=== PATIENT | male | born 1950 | race Caucasian/White ===

== ENCOUNTER 2020-07-25 10:37 | Outpatient (REF) | payer MEDICARE, MEDICAID, SELFPAY | END 2020-07-25 10:38 | disposition home or self-care (01) | LOC: HO.LAB 10:37 | PROVIDERS: PCP Family Medicine; Visit Provider Internal Medicine | DX: Z20.828 Contact with and (suspected) exposure to other viral communicable diseases (principal) | CPT/HCPCS: 36415; C9803; U0003 ==

== ENCOUNTER 2020-08-15 12:47 | Outpatient (REF) | payer MEDICARE, MEDICAID, SELFPAY ==
[2020-08-15 12:47] VITALS: BP 142/62; PULSE 55; RESP 16; TEMP 36.5; O2SAT 98
[2020-08-15 12:48] VITALS: BMI 40.3
== END 2020-08-15 12:48 | disposition home or self-care (01) ==
LOC: HO.MS 12:47
PROVIDERS: PCP Family Medicine; Visit Provider Ophthalmology
PROC: (CPT 66821; principal; 2020-08-15 13:50)
DX: H26.491 Other secondary cataract, right eye (principal)
CPT/HCPCS: 66821

== ENCOUNTER 2020-08-23 10:25 | Outpatient (REF) | payer MEDICARE, MEDICAID, SELFPAY ==
--- NOTE | 2020-08-23 10:27 | US_ITS ---
EXAMINATION: US RETROPERITONEAL LIMITED (RENAL ONLY) CLINICAL INFORMATION: Cyst of kidney, acquired. COMPARISON: Ultrasound renal 05/25/2019 and 06/30/2018. TECHNIQUE: Real-time imaging of the kidneys. FINDINGS: RIGHT KIDNEY: 12.1 x 5.6 x 7.7 cm (SAG x AP x TRV). The kidney is normal in size, contour, and echogenicity. Renal cortical thickness is normal. No calculi or focal parenchymal lesions. No hydronephrosis. LEFT KIDNEY: 12.8 x 5.9 x 8.5 cm (SAG x AP x TRV). The kidney is normal in size, contour, and echogenicity. Renal cortical thickness is normal. No calculi or focal parenchymal lesions. No hydronephrosis. US/US renal BI IMPRESSION: Unremarkable renal ultrasound.
--- NOTE | 2020-08-23 10:28 | US_ITS ---
EXAMINATION: US EXTRACRANIAL CAROTID DUPLEX, BILATERAL CLINICAL INFORMATION: Dizziness. COMPARISON: Ultrasound carotid 12/16/2013 TECHNIQUE: Real-time ultrasound and Doppler techniques (integrating B-mode 2-D vascular images, Doppler spectral analysis and color-flow Doppler imaging) were utilized to interrogate the extracranial carotid arteries, the vertebral arteries and proximal subclavian arteries bilaterally. The degree of stenosis is determined by criteria similar to NASCET. FINDINGS: Right Side: 1. There is hard atherosclerotic plaque seen in the bifurcation/proximal ICA region. 2. The common carotid artery PSV proximally is 95.1 cm/s and distally 102 cm/s. 3. The proximal internal carotid artery velocities are 78.6 cm/s systolic and 17.2 cm/s diastolic. 4. The proximal external carotid artery PSV is 123 cm/s. 5. The vertebral artery shows normal flow. 6. The subclavian artery waveforms are normal. Left Side: 1. There is hard atherosclerotic plaque seen in the bifurcation/proximal ICA region. 2. The common carotid artery PSV proximally is 112 cm/s and distally 109 cm/s. 3. The proximal internal carotid artery velocities are 81.8 cm/s systolic and 19.8 cm/s diastolic. 4. The proximal external carotid artery PSV is 136 cm/s. 5. The vertebral artery shows antegrade flow. 6. The subclavian artery waveforms are normal. US/US carotid duplex BI IMPRESSION: 1. RIGHT: No hemodynamically significant stenosis. 0-49% range. Hard atherosclerotic plaque at the bulb. 2. LEFT: No hemodynamically significant stenosis. 0-49% range. Hard atherosclerotic plaque at the bulb. 3. There is no change in no significant stenosis category (0-49%) when compared to the previous study dated 12/16/2013.
== END 2020-08-23 10:26 | disposition home or self-care (01) ==
LOC: HO.US 10:25
PROVIDERS: Visit Provider Family Medicine
DX: N28.1 Cyst of kidney, acquired (principal); R42 Dizziness and giddiness
CPT/HCPCS: 76775; 93880

== ENCOUNTER 2020-09-27 06:44 | Day surgery (SDC) | payer MEDICARE, MEDICAID, SELFPAY ==
[2020-09-26 08:13] VITALS: BMI 41.5
--- NOTE | 2020-09-26 08:42 | HO.ANESPROP2 ---
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 Surgical History Surgical History Hx of bilateral cataract extraction Hx of colonoscopy Hx of shoulder surgery S/P excision of lipoma Social History Social History Smoking Status: Former smoker Use of substances other than those prescribed or required for medical reasons: No Advance Directives: No Advance Directives Information Provided: Yes Meds Allergies Allergy/AdvReac Type Severity Reaction Status Date / Time atorvastatin [From Lipitor] Allergy Mild RASH Verified 09/27/20 07:03 metformin [From Glucophage] Allergy Mild RASH Verified 09/27/20 07:03 Home Medications Medication Instructions Recorded Confirmed Last Taken Type Basaglar KwikPen U-100 Insulin 58 unit SUBCUT DAILY 09/21/20 09/21/20 Unknown History Flovent HFA 1 puff PO BID 09/21/20 09/21/20 Unknown History acetaminophen 1 tab PO Q8H PRN 09/21/20 09/21/20 Unknown History albuterol sulfate 2 puff PO Q4-6H PRN 09/21/20 09/21/20 Unknown History baclofen 1 tab PO TID PRN 09/21/20 09/21/20 Unknown History carvedilol 1 tab PO BID 09/21/20 09/21/20 Unknown History cholecalciferol (vitamin D3) 1 tab PO DAILY 09/21/20 09/21/20 Unknown History diphenhydramine HCl [Banophen] 1 cap PO Q6H PRN 09/21/20 09/21/20 Unknown History hydrochlorothiazide 1 tab PO DAILY 09/21/20 09/21/20 Unknown History insulin aspart U-100 [Novolog unit SUBCUT 09/21/20 Unknown History Flexpen U-100 Insulin] lisinopril 1 tab PO DAILY 09/21/20 09/21/20 Unknown History loratadine 1 tab PO DAILY 09/21/20 09/21/20 Unknown History meclizine 1 tab PO TID PRN 09/21/20 09/21/20 Unknown History nitroglycerin mg SUBLINGUAL 09/21/20 Unknown History omeprazole 1 cap PO QAM 09/21/20 09/21/20 Unknown History oxycodone 1 tab PO TID PRN 09/21/20 09/21/20 Unknown History rosuvastatin 1 tab PO DAILY 09/21/20 09/21/20 Unknown History simethicone [Gas Relief Extra 1 tab PO QID PRN 09/21/20 09/21/20 Unknown History Strength] topiramate 1 - 2 tab PO BEDTIME 09/21/20 09/21/20 Unknown History aspirin 09/27/20 09/23/20 07:00 History Exam Exam Date and Time: September 26, 2020 0842 Height,Weight and Vital Signs: Height 5 ft 7.5 in Weight 122.016 kg Narrative Narrative: EKG 06/2020 SB@48 IA conduction delay ECHO 04/2020 LVEF 60-65%, mod LV hypertrophy Endocardium not well visualized therefore WMA cannot be ruled out Gr 1 DD with impaired relax LA mild dilated RV not well visualized, RV mildly enlarged mild MR No pul htn Asc aorta @ 3.8cm Assessment and Plan Assessment Anesthesia Assessment: Chart Reviewed
[2020-09-27 07:25] VITALS: BP 155/72; PULSE 57; RESP 18; TEMP 36.5; O2SAT 96
[2020-09-27 07:26] LABS: Glucose, Whole Blood 103 mg/dL (60-115)
[2020-09-27] MEDS: Lactated Ringers 1,000 ML 100 ML IVCONT (07:40)
--- NOTE | 2020-09-27 08:10 | MHC.SHP ---
Pre-Procedural Eval Section A The patient is an INPATIENT: No Changes since office visit: No Cold of Flu in the past 2 weeks, No New Medical Problems, No Changes in Medication and No Patient answered all questions The History & Physical has been completed within 30 days and I have reviewed it.: Yes Section B Chief Complaint: reflux,bowel habit change Allergies: Allergies Allergy/AdvReac Type Severity Reaction Status Date / Time atorvastatin [From Lipitor] Allergy Mild RASH Verified 09/27/20 07:03 metformin [From Glucophage] Allergy Mild RASH Verified 09/27/20 07:03 Plan I have reviewed the history and physical and performed a pertinent physical examination on my patient. No changes have occurred unless specified.
--- NOTE | 2020-09-27 08:34 | HO.ANESPROP2 ---
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 Surgical History Surgical History Hx of bilateral cataract extraction Hx of colonoscopy Hx of shoulder surgery S/P excision of lipoma Social History Social History Smoking Status: Former smoker Use of substances other than those prescribed or required for medical reasons: No Advance Directives: No Advance Directives Information Provided: Yes Meds Allergies Allergy/AdvReac Type Severity Reaction Status Date / Time atorvastatin [From Lipitor] Allergy Mild RASH Verified 09/27/20 07:03 metformin [From Glucophage] Allergy Mild RASH Verified 09/27/20 07:03 Active Medications: Current Medications Generic Name Dose Route Start Last Admin Trade Name Freq PRN Reason Stop Dose Admin Lactated Ringer's 1,000 mls @ 100 mls/hr 09/27/20 07:00 09/27/20 07:40 Lr IVCONT 100 mls/hr .Q10H RYAN Administration Home Medications Medication Instructions Recorded Confirmed Last Taken Type acetaminophen 1 tab PO Q8H PRN 09/21/20 09/21/20 Unknown History albuterol sulfate 2 puff PO Q4-6H PRN 09/21/20 09/21/20 Unknown History baclofen 1 tab PO TID PRN 09/21/20 09/21/20 Unknown History carvedilol 1 tab PO BID 09/21/20 09/21/20 Unknown History cholecalciferol (vitamin D3) 1 tab PO DAILY 09/21/20 09/21/20 Unknown History diphenhydramine HCl [Banophen] 1 cap PO Q6H PRN 09/21/20 09/21/20 Unknown History fluticasone propionate [Flovent 1 puff PO BID 09/21/20 09/21/20 Unknown History HFA] hydrochlorothiazide 1 tab PO DAILY 09/21/20 09/21/20 Unknown History insulin aspart U-100 [Novolog unit SUBCUT 09/21/20 Unknown History Flexpen U-100 Insulin] insulin glargine [Basaglar KwikPen 58 unit SUBCUT DAILY 09/21/20 09/21/20 Unknown History U-100 Insulin] lisinopril 1 tab PO DAILY 09/21/20 09/21/20 Unknown History loratadine 1 tab PO DAILY 09/21/20 09/21/20 Unknown History meclizine 1 tab PO TID PRN 09/21/20 09/21/20 Unknown History nitroglycerin mg SUBLINGUAL 09/21/20 Unknown History omeprazole 1 cap PO QAM 09/21/20 09/21/20 Unknown History oxycodone 1 tab PO TID PRN 09/21/20 09/21/20 Unknown History rosuvastatin 1 tab PO DAILY 09/21/20 09/21/20 Unknown History simethicone [Gas Relief Extra 1 tab PO QID PRN 09/21/20 09/21/20 Unknown History Strength] topiramate 1 - 2 tab PO BEDTIME 09/21/20 09/21/20 Unknown History aspirin 09/27/20 09/23/20 07:00 History Exam Exam Date and Time: September 27, 2020 0834 Height,Weight and Vital Signs: Height 5 ft 7.5 in Weight 122.016 kg Last Vital Signs Temp 97.7 F 09/27/20 07:25 Pulse 57 09/27/20 07:25 Resp 18 09/27/20 07:25 BP 155/72 H 09/27/20 07:25 Pulse Ox 96 09/27/20 07:25 Pertinent Lab Results Pertinent Lab Results: Laboratory Tests 09/27/20 07:23 POC Glucose 103 Airway Mallampati Class: III TM Dist: >3cm Neck ROM: Full Denture: Upper and Lower
--- NOTE | 2020-09-27 08:53 | PM.OP ---
Brief Operative Note Date of Service: 09/27/20 Pre-op diagnosis: gerd, change in bowels Post-op diagnosis: same Procedure: colonoscopy,egd Surgeon: Alex Murrell Anesthesia: MAC Estimated blood loss (mL): 5 Pathology: other (bxs antrum,egj,polyps x2) Condition: stable Disposition: PACU
[2020-09-27 08:54] VITALS: BP 108/47; PULSE 64; RESP 16; TEMP 36.3; O2SAT 99
[2020-09-27 09:09] VITALS: BP 136/63; PULSE 55; RESP 18; TEMP 36.2; O2SAT 97
--- NOTE | 2020-09-27 09:34 | OP_ITS ---
SURGEON: Alex Murrell MD INDICATIONS: 1. Gastroesophageal reflux disease. 2. Change in bowel habits. PREOPERATIVE DIAGNOSIS: POSTOPERATIVE DIAGNOSIS: PROCEDURE PERFORMED: ESTIMATED BLOOD LOSS: COMPLICATIONS: ANESTHESIA: ASSISTANTS: SPECIMENS: PROCEDURES PERFORMED: 1. Upper endoscopy with biopsy. 2. Colonoscopy to the terminal ileum with biopsy. MEDICATIONS: Monitored anesthesia care. DESCRIPTION OF PROCEDURE: History and physical performed. The risks and benefits of the procedure were explained to the patient. Informed consent was obtained and the patient was placed in left lateral decubitus position. The Olympus video gastroscope was introduced into the esophagus, stomach, and duodenum. Examination was performed and the scope was removed. He was repositioned for colonoscopy. A digital rectal exam was performed and was found to be normal. The Olympus pediatric video colonoscope was introduced into the rectum and advanced to the cecum without difficulty. The cecum was identified by transillumination, palpation, and identification of ileocecal valve. Examination was performed and the scope was removed. He tolerated both procedures well and was taken to recovery area in stable condition. FINDINGS: UPPER ENDOSCOPY: Esophagus: The esophagus was normal. There was no esophagitis. The EG junction was slightly irregular, this was biopsied. Stomach: Stomach showed no evidence of masses, ulcers, or polyps. Antral biopsies were obtained to rule out H pylori. Duodenum: The bulb and second portion were normal. COLONOSCOPY: The terminal ileum was examined. There was less than 1 mm nonspecific area of minimal erosion approximately 15 cm in from the ileocecal valve. There was no other evidence of ileitis or Crohn disease. The colonic mucosa was within normal limits without evidence of masses or ulcers. Two polyps were identified, both measured less than 5 mm and were removed with biopsy forceps. These were located at 95 and 70 cm. No other polyps were identified. Retroflexed examination showed small internal hemorrhoids. The quality of the prep was good. IMPRESSION: 1. Gastroesophageal reflux disease. 2. Colon polyps. RECOMMENDATION: Follow up the biopsy results. MD JO ANN Hua/CHARU / [id number]
== END 2020-09-27 09:39 | disposition home or self-care (01) ==
PROVIDERS: PCP Family Medicine; Visit Provider Internal Medicine Gastroenterology
PROC: (CPT 45380; principal; 2020-09-27 08:00)
DX: R19.4 Change in bowel habit (principal); D12.3 Benign neoplasm of transverse colon; D12.4 Benign neoplasm of descending colon; K21.9 Gastro-esophageal reflux disease without esophagitis; I10 Essential (primary) hypertension; G47.33 Obstructive sleep apnea (adult) (pediatric); E11.9 Type 2 diabetes mellitus without complications; Z79.4 Long term (current) use of insulin; Z99.89 Dependence on other enabling machines and devices; Z79.899 Other long term (current) drug therapy; Z88.8 Allergy status to other drugs, medicaments and biological substances
CPT/HCPCS: 45380; 43239; 82947; 88305; 88342

== ENCOUNTER 2020-10-26 11:47 | Outpatient (REF) | payer MEDICARE, MEDICAID, SELFPAY ==
[2020-10-26 14:05] LABS: MANUAL DIFF FLAG NO
[2020-10-26 14:17] LABS: Basophils Percent Auto 0.5 % (0-2); Eosinophils Absolute Auto 0.3 X10*3/uL (0.0-0.4); Eosinophils Percent Auto 3.9 % (0-4); Hematocrit 39.8 % (42-52); Hemoglobin 12.7 g/dl (14.0-18.0); Imm Gran Abs Auto 0.04 X10*3/uL (0.00-0.03); Imm Gran Pct Auto 0.5 % (0.0-0.4); Lymphocytes Absolute Auto 2.1 X10*3/uL (1.2-4.9); Lymphocytes Percent Auto 25.6 % (20-40); Mean Corpuscular HGB Conc 31.9 g/dl (31.0-36.0); Mean Corpuscular Hemoglobin 27.5 pg (27.0-33.0); Mean Corpuscular Volume 86.3 fL (80-98); Mean Platelet Volume 9.7 fL (9.4-12.4); Monocytes Absolute Auto 0.7 X10*3/uL (0.1-1.2); Monocytes Percent Auto 8.6 % (2-11); Neutrophils Absolute Auto 5.1 X10*3/uL (2.0-8.3); Neutrophils Percent Auto 60.9 % (45-73); Platelet Count 273 X10*3/uL (160-400); Red Blood Count 4.61 X10*6/uL (4.60-5.80); Red Cell Distribution Width 13.3 % (11.0-16.0); White Blood Count 8.3 X10*3/uL (4.8-10.8)
[2020-10-26 18:11] LABS: Alanine Aminotransferase 19 U/L (0-40); Albumin Level 3.8 g/dL (3.5-5.0); Alkaline Phosphatase 69 U/L (39-117); Aspartate Amino Transferase 19 U/L (5-37); Bilirubin Direct 0.2 mg/dL (0.0-0.5); Bilirubin Total 0.4 mg/dL (0.0-1.0); Lipase 17 U/L (8-78); Total Protein 6.8 g/dL (6.5-8.0)
[2020-10-26 18:21] LABS: Thyroid Stimulating Hormone 0.92 uIU/mL (0.32-4.0)
== END 2020-10-26 11:48 | disposition home or self-care (01) ==
LOC: HO.10HDL 11:47
PROVIDERS: Absent Provider Family Medicine; Visit Provider Internal Medicine Gastroenterology
DX: R19.4 Change in bowel habit (principal)
CPT/HCPCS: 36415; 80076; 83690; 84443; 85025

== ENCOUNTER 2021-02-10 07:56 | Outpatient (REF) | payer MEDICARE, MEDICAID, SELFPAY ==
--- NOTE | ~2021-02-10 | XR_ITS ---
EXAMINATION: XR SHOULDER, LEFT CLINICAL INFORMATION: Pain left shoulder. COMPARISON: None TECHNIQUE: Three views of the left shoulder. FINDINGS: There is left shoulder glenohumeral loss of joint space without bony erosive changes. No visible acute fracture, dislocation or subluxation seen. The soft tissues are normal. XR/XR shoulder LT min 2V IMPRESSION: Mild loss of left glenohumeral joint space without any visible fracture, dislocation or bony erosive changes. The soft tissues are normal.
== END 2021-02-10 07:57 | disposition home or self-care (01) ==
LOC: HO.HOSX 07:56
PROVIDERS: Visit Provider Orthopaedic Surgery
DX: M25.512 Pain in left shoulder (principal)
CPT/HCPCS: 73030; 99202

== ENCOUNTER → 2021-02-17 10:20 | Outpatient (BNVA) | payer MEDICARE, MEDICAID, SELFPAY | PROVIDERS: PCP Family Medicine; Referring Provider Family Medicine; Visit Provider Surgery | DX: L72.0 Epidermal cyst (principal) | CPT/HCPCS: 99202 ==

== ENCOUNTER 2021-03-14 07:35 | Outpatient (REF) | payer MEDICARE, MEDICAID, SELFPAY ==
[2021-03-14 07:45] VITALS: BP 144/36; PULSE 52; RESP 16; TEMP 36.4; O2SAT 99
[2021-03-14 07:46] VITALS: BMI 36.5
--- NOTE | 2021-03-14 08:25 | W.PM.OPN ---
Operative Note Operative Note Date of Service: 03/14/21 Narrative: Preoperative diagnosis: Epidermal inclusion cyst right posterior scalp Postoperative diagnosis: Same Procedure: Excision of epidermal inclusion cyst right posterior scalp Surgeon: Joseph Muir MD Tree Killer: No physician Anesthesia: Local Indications for procedure: 70-year-old male patient presenting with a previously infected cyst of the posterior scalp presenting for excision. Operative findings: 0.5 cm epidermal inclusion cyst with no evidence of acute infection. Specimen: Epidermal inclusion cyst right posterior scalp Estimated blood loss: 2 mL Complications: None Procedure details: Patient was brought to the minor surgery suite and placed in a left lateral decubitus position. The site of surgery was confirmed by the patient in the posterior right scalp. After assuring informed consent the skin was prepped with Betadine and draped in a sterile fashion. Local anesthesia consisting 1% lidocaine with epinephrine was then infiltrated around the cyst. An elliptical incision was then created with a scalpel carried out through subcutaneous tissue and around the cyst wall. The cyst was sent to pathology for further examination. Skin was then closed using 3 interrupted 3-0 Prolene sutures. Bacitracin was then applied. The patient tolerated the procedure well. He was discharged to home in stable condition.
== END 2021-03-14 07:36 | disposition home or self-care (01) ==
LOC: HO.MS 07:35
PROVIDERS: PCP Family Medicine; Visit Provider Surgery
PROC: (CPT 11420; principal; 2021-03-14 08:00)
DX: L72.0 Epidermal cyst (principal)
CPT/HCPCS: 11420; 88304

== ENCOUNTER → 2021-03-23 11:23 | Outpatient (BNVA) | payer MEDICARE, MEDICAID, SELFPAY | PROVIDERS: PCP Family Medicine; Referring Provider Family Medicine; Visit Provider Surgery | DX: L72.0 Epidermal cyst (principal) | CPT/HCPCS: 99212 ==

== ENCOUNTER 2021-06-07 11:20 | Emergency (ER) | payer MEDICARE, MEDICAID, SELFPAY ==
--- NOTE | ~2021-06-07 | XR_ITS ---
EXAMINATION: XR CHEST CLINICAL INFORMATION: Chest pain. COMPARISON: None TECHNIQUE: Frontal view of the chest was obtained. FINDINGS: No significant abnormality is noted involving the heart, lungs, mediastinum, bony thorax or soft tissues. XR/XR chest 1V IMPRESSION: Unremarkable chest examination.
[2021-06-07 11:37] VITALS: BP 140/60; PULSE 61; RESP 19; TEMP 36.4; O2SAT 99; BMI 36.1
--- NOTE | 2021-06-07 11:38 | ECG_ITS ---
Test Reason : chest pain Blood Pressure : / mmHG Vent. Rate : 048 BPM Atrial Rate : 048 BPM P-R Int : 220 ms QRS Dur : 090 ms QT Int : 416 ms P-R-T Axes : 031 -16 010 degrees QTc Int : 371 ms Sinus bradycardia with 1st degree A-V block Otherwise normal ECG When compared with ECG of 14-DEC-2015 09:44, No significant change was found Referred By: Heber Falcon Electronically Signed By:RINA BAILEY MD
--- NOTE | 2021-06-07 11:40 | ED_ITS ---
HPI - Chest Pain General Chief Complaint: Chest Pain Stated Complaint: chest pain, hiccups for 3 days, hx of heart attack Time Seen by Provider: 06/07/21 11:37 Source: patient Limitations: no limitations History of Present Illness HPI narrative: This is a 70-year-old male with a history of coronary artery disease, stenting several years ago, who notes that he needs a replacement part for CPAP machine and has not been able to use a CPAP machine at night. The patient has had hiccups for 3 days and when he gets a lot he tends to get chest pain. This morning he had chest pain and took a nitroglycerin with relief, 1/2 hour later he again had some chest pain and took and another nitroglycerin. Denies chest pain now. He has had some acid reflux symptoms with some green material coming up in his chest but denies actually vomiting. He denies abdominal pain. Denies any swelling in his lower extremities. Feels short of breath only at night. Denies any unusual sweats. He notes that he had an echocardiogram done 2 days ago ordered by Dr. Russell, his child care director, but he does not know the results of that study. Related Data Home Medications Medication Instructions Recorded Confirmed acetaminophen 650 mg 1 tab PO Q8H PRN 09/21/20 02/17/21 tablet,extended release albuterol sulfate 90 mcg/actuation 2 puff PO Q4-6H PRN 09/21/20 02/17/21 aerosol inhaler baclofen 10 mg tablet 1 tab PO TID PRN 09/21/20 02/17/21 carvedilol 3.125 mg tablet 1 tab PO BID 09/21/20 02/17/21 cholecalciferol (vitamin D3) 50 1 tab PO DAILY 09/21/20 02/17/21 mcg (2,000 unit) tablet diphenhydramine HCl 25 mg capsule 1 cap PO Q6H PRN 09/21/20 02/17/21 (Banophen) fluticasone propionate 110 1 puff PO BID 09/21/20 02/17/21 mcg/actuation HFA aerosol inhaler (Flovent HFA) hydrochlorothiazide 25 mg tablet 1 tab PO DAILY 09/21/20 02/17/21 insulin aspart U-100 100 unit/mL unit SUBCUT 09/21/20 02/17/21 (3 mL) subcutaneous pen (Novolog Flexpen U-100 Insulin aspart) insulin glargine 100 unit/mL (3 58 unit SUBCUT DAILY 09/21/20 02/17/21 mL) subcutaneous pen (Basaglar KwikPen U-100 Insulin) lisinopril 40 mg tablet 1 tab PO DAILY 09/21/20 02/17/21 loratadine 10 mg tablet 1 tab PO DAILY 09/21/20 02/17/21 meclizine 12.5 mg tablet 1 tab PO TID PRN 09/21/20 02/17/21 nitroglycerin 0.4 mg sublingual mg SUBLINGUAL 09/21/20 02/17/21 tablet omeprazole 40 mg capsule,delayed 1 cap PO QAM 09/21/20 02/17/21 release oxycodone 15 mg tablet 1 tab PO TID PRN 09/21/20 02/17/21 rosuvastatin 20 mg tablet 1 tab PO DAILY 09/21/20 02/17/21 simethicone 125 mg chewable tablet 1 tab PO QID PRN 09/21/20 02/17/21 (Gas Relief Extra Strength) topiramate 25 mg tablet 1 - 2 tab PO BEDTIME 09/21/20 02/17/21 aspirin 09/27/20 02/17/21 Allergies Allergy/AdvReac Type Severity Reaction Status Date / Time atorvastatin [From Lipitor] Allergy Mild RASH Verified 06/07/21 11:37 metformin [From Glucophage] Allergy Mild RASH Verified 06/07/21 11:37 Review of Systems Review of Systems: Yes all other systems are reviewed and are negative Constitutional: Constitutional: Reports as per HPI and Denies fever(s) Eyes: Eyes: Reports as per HPI and Reports no additional eye complaints ENT: Reports system reviewed and no additional complaints, except as documented, Reports as per HPI, Denies nasal congestion, Denies nasal discharge and Denies sore throat Cardiovascular: Cardiovascular: Reports as per HPI, Reports chest pain and Reports dyspnea Respiratory: Respiratory: Reports as per HPI, Denies cough and Reports dyspnea Gastrointestinal: Gastrointestinal: Reports as per HPI, Denies abdominal pain, Denies diarrhea, Reports nausea (GERD/dry heaves/hicupps) and Denies vomiting Genitourinary: Genitourinary: Reports as per HPI, Denies hematuria, Denies dysuria and Denies urinary frequency Musculoskeletal: Musculoskeletal: Reports no additional musculoskeletal complaints and Denies numbness Integumentary/Breasts: Skin/Breast: Reports as per HPI and Denies rash Neurologic: Reports as per HPI, Denies focal weakness, Denies numbness and Denies Sensory deficit (Neuro) Psychiatric: Psychiatric: Reports no additional psychiatric complaints and Reports as per HPI Endocrine: Endocrine: Reports no additional endocrine complaints and Reports as per HPI Hematologic/Lymphatic: Hematologic/Lymphatic: Reports no additional hematologic/lymphatic complaints, Reports as per HPI and Reports other (No peripheral edema) [facility] Past Medical History Medical History Angina pectoris Back pain CAD (coronary artery disease) Depression Diabetes Elevated cholesterol GERD (gastroesophageal reflux disease) History of colitis HTN (hypertension) Insomnia Myocardial infarction On beta manuel at home 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 Surgical History Hx of bilateral cataract extraction Hx of colonoscopy Hx of shoulder surgery S/P excision of lipoma Social History Social History Alcohol intake: never Patient Tobacco Use Status: Never used Tobacco Use of substances other than those prescribed or required for medical reasons: No Advance Directives: No Advance Directives Information Provided: No Current occupational status: employed 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 Exam Vital Signs: Vital Signs: Last Vital Signs Temp 97.7 F 06/07/21 12:07 Pulse 55 06/07/21 13:58 Resp 98 H 06/07/21 13:58 BP 143/62 H 06/07/21 13:58 Pulse Ox 99 06/07/21 13:58 Body Mass Index 36.1 Const: Other: Patient well appearing, does not appear uncomfortable, smiling and joking, moderately obese General: cooperative, no acute distress and alert Orientation/consciousness: patient oriented x3 HENMT: Head: Yes normal to inspection Eyes: General: appearance normal, both eyes and all related structures Eyelids: Yes eyelids normal Conjunctivae: conjunctivae normal Pupils: Equal, round and reactive pupils present Neck: Neck: Yes normal visual inspection and Yes supple Chest: Chest palpation & inspection: normal inspection of the chest Resp: Effort & Inspection: normal respiratory effort Auscultation: clear to auscultation bilaterally Cardio: Rate: regular rate Rhythm: regular rhythm Heart sounds: S1 normal heart sound present, S2 normal heart sound present, no gallops, no murmurs and no rubs GI: Palpation (GI): Soft to palpation, nontender and Other GI palpation findings present (Non-distended) Auscultation: normal bowel sounds Skin: General skin exam: no rashes or lesions noted Neuro: General: patient oriented x3, no focal motor deficits and CN's II-XI intact bilaterally Cranial nerves: Yes Equal, round and reactive pupils present Cognition (Neuro): normal cognition Motor exam (neuro): 5/5 motor strength present throughout Sensory Exam: No Sensory deficit (Neuro) Extrem: General: Yes normal to inspection and Yes no pedal edema Psych: Appearance: grossly normal Affect: normal affect MDM - Chest Pain MDM Narrative Medical decision making narrative: Patient here for transient chest pain in the setting of hiccups for 3 days and what sounds like some reflux symptoms. Patient recently had an echocardiogram, 2 days ago which shows no change from prior. Results of the echo were obtained from the patient's child care director. Patient's troponin is negative and his EKG is unremarkable. Patient has had issues with his CPAP machine as it was recalled and has been unable to have it replaced. He has called his primary care physician, also went to [facility] where it was purchased, has also call the company but he said many others are in his position and there was a wait of weeks. The patient reports that he is traveling to [place] tomorrow, and want to make sure that he was okay to travel. No evidence of unstable angina or acute coronary syndrome. Lab Data Attestation: I reviewed the patient's lab results. Result diagrams: 06/07/21 11:49 06/07/21 11:49 Labs: Lab Results 06/07/21 06/07/21 06/07/21 Range/Units 11:49 11:49 11:49 WBC 7.9 (4.8-10.8) X10*3/uL RBC 4.73 (4.60-5.80) X10*6/uL Hgb 13.2 L (14.0-18.0) g/dl Hct 40.0 L (42.0-52.0) % MCV 84.6 (80.0-98.0) fL MCH 27.9 (27.0-33.0) pg MCHC 33.0 (31.0-36.0) g/dl RDW 13.2 (11.0-16.0) % Plt Count 241 (160-400) X10*3/uL MPV 8.9 L (9.4-12.4) fL Immature Gran % (Auto) 0.1 (0.0-0.4) % Neut % (Auto) 60.8 (45-73) % Lymph % (Auto) 24.5 (20-40) % [place] % (Auto) 9.2 (2-11) % Eos % (Auto) 5.0 H (0-4) % Baso % (Auto) 0.4 (0-2) % Lymph # (Auto) 1.9 (1.2-4.9) X10*3/uL [place] # (Auto) 0.7 (0.1-1.2) X10*3/uL Eos # (Auto) 0.4 (0.0-0.4) X10*3/uL Baso # (Auto) 0.0 (0.0-0.2) X10*3/uL Abs Immat Gran (auto) 0.01 (0.00-0.03) X10*3/uL Absolute Neuts (auto) 4.8 (2.0-8.3) x10*3/uL Absolute Nucleated RBC 0.000 (0.0-0.012) X10*3/uL Nucleated RBC % (auto) 0.0 (0.0-0.2) /100WBC Sodium 137 (135-145) mmol/L Potassium 4.0 (3.3-5.1) mmol/L Chloride 101 (96-108) mmol/L Carbon Dioxide 29 (22-29) mmol/L Anion Gap 11 L (12-20) BUN 21 H (9-16) mg/dL Creatinine 0.96 (0.5-1.4) mg/dL Estim Creat Clear Calc 85.2 Estimated GFR > 60 Random Glucose 158 H (60-115) mg/dL Calcium 8.9 (8.4-10.2) mg/dL Troponin I High Sens < 3.5 (<3.5-35.0) ng/L Imaging Data Chest x-ray: Radiologist's impression: FINDINGS: No significant abnormality is noted involving the heart, lungs, mediastinum, bony thorax or soft tissues. XR/XR chest 1V IMPRESSION: Unremarkable chest examination. ? ECG Data ECG #1: Attestation: I personally reviewed and interpreted this ECG as follows: ECG interpretation date: 06/07/21 ECG interpretation time: 12:19 Interpretation: Sinus bradycardia the with a rate of 48. No ST elevation or depression. Intraventricular conduction delay noted. Normal QRS axis. First-degree AV block. Discharge Plan Discharge Clinical Impression: Nonspecific chest pain Patient Disposition: Home, Self-Care Instructions: Chest Pain (ED) Additional Instructions: Follow-up with your primary care physician. Take her medications as usual. Return for any new or worsened symptoms. Continue pursuing getting your CPAP machine replaced. Prescriptions: No Action topiramate 25 mg tablet 1 - 2 tab PO BEDTIME RF: 0 meclizine 12.5 mg tablet 1 tab PO TID PRN (Reason: Dizziness) RF: 0 omeprazole 40 mg capsule,delayed release(DR/EC) 1 cap PO QAM RF: 0 carvedilol 3.125 mg tablet 1 tab PO BID RF: 0 acetaminophen 650 mg tablet extended release 1 tab PO Q8H PRN (Reason: Pain) RF: 0 oxycodone 15 mg tablet 1 tab PO TID PRN (Reason: Pain) RF: 0 baclofen 10 mg tablet 1 tab PO TID PRN (Reason: muscle spasm) RF: 0 diphenhydramine HCl [Banophen] 25 mg capsule 1 cap PO Q6H PRN (Reason: itch) RF: 0 nitroglycerin 0.4 mg tablet, sublingual sublingual RF: 0 simethicone [Gas Relief Extra Strength] 125 mg tablet,chewable 1 tab PO QID PRN (Reason: gas) RF: 0 hydrochlorothiazide 25 mg tablet 1 tab PO DAILY RF: 0 albuterol sulfate 90 mcg/actuation HFA aerosol inhaler 2 puff PO Q4-6H PRN (Reason: Wheezing) RF: 0 lisinopril 40 mg tablet 1 tab PO DAILY RF: 0 loratadine 10 mg tablet 1 tab PO DAILY RF: 0 Flovent HFA 110 mcg/actuation HFA aerosol inhaler 1 puff PO BID RF: 0 insulin aspart U-100 [Novolog Flexpen U-100 Insulin] 100 unit/mL (3 mL) insulin pen subcut RF: 0 rosuvastatin 20 mg tablet 1 tab PO DAILY RF: 0 Basaglar KwikPen U-100 Insulin 100 unit/mL (3 mL) insulin pen 58 unit subcut DAILY RF: 0 cholecalciferol (vitamin D3) 50 mcg (2,000 unit) tablet 1 tab PO DAILY RF: 0 aspirin 81 mg RF: 0 Interventions: ED Discharge Assessment Last Done: 06/07/21 14:02 Discharge Date/Time: 06/07/21 14:07
[2021-06-07] MEDS: Aspirin 81 MG TAB.CHEW 324 MG PO (11:43)
[2021-06-07 11:55] LABS: MANUAL DIFF FLAG NO
[2021-06-07 11:57] LABS: Basophils Percent Auto 0.4 % (0-2); Eosinophils Absolute Auto 0.4 X10*3/uL (0.0-0.4); Hemoglobin 13.2 g/dl (14.0-18.0); Imm Gran Abs Auto 0.01 X10*3/uL (0.00-0.03); Imm Gran Pct Auto 0.1 % (0.0-0.4); Lymphocytes Absolute Auto 1.9 X10*3/uL (1.2-4.9); Lymphocytes Percent Auto 24.5 % (20-40); Mean Corpuscular Hemoglobin 27.9 pg (27.0-33.0); Mean Corpuscular Volume 84.6 fL (80.0-98.0); Mean Platelet Volume 8.9 fL (9.4-12.4); Monocytes Absolute Auto 0.7 X10*3/uL (0.1-1.2); Monocytes Percent Auto 9.2 % (2-11); Neutrophils Absolute Auto 4.8 x10*3/uL (2.0-8.3); Neutrophils Percent Auto 60.8 % (45-73); Platelet Count 241 X10*3/uL (160-400); Red Blood Count 4.73 X10*6/uL (4.60-5.80); Red Cell Distribution Width 13.2 % (11.0-16.0); White Blood Count 7.9 X10*3/uL (4.8-10.8)
[2021-06-07 12:07] VITALS: BP 135/56; PULSE 51; RESP 12; TEMP 36.5; O2SAT 95
[2021-06-07 12:23] LABS: Anion Gap 11 (12-20); Blood Urea Nitrogen 21 mg/dL (9-16); Calcium 8.9 mg/dL (8.4-10.2); Carbon Dioxide 29 mmol/L (22-29); Chloride 101 mmol/L (96-108); Creatinine Clr Calc Pharmacy 85.2; Estimated Glomerular Filt Rate > 60; Glucose Random 158 mg/dL (60-115); Sodium 137 mmol/L (135-145)
[2021-06-07 12:30] LABS: Troponin-I High Sensitivity < 3.5 ng/L (<3.5-35.0)
[2021-06-07 12:49] VITALS: PULSE 44
[2021-06-07 13:58] VITALS: BP 143/62; PULSE 55; RESP 98; O2SAT 99
== END 2021-06-07 14:07 | disposition home or self-care (01) ==
PROVIDERS: Emergency Provider Emergency Medicine; PCP Family Medicine
DX: R07.9 Chest pain, unspecified (principal); I25.10 Atherosclerotic heart disease of native coronary artery without angina pectoris; I10 Essential (primary) hypertension; E11.9 Type 2 diabetes mellitus without complications; G47.33 Obstructive sleep apnea (adult) (pediatric); I25.2 Old myocardial infarction; Z79.899 Other long term (current) drug therapy; Z95.5 Presence of coronary angioplasty implant and graft; Z91.19 Patient's noncompliance with other medical treatment and regimen
CPT/HCPCS: 36415; 71045; 80048; 84484; 85025; 93005; 99284; 99285

== ENCOUNTER 2021-07-18 12:00 | Outpatient (REF) | payer MEDICARE, MEDICAID, SELFPAY | END 2021-07-18 12:01 | disposition home or self-care (01) | LOC: HO.LAB 12:00 | PROVIDERS: Visit Provider Internal Medicine | DX: Z20.822 Contact with and (suspected) exposure to COVID-19 (principal) | CPT/HCPCS: 36415; 87635; C9803 ==

== ENCOUNTER 2021-10-03 12:47 | Emergency (ER) | payer MEDICARE, MEDICAID, SELFPAY ==
--- NOTE | 2021-10-03 12:56 | ECG_ITS ---
Test Reason : CP Blood Pressure : / mmHG Vent. Rate : 046 BPM Atrial Rate : 049 BPM P-R Int : 000 ms QRS Dur : 092 ms QT Int : 418 ms P-R-T Axes : 040 -12 026 degrees QTc Int : 365 ms Artifact in tracing Sinus bradycardia Apart from artifact, no clear abnormality otherwise When compared with ECG of 07-JUN-2021 12:05, No significant changes seen Referred By: Generic ED Physician Electronically Signed By:CHRISTIAN HURD
[2021-10-03 13:32] VITALS: BP 132/43; PULSE 44; RESP 20; TEMP 36.8; O2SAT 100; BMI 36.0
[2021-10-03 14:21] LABS: MANUAL DIFF FLAG NO
[2021-10-03 14:26] LABS: Basophils Absolute Auto 0.1 X10*3/uL (0.0-0.2); Basophils Percent Auto 0.6 % (0-2); Eosinophils Absolute Auto 0.4 X10*3/uL (0.0-0.4); Eosinophils Percent Auto 5.5 % (0-4); Hematocrit 41.6 % (42.0-52.0); Hemoglobin 13.1 g/dl (14.0-18.0); Imm Gran Abs Auto 0.02 X10*3/uL (0.00-0.03); Imm Gran Pct Auto 0.3 % (0.0-0.4); Lymphocytes Absolute Auto 2.2 X10*3/uL (1.2-4.9); Lymphocytes Percent Auto 28.2 % (20-40); Mean Corpuscular HGB Conc 31.5 g/dl (31.0-36.0); Mean Corpuscular Hemoglobin 27.6 pg (27.0-33.0); Mean Corpuscular Volume 87.6 fL (80.0-98.0); Mean Platelet Volume 9.1 fL (9.4-12.4); Monocytes Absolute Auto 0.7 X10*3/uL (0.1-1.2); Monocytes Percent Auto 8.5 % (2-11); Neutrophils Absolute Auto 4.4 x10*3/uL (2.0-8.3); Neutrophils Percent Auto 56.9 % (45-73); Platelet Count 237 X10*3/uL (160-400); Red Blood Count 4.75 X10*6/uL (4.60-5.80); Red Cell Distribution Width 13.3 % (11.0-16.0); White Blood Count 7.8 X10*3/uL (4.8-10.8)
[2021-10-03 14:44] LABS: Anion Gap 11 (12-20); Blood Urea Nitrogen 18 mg/dL (9-16); Calcium 9.3 mg/dL (8.4-10.2); Carbon Dioxide 31 mmol/L (22-29); Chloride 102 mmol/L (96-108); Creatinine Clr Calc Pharmacy 88.5; Estimated Glomerular Filt Rate > 60; Glucose Random 136 mg/dL (60-115); Potassium 4.2 mmol/L (3.3-5.1); Sodium 140 mmol/L (135-145)
[2021-10-03 14:50] LABS: Troponin-I High Sensitivity < 3.5 ng/L (<3.5-35.0)
--- NOTE | 2021-10-03 17:19 | ED_ITS ---
HPI - Chest Pain General Chief Complaint: Chest Pain Stated Complaint: L side chest pains Time Seen by Provider: 10/03/21 17:19 Source: patient Mode of arrival: ambulatory Limitations: no limitations History of Present Illness HPI narrative: At 3am he had palpitations with left arm pain. The pain woke him up from sleep, he felt short of breath. Patient has constant palpitations. He has been belching and nauseated. Recent holter monitor for 15 days was normal MD complaint: other (palpitations) Pertinent past history: coronary artery disease and other (DM, HTN) Onset (ago): hour(s) Timing of current episode: episodic Onset: during rest Severity: mild Quality: other Relieving factors: nothing Exacerbating factors: nothing Associated symptoms: palpitations Treatment prior to arrival: none Risk Factors Coronary artery disease risk factors: diabetes, hyperlipidemia and hypertension Related Data Home Medications Medication Instructions Recorded Confirmed acetaminophen 650 mg 1 tab PO Q8H PRN 09/21/20 02/17/21 tablet,extended release albuterol sulfate 90 mcg/actuation 2 puff PO Q4-6H PRN 09/21/20 02/17/21 aerosol inhaler baclofen 10 mg tablet 1 tab PO TID PRN 09/21/20 02/17/21 carvedilol 3.125 mg tablet 1 tab PO BID 09/21/20 02/17/21 cholecalciferol (vitamin D3) 50 1 tab PO DAILY 09/21/20 02/17/21 mcg (2,000 unit) tablet diphenhydramine HCl 25 mg capsule 1 cap PO Q6H PRN 09/21/20 02/17/21 (Banophen) fluticasone propionate 110 1 puff PO BID 09/21/20 02/17/21 mcg/actuation HFA aerosol inhaler (Flovent HFA) hydrochlorothiazide 25 mg tablet 1 tab PO DAILY 09/21/20 02/17/21 insulin aspart U-100 100 unit/mL unit SUBCUT 09/21/20 02/17/21 (3 mL) subcutaneous pen (Novolog Flexpen U-100 Insulin aspart) insulin glargine 100 unit/mL (3 58 unit SUBCUT DAILY 09/21/20 02/17/21 mL) subcutaneous pen (Basaglar KwikPen U-100 Insulin) lisinopril 40 mg tablet 1 tab PO DAILY 09/21/20 02/17/21 loratadine 10 mg tablet 1 tab PO DAILY 09/21/20 02/17/21 meclizine 12.5 mg tablet 1 tab PO TID PRN 09/21/20 02/17/21 nitroglycerin 0.4 mg sublingual mg SUBLINGUAL 09/21/20 02/17/21 tablet omeprazole 40 mg capsule,delayed 1 cap PO QAM 09/21/20 02/17/21 release oxycodone 15 mg tablet 1 tab PO TID PRN 09/21/20 02/17/21 rosuvastatin 20 mg tablet 1 tab PO DAILY 09/21/20 02/17/21 simethicone 125 mg chewable tablet 1 tab PO QID PRN 09/21/20 02/17/21 (Gas Relief Extra Strength) topiramate 25 mg tablet 1 - 2 tab PO BEDTIME 09/21/20 02/17/21 aspirin 09/27/20 02/17/21 Allergies Allergy/AdvReac Type Severity Reaction Status Date / Time atorvastatin [From Lipitor] Allergy Mild RASH Verified 06/07/21 11:37 metformin [From Glucophage] Allergy Mild RASH Verified 06/07/21 11:37 Review of Systems Constitutional: Constitutional: Reports no additional constitutional complaints Eyes: Eyes: Reports no additional eye complaints ENT: Denies dizziness Cardiovascular: Cardiovascular: Reports no additional cardiovascular complaints Respiratory: Respiratory: Reports as per HPI Gastrointestinal: Gastrointestinal: Reports no additional gastrointestinal complaints Musculoskeletal: Musculoskeletal: Reports no additional musculoskeletal complaints Integumentary/Breasts: Skin/Breast: Denies rash Neurologic: Reports system reviewed and no additional complaints, except as documented, Denies dizziness and Denies Sensory deficit (Neuro) Psychiatric: Psychiatric: Denies anxiety PMFSH Past Medical History Medical History Angina pectoris Back pain CAD (coronary artery disease) Depression Diabetes Elevated cholesterol GERD (gastroesophageal reflux disease) History of colitis HTN (hypertension) Insomnia Myocardial infarction On beta manuel at home 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 Surgical History Hx of bilateral cataract extraction Hx of colonoscopy Hx of shoulder surgery S/P excision of lipoma Social History Social History Alcohol intake: never Patient Tobacco Use Status: Never used Tobacco Advance Directives: No Advance Directives Information Provided: No Current occupational status: employed 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 Exam Vital Signs: Vital Signs: Last Vital Signs Temp 97.6 F 10/03/21 19:43 Pulse 43 L 10/03/21 19:43 Resp 20 10/03/21 19:43 BP 151/66 H 10/03/21 19:43 Pulse Ox 97 10/03/21 19:43 BMI result Body Mass Index 36.0 Const: General: healthy appearing Nutritional Appearance: average body habitus Orientation/consciousness: oriented to person and patient oriented x3 Limitations: no limitations HENMT: Head: Yes normal to inspection Ears: external ears normal General nose exam: Normal external nose present Mouth: Normal oral and palatal mucosa present and oropharynx normal Throat: Yes posterior oropharynx normal Eyes: General: appearance normal, both eyes and all related structures Neck: Other: supple Neck: Yes normal visual inspection Chest: Chest palpation & inspection: normal inspection of the chest Resp: Auscultation: clear to auscultation bilaterally Cardio: Jugular venous distension: no JVD Rate: regular rate Rhythm: regular rhythm Heart sounds: S1 normal heart sound present and S2 normal heart sound present GI: Inspection: Yes normal to inspection Palpation (GI): Soft to palpation, nontender and No hepatosplenomegaly present Auscultation: normal bowel sounds : General: Yes no CVA tenderness Back/Spine/Pelvis: Back: no CVA tenderness Skin: General skin exam: no rashes or lesions noted Neuro: General: oriented to person and patient oriented x3 Cranial nerves: Yes CN's II-XII intact bilaterally Motor exam (neuro): 5/5 motor strength present throughout Sensory Exam: No Sensory deficit (Neuro) Extrem: General: Yes normal to inspection Psych: Appearance: grossly normal Course Reevaluation(s) Reevaluation #1: patient with normal EKG and repeat troponin, his symptoms were mostly palpitations doubt cardiac event. Will dc home Time: 20:45 MDM - Chest Pain Lab Data Result diagrams: 10/03/21 14:13 10/03/21 14:13 Labs: Lab Results 10/03/21 10/03/21 10/03/21 Range/Units 14:13 14:13 14:13 WBC 7.8 (4.8-10.8) X10*3/uL RBC 4.75 (4.60-5.80) X10*6/uL Hgb 13.1 L (14.0-18.0) g/dl Hct 41.6 L (42.0-52.0) % MCV 87.6 (80.0-98.0) fL MCH 27.6 (27.0-33.0) pg MCHC 31.5 (31.0-36.0) g/dl RDW 13.3 (11.0-16.0) % Plt Count 237 (160-400) X10*3/uL MPV 9.1 L (9.4-12.4) fL Immature Gran % (Auto) 0.3 (0.0-0.4) % Neut % (Auto) 56.9 (45-73) % Lymph % (Auto) 28.2 (20-40) % [place] % (Auto) 8.5 (2-11) % Eos % (Auto) 5.5 H (0-4) % Baso % (Auto) 0.6 (0-2) % Lymph # (Auto) 2.2 (1.2-4.9) X10*3/uL [place] # (Auto) 0.7 (0.1-1.2) X10*3/uL Eos # (Auto) 0.4 (0.0-0.4) X10*3/uL Baso # (Auto) 0.1 (0.0-0.2) X10*3/uL Abs Immat Gran (auto) 0.02 (0.00-0.03) X10*3/uL Absolute Neuts (auto) 4.4 (2.0-8.3) x10*3/uL Absolute Nucleated RBC 0.000 (0.0-0.012) X10*3/uL Nucleated RBC % (auto) 0.0 (0.0-0.2) /100WBC Sodium 140 (135-145) mmol/L Potassium 4.2 (3.3-5.1) mmol/L Chloride 102 (96-108) mmol/L Carbon Dioxide 31 H (22-29) mmol/L Anion Gap 11 L (12-20) BUN 18 H (9-16) mg/dL Creatinine 0.91 (0.5-1.4) mg/dL Estim Creat Clear Calc 88.5 Estimated GFR > 60 POC Glucose (60-115) mg/dL Random Glucose 136 H (60-115) mg/dL Calcium 9.3 (8.4-10.2) mg/dL Troponin I High Sens < 3.5 (<3.5-35.0) ng/L 10/03/21 10/03/21 Range/Units 18:55 18:58 WBC (4.8-10.8) X10*3/uL RBC (4.60-5.80) X10*6/uL Hgb (14.0-18.0) g/dl Hct (42.0-52.0) % MCV (80.0-98.0) fL MCH (27.0-33.0) pg MCHC (31.0-36.0) g/dl RDW (11.0-16.0) % Plt Count (160-400) X10*3/uL MPV (9.4-12.4) fL Immature Gran % (Auto) (0.0-0.4) % Neut % (Auto) (45-73) % Lymph % (Auto) (20-40) % [place] % (Auto) (2-11) % Eos % (Auto) (0-4) % Baso % (Auto) (0-2) % Lymph # (Auto) (1.2-4.9) X10*3/uL [place] # (Auto) (0.1-1.2) X10*3/uL Eos # (Auto) (0.0-0.4) X10*3/uL Baso # (Auto) (0.0-0.2) X10*3/uL Abs Immat Gran (auto) (0.00-0.03) X10*3/uL Absolute Neuts (auto) (2.0-8.3) x10*3/uL Absolute Nucleated RBC (0.0-0.012) X10*3/uL Nucleated RBC % (auto) (0.0-0.2) /100WBC Sodium (135-145) mmol/L Potassium (3.3-5.1) mmol/L Chloride (96-108) mmol/L Carbon Dioxide (22-29) mmol/L Anion Gap (12-20) BUN (9-16) mg/dL Creatinine (0.5-1.4) mg/dL Estim Creat Clear Calc Estimated GFR POC Glucose 113 (60-115) mg/dL Random Glucose (60-115) mg/dL Calcium (8.4-10.2) mg/dL Troponin I High Sens < 3.5 (<3.5-35.0) ng/L ECG Data ECG #1: Attestation: I personally reviewed and interpreted this ECG as follows: Interpretation: sinus rate 50, no st or twave changes Discharge Plan Discharge Clinical Impression: Chest pain, Heart palpitations Patient Disposition: Home, Self-Care Instructions: Chest Pain (ED), Heart Palpitations (ED) Prescriptions: No Action topiramate 25 mg tablet 1 - 2 tab PO BEDTIME 0RF meclizine 12.5 mg tablet 1 tab PO TID PRN (Reason: Dizziness) 0RF omeprazole 40 mg capsule,delayed release(DR/EC) 1 cap PO QAM 0RF carvedilol 3.125 mg tablet 1 tab PO BID 0RF acetaminophen 650 mg tablet extended release 1 tab PO Q8H PRN (Reason: Pain) 0RF oxycodone 15 mg tablet 1 tab PO TID PRN (Reason: Pain) 0RF baclofen 10 mg tablet 1 tab PO TID PRN (Reason: muscle spasm) 0RF diphenhydramine HCl [Banophen] 25 mg capsule 1 cap PO Q6H PRN (Reason: itch) 0RF nitroglycerin 0.4 mg tablet, sublingual sublingual 0RF simethicone [Gas Relief Extra Strength] 125 mg tablet,chewable 1 tab PO QID PRN (Reason: gas) 0RF hydrochlorothiazide 25 mg tablet 1 tab PO DAILY 0RF albuterol sulfate 90 mcg/actuation HFA aerosol inhaler 2 puff PO Q4-6H PRN (Reason: Wheezing) 0RF lisinopril 40 mg tablet 1 tab PO DAILY 0RF loratadine 10 mg tablet 1 tab PO DAILY 0RF Flovent HFA 110 mcg/actuation HFA aerosol inhaler 1 puff PO BID 0RF insulin aspart U-100 [Novolog Flexpen U-100 Insulin] 100 unit/mL (3 mL) insulin pen subcut 0RF rosuvastatin 20 mg tablet 1 tab PO DAILY 0RF Basaglar KwikPen U-100 Insulin 100 unit/mL (3 mL) insulin pen 58 unit subcut DAILY 0RF cholecalciferol (vitamin D3) 50 mcg (2,000 unit) tablet 1 tab PO DAILY 0RF aspirin 81 mg 0RF Referrals: Physician,Unknown J [Primary Care Provider] - 1 week
[2021-10-03 19:01] LABS: Glucose, Whole Blood 113 mg/dL (60-115)
[2021-10-03 19:32] LABS: Troponin-I High Sensitivity < 3.5 ng/L (<3.5-35.0)
[2021-10-03 19:43] VITALS: BP 151/66; PULSE 43; RESP 20; TEMP 36.4; O2SAT 97
[2021-10-03 20:48] VITALS: BP 162/62; PULSE 42; RESP 20; TEMP 36.4; O2SAT 99
--- NOTE | 2021-10-03 20:54 | PC.NURSE ---
pt a&o,no sob or chest pain, pt able to ambulate with no distress, Reviewed discharge instructions and follow up appointment. pt verbalized understanding.
== END 2021-10-03 20:54 | disposition home or self-care (01) ==
PROVIDERS: Emergency Provider Emergency Medicine
DX: R07.9 Chest pain, unspecified (principal); R00.2 Palpitations; E11.9 Type 2 diabetes mellitus without complications; E78.5 Hyperlipidemia, unspecified; I10 Essential (primary) hypertension; Z79.4 Long term (current) use of insulin; Z79.02 Long term (current) use of antithrombotics/antiplatelets; Z79.899 Other long term (current) drug therapy
CPT/HCPCS: 36415; 80048; 82947; 84484; 85025; 93005; 99283; 99284

== ENCOUNTER 2022-08-22 13:17 | Outpatient (REF) | payer MEDICARE, MEDICAID, SELFPAY ==
--- NOTE | ~2022-08-22 | XR_ITS ---
EXAMINATION: XR CHEST CLINICAL INFORMATION: Acute cough COMPARISON: 06/07/2021 TECHNIQUE: 2 views of the chest were obtained. FINDINGS: No significant abnormality is noted involving the heart, lungs, mediastinum, bony thorax or soft tissues. XR/XR chest 2V IMPRESSION: Unremarkable examination.
== END 2022-08-22 13:18 | disposition home or self-care (01) ==
LOC: HO.XRAY 13:17
PROVIDERS: PCP Family Medicine; Visit Provider Family Medicine
DX: R05.1 Acute cough (principal)
CPT/HCPCS: 71046

== ENCOUNTER 2022-09-03 08:42 | Outpatient (REF) | payer MEDICARE, MEDICAID, SELFPAY ==
--- NOTE | ~2022-09-03 | US_ITS ---
EXAMINATION: US ABDOMEN COMPLETE CLINICAL INFORMATION: Nausea with vomiting. COMPARISON: Ultrasound retroperitoneal limited (renal only) 08/23/2020 and 05/25/2019. TECHNIQUE: Real-time imaging of the abdominal viscera. FINDINGS: PANCREAS: The body and tail are obscured by bowel gas. The head and neck are normal in appearance. ABDOMINAL AORTA: Visualized segments are normal. INFERIOR VENA CAVA: Visualized segment normal. LIVER: The liver is enlarged measuring 17 cm. The liver contour is normal. There is diffuse increased liver parenchymal echogenicity, consistent with hepatic steatosis. No focal hepatic lesion. There is no intrahepatic biliary duct dilatation seen. GALLBLADDER: Normal. The gallbladder is physiologically distended without evidence of stones, sludge, polyps, wall thickening or pericholecystic fluid. COMMON BILE DUCT: Normal in caliber measuring 0.4 cm in diameter. RIGHT KIDNEY: Normal. No hydronephrosis. No renal calculi or focal parenchymal lesions. The kidney measures 13.0 cm in maximum dimension. LEFT KIDNEY: Small upper pole renal cyst. No imaging follow-up is recommended. No hydronephrosis or renal calculi. The kidney measures 10.6 cm in maximum dimension. SPLEEN: Normal. The spleen measures 8.9 cm in maximum dimension. FREE FLUID: None. US/US abdomen complete IMPRESSION: Enlarged fatty liver.
== END 2022-09-03 08:43 | disposition home or self-care (01) ==
LOC: HO.US 08:42
PROVIDERS: Visit Provider Family Medicine
DX: R11.2 Nausea with vomiting, unspecified (principal)
CPT/HCPCS: 76700

== ENCOUNTER 2022-10-01 12:37 | Outpatient (REF) | payer MEDICARE, MEDICAID, SELFPAY ==
[2022-10-01 14:07] LABS: Hematocrit 40.8 % (42.0-52.0); Hemoglobin 13.4 g/dl (14.0-18.0); Mean Corpuscular HGB Conc 32.8 g/dl (31.0-36.0); Mean Corpuscular Hemoglobin 28.2 pg (27.0-33.0); Mean Corpuscular Volume 85.7 fL (80.0-98.0); Mean Platelet Volume 9.4 fL (9.4-12.4); Platelet Count 260 X10*3/uL (160-400); Red Blood Count 4.76 X10*6/uL (4.60-5.80); White Blood Count 8.6 X10*3/uL (4.8-10.8)
[2022-10-01 14:18] LABS: Alanine Aminotransferase 24 U/L (0-40); Albumin Level 3.6 g/dL (3.5-5.0); Alkaline Phosphatase 73 U/L (39-117); Aspartate Amino Transferase 16 U/L (5-37); Bilirubin Direct 0.2 mg/dL (0.0-0.5); Bilirubin Total 0.6 mg/dL (0.0-1.0); Lipase 25 U/L (8-78); Total Protein 6.5 g/dL (6.5-8.0)
== END 2022-10-01 12:38 | disposition home or self-care (01) ==
LOC: HO.10HDL 12:37
PROVIDERS: Visit Provider Internal Medicine Gastroenterology
DX: K21.9 Gastro-esophageal reflux disease without esophagitis (principal); R11.2 Nausea with vomiting, unspecified
CPT/HCPCS: 36415; 80076; 83690; 85027

== ENCOUNTER 2022-10-12 10:46 | Day surgery (SDC) | payer MEDICARE, MEDICAID, SELFPAY ==
[2022-10-12 11:20] VITALS: BMI 34.7
[2022-10-12 11:39] VITALS: BP 140/60; PULSE 67; RESP 16; TEMP 36.1; O2SAT 98
[2022-10-12 11:44] LABS: Glucose, Whole Blood 89 mg/dL (60-115)
[2022-10-12 12:40] LABS: Glucose, Whole Blood 78 mg/dL (60-115)
--- NOTE | 2022-10-12 12:54 | MHC.SHP ---
Pre-Procedural Eval Section A Date of Service: 10/12/22 The patient is an INPATIENT: No Changes since office visit: No Cold of Flu in the past 2 weeks, No New Medical Problems, No Changes in Medication and No Patient answered all questions The History & Physical has been completed within 30 days and I have reviewed it.: Yes Section B Chief Complaint: GERD,Nausea with vomiting, unspecified Allergies: Allergies Allergy/AdvReac Type Severity Reaction Status Date / Time atorvastatin [From Lipitor] Allergy Mild RASH Verified 06/07/21 11:37 metformin [From Glucophage] Allergy Mild RASH Verified 06/07/21 11:37 Plan I have reviewed the history and physical and performed a pertinent physical examination on my patient. No changes have occurred unless specified. Time Spent With Patient Time: Total time managing care of this patient today ____ minutes.
--- NOTE | 2022-10-12 13:21 | HO.ANESPROP2 ---
HPI - Anesthesia Eval Consult details Narrative: EGD PMFSH Active Problems Active Problems: All Active Problems (Updated 10/04/21 @ 00:01 by Background Dean) Epidermal inclusion cyst (Acute) Past Medical History Medical History Angina pectoris Back pain CAD (coronary artery disease) Depression Diabetes Elevated cholesterol GERD (gastroesophageal reflux disease) History of colitis HTN (hypertension) Insomnia Myocardial infarction On beta manuel at home 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 Narrative: No CP or SOB. Saw MD recently, everything OK, see in one year. Hasn't taken NTG in a long time. Has CRISTOFER, uses CPAP at home. Family History Family history of problems with anesthesia: No Surgical History Surgical History Hx of bilateral cataract extraction Hx of colonoscopy Hx of shoulder surgery S/P excision of lipoma History of Problems with Anesthesia: No Social History Social History Alcohol intake: never Patient Tobacco Use Status: Former Tobacco user Tobacco use type: Cigarette Use of substances other than those prescribed or required for medical reasons: No Are you DNR?: No Advance Directives: No Advance Directives Information Provided: Yes Recently lost weight without trying: No How much weight loss: 14-23 pounds Nutrition Risks: No Nutritional Risk Current occupational status: employed 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 Meds Allergies Allergy/AdvReac Type Severity Reaction Status Date / Time atorvastatin [From Lipitor] Allergy Mild RASH Verified 06/07/21 11:37 metformin [From Glucophage] Allergy Mild RASH Verified 06/07/21 11:37 Home Medications Medication Instructions Recorded Confirmed Last Taken Type acetaminophen 650 mg 1 tab PO Q8H PRN Pain 09/21/20 02/17/21 Unknown History tablet,extended release albuterol sulfate 90 mcg/actuation 2 puff PO Q4-6H PRN Wheezing 09/21/20 02/17/21 Unknown History aerosol inhaler baclofen 10 mg tablet 1 tab PO TID PRN muscle spasm 09/21/20 02/17/21 Unknown History carvedilol 3.125 mg tablet 1 tab PO BID 09/21/20 02/17/21 Unknown History cholecalciferol (vitamin D3) 50 1 tab PO DAILY 09/21/20 02/17/21 Unknown History mcg (2,000 unit) tablet diphenhydramine HCl 25 mg capsule 1 cap PO Q6H PRN itch 09/21/20 02/17/21 Unknown History (Banophen) fluticasone propionate 110 1 puff PO BID 09/21/20 02/17/21 Unknown History mcg/actuation HFA aerosol inhaler (Flovent HFA) hydrochlorothiazide 25 mg tablet 1 tab PO DAILY 09/21/20 02/17/21 Unknown History insulin aspart U-100 100 unit/mL unit subcut 09/21/20 02/17/21 Unknown History (3 mL) subcutaneous pen (Novolog FlexPen U-100 Insulin aspart) insulin glargine 100 unit/mL (3 58 unit subcut DAILY 09/21/20 02/17/21 Unknown History mL) subcutaneous pen (Basaglar KwikPen U-100 Insulin) lisinopril 40 mg tablet 1 tab PO DAILY 09/21/20 02/17/21 Unknown History loratadine 10 mg tablet 1 tab PO DAILY 09/21/20 02/17/21 Unknown History meclizine 12.5 mg tablet 1 tab PO TID PRN Dizziness 09/21/20 02/17/21 Unknown History nitroglycerin 0.4 mg sublingual mg sublingual 09/21/20 02/17/21 Unknown History tablet omeprazole 40 mg capsule,delayed 1 cap PO QAM 09/21/20 02/17/21 Unknown History release oxycodone 15 mg tablet 1 tab PO TID PRN Pain 09/21/20 02/17/21 Unknown History rosuvastatin 20 mg tablet 1 tab PO DAILY 09/21/20 02/17/21 Unknown History simethicone 125 mg chewable tablet 1 tab PO QID PRN gas 09/21/20 02/17/21 Unknown History (Gas Relief Extra Strength) topiramate 25 mg tablet 1 - 2 tab PO BEDTIME 09/21/20 02/17/21 Unknown History aspirin 09/27/20 02/17/21 09/23/20 07:00 History dulaglutide 3 mg/0.5 mL mg subcut QWEEK 10/11/22 Unknown History subcutaneous pen injector (Trulicity) fluticasone propionate 50 1 - 2 spray intranasal DAILY PRN 10/11/22 10/11/22 Unknown History mcg/actuation nasal sneezing spray,suspension glipizide 5 mg tablet mg PO 10/11/22 Unknown History ondansetron HCl 4 mg tablet 4 mg PO DAILY nausea/vomiting 10/11/22 10/11/22 Unknown History Exam Exam Date and Time: October 12, 2022 1321 Height,Weight and Vital Signs: Height 5 ft 8 in Weight 103.419 kg Last Vital Signs Temp 96.9 F 10/12/22 11:39 Pulse 67 10/12/22 11:39 Resp 16 10/12/22 11:39 BP 140/60 H 10/12/22 11:39 Pulse Ox 98 10/12/22 11:39 O2 Del Method Room Air 10/12/22 11:39 Pertinent Lab Results Pertinent Lab Results: Laboratory Tests 10/12/22 10/12/22 11:41 12:36 POC Glucose 89 78 Airway Mallampati Class: I (very short, large neck.) TM Dist: >3cm Neck ROM: Full Denture: Upper and Lower Heart: ok Lungs: ok Assessment and Plan Final Anesthetic Review Family History of Problems with Anesthesia: No History of Problems with Anesthesia: No NPO: Yes ASA Class: III and IV Final Preanesthetic Review: No Changes in Pt Med Stat, Meds/Allgs Chart Reviewed, Consent Obtained/Reviewed and Anes Risks/Benef Reviewed Patient Risk: High Procedure Risk: Intermediate Anesthetic Plan Anesthetic Plan: MAC: and Agree w/ Assess. and Plan Disposition: Standard PACU
[2022-10-12 14:05] VITALS: BP 101/49; PULSE 64; RESP 16; TEMP 36.1; O2SAT 92
--- NOTE | 2022-10-12 14:13 | PM.OP ---
Brief Operative Note Date of Service: 10/12/22 Pre-op diagnosis: gerd nausea and vomiting Post-op diagnosis: same Procedure: egd Surgeon: Alex Murrell Anesthesia: MAC Was an Head [employer] Coordinator used for this Procedure?: No Estimated blood loss (mL): 5 Pathology: other Condition: stable Disposition: PACU
[2022-10-12 14:20] VITALS: BP 135/67; PULSE 59; RESP 18; TEMP 36.2; O2SAT 95
--- NOTE | 2022-10-12 15:11 | OP_ITS ---
DATE OF SERVICE: 10/12/2022 SURGEON: Alex Murrell MD INDICATIONS: Gastroesophageal reflux disease with nausea and vomiting. PREOPERATIVE DIAGNOSIS: POSTOPERATIVE DIAGNOSIS: PROCEDURE PERFORMED: Upper endoscopy with biopsy. ESTIMATED BLOOD LOSS: COMPLICATIONS: ANESTHESIA: Monitored anesthesia care. ASSISTANTS: SPECIMENS: DESCRIPTION OF PROCEDURE: A history and physical performed. The risks and benefits of the procedure were explained to the patient. Informed consent was obtained. The patient was placed in left lateral decubitus position. The Olympus video gastroscope was introduced into the esophagus, stomach, and duodenum. Examination was performed. The scope was removed. He tolerated the procedure well and was taken to recovery in stable condition. FINDINGS: Esophagus: The esophagus showed irregular EG junction. There was no esophagitis. Biopsies were obtained at the EG junction. Stomach: The stomach showed no evidence of masses, ulcers, or polyps. Antral biopsies were obtained to evaluate for H pylori. Duodenum: The bulb and 2nd portion were normal. The 2nd portion biopsies were obtained. IMPRESSION: 1. Gastroesophageal reflux disease. 2. Nausea and vomiting. RECOMMENDATION: Follow up the biopsy results. MD JO ANN Hua/CHARU / [id number]
[2022-10-15 06:53] LABS: Glucose, Whole Blood 82 mg/dL (60-115)
== END 2022-10-12 14:33 | disposition home or self-care (01) ==
PROVIDERS: PCP Family Medicine; Visit Provider Internal Medicine Gastroenterology
PROC: 0DJ08ZZ Inspection of Upper Intestinal Tract, Via Natural or Artificial Opening Endoscopic (ICD-10-PCS; CPT 43235; principal; 2022-10-12 12:00)
DX: K21.9 Gastro-esophageal reflux disease without esophagitis (principal); R11.2 Nausea with vomiting, unspecified; K29.50 Unspecified chronic gastritis without bleeding; I25.10 Atherosclerotic heart disease of native coronary artery without angina pectoris; I25.2 Old myocardial infarction; I10 Essential (primary) hypertension; E78.00 Pure hypercholesterolemia, unspecified; E11.9 Type 2 diabetes mellitus without complications; G47.33 Obstructive sleep apnea (adult) (pediatric); Z99.89 Dependence on other enabling machines and devices; Z79.899 Other long term (current) drug therapy; Z79.4 Long term (current) use of insulin; Z79.82 Long term (current) use of aspirin; Z79.51 Long term (current) use of inhaled steroids; Z88.8 Allergy status to other drugs, medicaments and biological substances; Z86.010 Personal history of colon polyps; Z87.891 Personal history of nicotine dependence
CPT/HCPCS: 43239; 82947; 88305; 88342; J3010

== ENCOUNTER → 2022-12-04 07:49 | Outpatient (REF) | payer MEDICARE, MEDICAID, SELFPAY ==
--- NOTE | ~2022-12-04 | NM_ITS ---
EXAMINATION: RADIONUCLIDE SOLID FOOD GASTRIC EMPTYING 4-HOUR STUDY CLINICAL INFORMATION: Nausea and vomiting. COMPARISON: No previous gastric emptying study is available for comparison. TECHNIQUE: A standard meal consisting of 4 oz of Egg Beaters brand tagged with 790 microcuries Tc-99m Sulfur Colloid, 8 oz water and 2 slices of toast with jelly was administered orally to the patient. Images were obtained using a dual head gamma camera in the anterior and posterior projections over of the stomach immediately post ingestion and at hourly intervals up to 3 hours post ingestion. Images were not obtained at 4 hours due to the minimal retention at 3 hours. The anterior and posterior counts at each time interval were averaged using the geometric mean and expressed as percentage of the immediate post ingestion counts. FINDINGS: There is good visualization of activity in the stomach immediately post ingestion. As the study progresses, there is good clearance of activity from the stomach and visualization of progressively increasing small bowel activity. By the end of the study, there is almost no retention noted in the stomach. Retention in the stomach at each time interval was: hour 51% (normal 37%-90%) 2 hours 2% (normal 30%-60%) 3 hours 2% 4 hours (Not Obtained) (normal 0%-10%) NM/NM gastric emptying study IMPRESSION: Normal solid food gastric emptying study.
== END ==
LOC: HO.NUCMED 07:49
PROVIDERS: PCP Family Medicine; Visit Provider Internal Medicine Gastroenterology
DX: R11.2 Nausea with vomiting, unspecified (principal)
CPT/HCPCS: 78264; A9541

== ENCOUNTER 2023-09-19 08:43 | Outpatient (REF) | payer MEDICARE, MEDICAID, SELFPAY ==
[2023-09-19 14:11] LABS: MANUAL DIFF FLAG NO
[2023-09-19 14:18] LABS: Basophils Percent Auto 0.5 % (0-2); Eosinophils Absolute Auto 0.4 X10*3/uL (0.0-0.4); Eosinophils Percent Auto 4.7 % (0-4); Hematocrit 43.2 % (42.0-52.0); Hemoglobin 13.6 g/dl (14.0-18.0); Imm Gran Abs Auto 0.02 X10*3/uL (0.00-0.03); Imm Gran Pct Auto 0.2 % (0.0-0.4); Lymphocytes Absolute Auto 1.8 X10*3/uL (1.2-4.9); Lymphocytes Percent Auto 22.4 % (20-40); Mean Corpuscular HGB Conc 31.5 g/dl (31.0-36.0); Mean Corpuscular Hemoglobin 27.1 pg (27.0-33.0); Mean Corpuscular Volume 86.1 fL (80.0-98.0); Mean Platelet Volume 9.1 fL (9.4-12.4); Monocytes Absolute Auto 0.8 X10*3/uL (0.1-1.2); Monocytes Percent Auto 9.7 % (2-11); Neutrophils Percent Auto 62.5 % (45-73); Platelet Count 256 X10*3/uL (160-400); Red Blood Count 5.02 X10*6/uL (4.60-5.80); Red Cell Distribution Width 13.8 % (11.0-16.0); White Blood Count 8.1 X10*3/uL (4.8-10.8)
[2023-09-19 14:26] LABS: Estimated Average Glucose 160 mg/dL; Hemoglobin A1c % 7.2 % (<6.0)
[2023-09-19 14:38] LABS: Creatinine Urine 124.07 mg/dL; Microalbum/Creatinine Ratio Ur 6.4 ug/mg cr (<30)
[2023-09-19 14:51] LABS: Alanine Aminotransferase 16 U/L (0-40); Albumin Level 3.8 g/dL (3.5-5.0); Alkaline Phosphatase 62 U/L (39-117); Anion Gap 13 (12-20); Aspartate Amino Transferase 15 U/L (5-37); Bilirubin Direct 0.2 mg/dL (0.0-0.5); Bilirubin Total 0.4 mg/dL (0.0-1.0); Blood Urea Nitrogen 22 mg/dL (9-16); Calcium 8.9 mg/dL (8.4-10.2); Carbon Dioxide 28 mmol/L (22-29); Chloride 105 mmol/L (96-108); Cholesterol 105 mg/dL (<200); Estimated Glomerular Filt Rate > 60; Glucose Random 103 mg/dL (60-115); HDL Cholesterol 36 mg/dL (>40); LDL Cholesterol Calculated 56 mg/dL (<100); Potassium 3.9 mmol/L (3.3-5.1); Sodium 142 mmol/L (135-145); Total Protein 7.2 g/dL (6.5-8.0); Triglycerides 66 mg/dL (<150)
[2023-09-19 15:08] LABS: Free T4 (Free Thyroxine) 1.04 ng/dL (0.71-1.85); Vitamin D 25-OH Total 31.9 ng/mL (>30)
== END 2023-09-19 08:44 | disposition home or self-care (01) ==
LOC: HO.CHCLDS 08:43
PROVIDERS: Visit Provider Family Medicine
DX: E11.29 Type 2 diabetes mellitus with other diabetic kidney complication (principal); R80.9 Proteinuria, unspecified
CPT/HCPCS: 36415; 80048; 80061; 80076; 82043; 82306; 82570; 83036; 84439; 84443; 85025

== ENCOUNTER 2024-09-30 10:01 | Outpatient (REF) | payer MEDICARE, MEDICAID, SELFPAY ==
--- OUTSIDE RECORDS SUMMARY | 2024-09-30 11:24 | XMS_ITS | Encounter Summary ---
Author Organization [employer] Address [address] [facility] [address] [place] [address] Care Team Providers Care Radio Operator Name Role Phone Mora Díaz DO Primary Care Provider [phone] Vee Ornelas PharmD Unavailable [phone] Reason for Visit * Reason Comments Med Refill Pt walked in stating his insurance reached out to him in regards to his insulin stating a release has to be signed in order for patient to received the medication. Pt states he is in need . Encounter Details Date Type Department Care Team (Late st Contact Info) Description 08/31/[address] [facility] [address] [place], [place] [phone] Mora Díaz DO [address] [place], [place] [phone] Med Refill (Pt walked in stating his insurance reached out to him in regards to his insulin stating a release has to be signed in order for patient to received the medication. Pt states he is in need .) Social History Tobacco Use Types Packs/Day Years Used Date Smoking Tobacco: Former Cigarettes S tarted: 2001 Passive Smoke Exposure: Past Alcohol Use Standard Drinks/Week Comments Not Currently 0 (1 standard drink = 0.6 oz pur e alcohol) Depression Answer Date Recorded Patient Health Questionnaire-9 Score 0 10/09/2023 Patient Health Questionnaire-9 Score 0 10/09/2023 Last PHQ-9: Questionnaire Data Not on file 0 10/09/2023 Housing Stability Answer Date Recorded What is your housing situation today? I have yaneli diaz 10/09/[address] you li ve. Do you have problems with any of the following? None of the above 10/09/2023 Food Insecurity Answer Date Recorded Within the past 12 months, y ou worried that your food would run out before you got money to buy more: Often true 08/12/2024 Within the past 12 months,th e food you bought just didn't last and you didn't have enough money to get more: Often true Transportation Answer Date Recorded In the past 12 months, has l ack of transportation kept you from medical appts, meetings, work or from getting things needed for daily living? No 10/09/2023 Utilities Answer Date Recorded In the past 12 months, has t he electric, gas, oil or water company threatened to shut off services in your home? No 10/09/2023 Depression Answer Date Recorded Patient Health Questionnaire-2 Score 0 10/09/2023 Internet Access Answer Date Recorded Internet Access Q1 No 08/12/2024 Internet Access Q2 I do not want or need it 07/23 Sex and Gender Information Value Date Recorded Sex Assigned at Male 05/21/2022 10:15 AM EDT Legal Sex Male 10:15 AM EDT Gender Identity Male 05/21/2022 10:15 AM EDT Sexual Orientation Straight 05/21/2022 10 :15 AM EDT documented as of this encounter Miscellaneous Notes * Telephone Encounter - Mikayla Aguilera - 09/11/2024 12:15 PM EST PA not needed for this medication per [employer]. * Telephone Encounter - Elizabeth Oconnor - 08/31/2024 2:01 PM EST Pt walked in stating his insurance reached out to him in regards to his insulin stating a release has to be signed in order for patient to received the medication. Pt states he is in need of insulin and would like that to be made urgent. documented in this encounter Plan of Treatment Upcoming Encounters Date Type Department Care Team (Late st Contact Info) Description 10/23/2024 10:30 AM EDT Medication Management [facility] [address] [place] [address] Vee Ornelas PharmD [address] [place] [address] documented as of this encounter Goals Goal Patient Goal Type Associated Problems Recent Progress Patient-Stated? Author Blood Pressure < 140/90 Blood Pressure 128/60(2024 9:17 AM EST) No Nicholas Mulligan PharmD Note: Goal to resolve hypoTN (DBP) and low/borderline low HR Record your blood pressure periodically Blood Pressure On track( 11:34 AM EST) No Vee Ornelas PharmD Hemoglobin A1c < 7.5 Result Component 7.7( 9:26 AM EST) No Nicholas Mulligan PharmD Record your blood sugar as directed Result Component On track( 11:34 AM EST) No Vee Ornelas PharmD Note: Use CGM, ensuring sensor is scanned at least once every 8 hours to capture 24H data. Check BG manually, as directed. documented as of this encounter Visit Diagnoses Diagnosis Vitamin D deficiency documented in this encounter Additional Health Concerns Assessment Noted Time PHQ-9 Depression Total Score: 0 10/09/19 24 11:16 AM EDT documented as of this encounter Care Teams Radio Operator Relationship Specialty Start Date End Date Mora Díaz DO [address] [place] [address] PCP - General Family Medicine 07/22/18 Vee Ornelas PharmD [address] [place] [address] Pharmacist Internal Medicine 02/20/23 documented as of this encounter
--- OUTSIDE RECORDS SUMMARY | 2024-09-30 11:24 | XMS_ITS | Encounter Summary ---
Author Organization [employer] Address [address] [facility] [address] [place] [address] Care Team Providers Care Draw Operator Name Role Phone Mora Díaz DO Primary Care Provider [phone] Vee Ornelas PharmD Unavailable [phone] Reason for Visit * Reason Comments Pre-visit Planning SDOH unable to reach LVM Encounter Details Date Type Department Care Team ([facility] st Contact Info) Description 09/18/2024 Patient Outreach [facility] [address] [place] [address] Mora Díaz DO [address] [place] [address] Pre-visit Planning (SDOH unable to reach LVM ) Social History Tobacco Use Types Packs/Day Years [...] AM EDT documented as of this encounter Progress Notes * Dianna Escobedo - 09/18/2024 10:13 AM EST CC Dianna Santoyo placed outbound call to patient to complete pre-visit planning. No answer at this time. Patient name and were not confirmed. CC left voicemail requesting return call. Direct contactinformation provided. documented in this encounter Plan of Treatment Upcoming Encounters Date Type Department Care Team (Late st Contact Info) Description 10/23/2024 10:30 AM EDT Medication Management [facility] [address] [place] [address] Vee Ornelas PharmD [address] [place] [address] documented as of this encounter Goals Goal Patient Goal Type Associated Problems Recent Progress Patient-Stated? Author Blood Pressure < 140/90 Blood Pressure 128/60(2024 9:17 AM EST) No Nicholas Mulligan, PharmD Note: Goal to resolve hypoTN (DBP) and low/borderline low HR Record your blood pressure periodically Blood Pressure On track( 024 11:34 AM EST) No Vee Ornelas PharmD Hemoglobin A1c < 7.5 Result Component 7.7( 5 9:26 AM EST) No Nicholas Mulligan PharmD Record your blood sugar as directed Result Component On track( 024 11:34 AM EST) No Vee Ornelas PharmD Note: Use CGM, ensuring sensor is scanned at least once every 8 hours to capture 24H data. Check BG manually, as directed. documented as of this encounter Visit Diagnoses Not on filedocumented in this encounter Additional Health Concerns Assessment Noted Time PHQ-9 Depression Total Score: 0 10/09/19 24 11:16 AM EDT documented as of this encounter Care Teams Draw Operator Relationship Specialty Start Date End Date Mora Díaz DO [address] [place] [address] PCP - General Family Medicine 07/22/18 Vee Ornelas PharmD [address] [place] [address] Pharmacist Internal Medicine 02/20/23 documented as of this encounter
--- OUTSIDE RECORDS SUMMARY | 2024-09-30 11:24 | XMS_ITS | Encounter Summary ---
Author Organization [employer] Address [address] [facility] [address] [place] [address] Care Team Providers Care Granulator Tender Name Role Phone ArjunMora Primary Care Provider [phone] PuVee mccormack PharmD Unavailable [phone] Encounter Details Date Type Department Care Team ([facility] st Contact Info) Description 09/08/2024 Telephone [facility] [address] [place] [address] PuiaVee, PharmD [address] [place] [address] Social History Tobacco Use Types Packs/Day Years [...] encounter Miscellaneous Notes * Telephone Encounter - Vee Ornelas PharmD - 09/08/2024 11:01 AM EST Incoming call from Elena in pharmacy -- Medicare B denied claim for Deirdre 3 reader stating only 1 reader is covered Q5 yrs and patient received Deirdre 2 reader w/I this time frame. Elena obtained the DME replacement form & I have completed this & faxed to [phone] w/ RX as well as most recent visit note (packet sent to HIM for scan today). Deirdre 2 sensors are being discontinued and I intended to switch him to Deirdre 3 plus which is NOT compatible with the 2 reader. Awaiting plan response at this time. Patient is aware. documented in this encounter Plan of Treatment Upcoming Encounters Date Type Department Care Team (Late st Contact Info) Description 10/23/2024 10:30 AM EDT Medication Management [facility] [address] [place] [address] Vee Ornelas PharmD [address] [place] [address] documented as of this encounter Goals Goal Patient Goal Type Associated Problems Recent Progress Patient-Stated? Author Blood Pressure < 140/90 Blood Pressure 128/60(2024 9:17 AM EST) No Nicholas Mulligan, PharmIrena Note: Goal to resolve hypoTN (DBP) and low/borderline low HR Record your blood pressure periodically Blood Pressure On track( 11:34 AM EST) No Vee Ornelas, PharmIrena Hemoglobin A1c < 7.5 Result Component 7.7( 9:26 AM EST) No Nicholas Mulligan, PharmIrena Record your blood sugar as directed Result Component On track( 024 11:34 AM EST) No Vee Ornelas PharmIrena Note: Use CGM, ensuring sensor is scanned at least once every 8 hours to capture 24H data. Check BG manually, as directed. documented as of this encounter Visit Diagnoses Not on filedocumented in this encounter Additional Health Concerns Assessment Noted Time PHQ-9 Depression Total Score: 0 10/09/19 24 11:16 AM EDT documented as of this encounter Care Teams Granulator Tender Relationship Specialty Start Date End Date Mora Díaz DO [address] [place] [address] PCP - General Family Medicine 07/22/18 Vee Ornelas PharmD [address] [place] [address] Pharmacist Internal Medicine 02/20/23 documented as of this encounter
--- OUTSIDE RECORDS SUMMARY | 2024-09-30 11:24 | XMS_ITS ---
Author Organization [facility] Address [address] [place] [address] Care Team Providers Care Social Worker Delinquency Prevention Name Role Phone Arjun Burrell, Mora Primary Care Provider Suzette Murrell Jr Alexad Wallace REASON FOR VISIT abdominal pain Encounters Encounter Location Date Provider Diagnosis [facility] [address] [place] [phone] 07/30/2024 Alex Murrell Jr Plan Of Treatment No Information Progress Notes * ALICE SIMPSONSDOB:1950 (74 yo M)Acc No.[id number]:07/30/2024 Progress Notes Patient:?SHAYNA SIMPSON Provider:?Alex Murrell MD :1950???Age:74 Y???Sex:Male Michel e:07/30/2024 Address:[address] [place], [place] [id number] Pcp:Mora Díaz M.D. Subjective: * Chief Complaints: * ???1. Abdominal pain. * Medical History:? Objective: * Vitals:? Assessment: Plan: * Treatment: * * The named appointment provid er may or may not be the originator of this progress note, and it is not deemed complete until electronically signed by the appointment provider. Sign off status: Pending * Provider:?Alex Murrell MD Date:?0 07/30/2024 Generated for Junei ng/Faishang/eTransmitting on:?09/30/2024 11:24 AM EDT
--- OUTSIDE RECORDS SUMMARY | 2024-09-30 11:24 | XMS_ITS | Encounter Summary ---
Author Organization [employer] Address [address] [place] [address] 7t [place] [address] Care Team Providers Care Laborer Cheesemaking Name Role Phone Mora Díaz DO Primary Care Provider +1- [phone] Vee Ornelas PharmD Unavailable [phone] Reason for Visit * Reason Comments Med Refill Encounter Details Date Type Department Care Team ([facility] st Contact Info) Description 04/16/2024 Refill [facility] MEDICINE [address] [place], [place] [phone] Mora Díaz DO [address] [place] [address] Social History Tobacco Use Types Packs/Day Years [...] before you got money to buy more: Never True 10/09/2023 Within the past 12 months,th e food you bought just didn't last and you didn't have enough money to get more: Never True Transportation Answer Date Recorded In the past [...] Recorded Patient Health Questionnaire-2 Score 0 10/09/2023 Sex and Gender Information Value Date Recorded Sex Assigned at Male 05/21/2022 10:15 AM EDT Legal Sex Male 10:15 AM EDT Gender Identity Male 05/21/2022 10:15 AM EDT Sexual Orientation Straight 05/21/2022 10 :15 AM EDT documented as of this encounter Plan of Treatment Upcoming Encounters Date Type Department Care Team (Late st Contact Info) Description 10/23/2024 10:30 AM EDT Medication Management [facility] MEDICINE [address] [place] [address] Vee Ornelas PharmD [address] [place] [address] documented as of this encounter Goals Goal [...] documented as of this encounter Care Teams Laborer Cheesemaking Relationship Specialty Start Date End Date Mora Díaz DO [address] [place] [address] PCP - General Family Medicine 07/22/18 Vee Ornelas PharmD [address] [place] [address] Pharmacist Internal Medicine 02/20/23 documented as of this encounter
--- OUTSIDE RECORDS SUMMARY | 2024-09-30 11:24 | XMS_ITS | Encounter Summary ---
Author Organization [employer] Address [address] [facility] 7t [place] [address] Care Team Providers Care Events Assistant Name Role Phone TankMora salazar Primary Care Provider [phone] Vee Ornelas PharmD Unavailable [phone] Encounter Details Date Type Department Care Team ([facility] st Contact Info) Description 08/31/2024 Refill [facility] MEDICINE [address] [place] [address] BolaiaVee, PharmD [address] [place] [address] Type 2 diabetes mellitus with diabetic microalbuminuria, with long-term current use of insulin ([facility]) Social History Tobacco Use Types Packs/Day Years [...] Telephone Encounter - Vee Ornelas PharmD - 08/31/2024 3:00 PM EST To replace Basaglar, per insurance plan. I will discuss further with patient in upcoming apt 09/02 Note to PA team - a high priority request was sent today regarding this but change in product should resolve need for PA. documented in this encounter Plan of Treatment Upcoming Encounters Date Type Department Care Team (Late st Contact Info) Description 10/23/2024 10:30 AM EDT Medication Management [facility] MEDICINE [address] [place] [address] Vee Ornelas PharmD [address] [place] [address] documented as of this encounter Goals Goal [...] as of this encounter Visit Diagnoses Diagnosis Type 2 diabetes mellitus with diabetic microalbuminuria, with long-term current use of insulin ([facility]) documented in this encounter Additional Health Concerns Assessment Noted Time PHQ-9 Depression Total Score: 0 10/09/19 24 11:16 AM EDT documented as of this encounter Care Teams Events Assistant Relationship Specialty Start Date End Date Mora Díaz DO [address] [place] [address] PCP - General Family Medicine 07/22/18 Vee Ornelas PharmD [address] [place] [address] Pharmacist Internal Medicine 02/20/23 documented as of this encounter
--- OUTSIDE RECORDS SUMMARY | 2024-09-30 11:24 | XMS_ITS | Encounter Summary ---
Author Organization [employer] Address [address] [facility] 7t [place] [address] Care Team Providers Care Air Conditioning Installer Name Role Phone Mora Díaz DO Primary Care Provider [phone]- [phone] Vee Ornelas PharmD Unavailable [phone] Reason for Visit * Reason Comments Med Refill Encounter Details Date Type Department Care Team (Late st Contact Info) Description 08/03/2024 Refill [facility] MED[facility]INE [address] [place], [place] [phone] Mora Díaz DO [address] [place] [address] Type 2 diabetes mellitus with diabetic microalbuminuria, with long-term current use of insulin ([facility]) Social History Tobacco Use Types Packs/Day Years [...] Description 10/23/2024 10:30 AM EDT Medication Management [facility] [address] [place] [address] Vee Ornelas PharmD [address] [place] [address] documented as of this encounter Goals Goal Patient Goal Type Associated Problems Recent Progress Patient-Stated? Author Blood Pressure < 140/90 Blood Pressure 128/60(2024 9:17 AM EST) No Nicholas Mulligan, PharmIrena Note: Goal to resolve hypoTN (DBP) and low/borderline low HR Record your blood pressure periodically Blood Pressure On track( 11:34 AM EST) No Vee Ornelas, PharmD Hemoglobin A1c < 7.5 Result Component 7.7( 9:26 AM EST) No Nicholas Mulligan, PharmD Record your blood sugar as directed Result Component On track( 11:34 AM EST) No Vee Ornelas, PharmD Note: Use CGM, ensuring sensor is scanned at least once every 8 hours to capture 24H data. Check BG manually, as directed. documented as of this encounter Visit Diagnoses Diagnosis Type 2 diabetes mellitus with diabetic microalbuminuria, with long-term current use of insulin ([facility]) documented in this encounter Additional Health Concerns Assessment Noted Time PHQ-9 Depression Total Score: 0 10/09/19 24 11:16 AM EDT documented as of this encounter Care Teams Air Conditioning Installer Relationship Specialty Start Date End Date Mora Díaz DO [address] [place] [address] PCP - General Family Medicine 07/22/18 Vee Ornelas PharmD [address] [place] [address] Pharmacist Internal Medicine 02/20/23 documented as of this encounter
--- OUTSIDE RECORDS SUMMARY | 2024-09-30 11:24 | XMS_ITS | Encounter Summary ---
Author Organization [employer] Address [address] [facility] 7t [place] [address] Care Team Providers Care Manufacturers Agent Name Role Phone Mora Díaz DO Primary Care Provider [phone]- [phone] Vee Ornelas PharmD Unavailable [phone] Reason for Visit * Reason Comments Med Refill Encounter Details Date Type Department Care Team ([facility] st Contact Info) Description 04/24/2024 Refill [facility] MEDICINE 230 [place], [place] [phone] Mora Díza DO [address] [place] [address] GERD without esophagitis Social History Tobacco Use Types Packs/Day Years [...] Description 10/23/2024 10:30 AM EDT Medication Management [facility] MEDICINE [address] [place] [address] Vee Ornelas PharmD [address] [place] [address] documented as of this encounter Goals Goal [...] as of this encounter Visit Diagnoses Diagnosis GERD without esophagitis Esophageal reflux documented in this encounter Additional Health Concerns Assessment Noted Time PHQ-9 Depression Total Score: 0 10/09/19 24 11:16 AM EDT documented as of this encounter Care Teams Manufacturers Agent Relationship Specialty Start Date End Date Mora Díaz DO [address] [place] [address] PCP - General Family Medicine 07/22/18 Vee Ornelas PharmD [address] [place] [address] Pharmacist Internal Medicine 02/20/23 documented as of this encounter
--- OUTSIDE RECORDS SUMMARY | 2024-09-30 11:24 | XMS_ITS | Encounter Summary ---
Author Organization [employer] Address [address] [facility] 7t [place] [address] Care Team Providers Care General House Worker Name Role Phone ArjunMora Primary Care Provider [phone] Vee Ornelas PharmD Unavailable [phone] Encounter Details Date Type Department Care Team (Latest Contact Info) Description 09/02/2024 Travel Social History Tobacco Use Types Packs/Day Years [...] Description 10/23/2024 10:30 AM EDT Medication Management [facility] MEDICINE 230 [place], [place] [phone] Vee Ornelas PharmD [address] [place] [address] documented as of this encounter Goals Goal [...] Result Component 7.7( 9:26 AM EST) No DelNicholas borrero, PharmD Record your blood sugar as directed Result Component On track( 024 11:34 AM EST) No Vee Ornelas, PharmD [...] documented as of this encounter Care Teams General House Worker Relationship Specialty Start Date End Date Mora Díaz DO [address] [place], [place] [phone] PCP - General Family Medicine 07/22/18 Vee Ornelas, Julia [address] [place] [address] Pharmacist Internal Medicine 02/20/23 documented as of this encounter
--- OUTSIDE RECORDS SUMMARY | 2024-09-30 11:24 | XMS_ITS | Encounter Summary ---
Author Organization [employer] Address [address] [facility] 7t [place] [address] Care Team Providers Care Process Analyst Name Role Phone Mora Díaz DO Primary Care Provider [phone] Vee Ornelas PharmD Unavailable [phone] Reason for Visit * Reason Onset Date Comments telephone call 09/30/2024 Encounter Details Date Type Department Care Team ([facility] st Contact Info) Description 09/30/2024 Telephone [facility] MEDICINE 230 [place], [place] [phone] Mora Díaz DO [address] [place] [address] telephone call Social History Tobacco Use Types Packs/Day Years Used Date Smoking Tobacco: Former Cigarettes S tarted: 2001 Passive Smoke Exposure: Past Smokeless Tobacco: Never Alcohol Use Standard Drinks/Week Comments Not Currently 0 (1 standard drink = 0.6 oz pur e alcohol) Depression Answer Date Recorded Patient Health Questionnaire-9 Score 0 09/25/2024 Patient Health Questionnaire-9 Score 0 09/25/2024 Last PHQ-9: Questionnaire Data Not on file 0 09/25/2024 Housing Stability Answer Date Recorded What is [...] Date Recorded Patient Health Questionnaire-2 Score 0 09/25/2024 Internet Access Answer Date Recorded Internet Access [...] as of this encounter Miscellaneous Notes * Addendum Note - Traci Jiménez RN - 09/30/2024 10:14 AM EDTAddended by: TRACI JIMÉNEZ on: 09/30/2024 10:14 AM Modules accepted: Orders * Telephone Encounter - Traci Jiménez RN - 09/30/2024 10:03 AM EDT Tc to [facility]'s to inform them pt was trying to [employer] picker their Arnuity Ellipta 100 mcg inhaler but states it did not get approved. Pharmacy reports that they did not receive a rx that was sent out on08/26/24 by Mora Díaz DO. They are requesting for the PCP to resend the rx out again. Medication pended to PCP for review. * Telephone Encounter - Sherie Campos - 09/30/2024 9:49 AM EDT Pt walked in stating he went to apple picker his medication Arnuity Ellipta 100 mcg inhaler but they said it didn't get approved. He is requesting if someone can call him to see what is going on with his medication. documented in this encounter Plan of Treatment Upcoming Encounters Date Type Department Care Team (Late st Contact Info) Description 10/23/2024 10:30 AM EDT Medication Management [facility] MEDICINE [address] [place] [address] Vee Ornelas PharmD [address] [place], [place] [phone] documented as of this encounter Goals Goal [...] Noted Time PHQ-9 Depression Total Score: 0 09/26/19 25 9:24 AM EST documented as of this encounter Care Teams Process Analyst Relationship Specialty Start Date End Date Mora Díaz DO [address] [place], [place] [phone] PCP - General Family Medicine 07/22/18 Vee Ornelas PharmD [address] [place], [place] [phone] Pharmacist Internal Medicine 02/20/23 documented as of this encounter
--- OUTSIDE RECORDS SUMMARY | 2024-09-30 11:25 | XMS_ITS | Encounter Summary ---
Author Organization [employer] Address [address] [place] [address] 7t [place] [address] Care Team Providers Care Aircraft Tool Maker Name Role Phone Mora Díaz DO Primary Care Provider [phone] Vee Ornelas PharmD Unavailable [phone] Reason for Visit * Reason Comments Med Refill Encounter Details Date Type Department Care Team (Late st Contact Info) Description 03/21/2024 Refill [facility] MEDICINE 230 [place], [place] [phone] Mora Díaz DO [address] [place] [address] Social History Tobacco Use Types Packs/Day Years Used Date Smoking Tobacco: Former Cigarettes S tarted: 2001 Passive Smoke Exposure: Never Alcohol Use Standard Drinks/Week Comments Not Currently 0 (1 standard drink = 0.6 oz pur e alcohol) Depression Answer Date Recorded Patient Health Questionnaire-9 Score 0 10/09/2023 Patient Health Questionnaire-9 Score 0 10/09/2023 Last PHQ-9: Questionnaire Data Not on file 0 10/09/2023 Housing Stability Answer Date Recorded What is your housing situation today? I have yanelishruti diaz 10/09/[address] you [...] Description 10/23/2024 10:30 AM EDT Medication Management [facility] MEDICINE [address] [place] [address] Vee Ornelas PharmD [address] [place] [address] documented as of this encounter Goals Goal [...] documented as of this encounter Care Teams Aircraft Tool Maker Relationship Specialty Start Date End Date Mora Díaz DO [address] [place] [address] PCP - General Family Medicine 07/22/18 Vee Ornelas PharmD [address] [place] [address] Pharmacist Internal Medicine 02/20/23 documented as of this encounter
--- OUTSIDE RECORDS SUMMARY | 2024-09-30 11:25 | XMS_ITS | Patient Health Record ---
Author Organization [facility] Address [address] [place] [phone] Care Team Providers Care Cras Name Role Phone Mora Díaz M.D. Primary Care Provider Alex Scott Jr Unavailable Allergies Allergen (clinical drug ingredient) Drug/Non Drug Allergy documented on EMR Reaction Allergy Type Onset Date Status atorvastatin Lipitor Unknown Drug Allergy Acti ve Glucophage Unknown Drug Allergy Active Reason For Referral No Information Medications Medication SIG (Take, Route, Frequency, Duration) Notes Start Date End Date Status Rosuvastatin Calcium 20 MG TK 1 T PO QD Oral for 90 Active HumaLOG 100 UNIT/ML as directed Subcutaneous QD Unknown Ondansetron HCl 4 MG 1 tablet Orally Onc e a day for 30 day(s) 08/23/2022 Active Aspirin 81mg 1 tablet Orally Once a day Active prednisoLONE Acetate Unknown Trulicity Active Topiramate 25 MG Orally Act parag glipiZIDE 5 MG Orally 2 in the am a nd 4 in the pm Active Carvedilol 3.125 MG 1 tablet with food Orally Twice a day Active Albuterol Sulfate HFA 108 (9 0 Base) MCG/ACT INL 2 PFS PO Q 4 TO 6 H PRN Inhalation for 16 Unknown Loratadine 10 MG 1 tablet Orally prn Active Simethicone 125 MG CHEW AND SWALLOW 1 T PO QID PRF GASSINESS Oral for 15 Unknown oxyCODONE HCl 15 MG 1 tablet Orally prn Active Baclofen 10 MG TK 1 T PO TID PRF SPASMS Oral for 20 Unknown Vitamin D 50 MCG (2000 UT) TK 1 T PO D O ral for 30 Active Flovent HFA 110 MCG/ACT 1 puff Inhalatio n Twice a day Unknown Fluticasone Propionate 50 MCG/ACT PLACE 1 TO 2 SPRAY BY INTRANASAL ROUTE QD PRN Nasal for 90 Active hydroCHLOROthiazide 25 MG 1 capsule Oral ly Once a day Active Basaglar GómezPen Act parag Lisinopril 40 MG 1 tablet Orally Once a day Active Omeprazole 40 MG TAKE 1 CAPSULE BY MOUTH TWICE DAILY for 30 Active Lantus 100 UNIT/ML as directed Subcutaneous QD Active Nitrostat 0.4 MG 1 Sublingual prn Unknown Immunizations Vaccine Route Administration Date Status Comme nts Flu vaccine no Preserv 3 and > Unknown 05/05/2014 Admin istered Flu vaccine no Preserv 3 and > Unknown 05/04/2015 Admin istered Influenza Unknown 05/04/2020 Administered Influenza Unknown 03/22/2022 Administered Problems Problem Type SNOMED Code ICD Code Onset Dates Problem Status W/U Status Risk Notes Problem 179750834 Gastro-esophagea l reflux disease without esophagitis (K21.9) Active confirmed Problem 953185033 Change in bowel habits (R19.4) Active confirmed Problem Gastroesophageal reflux disease (135080249) Gastroesophageal reflux disease (K21.9) Active confirmed Problem 244185247 Gastroesophageal reflux disease without esophagitis (K21.9) Active confirmed Problem 362115628 Colitis (K52.9) Active confirmed Problem 98856093 Nausea and vomiting, unspecified vomiting type (R11.2) Active confirmed Encounters Encounter Location Date Provider Diagnosis [facility] [address] [place] [address] 07/23/2024 Alex Murrell Jr Plan Of Treatment Pending Test Test Name Order Date LIVER PROFILE 10/01/2022 LIPASE 10/01/2022 CBC w/o DIFF 10/01/2022 NM gastric emptying study 10/22/2022 Future Test Test Name Order Date UPPER GI ENDOSCOPY 06/11/2019 COLONOSCOPY 06/11/2019 UPPER GI ENDOSCOPY 08/31/2020 COLONOSCOPY 08/31/2020 UPPER GI ENDOSCOPY 10/01/2022 Insurance Providers Payer Name Payer Address Payer Phone Subscriber Number Group Number Insured Name Patient Relationship to Insured Coverage Start Date Coverage End Date MEDICARE OF [place] [address] [place] [phone] [id number] SHAYNA SIMPSON Self - patient is the insured [facility]ICA[facility] [address] [place] [phone] [id number] SHAYNA SIMPSON Self - patient is the insured Medical (General) History Medical History History ICD Code colonoscopy 09/27, endoscopic appearing rectal proctitis, and normal biopsies, except right colon showing nonspecific mild focal active colitis. Previous treatment with Asacol currently off all medications. Colonoscopy 10/09, no colitis, 2 tubular adenomas five-year followup hypertension elevated cholesterol diabetes coronary artery disease status post CO insomnia depression CRISTOFER/CPAP gastroesophageal reflux disease, EGD 09/27, no Herrera's or H. pylori. Surgical History Surgery Date(Month/Year) removal of fatty tumor on the neck Eye surgery - right eye
--- OUTSIDE RECORDS SUMMARY | 2024-09-30 11:25 | XMS_ITS | Encounter Summary ---
Author Organization [employer] Address [address] [facility] 7t [place] [address] Care Team Providers Care Floor Inspector Name Role Phone Mora Díaz DO Primary Care Provider [phone] Vee Ornelas PharmD Unavailable [phone] Reason for Visit * Reason Comments Med Refill Encounter Details Date Type Department Care Team (Late st Contact Info) Description 09/24/2024 Refill [facility] [address] [place] [address] Mora Díaz DO [address] [place] [address] Social History Tobacco Use Types Packs/Day Years [...] Description 10/23/2024 10:30 AM EDT Medication Management [facility] MEDICINE [address] [place] [address] Vee Ornelas PharmD [address] [place] [address] documented as of this encounter Goals Goal Patient Goal Type Associated Problems Recent Progress Patient-Stated? Author Blood Pressure < 140/90 Blood Pressure 128/60(2024 9:17 AM EST) No Nicholas Mulligan PharmIrena Note: Goal to resolve hypoTN (DBP) and low/borderline low HR Record your blood pressure periodically Blood Pressure On track( 024 11:34 AM EST) No Vee Ornelas PharmIrena Hemoglobin A1c < 7.5 Result Component [...] documented as of this encounter Care Teams Floor Inspector Relationship Specialty Start Date End Date Mora Díaz DO [address] [place] [address] PCP - General Family Medicine 07/22/18 Vee Ornelas PharmD [address] [place] [address] Pharmacist Internal Medicine 02/20/23 documented as of this encounter
--- OUTSIDE RECORDS SUMMARY | 2024-09-30 11:25 | XMS_ITS | Encounter Summary ---
Author Organization [employer] Address [address] [facility] 7t [place] [address] Care Team Providers Care Stripping Shovel Oiler Name Role Phone Mora Díaz DO Primary Care Provider [phone]- [phone] Vee Ornelas PharmD Unavailable [phone] Reason for Visit * Reason Comments Med Refill Encounter Details Date Type Department Care Team (Late st Contact Info) Description 09/25/2024 Refill [facility] MEDICINE [address] [place], [place] [phone] Mora Díaz DO [address] [place] [address] Social History Tobacco Use Types Packs/Day Years [...] Description 10/23/2024 10:30 AM EDT Medication Management [facility] MEDICINE [address] [place] [address] Vee Ornelas PharmD [address] [place] [address] documented as of this encounter Goals Goal [...] documented as of this encounter Care Teams Stripping Shovel Oiler Relationship Specialty Start Date End Date Mora Díaz DO [address] [place] [address] PCP - General Family Medicine 07/22/18 Vee Ornelas PharmD [address] [place] [address] Pharmacist Internal Medicine 02/20/23 documented as of this encounter
--- OUTSIDE RECORDS SUMMARY | 2024-09-30 11:25 | XMS_ITS | Clinical Summary ---
Author Organization [employer] Address [address] [place] [address] [address] [place] [address] Care Team Providers Care Test Design Engineer Name Role Phone ArjunMora Primary Care Provider [phone] Vee Ornelas PharmD Unavailable [phone] Allergies Active Allergy Reactions Criticality Noted Date Comments Atorvastatin Itching 09/04/2010 Other Reaction(s): Rash/Dermatitis Metformin 09/04/2010 Other reaction(s): GI upset Other Reaction(s): Gastritis Medications Alcohol Swabs (Alcohol Prep) pads Use to check blood sugar and inject insulin (four times daily) Active gabapentin (Neurontin) 300 MG capsule Take 300 mg by mouth at bedtime. Active oxyCODONE (Roxicodone) 15 MG immediate release tablet TAKE 1 TABLET BY MOUTH UP TO FOUR TIMES DAILY FOR SEVERE PAIN 022 Active naloxone (Narcan) 2 MG/2ML injection USE 1 INJECT IN THE MUSCLE AT FIRST SIGN OF OVERDOSE 023 Active albuterol 108 (90 Base) MCG/ACT inhaler INHALE TWO PUFFS EVERY 4 TO 6 HOURS NEEDED 8.5 g 2 023 Active docusate sodium (Colace) 100 MG capsule Take 1 capsule (100 mg) by mouth 2 times daily. 60 capsule 11 024 2024 Active polycarbophil (FiberCon) 625 MG tablet Take 1 tablet (625 mg) by mouth 2 times daily. 60 tablet 11 024 2024 Active polyethylene glycol, PEG, 3350 (MiraLax) 17 GM/SCOOP powder Take 17 g by mouth if needed each day (constipation ). 527 g 2 024 2024 Active lisinopril 40 MG tablet TAKE ONE TABLET EVERY MORNING 90 tablet 1 Active hydroCHLOROthiazide (HYDRODiuril) 25 MG tablet TAKE ONE TABLET EVERY MORNING 90 tablet 3 Active nitroglycerin (Nitrostat) 0.4 MG SL tablet DISSOLVE 1 TABLET UNDER THE TONGUE EVERY 5 MINUTES NEEDED FOR CHEST PAIN. DO NOT EXCEED A TOTAL OF 3 DOSES IN 15 MINUTES 25 tablet 1 Active diphenhydrAMINE (BENADryl) 25 MG tabletIndications:C hronic allergic rhinitis take 1 tablet by oral route every 6 hours as needed for Itching And Rash 30 tablet 2 Active triamcinolone (Kenalog) 0.1 % creamIndications:Li wiseman simplex chronicus APPLY TOPICALLY TO THE AFFECTED AREA TWICE DAILY IN THE MORNING AND AT BEDTIME FOR PAIN AND FOR SWELLING MIX WITH CERAVE CREAM 30 g 2 Active rosuvastatin (Crestor) 20 MG tabletIndications:T ype 2 diabetes mellitus with microalbuminuria (CMS/HCC) TAKE 1 TABLET BY MOUTH EVERY MORNING 90 tablet 3 Active cetirizine (ZyrTEC) 10 MG tabletIndications:A llergic rhinitis, unspecified seasonality, unspecified trigger Take 1 tablet (10 mg) by mouth if needed each day for allergies. 90 tablet 3 Active linaGLIPtin (Tradjenta) 5 MG tablet Take 1 tablet (5 mg) by mouth Once daily. 90 tablet 3 024 2024 Active dapagliflozin (Farxiga) 5 MG Take 1 tablet (5 mg) by mouth Once per day. 30 tablet 11 024 2024 Active clotrimazole (Lotrimin) 1 % creamIndications:Ba lanitis Apply topically 2 times daily. 30 g 2 Active omeprazole (PriLOSEC) [address] capsuleIndications: GERD without esophagitis TAKE ONE CAPSULE IN THE MORNING AND EVENING 180 capsule 1 Active senna (Senokot) 8.6 MG tablet TAKE TWO TABLETS EVERY DAY AT BEDTIME 60 tablet 2 10/15/2 024 Active fluticasone (Flonase) 50 MCG/ACT nasal spray INHALE 1 - 2 SPRAYS IN EACH NOSTRIL ONCE DAILY NEEDED. Shake gently. Before first use, prime pump. After use, clean tip and replace cap. 48 g 1 024 Active carvedilol (Coreg) 3.125 MG tablet TAKE 1 AND 1/2 TABLETS BY MOUTH EVERY MORNING AND EVERY EVENING WITH FOOD 270 tablet 025 Active glipiZIDE (Glucotrol) 10 MG tablet Take 1 tablet (10 mg) by mouth before breakfast and before evening meal. 180 tablet 025 2025 Active aspirin 81 MG EC tabletIndications:T ype 2 diabetes mellitus with diabetic microalbuminuria, with long-term current use of insulin ([facility]) take 1 tablet (81MG) by oral route every day 90 tablet 025 Active glucose blood (FreeStyle Precision Martin Test) test stripIndications:Ty pe 2 diabetes mellitus with diabetic microalbuminuria, with long-term current use of insulin ([facility]) TEST BLOOD SUGAR UP TO TWICE DAILY, DIRECTED 100 each 025 2025 Active insulin pen needle (Pentips) 32G x 4 mm miscIndications:Typ e 2 diabetes mellitus with diabetic microalbuminuria, with long-term current use of insulin ([facility]) Use 1 daily with insulin 100 each 025 Active TRUEplus Lancets 33G miscIndications:Typ e 2 diabetes mellitus with diabetic microalbuminuria, with long-term current use of insulin ([facility]) TEST BLOOD SUGAR UP TO TWICE DAILY DIRECTED 100 each 025 Active meclizine (Antivert) 12.5 MG tabletIndications: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 90 tablet 025 Active Arnuity Ellipta 100 MCG/ACT inhaler INHALE 1 PUFF BY MOUTH EVERY MORNING. RINSE MOUTH AFTER USE 30 each 025 Active cholecalciferol (Vitamin D-3) 50 MCG (2000 UT) tabletIndications:V itamin D deficiency TAKE 1 TABLET BY MOUTH EVERY MORNING 90 tablet 3 025 Active Insulin Glargine-yfgn 100 UNIT/ML solution pen-injectorIndicat ions:Type 2 diabetes mellitus with diabetic microalbuminuria, with long-term current use of insulin ([facility]) Inject 0.4 mL (40 Units) under the skin Once per day. 15 mL 1 025 Active Continuous Glucose Sensor (FreeStyle Deirdre 3 Plus Sensor) misc 1 each Once per day. Apply 1 sensor every 15 days for CGM 2 each 11 025 Active Continuous Glucose Metal Welder (FreeStyle Deirdre 3 Compton) device 1 each 3 times daily. Use daily as directed for CGM 1 each 025 Active acetaminophen (Tylenol 8 Hour) 650 MG ER tablet Take 1 tablet by mouth every 8 (eight) hours. 022 2024 Discontinued(M ed list cleanup (will not trigger notification to Pharmacy)) famotidine (Pepcid) 40 MG tablet Take 1 tablet by mouth at bed time. 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 20 tablet 024 2024 Discontinued(M ed list cleanup (will not trigger notification to Pharmacy)) pseudoephedrine (Sudafed) 30 MG tablet Take 1 tablet (30 mg) by mouth every 4 (four) hours if needed for congestion for up to 10 days. 30 tablet 025 2024 Discontinued(M ed list cleanup (will not trigger notification to Pharmacy)) Dextromethorphan-gu aiFENesin (Mucinex DM) 30-600 MG tablet sustained-release 12 hour Use 1 tab TID 28 tablet 025 2024 Discontinued(M ed list cleanup (will not trigger notification to Pharmacy)) Continuous Glucose Sensor (FreeStyle Deirdre 2 Plus Sensor) misc 1 each every 15 days. 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 30 mL 3 025 2024 Discontinued(R eorder (will not trigger notification to Pharmacy)) Active Problems Problem Noted Date Diagnosed Date Chronic constipation 12/09/2023 BMI 34.0-34.9,adult 12/09/2023 Tubular adenoma 12/09/2023 Type 2 diabetes mellitus 08/22/2022 Assessment & Plan (10/09/2023 1:52 PM EDT): A1c at-goal -cont tradjenta daily -cont basaglar daily -cont glipizide BID prn -cont jardiance daily -cont dietary changes -cont regular FS monitoring and bring glucometer to visits for review -cont aspirin, statin, and lisinopril daily -f/u w/ CDTM pharmacist as scheduled -s/p optho eval FEB [address] Brenner, will get copy of most recent eval -s/p foot exam with loss of protective sensation NOVEMBER 2014 Fatty liver 08/22/2022 Assessment & Plan (10/09/2023 1:53 PM EDT): -abd US with enlarged echogenic liver, no focal lesion AUG 2022 -AFP nml JUN 2022 and LFTs nml AUG 2023 -Hep A/B immune Renal cyst 08/22/2022 Chronic allergic rhinitis 08/22/2022 Assessment & Plan (10/09/2023 1:55 PM EDT): Uncontrolled vs viral -change zyrtec to claritin daily -encouraged flonase daily -cont alaway drops prn Healthcare maintenance 08/22/2022 Coronary artery disease 06/27/2022 Assessment & Plan (10/09/2023 1:54 PM EDT): -cont current med regimen -cont NTG prn -RF modification -f/u with cardiology annually as scheduled Obstructive sleep apnea 06/27/2022 Assessment & Plan (10/09/2023 1:53 PM EDT): s/p CPAP titration FEB 2018 -cont CPAP nightly Colitis 06/27/2022 Essential hypertension 06/27/2022 Assessment & Plan (10/09/2023 1:52 PM EDT): BP controlled -cont HCTZ and lisinopril daily -cont coreg BID -cont home BP monitoring -Cr/GFR and urine microalbumin nml AUG 2023 -there is screening EKG in chart -optho as above Hyperlipidemia 06/27/2022 Assessment & Plan (10/09/2023 1:52 PM EDT): LDL at-goal AUG 2023 -cont crestor nightly Anemia 06/27/2022 BPH (benign prostatic hyperplasia) 06/27/2022 Chronic GERD 06/27/2022 Assessment & Plan (10/09/2023 1:55 PM EDT): Controlled -cont omeprazole BID -cont pepcid nightly -f/u w/ GI prn Chronic low back pain 06/27/2022 Assessment & Plan (10/09/2023 1:54 PM EDT): With intermittent flaring -cont baclofen as needed -cont oxycodone as per PSS -cont HEP -f/u with PSS as scheduled Resolved Problems Problem Noted Date Diagnosed Date Resolved Date Type 2 diabetes mellitus wit h diabetic neuropathy 06/27/2022 08/24/2022 Encounters Date Type Department Care Team Description 09/30/2024 Telephone [facility] [address] [place] [address] Mora Díaz DO telephone call 09/25/2024 9:00 AM EST Office Visit [address] [address] Mora Díaz DO Type 2 diabetes mellitus with diabetic microalbuminuria, with long-term current use of insulin ([facility]) (Primary Dx); Essential hypertension; Other hyperlipidemia; Coronary artery disease involving tuscarora heart, unspecified vessel or lesion type, unspecified whether angina present; Fatty liver; Chronic GERD; Chronic constipation; Obstructive sleep apnea; Chronic allergic rhinitis; Chronic bilateral low back pain, unspecified whether sciatica present; Healthcare maintenance; Encounter for screening for infections with a predominantly sexual mode of transmission; Abnormal findings on diagnostic imaging of liver and biliary tract 09/25/2024 Refill [facility] [address] [place] [address] Mora Díaz DO 09/25/2024 Travel 09/24/[address] [facility] [address] [place] [address] Mora Díaz DO 09/18/2024 Patient Outreach [facility] [address] [place] [address] Mora Díaz DO Pre-visit Planning ([facility] unable to reach [facility] ) 09/08/2024 Telephone [facility] [address] [place] [address] Vee Ornelas, PharmIrena 09/02/2024 Travel 08/31/[address] [facility] [address] [place] [address] Vee Ornelas, Julia Type 2 diabetes mellitus with diabetic microalbuminuria, with long-term current use of insulin (CMS/HCC) 08/31/[address] [facility] [address] [place] [phone] Mora Díaz DO Med Refill (Pt walked in stating his insurance reached out to him in regards to his insulin stating a release has to be signed in order for patient to received the medication. Pt states he is in need .) 08/27/2024 Orders Only [facility] [address] [place], [place] [phone] Mora Díaz DO Type 2 diabetes mellitus with diabetic microalbuminuria, with long-term current use of insulin (CMS/HCC) (Primary Dx) 08/24/2024 Travel 08/21/[address] [facility] [address] [place], [place] [phone] Mora Díaz DO 08/12/[address] 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 [address] [place] [address] [phone] Mora Díaz DO Care Coordination ([facility] outreach for SDOH PT-1 and food needs-LVM ) 08/12/2024 Patient Outreach [facility] [address] [place] [address] [phone] Mora Daíz DO Pre-visit Planning (SDOH screening positive and tobacco screening negative) 08/04/[address] [facility] [address] [place], [place] [phone] Mora Díaz DO Type 2 diabetes mellitus without complication, unspecified whether fdc insulin use (CMS/HCC) 08/03/[address] [facility] [address] [place], [place] [phone] Mora Díaz DO Type 2 diabetes mellitus with diabetic microalbuminuria, with long-term current use of insulin (CMS/HCC) 07/29/2024 2:40 PM EST Office Visit [facility] [address] [place] [address] Sakina Harvey MD Bilateral hip pain (Primary Dx); Benign paroxysmal positional vertigo due to bilateral vestibular disorder; Post-nasal drip 07/29/[address] [facility] [address] [place] [address] Vee Ornelas, PharmD 07/29/2024 Telephone [facility] [address] [place] [address] Estella Dunn, flexo press operator 07/29/2024 Travel 07/26/[address] [address] Mora Díaz, DO 07/24/2024 3:00 PM EST Office Visit [facility] [address] [place] [address] Sakina Harvey MD Acute non-recurrent sinusitis, unspecified location 07/21/[address] [facility] [address] [place] [phone] Mora Díaz, [address] [address] Mora Díaz, GERD without esophagitis from Last 3 Months Immunizations Name Administration Dates Next Due Hep A, Adult 05/31/2023,05/24/2004 Hep B, adult 06/07/2015,01/11/2015,12/10/2014 Influenza High-dose Quadriva lent Preservative Free 04/03/2022,04/12/2021 Influenza Quadrivalent Adjuvanted 04/28/2020 Influenza injectable quadriv alent IIV4 with preservative 04/19/2016 Influenza injectable quadriv alent preservative free 04/22/2023,05/14/2017,04/21/2015 Influenza, High Dose Seasona l, Preservative Free 04/13/2024,04/13/2019,05/05/2018 Influenza, IIV3, injectable 05/18/2014,0 04/20/2011,04/10/2010,05/20,04/24/2007,06/03/2006,05/01/2005 ,06/08/2004,05/19/2003,04/21/2002,05/23,05/31/2000 Influenza, Split (incl. serog fied surface antigen) 04/07/2013,04/18/2012 Pfizer Covid-19 Vaccine 12+ 04/13/2024,1 ,05/12/2021,09/28,09/06/2020 Pfizer Covid-19 Vaccine 12+ mikie-sucrose (Fleming Cap) 12/15/2021 Pneumococcal Conjugate PCV 13 12/21/2015 Pneumococcal Conjugate PCV 20 04/30/2023 Pneumococcal Polysaccharide PPSV23 05/14/2017,,02/24/2001 RSV Adjuvant 12/09/2023 TD (adult), 2 Lf tetanus tox oid, preservative free, adsorbed 02/24/2001 Tdap 12/06/2020,05/22/2010 Zoster, Recombinant 04/03/2021,01/31/2021 Zoster, live 01/11/2015 Family History Medical History Relation Name Comments No Known Problems Father Diabetes Mother Lymphoma Mother Diabetes Sister Relation Name Status Comments Father Mother Sister Social History Tobacco Use Types Packs/Day Years Used Date Smoking Tobacco: Former Cigarettes S tarted: 2001 Passive Smoke Exposure: Past Smokeless Tobacco: Never Tobacco Cessation:Counseling Given: Not Answered Alcohol Use Standard Drinks/Week Comments Not Currently 0 (1 standard drink = 0.6 oz pur e alcohol) Depression Answer Date Recorded Patient Health Questionnaire-9 Score 0 09/25/2024 Patient Health Questionnaire-9 Score 0 09/25/2024 Last PHQ-9: Questionnaire Data Not on file 0 09/25/2024 Housing Stability Answer Date Recorded What is your housing situation today? I have yaneli joe 10/09/[address] you li [...] Orientation Straight 05/21/2022 10 :15 AM EDT Last Filed Vital Signs Vital Sign Reading Time Taken Comments Blood Pressure 128/60 09/25/2024 9:17 AM EST Pulse 60 09/25/2024 9:17 AM EST Temperature 36.1 ??C (97 ??F) 09/25/2024 9:17 AM EST Respiratory Rate 21 09/25/2024 9:17 AM EST Oxygen Saturation 98% 09/25/2024 9:17 AM EST Inhaled Oxygen Concentration - - Weight 111 kg (244 lb 8 oz) 09/25/2024 9:[address] Height 172.7 cm (5' 8 ) 09/25/2024 9:17 AM EST Body Mass Index 37.18 09/25/2024 9:17 AM EST Plan of Treatment Upcoming Encounters Date Type Department Care Team (Late st Contact Info) Description 10/23/2024 10:30 AM EDT Medication Management [facility] [address] [place] [address] Vee Ornelas, PharmD [address] [place] [address] Health Maintenance Due Date Last Done Comments CT Colonography 1950 Dental Prophylaxis 1950 FIT DNA/Cologuard 1950 FIT 1950 FOBT 1950 Sigmoidoscopy 1950 Diabetes: Foot Exam 1960 Eye Exam 1960 Alcohol/Substance Use Screening 1962 Dental X-Ray: Bitewings 02/25/2012 02/23/2011 Dental Oral Exam 11/08/2019 05/08/2019, 11/2018, 06/11/2016, Additional history exists Dental X-Ray: Full Mouth 09/24/2021 019, 12/08/2015, 02/23/2011 Colonoscopy 09/28/2023 09/27/2020 Colorectal Cancer Screening 09/28/2023 Lipid Panel 09/18/2024 09/19/2023, 06/21, 08/12/2020 Diabetes: Hemoglobin A1C 12/26/2024 025, 07/29/2024, 03/20/2024, Additional history exists SDOH Screening 08/12/2025 08/12/2024 Depression Screening 09/25/2025 09/25/2024, 09/26/19 25 Tobacco Screening 09/25/2025 09/25/2024 DTaP/Tdap/Td Vaccines (3 - Td or Tdap) 12/06/2030 12/06/2020, 05/22/2010, 02/24/2001 Hepatitis B Vaccines Completed 06/07/2015, 01/11/2015, 12/10/2014 Hepatitis C Screening Completed 08/12/2020 Zoster Vaccines Completed 04/03/2021, 01/19, 01/11/2015 Pneumococcal Vaccine: 50+ Years Completed 04/30/2023, 05/14/2017, 12/21/2015, Additional history exists Hepatitis A Vaccines Completed 05/31/2023, 05/24/20 04 RSV Patients and Patients Aged 60 years or older Completed 12/09/2023 COVID-19 Vaccine Completed 04/13/2024, 11/2022, 06/30/2022, Additional history exists Influenza Vaccine Completed 04/13/2024, , 04/03/2022, Additional history exists HIB Vaccines Aged Out No longer eligi ble based on patient's age to complete this topic HPV Vaccines Aged Out No longer eligi ble based on patient's age to complete this topic IPV Vaccines Aged Out No longer eligi ble based on patient's age to complete this topic Meningococcal Vaccine Aged Out No jayjay gretta eligible based on patient's age to complete this topic RSV under 20 months Aged Out No longe r eligible based on patient's age to complete this topic Rotavirus Vaccines Aged Out No longer eligible based on patient's age to complete this topic Goals Goal Patient Goal Type Associated Problems [...] 24H data. Check BG manually, as directed. Procedures Procedure Name Priority Date/Time Associated Diagnosis Comments POCT GLUCOSE Routine 09/25/2024 9:26 AM EST Type 2 diabetes mellitus with diabetic microalbuminuria, with long-term current use of insulin ([facility]) POCT GLYCATED HEMOGLOBIN, TOTAL Routine 09/25/2024 9:26 AM EST Type 2 diabetes mellitus with diabetic microalbuminuria, with long-term current use of insulin ([facility]) POCT GLYCATED HEMOGLOBIN, TOTAL Routine 07/29/2024 11:33 AM EST Type 2 diabetes mellitus with diabetic microalbuminuria, with long-term current use of insulin ([facility]) POCT INFLUENZA B (ID NOW RAPID MOLECULAR) Routine 07/24/2024 3:13 PM EST Acute non-recurrent sinusitis, unspecified location POCT INFLUENZA A (ID NOW RAPID MOLECULAR) Routine 07/24/2024 3:12 PM EST Acute non-recurrent sinusitis, unspecified location POCT RAPID COVID ANTIGEN Routine 07/24/2024 3:05 PM EST Acute non-recurrent sinusitis, unspecified location LIPID PANEL, STANDARD Routine 09/19/2023 8:44 AM EST Type 2 diabetes mellitus with microalbuminuria, unspecified whether 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 Hemoglobin A1C 7.7(A) 4.0 - 6.0 % QC Media Lot # [id number] Lot# Expiration Date , Blood 09/25/2024 9:26 AM EST Mora Díaz DO POINT OF CARE TEST ENTER/UYEN T ORDERABLES Final Result * (ABNORMAL) POCT Glucose (09/25/2024 9:26 AM EST) Glucose Blood, POC 219(A) 60 - 200 mg/dL QC Media Lot # [id number] Lot# Expiration Date ,286,245 Blood Capillary blood specimen / Unknown 09/25/2024 9:26 AM EST Mora Díaz DO POINT OF CARE TEST ENTER/UYEN T ORDERABLES Final Result * Influenza B (ID NOW Rapid Molecular) (07/24/2024 3:13 PM EST) Pathologist [facility] Influenza B Negative Negative, Indeterminate [facility] Swab 07/24/2024 3:13 PM EST Sakina Harvey MD POINT OF CARE TEST ENTER/EDIT OR DERABLES Final Result Performing Organization Address [facility]/ZIP Co de Phone Number [facility] [address] [place] [phone] * Influenza A (ID NOW Rapid Molecular) (07/24/2024 3:12 PM EST) [facility] Influenza A Negative Negative, Indeterminate [facility] Swab 07/24/2024 3:12 PM EST Sakina Harvey MD POINT OF CARE TEST ENTER/EDIT OR DERABLES Final Result Performing Organization Address [facility] Co de Phone Number [facility] [address] [place] [phone] * POCT Rapid COVID Ag (07/24/2024 3:05 PM EST) [facility] Rapid COVID Ag Negative Swab 07/24/2024 3:05 PM EST Sakina Harvey MD POINT OF CARE TEST ENTER/EDIT OR DERABLES Final Result * (ABNORMAL) Lipid Panel, Standard (09/19/2023 8:44 AM EST) [facility] Triglycerides 66 <150 mg/dL [facility] Comment:Desirable Triglyceri de: less than 150 mg/dLBorderline High Triglyceride 150-199 mg/dLHigh Triglyceride: 200-499 mg/dLVery High Triglyceride: greater than or equal to 5OO mg/dL Cholesterol 105 <200 mg/dL [facility] Comment:Desirable Cholestero l: less than 200 mg/dLBorderline High Cholesterol: 200-239 mg/dLHigh Cholesterol: greater than 239 mg/dL LDL Cholesterol Calculated 56 <100 mg/dL [facility] [facility] Comment:Desirable LDL: less than 100 mg/dLNear Optimal/Above Optimal LDL: 110- 129 mg/dLBorderline High LDL: 130-159 mg/dLHigh LDL: 160-189 mg/dLVery High LDL: greater than or equal to 190 mg/dL HDL Cholesterol 36(L) >40 mg/dL [facility] Comment:Desirable HDL: great er than 40 mg/dL Note: This HDL assay may give artificially low results in patients with liver disease. Blood Venous blood specimen / Unknown 09/19/2023 8:44 AM EST 09/19/2023 2:03 PM EST Mora Díaz DO LAB BLOOD ORDERABLES Final R esult [facility] [address] [place] [phone] * (ABNORMAL) Colonoscopy (09/27/2020) Colonoscopy Abnormal( A) Normal Comment:repeat in 3 yrs 09/27/2020 Alex Murrell MD HEALTH MAINTENANCE Final Res ult * HEPATITIS C AB W/REFL TO HCV RNA, QN, PCR (08/12/2020 9:09 AM EST) HEPATITIS C ANTIBODY NON-REACT [facility] NON-REACT [facility] INDEX 0.05 <1.00 [facility] Comment: ?? HCV antibody was non-reactive. There is no laboratory ?? evidence of HCV infection. ?? In most cases, no further action is required. However, if recent HCV exposure is suspected, a test for HCV RNA (test code 58809) is suggested. ?? For additional information please refer to http://education.ConforMIS/faq/JSP87n7 (This link is being provided for informational/ educational purposes only.) ?? 08/12/2020 9:09 AM EST Mora Arjun DO HISTORICAL/NON ORDERABLE LAB S Final Result [facility] [address] from Last 3 Months or Most Recently Relevant to Health Maintenance Insurance MEDICARE [facility] MEDICAID STAND ADULT Care Teams Test Design Engineer Relationship Specialty Start Date End Date Mora Díaz DO [address] [place] [id number] PCP - General Family Medicine 07/22/18 Vee Ornelas PharmD [address] [place] [phone] Pharmacist Internal Medicine 02/20/23
--- OUTSIDE RECORDS SUMMARY | 2024-09-30 11:25 | XMS_ITS | Encounter Summary ---
Author Organization [employer] Address [address] [place] [address] 7t [place] [address] Care Team Providers Care Atv Mechanic Name Role Phone Mora Díaz DO Primary Care Provider [phone]- [phone] Vee Ornelas PharmD Unavailable [phone] Reason for Visit * Reason Comments Med Refill Encounter Details Date Type Department Care Team (Late st Contact Info) Description 03/16/2024 Refill [facility] [address] [place], [place] [phone] Mora Díaz DO [address] [place] [address] Social History Tobacco Use Types Packs/Day Years [...] Description 10/23/2024 10:30 AM EDT Medication Management [facility] [address] [place] [address] Vee Ornelas PharmD [address] [place] [address] documented as of this encounter Goals Goal [...] documented as of this encounter Care Teams Atv Mechanic Relationship Specialty Start Date End Date Mora Díaz DO [address] [place] [address] PCP - General Family Medicine 07/22/18 Vee Ornelas PharmD [address] [place] [address] Pharmacist Internal Medicine 02/20/23 documented as of this encounter
--- OUTSIDE RECORDS SUMMARY | 2024-09-30 11:25 | XMS_ITS | Encounter Summary ---
Author Organization [employer] Address [address] [facility] 7t [place] [address] Care Team Providers Care Pipe Stress Engineer Name Role Phone Arjun Mora Primary Care Provider + [phone] Vee Ornelas PharmD Unavailable [phone] Encounter Details Date Type Department Care Team (Latest Contact Info) Description 09/25/2024 Travel Social History Tobacco Use Types Packs/Day [...] Description 10/23/2024 10:30 AM EDT Medication Management [facility] MED[facility]INE [address] [place], [place] [phone] Vee Ornelas PharmD [address] [place] [address] documented as of this encounter Goals Goal [...] documented as of this encounter Care Teams Pipe Stress Engineer Relationship Specialty Start Date End Date Mora Díaz DO [address] [place] [address] PCP - General Family Medicine 07/22/18 Vee Ornelas PharmD [address] [place] [address] Pharmacist Internal Medicine 02/20/23 documented as of this encounter
--- OUTSIDE RECORDS SUMMARY | 2024-09-30 11:25 | XMS_ITS | Encounter Summary ---
Author Organization [employer] Address [address] [place] [address] 7t [place] [address] Care Team Providers Care Micro Computer Specialist Name Role Phone ArjunMora Primary Care Provider + [phone] Vee Ornelas PharmD Unavailable [phone] Reason for Visit * Reason Comments Med Refill Encounter Details Date Type Department Care Team (Late st Contact Info) Description 05/09/2023 Refill [facility] [address] [place] [address] Martha Lou FNP [address] [place] [address] Dept [place] [address] GERD without esophagitis Social History Tobacco Use Types Packs/Day Years Used Date Smoking Tobacco: Former Cigarettes S tarted: 2001 Passive Smoke Exposure: Never Alcohol Use Standard Drinks/Week Comments Not Currently 0 (1 standard drink = 0.6 oz pur e alcohol) Depression Answer Date Recorded Patient Health Questionnaire-9 Score 0 08/22/2022 Housing Stability Answer Date Recorded What is your housing situation today? I have yaneli diaz 05/09/[address] you li ve. Do you have problems with any of the following? None of the above 05/09/2023 Food Insecurity Answer Date Recorded Within the past 12 months, y ou worried that your food would run out before you got money to buy more: Never True 05/09/2023 Within the past 12 months,th e food you bought just didn't last and you didn't have enough money to get more: Never True Transportation Answer Date Recorded In the past 12 months, has l ack of transportation kept you from medical appts, meetings, work or from getting things needed for daily living? No 05/09/2023 Utilities Answer Date Recorded In the past 12 months, has t he electric, gas, oil or water company threatened to shut off services in your home? No 05/09/2023 Depression Answer Date Recorded Patient Health Questionnaire-2 Score 0 08/22/2022 Sex and Gender Information Value Date Recorded Sex Assigned at Male 05/21/2022 10:15 AM EDT Legal Sex Male 10:15 AM EDT Gender Identity Male 05/21/2022 10:15 AM EDT Sexual Orientation Straight 05/21/2022 10 :15 AM EDT documented as of this encounter Plan of Treatment Upcoming Encounters Date Type Department Care Team (Late st Contact Info) Description 10/23/2024 10:30 AM EDT Medication Management [facility] [address] [place], [place] [phone] Vee Ornelas PharmD [address] [place] [address] documented as of this encounter Goals Goal [...] Noted Time PHQ-9 Depression Total Score: 0 08/22/19 9:58 AM EST documented as of this encounter Care Teams Micro Computer Specialist Relationship Specialty Start Date End Date Mora Díaz DO [address] [place], [place] [phone] PCP - General Family Medicine 07/22/18 Vee Ornelas PharmD [address] [place] [address] Pharmacist Internal Medicine 02/20/23 documented as of this encounter
--- OUTSIDE RECORDS SUMMARY | 2024-09-30 11:25 | XMS_ITS | Encounter Summary ---
Author Organization [employer] Address [address] [place] [address] 7t [place] [address] Care Team Providers Care Fitting Room Associate Name Role Phone Mora Díaz DO Primary Care Provider Vee Ornelas PharmD Unavailable Encounter Details Date Type Department Care Team (Latest Contact Info) Description 09/25/2024 9:00 AM EST Office Visit [facility] MEDICINE [address] [place], [place] [phone] Mora Díaz DO [address] [place] [address] Type 2 diabetes mellitus with diabetic microalbuminuria, with long-term current use of insulin ([facility]) (Primary Dx); Essential hypertension; Other hyperlipidemia; Coronary artery disease involving [place] heart, unspecified vessel or lesion type, unspecified whether angina present; Fatty liver; Chronic GERD; Chronic constipation; Obstructive sleep apnea; Chronic allergic rhinitis; Chronic bilateral low back pain, unspecified whether sciatica present; Healthcare maintenance; Encounter for screening for infections with a predominantly sexual mode of transmission; Abnormal findings on diagnostic imaging of liver and biliary tract Social History Tobacco Use Types Packs/Day Years [...] your housing situation today? I have yaneli sing 10/09/[address] you li [...] AM EDT documented as of this encounter Last Filed Vital Signs Vital Sign Reading [...] Mass Index 37.18 09/25/2024 9:17 AM EST documented in this encounter Plan of Treatment Upcoming Encounters Date Type Department Care Team (Late st Contact Info) Description 10/23/2024 10:30 AM EDT Medication Management [facility] MEDICINE [address] [place] [address] Vee Ornelas, PharmD [address] [place] [address] Scheduled Orders Name Type Priority Associated Diagnoses Orde r Schedule T4, Free Lab Routine Type 2 diabetes mellitus with diabetic microalbuminuria, with long-term current use of insulin (CMS/HCC) Essential hypertension Other hyperlipidemia Coronary artery disease involving [place] heart, unspecified vessel or lesion type, unspecified whether angina present Fatty liver Chronic GERD Chronic constipation Obstructive sleep apnea Chronic allergic rhinitis Chronic bilateral low back pain, unspecified whether sciatica present Healthcare maintenance Expected: 09/30/2024 (Approximate), Expires: 09/30/2025 Vitamin D, 25-Hydroxy, Total, Immunoassay Lab Routine Type 2 diabetes mellitus with diabetic microalbuminuria, with long-term current use of insulin (CMS/HCC) Essential hypertension Other hyperlipidemia Coronary artery disease involving [place] heart, unspecified vessel or lesion type, unspecified whether angina present Fatty liver Chronic GERD Chronic constipation Obstructive sleep apnea Chronic allergic rhinitis Chronic bilateral low back pain, unspecified whether sciatica present Healthcare maintenance Expected: 09/30/2024 (Approximate), Expires: 09/30/2025 Lipid Panel, Standard Lab Routine Type 2 diabetes mellitus with diabetic microalbuminuria, with long-term current use of insulin (CMS/HCC) Essential hypertension Other hyperlipidemia Coronary artery disease involving [place] heart, unspecified vessel or lesion type, unspecified whether angina present Fatty liver Chronic GERD Chronic constipation Obstructive sleep apnea Chronic allergic rhinitis Chronic bilateral low back pain, unspecified whether sciatica present Healthcare maintenance Expected: 09/30/2024 (Approximate), Expires: 09/30/2025 TSH Lab Routine Type 2 diabetes mellitus with diabetic microalbuminuria, with long-term current use of insulin (CMS/HCC) Essential hypertension Other hyperlipidemia Coronary artery disease involving [place] heart, unspecified vessel or lesion type, unspecified whether angina present Fatty liver Chronic GERD Chronic constipation Obstructive sleep apnea Chronic allergic rhinitis Chronic bilateral low back pain, unspecified whether sciatica present Healthcare maintenance Expected: 09/30/2024 (Approximate), Expires: 09/30/2025 Hepatic Function Panel Lab Routine Type 2 diabetes mellitus with diabetic microalbuminuria, with long-term current use of insulin (CMS/HCC) Essential hypertension Other hyperlipidemia Coronary artery disease involving [place] heart, unspecified vessel or lesion type, unspecified whether angina present Fatty liver Chronic GERD Chronic constipation Obstructive sleep apnea Chronic allergic rhinitis Chronic bilateral low back pain, unspecified whether sciatica present Healthcare maintenance Expected: 09/30/2024 (Approximate), Expires: 09/30/2025 Hemoglobin A1c Lab Routine Type 2 diabetes mellitus with diabetic microalbuminuria, with long-term current use of insulin ([facility]) Essential hypertension Other hyperlipidemia Coronary artery disease involving [place] heart, unspecified vessel or lesion type, unspecified whether angina present Fatty liver Chronic GERD Chronic constipation Obstructive sleep apnea Chronic allergic rhinitis Chronic bilateral low back pain, unspecified whether sciatica present Healthcare maintenance Expected: 09/30/2024 (Approximate), Expires: 09/30/2025 Basic Metabolic Panel Lab Routine Type 2 diabetes mellitus with diabetic microalbuminuria, with long-term current use of insulin ([facility]) Essential hypertension Other hyperlipidemia Coronary artery disease involving [place] heart, unspecified vessel or lesion type, unspecified whether angina present Fatty liver Chronic GERD Chronic constipation Obstructive sleep apnea Chronic allergic rhinitis Chronic bilateral low back pain, unspecified whether sciatica present Healthcare maintenance Expected: 09/30/2024 (Approximate), Expires: 09/30/2025 CBC Lab Routine Type 2 diabetes mellitus with diabetic microalbuminuria, with long-term current use of insulin ([facility]) Essential hypertension Other hyperlipidemia Coronary artery disease involving [place] heart, unspecified vessel or lesion type, unspecified whether angina present Fatty liver Chronic GERD Chronic constipation Obstructive sleep apnea Chronic allergic rhinitis Chronic bilateral low back pain, unspecified whether sciatica present Healthcare maintenance Expected: 09/30/2024, Expires: 09/30/2025 Albumin, Random Urine W/Creatinine Lab Routine Type 2 diabetes mellitus with diabetic microalbuminuria, with long-term current use of insulin ([facility]) Essential hypertension Other hyperlipidemia Coronary artery disease involving [place] heart, unspecified vessel or lesion type, unspecified whether angina present Fatty liver Chronic GERD Chronic constipation Obstructive sleep apnea Chronic allergic rhinitis Chronic bilateral low back pain, unspecified whether sciatica present Healthcare maintenance Expected: 09/30/2024 (Approximate), Expires: 09/30/2025 Chlamydia/N. Gonorrhoeae RNA, TMA, Urogenitial Microbiology Routine Type 2 diabetes mellitus with diabetic microalbuminuria, with long-term current use of insulin ([facility]/HCC) Essential hypertension Other hyperlipidemia Coronary artery disease involving [place] heart, unspecified vessel or lesion type, unspecified whether angina present Fatty liver Chronic GERD Chronic constipation Obstructive sleep apnea Chronic allergic rhinitis Chronic bilateral low back pain, unspecified whether sciatica present Healthcare maintenance Encounter for screening for infections with a predominantly sexual mode of transmission Ordered: 09/30/2024 Hepatitis C Antibody with Reflex to HCV, RNA, Quantitative, Real-Time PCR Lab Routine Type 2 diabetes mellitus with diabetic microalbuminuria, with long-term current use of insulin (CMS/HCC) Essential hypertension Other hyperlipidemia Coronary artery disease involving [place] heart, unspecified vessel or lesion type, unspecified whether angina present Fatty liver Chronic GERD Chronic constipation Obstructive sleep apnea Chronic allergic rhinitis Chronic bilateral low back pain, unspecified whether sciatica present Healthcare maintenance Expected: 09/30/2024, Expires: 09/30/2025 RPR (Monitor) with Reflex to??Titer Lab Routine Type 2 diabetes mellitus with diabetic microalbuminuria, with long-term current use of insulin (CMS/HCC) Essential hypertension Other hyperlipidemia Coronary artery disease involving [place] heart, unspecified vessel or lesion type, unspecified whether angina present Fatty liver Chronic GERD Chronic constipation Obstructive sleep apnea Chronic allergic rhinitis Chronic bilateral low back pain, unspecified whether sciatica present Healthcare maintenance Encounter for screening for infections with a predominantly sexual mode of transmission Expected: 09/30/2024, Expires: 09/30/2025 Alpha-Fetoprotein, Tumor Marker Lab Routine Type 2 diabetes mellitus with diabetic microalbuminuria, with long-term current use of insulin (CMS/HCC) Essential hypertension Other hyperlipidemia Coronary artery disease involving [place] heart, unspecified vessel or lesion type, unspecified whether angina present Fatty liver Chronic GERD Chronic constipation Obstructive sleep apnea Chronic allergic rhinitis Chronic bilateral low back pain, unspecified whether sciatica present Healthcare maintenance Encounter for screening for infections with a predominantly sexual mode of transmission Abnormal findings on diagnostic imaging of liver and biliary tract Expected: 09/30/2024 (Approximate), Expires: 09/30/2025 documented as of this encounter Goals Goal [...] as directed. documented as of this encounter Procedures Procedure Name Priority Date/Time Associated Diagnosis Comments POCT GLYCATED HEMOGLOBIN, TOTAL Routine 09/25/2024 9:26 AM EST Type 2 diabetes mellitus with diabetic microalbuminuria, with long-term current use of insulin ([facility]) POCT GLUCOSE Routine 09/25/2024 9:26 AM EST Type 2 diabetes mellitus with diabetic microalbuminuria, with long-term current use of insulin ([facility]) documented in this encounter Results * (ABNORMAL) POCT Glucose (09/25/2024 9:26 AM EST) Glucose Blood, POC 219(A) 60 - 200 mg/dL QC Media Lot # [id number] Lot# Expiration Date ,025 Blood Capillary blood specimen / Unknown 09/25/2024 9:26 AM EST Mora Díaz DO POINT OF CARE TEST ENTER/UYEN T ORDERABLES Final Result * (ABNORMAL) POCT HGB A1C (09/25/2024 9:26 AM EST) Hemoglobin A1C 7.7(A) 4.0 - 6.0 % QC Media Lot # [id number] Lot# Expiration Date 026 Blood 09/25/2024 9:26 AM EST Mora Díaz DO POINT OF CARE TEST ENTER/UYEN T ORDERABLES Final Result documented in this encounter Visit Diagnoses Diagnosis Type 2 diabetes mellitus with diabetic microalbuminuria, with long-term current use of insulin ([facility])- Primary Essential hypertension Unspecified essential hypertension Other hyperlipidemia Coronary artery disease involving [place] heart, unspecified vessel or lesion type, unspecified whether angina present Fatty liver Other chronic nonalcoholic liver disease Chronic GERD Chronic constipation Unspecified constipation Obstructive sleep apnea Obstructive sleep apnea (adult) (pediatric) Chronic allergic rhinitis Chronic bilateral low back pain, unspecified whether sciatica present Healthcare maintenance Encounter for screening for infections with a predominantly sexual mode of transmission Abnormal findings on diagnostic imaging of liver and biliary tract documented in this encounter Additional Health Concerns Assessment Noted Time PHQ-9 Depression Total Score: 0 09/26/19 25 9:24 AM EST documented as of this encounter Care Teams Fitting Room Associate Relationship Specialty Start Date End Date Mora Díaz DO [address] [place] [address] PCP - General Family Medicine 07/22/18 Vee Ornelas PharmD [address] [place] [address] Pharmacist Internal Medicine 02/20/23 documented as of this encounter
--- OUTSIDE RECORDS SUMMARY | 2024-09-30 11:25 | XMS_ITS | Encounter Summary ---
Author Organization [employer] Address [address] [facility] 7t [place] [address] Care Team Providers Care Perfumer Name Role Phone Mora Díaz DO Primary Care Provider [phone] Vee Ornelas PharmD Unavailable [phone] Encounter Details Date Type Department Care Team ([facility] st Contact Info) Description 11/18/2023 Telephone [facility] [address] [place], [place] [phone] Mora Díaz DO [address] [place] [address] Social History Tobacco Use Types Packs/Day Years [...] Description 10/23/2024 10:30 AM EDT Medication Management [facility] [address] [place] [address] Vee Ornelas PharmD [address] [place] [address] documented as of this encounter Goals Goal [...] 7.7( 9:26 AM EST) No Nicholas Mulligan PharmIrena Record your blood sugar as directed [...] documented as of this encounter Care Teams Perfumer Relationship Specialty Start Date End Date Mora Díaz DO [address] [place] [address] PCP - General Family Medicine 07/22/18 Vee Ornelas PharmD [address] [place] [address] Pharmacist Internal Medicine 02/20/23 documented as of this encounter
[2024-09-30 11:47] LABS: Hematocrit 44.8 % (42.0-52.0); Hemoglobin 14.4 g/dl (14.0-18.0); Mean Corpuscular HGB Conc 32.1 g/dl (31.0-36.0); Mean Corpuscular Hemoglobin 27.9 pg (27.0-33.0); Mean Corpuscular Volume 86.7 fL (80.0-98.0); Mean Platelet Volume 9.3 fL (9.4-12.4); Platelet Count 261 X10*3/uL (160-400); Red Blood Count 5.17 X10*6/uL (4.60-5.80); Red Cell Distribution Width 13.9 % (11.0-16.0)
[2024-09-30 12:07] LABS: Estimated Average Glucose 163 mg/dL; Hemoglobin A1c % 7.3 % (<6.0)
[2024-09-30 12:28] LABS: Creatinine Urine 94.34 mg/dL; Microalbumin Urine < 5.0 mg/L
[2024-09-30 12:31] LABS: Alanine Aminotransferase 26 U/L (0-40); Albumin Level 3.7 g/dL (3.5-5.0); Alkaline Phosphatase 59 U/L (39-117); Anion Gap 8 (12-20); Aspartate Amino Transferase 26 U/L (5-37); Bilirubin Direct 0.2 mg/dL (0.0-0.5); Bilirubin Total 0.4 mg/dL (0.0-1.0); Blood Urea Nitrogen 23 mg/dL (9-16); Calcium 9.2 mg/dL (8.4-10.2); Carbon Dioxide 29 mmol/L (22-29); Chloride 107 mmol/L (96-108); Cholesterol 178 mg/dL (<200); Estimated Glomerular Filt Rate > 60; Free T4 (Free Thyroxine) 1.03 ng/dL (0.71-1.85); Glucose Random 184 mg/dL (60-115); HDL Cholesterol 43 mg/dL (>40); LDL Cholesterol Calculated 119 mg/dL (<100); Potassium 4.2 mmol/L (3.3-5.1); Sodium 140 mmol/L (135-145); Total Protein 7.8 g/dL (6.5-8.0); Triglycerides 83 mg/dL (<150); Vitamin D 25-OH Total 42.3 ng/mL (>30)
[2024-09-30 12:58] LABS: ~HepC Num1 0.17 S/CO (0.00-0.79); ~Hepatitis C Antibody Nonreactive (Nonreactive)
[2024-09-30 13:05] LABS: CT PCR NOT DETECTED (Not Detect.); NG PCR NOT DETECTED (Not Detect.)
[2024-10-01 10:03] LABS: RPR Rapid Plasma Reagin NON-REACTIVE (NON-REACTIVE)
[2024-10-01 10:18] LABS: Alpha Fetoprotein 1.1 ng/mL (<6.1)
== END 2024-09-30 10:02 | disposition home or self-care (01) ==
LOC: HO.HHCL 10:01
PROVIDERS: Visit Provider Family Medicine
DX: Z00.00 Encounter for general adult medical examination without abnormal findings (principal); R93.2 Abnormal findings on diagnostic imaging of liver and biliary tract; G89.29 Other chronic pain; M54.50 Low back pain, unspecified; J30.9 Allergic rhinitis, unspecified; G47.33 Obstructive sleep apnea (adult) (pediatric); K59.09 Other constipation; K21.9 Gastro-esophageal reflux disease without esophagitis; K76.0 Fatty (change of) liver, not elsewhere classified; I25.10 Atherosclerotic heart disease of native coronary artery without angina pectoris; E78.49 Other hyperlipidemia; I10 Essential (primary) hypertension; Z79.4 Long term (current) use of insulin; R80.9 Proteinuria, unspecified; E11.29 Type 2 diabetes mellitus with other diabetic kidney complication
CPT/HCPCS: 80048; 80061; 80076; 82043; 82105; 82306; 82570; 83036; 84439; 84443; 85027; 86592; 86803; 87491; 87591

== ENCOUNTER 2024-10-19 08:46 | Outpatient (REF) | payer MEDICARE, MEDICAID, SELFPAY ==
--- NOTE | ~2024-10-19 | US_ITS ---
CLINICAL HISTORY: f u fatty liver US abdomen complete Comparison: US/SR - US ABDOMEN COMPLETE - 09/03/22 08:55 EST Findings: The visualized pancreas is normal. The visualized aorta and IVC are unremarkable. Echogenic liver parenchyma. No focal liver lesion. Limited evaluation of liver parenchyma secondary to poor penetration by the ultrasound beam. Liver length estimated at 16.3 cm. There is no intrahepatic bile duct dilatation. The common duct is 5 mm in diameter. The gallbladder is normal. There is no sonographic Langley sign. The main portal vein is antegrade. The right kidney is 11.5 cm in length. Small peripelvic cyst within the right kidney. The left kidney is 12.3 cm in length. The spleen is normal. No ascites. IMPRESSION: Fatty infiltration of the liver. This document has been electronically signed by: Mojgan Ge MD on 10/19/2024 15:13:52
== END 2024-10-19 08:47 | disposition home or self-care (01) ==
LOC: HO.HMGCX 08:46
PROVIDERS: PCP Family Medicine; Visit Provider Family Medicine
DX: K76.0 Fatty (change of) liver, not elsewhere classified (principal)
CPT/HCPCS: 76700

== ENCOUNTER → 2024-10-19 09:02 | Outpatient (BNV) | payer MEDICARE, MEDICAID, SELFPAY | PROVIDERS: PCP Family Medicine; Visit Provider Radiology Diagnostic Radiology | DX: K76.0 Fatty (change of) liver, not elsewhere classified (principal) | CPT/HCPCS: 76700 ==

== ENCOUNTER 2024-11-16 10:53 | Outpatient (REF) | payer MEDICARE, MEDICAID, SELFPAY ==
--- OUTSIDE RECORDS SUMMARY | 2024-11-16 13:04 | XMS_ITS | Encounter Summary ---
Author Organization [employer] Address [address] [facility] 7t [place] [address] Care Team Providers Care Brick Paver Name Role Phone Mora Díaz DO Primary Care Provider [phone] Vee Ornelas PharmD Unavailable [phone] Reason for Visit * Reason Comments Med Refill Encounter Details Date Type Department Care Team ([facility] st Contact Info) Description 04/24/2024 Refill [facility] MED[facility]INE [address] [place], [place] [phone] Mora Díaz DO [address] [place] [address] GERD without esophagitis Social History Tobacco Use [...] Care Team (Late st Contact Info) Description 01/01/2025 10:30 AM EDT Medication Management [facility] [address] [place] [address] Vee Ornelas PharmD [address] [place] [address] documented as of this encounter Goals Goal Patient Goal Type Associated Problems Recent Progress Patient-Stated? Author Blood Pressure < 140/90 Blood Pressure 128/62(2024 10:37 AM EDT) No Nicholas Mulligan PharmD Note: Goal to resolve hypoTN (DBP) and low/borderline low HR Record your blood pressure periodically Blood Pressure On track( 024 11:34 AM EST) No Vee Ornelas PharmD Hemoglobin A1c < 7.5 Result Component 7.3( 10:04 AM EDT) No Nicholas Mulligan PharmD Record your blood [...] documented as of this encounter Care Teams Brick Paver Relationship Specialty Start Date End Date Mora Díaz DO [address] [place] [address] PCP - General Family Medicine 07/22/18 Vee Ornelas PharmD [address] [place] [address] Pharmacist Internal Medicine 02/20/23 documented as of this encounter
--- OUTSIDE RECORDS SUMMARY | 2024-11-16 13:04 | XMS_ITS | Encounter Summary ---
Author Organization [employer] Address [address] [facility] 7t [place] [address] Care Team Providers Care Fire Alarm Repairer Name Role Phone Mora Díaz DO Primary Care Provider +1- [phone] Vee Ornelas PharmD Unavailable [phone] Reason for Visit * Reason Comments Med Refill Encounter Details Date Type Department Care Team (Late st Contact Info) Description 08/03/2024 Refill [facility] [address] [place], [place] [phone] Mora Díaz DO [address] [place] [address] Type 2 diabetes mellitus with diabetic microalbuminuria, with long-term current use of insulin ([facility]) Social History Tobacco Use Types [...] Description 01/01/2025 10:30 AM EDT Medication Management [facility] [address] [place] [address] Vee Ornelas PharmD [address] [place] [address] documented as of this encounter Goals Goal Patient Goal Type Associated Problems Recent Progress Patient-Stated? Author Blood Pressure < 140/90 Blood Pressure 128/62(2024 10:37 AM EDT) No Nicholas Mulligan PharmD Note: Goal to resolve hypoTN (DBP) and low/borderline low HR Record your blood pressure periodically Blood Pressure On track( 024 11:34 AM EST) No Vee Ornelas PharmIrena Hemoglobin A1c < 7.5 Result Component 7.3( 10:04 AM EDT) No Nicholas Mulligan PharmIrena Record your blood [...] microalbuminuria, with long-term current use of insulin ([facility]) documented in this encounter Additional Health Concerns Assessment Noted Time PHQ-9 Depression Total Score: 0 10/09/19 24 11:16 AM EDT documented as of this encounter Care Teams Fire Alarm Repairer Relationship Specialty Start Date End Date Mora Díaz DO [address] [place] [address] PCP - General Family Medicine 07/22/18 Vee Ornelas PharmD [address] [place] [address] Pharmacist Internal Medicine 02/20/23 documented as of this encounter
--- OUTSIDE RECORDS SUMMARY | 2024-11-16 13:04 | XMS_ITS | Encounter Summary ---
Author Organization [employer] Address [address] [place] [address] 7t [place] [address] Care Team Providers Care Copy Machine Operator Name Role Phone Mora Díaz DO Primary Care Provider +1- [phone] Vee Ornelas PharmD Unavailable [phone] Reason for Visit * Reason Comments Med Refill Encounter Details Date Type Department Care Team ([facility] st Contact Info) Description 04/16/2024 Refill [facility] [address] [place], [place] [phone] Mora Díaz DO [address] [place] [address] Social History Tobacco Use Types Packs/Day Years [...] Description 01/01/2025 10:30 AM EDT Medication Management [facility] [address] [place] [address] Vee Ornelas PharmD [address] [place] [address] documented as of this encounter Goals Goal [...] documented as of this encounter Care Teams Copy Machine Operator Relationship Specialty Start Date End Date Mora Díaz DO [address] [place] [address] PCP - General Family Medicine 07/22/18 Vee Ornelas PharmD [address] [place] [address] Pharmacist Internal Medicine 02/20/23 documented as of this encounter
--- OUTSIDE RECORDS SUMMARY | 2024-11-16 13:05 | XMS_ITS | Encounter Summary ---
Author Organization [employer] Address [address] [place] [address] 7t [place] [address] Care Team Providers Care Quarantine Inspector Name Role Phone ArjunMora Primary Care Provider [phone]- [phone] Vee Ornelas PharmD Unavailable [phone] Reason for Visit * Reason Onset Date Comments Lab Orders 11/12/2024 Encounter Details Date Type Department Care Team ([facility] st Contact Info) Description 11/12/2024 Telephone [facility] [address] [place], [place] [phone] Corine Anderson, JATINDER [address] [place] [address] Lab Orders Social History Tobacco Use Types Packs/Day Years [...] encounter Miscellaneous Notes * Telephone Encounter - Corine Anderson RN - 11/12/2024 4:38 PM EDT Noted pt. Scheduled for [place] for tb testing. Appt. Cancelled, lab order placed. Pt. Will be notified by [facility] staff. documented in this encounter Plan of Treatment Upcoming Encounters Date Type Department Care Team (Late st Contact Info) Description 01/01/2025 10:30 AM EDT Medication Management [facility] [address] [place] [address] Vee Ornelas, PharmD [address] [place] [address] Scheduled Orders Name Type Priority Associated Diagnoses Orde r Schedule T-SPOT??.TB Lab Routine Screening examination for pulmonary tuberculosis Expected: 11/12/2024 (Approximate), Expires: 11/12/2025 documented as of this encounter Goals Goal Patient Goal Type Associated Problems Recent Progress Patient-Stated? Author Blood Pressure < 140/90 Blood Pressure 128/62(2024 10:37 AM EDT) No Nicholas Mulligan, PharmD Note: Goal to resolve hypoTN (DBP) and low/borderline low HR Record your blood pressure periodically Blood Pressure On track( 024 11:34 AM EST) No eVe Ornelas PharmD Hemoglobin A1c < 7.5 Result Component 7.3( 5 10:04 AM EDT) No Nicholas Mulligan PharmD Record your blood sugar as directed Result Component On track( 024 11:34 AM EST) No Vee Ornelas PharmD Note: Use CGM, ensuring sensor is scanned at least once every 8 hours to capture 24H data. Check BG manually, as directed. documented as of this encounter Visit Diagnoses Diagnosis Screening examination for pulmonary tuberculosis documented in this encounter Additional Health Concerns Assessment Noted Time PHQ-9 Depression Total Score: 0 09/26/19 25 9:24 AM EST documented as of this encounter Care Teams Quarantine Inspector Relationship Specialty Start Date End Date Mora Díaz DO [address] [place] [address] PCP - General Family Medicine 07/22/18 Vee Ornelas PharmD [address] [place] [address] Pharmacist Internal Medicine 02/20/23 documented as of this encounter
--- OUTSIDE RECORDS SUMMARY | 2024-11-16 13:05 | XMS_ITS | Encounter Summary ---
Author Organization [employer] Address [address] [place] [address] 7t [place] [address] Care Team Providers Care Deckhand Shrimp Boat Name Role Phone Mora Díaz DO Primary Care Provider [phone] Vee Ornelas PharmD Unavailable [phone] Reason for Visit * Reason Comments Med Refill Encounter Details Date Type Department Care Team (Late st Contact Info) Description 09/25/2024 Refill [facility] [address] [place], [place] [phone] Mora Díaz DO [address] [place] [address] Social History Tobacco Use Types Packs/Day Years [...] Description 01/01/2025 10:30 AM EDT Medication Management [facility] [address] [place] [address] Vee Ornelas PharmIrena [address] [place] [address] documented as of this encounter Goals Goal Patient Goal Type Associated Problems Recent Progress Patient-Stated? Author Blood Pressure < 140/90 Blood Pressure 128/62(2024 10:37 AM EDT) No Nicholas Mulligan PharmIrena Note: Goal to resolve hypoTN (DBP) and low/borderline low HR Record your blood pressure periodically Blood Pressure On track( 024 11:34 AM EST) No Vee Ornelas PharmIrena Hemoglobin A1c < 7.5 Result Component 7.3( 10:04 AM EDT) No Nicholas Mulligan, PharmD Record your blood [...] documented as of this encounter Care Teams Deckhand Shrimp Boat Relationship Specialty Start Date End Date Mora Díaz DO [address] [place] [address] PCP - General Family Medicine 07/22/18 Vee Ornelas PharmD [address] [place] [address] Pharmacist Internal Medicine 02/20/23 documented as of this encounter
--- OUTSIDE RECORDS SUMMARY | 2024-11-16 13:05 | XMS_ITS | Encounter Summary ---
Author Organization [employer] Address [address] [place] [address] 7t [place] [address] Care Team Providers Care Insulator Helper Name Role Phone ArjunMora Primary Care Provider [phone] Vee Ornelas PharmD Unavailable [phone] Reason for Visit * Reason Comments Med Refill Encounter Details Date Type Department Care Team (Late st Contact Info) Description 05/09/2023 Refill [facility] [address] [place] [address] Martha Lou FNP [address] [place] [address] Dept [place] [address] GERD without esophagitis Social History Tobacco Use [...] Description 01/01/2025 10:30 AM EDT Medication Management [facility] [address] [place], [place] [phone] Vee Ornelas PharmD [address] [place] [address] documented as of this encounter Goals Goal [...] Time PHQ-9 Depression Total Score: 0 08/22/19 23 9:58 AM EST documented as of this encounter Care Teams Insulator Helper Relationship Specialty Start Date End Date Mora Díaz DO [address] [place] [address] PCP - General Family Medicine 07/22/18 Vee Ornelas PharmD [address] [place] [address] Pharmacist Internal Medicine 02/20/23 documented as of this encounter
--- OUTSIDE RECORDS SUMMARY | 2024-11-16 13:05 | XMS_ITS | Encounter Summary ---
Author Organization [employer] Address [address] [facility] 7t [place] [address] Care Team Providers Care Planing Machine Operator Name Role Phone Mora Díaz DO Primary Care Provider [phone] Vee Ornelas PharmD Unavailable [phone] Encounter Details Date Type Department Care Team ([facility] st Contact Info) Description 11/18/2023 Telephone [facility] [address] [place], [place] [phone] Mora Díaz DO [address] [place] [address] Social History Tobacco Use Types Packs/Day Years [...] Description 01/01/2025 10:30 AM EDT Medication Management [facility] [address] [place] [address] Vee Ornelas PharmD [address] [place] [address] documented as of this encounter Goals Goal [...] documented as of this encounter Care Teams Planing Machine Operator Relationship Specialty Start Date End Date Mora Díaz DO [address] [place] [address] PCP - General Family Medicine 07/22/18 Vee Ornelas PharmD [address] [place] [address] Pharmacist Internal Medicine 02/20/23 documented as of this encounter
--- OUTSIDE RECORDS SUMMARY | 2024-11-16 13:05 | XMS_ITS | Encounter Summary ---
Author Organization [employer] Address [address] [place] [address] 7t [place] [address] Care Team Providers Care Health Sciences Program Coordinator Name Role Phone Mora Díaz DO Primary Care Provider [phone]- [phone] Vee Ornelas PharmD Unavailable [phone] Reason for Visit * Reason Comments Med Refill Encounter Details Date Type Department Care Team (Late st Contact Info) Description 03/21/2024 Refill [facility] [address] [place], [place] [phone] Mora Díaz DO [address] [place] [address] Social History Tobacco Use Types Packs/Day Years [...] 10:30 AM EDT Medication Management [facility] [address] [place] [address] Vee Ornelas PharmD [address] [place] [address] documented as of this encounter Goals Goal [...] documented as of this encounter Care Teams Health Sciences Program Coordinator Relationship Specialty Start Date End Date Mora Díaz DO [address] [place] [address] PCP - General Family Medicine 07/22/18 Vee Ornelas PharmD [address] [place] [address] Pharmacist Internal Medicine 02/20/23 documented as of this encounter
--- OUTSIDE RECORDS SUMMARY | 2024-11-16 13:05 | XMS_ITS | Encounter Summary ---
Author Organization [employer] Address [address] [facility] 7t [place] [address] Care Team Providers Care Supervisor Core Drilling Name Role Phone Mora Díaz DO Primary Care Provider [phone]- [phone] Vee Ornelas PharmD Unavailable [phone] Reason for Visit * Reason Comments Med Refill Encounter Details Date Type Department Care Team (Late st Contact Info) Description 09/24/2024 Refill [facility] [address] [place] [address] Mora Díaz DO [address] [place] [address] Social History Tobacco Use Types Packs/Day Years [...] Description 01/01/2025 10:30 AM EDT Medication Management [facility] [address] [place] [address] Vee Ornelas PharmIrena [address] [place] [address] documented as of this encounter Goals Goal [...] documented as of this encounter Care Teams Supervisor Core Drilling Relationship Specialty Start Date End Date Mora Díaz DO [address] [place] [address] PCP - General Family Medicine 07/22/18 Vee Ornelas PharmD [address] [place] [address] Pharmacist Internal Medicine 02/20/23 documented as of this encounter
--- OUTSIDE RECORDS SUMMARY | 2024-11-16 13:05 | XMS_ITS | Encounter Summary ---
Author Organization [employer] Address [address] [place] [address] 7t [place] [address] Care Team Providers Care Cooker Cleaner Name Role Phone Mora Díaz DO Primary Care Provider [phone]- [phone] Vee Ornelas PharmD Unavailable [phone] Reason for Visit * Reason Comments Med Refill Encounter Details Date Type Department Care Team (Late st Contact Info) Description 03/16/2024 Refill [facility] [address] [place], [place] [phone] Mora Díaz DO [address] [place] [address] Social History Tobacco Use Types Packs/Day Years [...] Description 01/01/2025 10:30 AM EDT Medication Management [facility] [address] [place] [address] Vee Ornelas PharmD [address] [place] [address] documented as of this encounter Goals Goal [...] documented as of this encounter Care Teams Cooker Cleaner Relationship Specialty Start Date End Date Mora Díaz DO [address] [place] [address] PCP - General Family Medicine 07/22/18 Vee Ornelas PharmD [address] [place] [address] Pharmacist Internal Medicine 02/20/23 documented as of this encounter
--- OUTSIDE RECORDS SUMMARY | 2024-11-16 13:05 | XMS_ITS | Encounter Summary ---
Author Organization [employer] Address [address] [facility] 7t [place] [address] Care Team Providers Care Psychiatric Assistant Name Role Phone Mora Díaz DO Primary Care Provider [phone] Vee Ornelas PharmD Unavailable [phone] Reason for Visit * Reason Onset Date Comments Med Refill TelephoneCall 11/01/2024 Encounter Details Date Type Department Care Team (Late st Contact Info) Description 11/01/2024 Refill [facility] [address] [place] [address] Mora Díaz DO [address] [place] [address] Social History Tobacco Use Types Packs/Day Years [...] encounter Miscellaneous Notes * Telephone Encounter - Kelly Trejo PharmD - 11/10/2024 3:04 PM EDT Patient is a CD[facility] patient managed by Vee Ornelas (on vacation). Covering pharmacist Kelly Trejo will work with pharmacy and patient on this issue and will communicate with care team with updates. * Telephone Encounter - Jayshree Brown - 11/10/2024 2:49 PM EDT Patient walked in stating he was prescribed Insulin (Basaglar 100 units ) however the pharmacy informed the patient the medication is not covered by Insurance. RX requires a PA. Patient utilizes [facility]. Patient can be reached at [phone]. Thanks. documented in this encounter Plan of Treatment Upcoming Encounters Date Type Department Care Team (Late st Contact Info) Description 01/01/2025 10:30 AM EDT Medication Management [facility] [address] [place] [address] Vee Ornelas PharmD [address] [place] [address] documented as of this encounter Goals Goal [...] documented as of this encounter Care Teams Psychiatric Assistant Relationship Specialty Start Date End Date Mora Díaz DO [address] [place] [address] PCP - General Family Medicine 07/22/18 Vee Ornelas PharmD [address] [place] [address] Pharmacist Internal Medicine 02/20/23 documented as of this encounter
--- OUTSIDE RECORDS SUMMARY | 2024-11-16 13:05 | XMS_ITS | Clinical Summary ---
Author Organization [employer] Address [address] [place] [address] 7[address] [place] [address] Care Team Providers Care Bread Molder Name Role Phone ArjunMora Primary Care Provider Vee Ornelas PharmD Unavailable [phone] Allergies Active Allergy Reactions Criticality Noted [...] HOURS NEEDED 8.5 g 2 023 Active lisinopril 40 MG tablet TAKE ONE TABLET EVERY MORNING 90 tablet 1 024 Active hydroCHLOROthiazide (HYDRODiuril) 25 MG tablet TAKE ONE TABLET EVERY MORNING 90 tablet 3 024 Active nitroglycerin (Nitrostat) 0.4 MG SL tablet DISSOLVE 1 TABLET UNDER THE TONGUE EVERY 5 MINUTES NEEDED FOR CHEST PAIN. DO NOT EXCEED A TOTAL OF 3 DOSES IN 15 MINUTES 25 tablet 1 024 Active diphenhydrAMINE (BENADryl) 25 MG tabletIndications:C hronic [...] BY MOUTH EVERY MORNING 90 tablet 3 024 Active cetirizine (ZyrTEC) 10 MG tabletIndications:A llergic [...] topically 2 times daily. 30 g 2 024 Active senna (Senokot) 8.6 MG tablet TAKE TWO TABLETS EVERY DAY AT BEDTIME 60 tablet 2 024 Active fluticasone (Flonase) 50 MCG/ACT nasal spray INHALE 1 - 2 SPRAYS IN EACH NOSTRIL ONCE DAILY NEEDED. Shake gently. Before first use, prime pump. After use, clean tip and replace cap. 48 g 1 024 Active carvedilol (Coreg) 3.125 MG tablet TAKE 1 AND 1/2 TABLETS BY MOUTH EVERY MORNING AND EVERY EVENING WITH FOOD 270 tablet 1 Active glipiZIDE (Glucotrol) 10 MG tablet Take 1 tablet (10 mg) by mouth before breakfast and before evening meal. 180 tablet 3 025 2025 Active aspirin 81 MG EC tabletIndications:T ype 2 diabetes mellitus with diabetic microalbuminuria, with long-term current use of insulin ([facility]) take 1 tablet (81MG) by oral route every day 90 tablet 3 025 Active glucose blood (FreeStyle Precision Martin Test) test stripIndications:Ty pe 2 diabetes mellitus with diabetic microalbuminuria, with long-term current use of insulin ([facility]) TEST BLOOD SUGAR UP TO TWICE DAILY, DIRECTED 100 each 025 2025 Active insulin pen needle (Pentips) 32G x 4 mm miscIndications:Typ e 2 diabetes mellitus with diabetic microalbuminuria, with long-term current use of insulin ([facility]) Use 1 daily with insulin 100 each 025 Active TRUEplus Lancets 33G miscIndications:Typ e 2 diabetes mellitus with diabetic microalbuminuria, with long-term current use of insulin ([facility]) TEST BLOOD SUGAR UP TO TWICE DAILY DIRECTED 100 each 025 Active meclizine (Antivert) 12.5 MG tabletIndications: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 90 tablet 1 025 Active cholecalciferol (Vitamin D-3) 50 MCG (1999 UT) tabletIndications:V itamin D deficiency TAKE 1 TABLET BY MOUTH EVERY MORNING 90 tablet 3 025 Active Continuous Glucose Sensor (FreeStyle Deirdre 3 Plus Sensor) misc 1 each Once per day. Apply 1 sensor every 15 days for CGM 2 each 025 Active Continuous Glucose Windows Application Packager (FreeStyle Deirdre 3 [place]) device 1 each 3 times daily. Use daily as directed for CGM 1 each 025 Active fluticasone furoate (Arnuity Ellipta) 100 MCG/ACT inhaler Inhale 1 puff Once per day. Rinse mouth with water after use to reduce aftertaste and incidence of candidiasis. Do not swallow. 30 each 025 Active omeprazole (PriLOSEC) [address] capsuleIndications: GERD without esophagitis TAKE ONE CAPSULE IN THE MORNING AND EVENING 180 capsule 025 Active insulin glargine (Lantus SoloStar) 100 UNIT/ML pen Inject 46 units under the skin daily. 15 mL 5 025 Active omeprazole (PriLOSEC) [address] capsuleIndications: GERD without esophagitis TAKE ONE CAPSULE IN THE MORNING AND EVENING 180 capsule 1 024 2024 Discontinued(R eorder (will not trigger notification to Pharmacy)) insulin glargine (Lantus SoloStar) 100 UNIT/ML pen Inject 40 units under the skin daily. 15 mL 5 025 2024 Discontinued(R eorder (will not trigger notification to Pharmacy)) insulin glargine (Lantus SoloStar) 100 UNIT/ML pen Inject 46 units under the skin daily. 15 mL 5 025 2024 Discontinued(R eorder (will not trigger [...] Encounters Date Type Department Care Team Description 11/16/2024 Telephone [facility] [address] [place] [id number] Vee Ornelas PharmD Prior Authorization (Insulin glargine ) 11/12/2024 Telephone [facility] [address] [facility] [place] [address] Corine Anderson, pick up attendant Orders 11/04/2024 Refill [facility] [address] [facility] [place] [address] Mora Díaz DO GERD without esophagitis 11/03/2024 Refill [facility] [address] [facility] [place] [address] Mora Díaz DO GERD without esophagitis 11/01/2024 Refill [facility] [address] [facility] [place] [address] Mora Díaz DO 10/23/2024 Telephone [facility] [address] [facility] [place] [address] Vee Ornelas PharmD Results (US liver) 10/23/2024 Travel 10/14/2024 Refill [facility] [place] [address] Vee Ornelas PharmD Type 2 diabetes mellitus with diabetic microalbuminuria, with long-term current use of insulin (CMS/HCC) 10/14/2024 Telephone [facility] [place] [address] Mora Díaz DO Medication Question; Med Refill 10/02/2024 Population Health Risk Score [facility] () Department [address] [place] [id number] Provider, Population Health Generic 09/30/2024 Telephone [facility] [facility] [place] [address] Mora Díaz DO telephone call 09/25/2024 9:00 AM EST Office Visit [facility] [place] [address] Mora Díaz DO Type 2 diabetes mellitus with diabetic microalbuminuria, with long-term current use of insulin (CMS/HCC) (Primary Dx); Essential hypertension; Other hyperlipidemia; Coronary artery disease involving assinibo[place] and [place] tribes heart, unspecified vessel or lesion type, unspecified whether angina present; Fatty liver; Chronic GERD; Chronic constipation; Obstructive sleep apnea; Chronic allergic rhinitis; Chronic bilateral low back pain, unspecified whether sciatica present; Healthcare maintenance; Encounter for screening for infections with a predominantly sexual mode of transmission; Abnormal findings on diagnostic imaging of liver and biliary tract 09/25/2024 Refill [facility] [address] [place] [address] Mora Díaz DO 09/25/2024 Travel 09/24/2024 Refill [facility] [address] [place] [address] Mora Díaz DO 09/18/2024 Patient Outreach [facility] [address] [place] [address] Mora Díaz DO Pre-visit Planning ([facility] unable to reach [facility] ) 09/08/2024 Telephone [facility] [address] [place] [address] Vee Ornelas PharmD 09/02/2024 Travel 08/31/2024 Refill [facility] [address] [place] [address] Vee Ornelas, PharmD Type 2 diabetes mellitus with diabetic microalbuminuria, with long-term current use of insulin (CMS/HCC) 08/31/2024 Telephone [facility] [address] [place] [address] Mora Díaz DO Med Refill (Pt walked in stating his insurance reached out to him in regards to his insulin stating a release has to be signed in order for patient to received the medication. Pt states he is in need .) 08/27/2024 Orders Only [facility] [address] [place] [address] Mora Díaz DO Type 2 diabetes mellitus with diabetic microalbuminuria, with long-term current use of insulin (CMS/HCC) (Primary Dx) 08/24/2024 Travel 08/21/2024 Refill [facility] [address] [place] [address] Jurcsak, Mora, DO from Last 3 Months Immunizations Name Administration Dates Next Due Hep A, Adult 05/31/2023,05/24/2004 Hep B, adult 06/07/2015,01/11/2015,12/10/2014 Influenza High-dose Quadriva lent Preservative Free 04/03/2022,04/12/2021 Influenza Quadrivalent Adjuvanted 04/28/2020 Influenza injectable quadriv alent IIV4 with preservative 04/19/2016 Influenza injectable quadriv alent preservative free 04/22/2023,05/14/2017,04/21/2015 Influenza, High Dose Seasona l, Preservative Free 04/13/2024,04/13/2019,05/05/2018 Influenza, IIV3, injectable 05/18/2014,0 04/20/2011,04/10/2010,05/20,04/24/2007,06/03/2006,05/01/2005 ,06/08/2004,05/19/2003,04/21/2002,05/23,05/31/2000 Influenza, Split (incl. sergo fied surface antigen) 04/07/2013,04/18/2012 Pfizer Covid-19 Vaccine [...] Sign Reading Time Taken Comments Blood Pressure 128/62 10/23/2024 10:37 AM EDT Pulse 64 10/23/2024 10:37 AM EDT Temperature 36.1 ??C (97 ??F) 09/25/2024 9:17 [...] Description 01/01/2025 10:30 AM EDT Medication Management [facility] [address] [place] [address] Vee Ornelas, PharmD [address] [place] [address] Health Maintenance Due Date Last Done Comments CT Colonography 1950 Dental Prophylaxis 1950 FIT DNA/Cologuard 1950 FIT 1950 FOBT 1950 Sigmoidoscopy 1950 Diabetes: Foot Exam 1960 Eye Exam 1960 Alcohol/Substance Use Screening 1962 Dental X-Ray: Bitewings 02/25/2012 02/23/2011 Dental Oral Exam 11/08/2019 05/08/2019, 11/2018, 06/11/2016, Additional history exists Dental X-Ray: Full Mouth 09/24/2021 019, 12/08/2015, 02/23/2011 Colonoscopy 09/28/2023 09/27/2020 Colorectal Cancer Screening 09/28/2023 Diabetes: Hemoglobin A1C 12/31/2024 025, 09/25/2024, 07/29/2024, Additional history exists SDOH Screening 08/12/2025 08/12/2024 Depression Screening 09/25/2025 09/25/2024, 09/26/19 25 Tobacco Screening 09/25/2025 09/25/2024 Lipid Panel 09/30/2025 09/30/2024, 08/23, 07/03/2022, Additional history exists DTaP/Tdap/Td Vaccines (3 - Td or Tdap) 12/06/2030 12/06/2020, 05/22/2010, 02/24/2001 Hepatitis B Vaccines Completed 06/07/2015, 01/11/2015, 12/10/2014 Zoster Vaccines Completed 04/03/2021, 01/19, 01/11/2015 Pneumococcal Vaccine: 50+ Years Completed 04/30/2023, 05/14/2017, 12/21/2015, Additional history exists Hepatitis A Vaccines Completed 05/31/2023, 05/24/20 04 RSV Patients and Patients Aged 60 years or older Completed 12/09/2023 COVID-19 Vaccine Completed 04/13/2024, 11/2022, 06/30/2022, Additional history exists Influenza Vaccine Completed 04/13/2024, , 04/03/2022, Additional history exists Hepatitis C Screening Completed 09/30/2024, 021 HIB Vaccines Aged Out No longer eligi [...] 128/62(2024 10:37 AM EDT) No Nicholas Mulligan, Julia Note: Goal to resolve hypoTN (DBP) and [...] Procedure Name Priority Date/Time Associated Diagnosis Comments US ABDOMEN COMPLETE Routine 10/19/2024 3 :13 PM EDT Fatty liver ALPHA FETOPROTEIN, TUMOR MARKER Routine 09/30/2024 10:04 AM EDT Type 2 diabetes mellitus with diabetic microalbuminuria, with long-term current use of insulin (CMS/HCC) Essential hypertension Other hyperlipidemia Coronary artery disease involving ass[place] and [place] tribes heart, unspecified vessel or lesion type, unspecified whether angina present Fatty liver Chronic GERD Chronic constipation Obstructive sleep apnea Chronic allergic rhinitis Chronic bilateral low back pain, unspecified whether sciatica present Healthcare maintenance Encounter for screening for infections with a predominantly sexual mode of transmission Abnormal findings on diagnostic imaging of liver and biliary tract RPR (MONITOR) W/REFL TITER Routine 09/30/2024 10:04 AM EDT Type 2 diabetes mellitus with diabetic microalbuminuria, with long-term current use of insulin (CMS/HCC) Essential hypertension Other hyperlipidemia Coronary artery disease involving ass[place] and [place] tribes heart, unspecified vessel or lesion type, unspecified whether angina present Fatty liver Chronic GERD Chronic constipation Obstructive sleep apnea Chronic allergic rhinitis Chronic bilateral low back pain, unspecified whether sciatica present Healthcare maintenance Encounter for screening for infections with a predominantly sexual mode of transmission HEPATITIS C AB W/REFL TO HCV RNA, QN, PCR Routine 09/30/2024 10:04 AM EDT Type 2 diabetes mellitus with diabetic microalbuminuria, with long-term current use of insulin (CMS/HCC) Essential hypertension Other hyperlipidemia Coronary artery disease involving ass[place] and [place] tribes heart, unspecified vessel or lesion type, unspecified whether angina present Fatty liver Chronic GERD Chronic constipation Obstructive sleep apnea Chronic allergic rhinitis Chronic bilateral low back pain, unspecified whether sciatica present Healthcare maintenance ALBUMIN, RANDOM URINE W/CREATININE Routine 09/30/2024 10:04 AM EDT Type 2 diabetes mellitus with diabetic microalbuminuria, with long-term current use of insulin (CMS/HCC) Essential hypertension Other hyperlipidemia Coronary artery disease involving ass[place] and [place] tribes heart, unspecified vessel or lesion type, unspecified whether angina present Fatty liver Chronic GERD Chronic constipation Obstructive sleep apnea Chronic allergic rhinitis Chronic bilateral low back pain, unspecified whether sciatica present Healthcare maintenance CBC Routine 09/30/2024 10:04 AM EDT Type 2 diabetes mellitus with diabetic microalbuminuria, with long-term current use of insulin (CMS/HCC) Essential hypertension Other hyperlipidemia Coronary artery disease involving [place] tribes heart, unspecified vessel or lesion type, unspecified whether angina present Fatty liver Chronic GERD Chronic constipation Obstructive sleep apnea Chronic allergic rhinitis Chronic bilateral low back pain, unspecified whether sciatica present Healthcare maintenance BASIC METABOLIC PANEL Routine 09/30/2024 10:04 AM EDT Type 2 diabetes mellitus with diabetic microalbuminuria, with long-term current use of insulin (CMS/HCC) Essential hypertension Other hyperlipidemia Coronary artery disease involving ass[place] and [place] tribes heart, unspecified vessel or lesion type, unspecified whether angina present Fatty liver Chronic GERD Chronic constipation Obstructive sleep apnea Chronic allergic rhinitis Chronic bilateral low back pain, unspecified whether sciatica present Healthcare maintenance HEMOGLOBIN A1C Routine 09/30/2024 10:04 AM EDT Type 2 diabetes mellitus with diabetic microalbuminuria, with long-term current use of insulin (CMS/HCC) Essential hypertension Other hyperlipidemia Coronary artery disease involving ass[place] and [place] tribes heart, unspecified vessel or lesion type, unspecified whether angina present Fatty liver Chronic GERD Chronic constipation Obstructive sleep apnea Chronic allergic rhinitis Chronic bilateral low back pain, unspecified whether sciatica present Healthcare maintenance HEPATIC FUNCTION PANEL Routine 09/30/2024 10:04 AM EDT Type 2 diabetes mellitus with diabetic microalbuminuria, with long-term current use of insulin (CMS/HCC) Essential hypertension Other hyperlipidemia Coronary artery disease involving ass[place] and [place] tribes heart, unspecified vessel or lesion type, unspecified whether angina present Fatty liver Chronic GERD Chronic constipation Obstructive sleep apnea Chronic allergic rhinitis Chronic bilateral low back pain, unspecified whether sciatica present Healthcare maintenance TSH Routine 09/30/2024 10:04 AM EDT Type 2 diabetes mellitus with diabetic microalbuminuria, with long-term current use of insulin (CMS/HCC) Essential hypertension Other hyperlipidemia Coronary artery disease involving ass[place] and [place] tribes heart, unspecified vessel or lesion type, unspecified whether angina present Fatty liver Chronic GERD Chronic constipation Obstructive sleep apnea Chronic allergic rhinitis Chronic bilateral low back pain, unspecified whether sciatica present Healthcare maintenance LIPID PANEL, STANDARD Routine 09/30/2024 10:04 AM EDT Type 2 diabetes mellitus with diabetic microalbuminuria, with long-term current use of insulin (CMS/HCC) Essential hypertension Other hyperlipidemia Coronary artery disease involving assiniboine and [place] tribes heart, unspecified vessel or lesion type, unspecified whether angina present Fatty liver Chronic GERD Chronic constipation Obstructive sleep apnea Chronic allergic rhinitis Chronic bilateral low back pain, unspecified whether sciatica present Healthcare maintenance VITAMIN D,25-OH,TOTAL,IA Routine 09/30/2024 10:04 AM EDT Type 2 diabetes mellitus with diabetic microalbuminuria, with long-term current use of insulin (CMS/HCC) Essential hypertension Other hyperlipidemia Coronary artery disease involving assin[place]ine and [place] tribes heart, unspecified vessel or lesion type, unspecified whether angina present Fatty liver Chronic GERD Chronic constipation Obstructive sleep apnea Chronic allergic rhinitis Chronic bilateral low back pain, unspecified whether sciatica present Healthcare maintenance T4, FREE Routine 09/30/2024 10:04 AM EDT Type 2 diabetes mellitus with diabetic microalbuminuria, with long-term current use of insulin (CMS/HCC) Essential hypertension Other hyperlipidemia Coronary artery disease involving assiniboine and [place] tribes heart, unspecified vessel or lesion type, unspecified whether angina present Fatty liver Chronic GERD Chronic constipation Obstructive sleep apnea Chronic allergic rhinitis Chronic bilateral low back pain, unspecified whether sciatica present Healthcare maintenance CHLAMYDIA/N. GONORRHOEAE RNA, TMA, UROGENITAL Routine 09/30/2024 10:04 AM EDT Type 2 diabetes mellitus with diabetic microalbuminuria, with long-term current use of insulin (CMS/HCC) Essential hypertension Other hyperlipidemia Coronary artery disease involving assiniboine and [place] tribes heart, unspecified vessel or lesion type, unspecified whether angina present Fatty liver Chronic GERD Chronic constipation Obstructive sleep apnea Chronic allergic rhinitis Chronic bilateral low back pain, unspecified whether sciatica present Healthcare maintenance Encounter for screening for infections with a predominantly sexual mode of transmission POCT GLUCOSE Routine 09/25/2024 9:26 AM EST Type 2 diabetes mellitus with diabetic microalbuminuria, with long-term current use of insulin (CMS/[facility]) POCT GLYCATED HEMOGLOBIN, TOTAL Routine 09/25/2024 9:26 AM EST Type 2 diabetes mellitus with diabetic microalbuminuria, with long-term current use of insulin (CMS/[facility]) HM COLONOSCOPY Routine 09/27/2020 PERIODIC ORAL EVALUATION - ESTABLISHED PATIENT Routine 05/08/2019 12:00 AM EDT PANORAMIC RADIOGRAPHIC IMAGE Routine 09/23/2018 12:00 AM EST INTRAORAL - COMPLETE SERIES OF RADIOGRAPHIC IMAGES Routine 02/23/2011 12:00 AM EDT from Last 3 Months or Most Recently Relevant to Health Maintenance Results * US Abdomen Complete (10/19/2024 3:13 PM EDT) Anatomical Region Laterality Modality Abdomen Ultrasound 10/19/2024 3:13 PM EDT Narrative 10/19/2024 3:15 PM EDT ? [facility] ?[address] ? [place] [address] ? Ultrasound Report ? Signed ? Patient: Masood Brownsus M ?MR#: [id number] ?? [birth year] ? : 1950 ?Acct:[id number] ? Age/Sex: 74 / M ?ADM Date: 10/19/24 ? Loc: HO.HMGCX ? Attending Dr: Mora Díaz DO ? Ordering Physician: Mora Díaz DO ?? Date of Service: 10/19/24 ?? Procedure(s): US abdomen complete ?? Accession Number(s): [id number] ? cc: Mora Díaz DO ? CLINICAL HISTORY: f u fatty liver ? US abdomen complete ? Comparison: US/SR - US ABDOMEN COMPLETE - 09/03/22 08:55 EST ? Findings: ?? The visualized pancreas is normal. ?? The visualized aorta and IVC are unremarkable. ? Echogenic liver parenchyma. No focal liver lesion. Limited evaluation of ?? liver parenchyma secondary to poor penetration by the ultrasound beam. ?? Liver length estimated at 16.3 cm. ?? There is no intrahepatic bile duct dilatation. ?? The common duct is 5 mm in diameter. ?? The gallbladder is normal. There is no sonographic Langley sign. ?? The main portal vein is antegrade. ? The right kidney is 11.5 cm in length. Small peripelvic cyst within the ?? right kidney. ?? The left kidney is 12.3 cm in length. ?? The spleen is normal. ?? No ascites. ? IMPRESSION: ?? Fatty infiltration of the liver. ? This document has been electronically signed by: Mojgan Ge MD on ?? 10/19/2024 15:13:52 ? Dictated By: ?Mojgan Ge MD ? Signed By: ?<Electronically signed by Mojgan Ge MD in OV> ? 10/19/241514 ? DD/ 12 ? TD/TT: 10/19/24 1513 ? Cardiovascular Disease Specialist: ? Procedure Note Donotuseinterpreter, Image - 10/19/2024 [facility] [address] [place] [address] [place] [address] Ultrasound Report Signed Patient: Vitaly Brown [facility]#: [id number] 04 : 1950Acct:[id number] Age/Sex: 74 / MADM Date: 10/19/24 Loc: HO.HMGCX Attending Dr: Mora Díaz DO Ordering Physician: Mora Díaz DO Date of Service: 10/19/24 Procedure(s): US abdomen complete Accession Number(s): [id number] cc: Mora Díaz DO CLINICAL HISTORY: f u fatty liver US abdomen complete Comparison: US/SR - US ABDOMEN COMPLETE - 09/03/22 08:55 EST Findings: The visualized pancreas is normal. The visualized aorta and IVC are unremarkable. Echogenic liver parenchyma. No focal liver lesion. Limited evaluation of liver parenchyma secondary to poor penetration by the ultrasound beam. Liver length estimated at 16.3 cm. There is no intrahepatic bile duct dilatation. The common duct is 5 mm in diameter. The gallbladder is normal. There is no sonographic Langley sign. The main portal vein is antegrade. The right kidney is 11.5 cm in length. Small peripelvic cyst within the right kidney. The left kidney is 12.3 cm in length. The spleen is normal. No ascites. IMPRESSION: Fatty infiltration of the liver. This document has been electronically signed by: Mojgan Ge MD on 10/19/2024 15:13:52 Dictated By: Mojgan Ge MD Signed By: <Electronically signed by Mojgan Ge MD in OV> 10/19/241514 DD/ 12 TD/TT: 10/19/241512 Cardiovascular Disease Specialist: Mora Díaz DO IMG US PROCEDURES Final Resu lt * Vitamin D, 25-Hydroxy, Total, Immunoassay (09/30/2024 10:04 AM EDT) Vitamin D 25-OH Total 42.3 >30 ng/mL [facility] Comment: Health Based Reference Values*< 20 ??ng/mL ??[id number] ng/mL ??Insufficient> 30 ??ng/mL ??Sufficient*Vandana HUFF. N Engl J Med. 2007;[id number]:[id number] is no well-established upper level of normal vitamin Dlevels. Some laboratories use 50 ng/mL as an upper limit ofnormal. However, toxicity is patient-dependent and may occurat any level. Careful correlation with the patient'spresentation is necessary and, if there is concern forvitamin D toxicity, treatment should be consideredirrespective of the serum level.Care must be taken in interpreting Vitamin D results fromdifferent laboratories and methodologies. ??Published datademonstrated that results from patients undergoinghemodialysis may show a negative bias when tested withvarious automated 25-OH vitamin D assays when compared toLC- MS/MS.When testing samples from patients whose predominant form ofVitamin D is Vitamin D2, such as patients receiving VitaminD2 supplementation, results that are subtherapeutic shouldbe confirmed with another method such as LC-MS/MS. Blood Venous blood specimen / Unknown 09/30/2024 10:04 AM EDT 09/30/2024 11:40 AM EDT Mora Díaz DO LAB BLOOD ORDERABLES Final R esult [facility] [address] [place] [address] [phone] * Albumin, Random Urine W/Creatinine (09/30/2024 10:04 AM EDT) Creatinine, Urine 94.34 mg/dL [facility] Microalbumin Urine <5.0 mg/L [facility] Microalbum Creatinine Ratio Ur TNP <30 ug/mg cr [facility] Comment:Unable to calculate albumin/creatinine ratio due to lowmicroalbumin or creatinine result. Urine (Urine, Random) 09/30/2024 10:04 AM EDT 09/30/2024 11:19 AM EDT Mora Díaz LAB URINE ORDERABLES Final R esult Performing Organization Address City/[facility]/ZIP Co de Phone Number [facility] [address] [place] [phone] * Hepatitis C Antibody with Reflex to HCV, RNA, Quantitative, Real-Time PCR (09/30/2024 10:04 AM EDT) Pathologist [facility] Hepatitis C Antibody Nonreactive Nonreactive [facility] Comment:Antibodies to HCV no t detected; does not exclude early acuteHCV infection. Blood Venous blood specimen / Unknown 09/30/2024 10:04 AM EDT 09/30/2024 11:40 AM EDT Mora Díaz LAB BLOOD ORDERABLES Final R esult Performing Organization Address [facility] Co de Phone Number [facility] [address] [place] [phone] * Alpha-Fetoprotein, Tumor Marker (09/30/2024 10:04 AM EDT) Alpha Fetoprotein 1.1 <6.1 ng/mL [facility] Comment:This test was perfor med using the Marco A Coulterchemiluminescent method. Values obtained fromdifferent assay methods cannot be usedinterchangeably. AFP levels, regardless ofvalue, should not be interpreted as absoluteevidence of the presence or absence of disease.THIS TEST WAS PERFORMED AT:[employer] [place] [phone] CAMACHO MD Blood Venous blood specimen / Unknown 09/30/2024 10:04 AM EDT 09/30/2024 11:40 AM EDT us Mora Díaz DO LAB BLOOD ORDERABLES Final R esult [facility] [address] [place], [place] [phone] * Chlamydia/N. Gonorrhoeae RNA, TMA, Urogenitial (09/30/2024 10:04 AM EDT) CT PCR NOT DETECTED Not Detect. [facility] Comment:A not detected test result does not exclude the possibilityof infection because test results can be affected byimproper specimen collection, concurrent antibiotic therapy,or the number of organisms in the specimen which may bebelow the sensitivity of the test. As with many diagnostictests, results from the Xpert CT/NG assay should beinterpreted in conjunction with other laboratory andclinical data available to the clinician.Xpert CT/NG performance has not been evaluated in patientsless than 14 years of age. The assay should not be used forthe evaluationof suspected sexual abuse or for other medico-legalindications. Additional testing is recommended in anycircumstance when false positive or false negative resultscould lead to adverse medical, social or psychologicalconsequences. NG PCR NOT DETECTED Not Detect. [facility] Comment:A not detected test result does not exclude the possibilityof infection because test results can be affected byimproper specimen collection, concurrent antibiotic therapy,or the number of organisms in the specimen which may bebelow the sensitivity of the test. As with many diagnostictests, results from the Xpert CT/NG assay should beinterpreted in conjunction with other laboratory andclinical data available to the clinician.Xpert CT/NG performance has not been evaluated in patientsless than 14 years of age. The assay should not be used forthe evaluationof suspected sexual abuse or for other medico-legalindications. Additional testing is recommended in anycircumstance when false positive or false negative resultscould lead to adverse medical, social or psychologicalconsequences. Urine Urethral structure / Unknown 09/30/2024 10:04 AM EDT 09/30/2024 11:19 AM EDT Narrative [facility] - 09/30/2024 1:05 PM EDT Urine us Mora Díaz DO LAB MICROBIOLOGY - GENERAL O RDERABLES Final Result Performing Organization Address [facility]/ZIP Co de Phone Number [facility] [address] [place] [phone] * RPR (Monitor) with Reflex to??Titer (09/30/2024 10:04 AM EDT) RPR (Monitor) w/Refl Titer NON-REACTI VE NON-REACT LEIDA [facility] Comment:THIS TEST WAS PERFOR MED AT:[employer] [place] [id number] CAMACHO MD Rapid Plasma Reagin Ab Titer TNP [facility] Blood Venous blood specimen / Unknown 09/30/2024 10:04 AM EDT 09/30/2024 11:40 AM EDT us Mora Díaz DO LAB BLOOD ORDERABLES Final R esult Performing Organization Address [facility]/ZIP Co de Phone Number [facility] [address] [place], [place] [phone] * (ABNORMAL) CBC (09/30/2024 10:04 AM EDT) White Blood Count 8.0 4.8 - 10.8 X10*3/uL [facility] Red Blood Count 5.17 4.60 - 5.80 X10*6/uL [facility] Hemoglobin 14.4 14.0 - 18.0 g/dl [facility] Hematocrit 44.8 42.0 - 52.0 % [facility] Mean Corpuscular Volume 86.7 80.0 - 98.0 fL [facility] Mean Corpuscular Hemoglobin 27.9 27.0 - 33.0 pg [facility] Mean Corpuscular HGB Conc 32.1 31.0 - 36.0 g/dl [facility] Red Cell Distribution Width 13.9 11.0 - 16.0 % [facility] Platelet Count 261 160 - 400 X10*3/uL [facility] Mean Platelet Volume 9.3(L) 9.4 - 12.4 fL [facility] NRBC Pct Auto 0.0 0.0 - 0.2 /100WBC [facility] NRBC Abs Auto 0.000 0.0 - 0.012 X10*3/uL [facility] Blood Venous blood specimen / Unknown 09/30/2024 10:04 AM EDT 09/30/2024 11:18 AM EDT Mora Díaz DO LAB BLOOD ORDERABLES Final R esult Performing Organization Address [facility]/ZIP Co de Phone Number [facility] [address] [place] [phone] * TSH (09/30/2024 10:04 AM EDT) Thyroid Stimulating Hormone 1.60 0.32 - 4.0 uIU/mL [facility] Comment:TSH 3rd Generation ( [facility]) Blood Venous blood specimen / Unknown 09/30/2024 10:04 AM EDT 09/30/2024 11:40 AM EDT Mora Díaz DO LAB BLOOD ORDERABLES Final R esult Performing Organization Address [facility]/ZIP Co de Phone Number [facility] [address] [place] [phone] * T4, Free (09/30/2024 10:04 AM EDT) Free T4 (Free Thyroxine) 1.03 0.71 - 1.85 ng/dL [facility] Blood Venous blood specimen / Unknown 09/30/2024 10:04 AM EDT 09/30/2024 11:40 AM EDT Mora Díaz DO LAB BLOOD ORDERABLES Final R esult Performing Organization Address [facility] Co de Phone Number [facility] [address] [place] [phone] * (ABNORMAL) Hemoglobin A1c (09/30/2024 10:04 AM EDT) Hemoglobin A1c 7.3(H) <6.0 % [facility] Comment:Hemoglobin A1C Refer ence Range Adults: 4.8 - 6.0 % Non diabetic: < 6.0 % Goal: < 7.0 %Additional Action Suggested: > 8.0 %Note: Hemoglobin A1c results are invalid for patients with abnormal amounts of HbF. Blood transfusions may impact the HbA1c concentration in the patient sample. Estimated Average Glucose 163 mg/dL [facility] Comment:eAG = Estimated ave rage glucose which is %A1C expressed asaverage glucose, using the formula of the [id number]-[id number] Glucose study (ADAG), Diabetes Care, Vol.31,#8,Feb. 2007 Blood Venous blood specimen / Unknown 09/30/2024 10:04 AM EDT 09/30/2024 11:18 AM EDT Mora Arjun DO LAB BLOOD ORDERABLES Final R esult Performing Organization Address [facility] Co de Phone Number [facility] [address] [place] [phone] * Hepatic Function Panel (09/30/2024 10:04 AM EDT) Bilirubin, Total 0.4 0.0 - 1.0 mg/dL [facility] Bilirubin, Direct 0.2 0.0 - 0.5 mg/dL [facility] Aspartate Amino Transferase 26 5 - 37 U/L [facility] Alanine Aminotransferase 26 0 - 40 U/L [facility] Total Protein 7.8 6.5 - 8.0 g/dL [facility] Albumin Level 3.7 3.5 - 5.0 g/dL [facility] Alkaline Phosphatase 59 39 - 117 U/L [facility] Blood Venous blood specimen / Unknown 09/30/2024 10:04 AM EDT 09/30/2024 11:40 AM EDT Mora Arjun LAB BLOOD ORDERABLES Final R esult Performing Organization Address [facility] Co de Phone Number [facility] [address] [place] [phone] * (ABNORMAL) Lipid Panel, Standard (09/30/2024 10:04 AM EDT) Triglycerides 83 <150 mg/dL [facility] Comment:Desirable Triglyceri de: less than 150 mg/dLBorderline High Triglyceride 150-199 mg/dLHigh Triglyceride: 200-499 mg/dLVery High Triglyceride: greater than or equal to 5OO mg/dL Cholesterol 178 <200 mg/dL [facility] Comment:Desirable Cholestero l: less than 200 mg/dLBorderline High Cholesterol: 200-239 mg/dLHigh Cholesterol: greater than 239 mg/dL LDL Cholesterol Calculated 119(H) <100 mg/dL [facility] Comment:Desirable LDL: less than 100 mg/dLNear Optimal/Above Optimal LDL: 110- 129 mg/dLBorderline High LDL: 130-159 mg/dLHigh LDL: 160-189 mg/dLVery High LDL: greater than or equal to 190 mg/dL HDL Cholesterol 43 >40 mg/dL [facility] Comment:Desirable HDL: great er than 40 mg/dL Note: This HDL assay may give artificially low results in patients with liver disease. Blood Venous blood specimen / Unknown 09/30/2024 10:04 AM EDT 09/30/2024 11:40 AM EDT Mora Díaz DO LAB BLOOD ORDERABLES Final R esult Performing Organization Address City[facility]/ZIP Co de Phone Number [facility] [address] [place] [phone] * (ABNORMAL) Basic Metabolic Panel (09/30/2024 10:04 AM EDT) Sodium 140 135 - 145 mmol/L [facility] Potassium 4.2 3.3 - 5.1 mmol/L [facility] Chloride 107 96 - 108 mmol/L [facility] Carbon Dioxide 29 22 - 29 mmol/L [facility] Anion Gap 8(L) 12 - 20 [facility] Urea Nitrogen (BUN) 23(H) 9 - 16 mg/dL [facility] Creatinine, Serum 1.11 0.5 - 1.4 mg/dL [facility] Estimated Glomerular Filt Rate >60 [facility] Comment:Chronic Kidney Disea se: Estimated GFR < 60 mL/min/1.28h4Iknbfz Kidney Disease: Estimated GFR < 15 mL/min/1.73m2 Glucose 184(H) 60 - 115 mg/dL [facility] Calcium 9.2 8.4 - 10.2 mg/dL [facility] Blood Venous blood specimen / Unknown 09/30/2024 10:04 AM EDT 09/30/2024 11:40 AM EDT Mora Díaz DO LAB BLOOD ORDERABLES Final R esult [facility] [address] [place] [address] [phone] * (ABNORMAL) POCT HGB A1C (09/25/2024 9:26 AM EST) Pathologist [facility] Hemoglobin A1C 7.7(A) 4.0 - 6.0 % QC Media Lot # [id number] Lot# Expiration Date Blood 09/25/2024 9:26 AM EST Mora Díaz DO POINT OF CARE TEST ENTER/UYEN T ORDERABLES Final Result * (ABNORMAL) POCT Glucose (09/25/2024 9:26 AM EST) Pathologist [facility] Glucose Blood, POC 219(A) 60 - 200 mg/dL [employer] Media Lot # [id number] Lot# Expiration Date [id number] Blood Capillary blood specimen / Unknown 09/25/2024 9:26 AM EST Mora Díaz DO POINT OF CARE TEST ENTER/UYEN T ORDERABLES Final Result * (ABNORMAL) Hm Colonoscopy (09/27/2020) Colonoscopy Abnormal( A) Normal Comment:repeat in 3 yrs 09/27/2020 Alex Murrell MD HEALTH MAINTENANCE Final Res ult from Last 3 Months or Most Recently Relevant to Health Maintenance [place] [address] [place] [address] MEDICARE [facility] MEDICAID STAND ADULT Care Teams Bread Molder Relationship Specialty Start Date End Date Mora Díaz DO [address] [place] [phone] PCP - General Family Medicine 07/22/18 Vee Ornelas PharmD [address] [place] [phone] Pharmacist Internal Medicine 02/20/23
--- OUTSIDE RECORDS SUMMARY | 2024-11-16 13:05 | XMS_ITS | Encounter Summary ---
Author Organization [employer] Address [address] [place] [address] 7t [place] [address] Care Team Providers Care Senior Business Development Manager Name Role Phone ArjunMora Primary Care Provider [phone] PuiaVee PharmD Unavailable [phone] Reason for Visit * Reason Onset Date Comments Prior Authorization 11/16/2024 Insulin glar gine Encounter Details Date Type Department Care Team ([facility] st Contact Info) Description 11/16/2024 Telephone [facility] [address] [place] [address] Puia, Vee, PharmD [address] [place] [address] Prior Authorization (Insulin glargine ) Social History Tobacco Use Types Packs/Day [...] Telephone Encounter - Vee Ornelas PharmD - 11/16/2024 11:41 AM EDT Covering [facility] sent RX for and assisted with completion of PA for insulin glargine on 11/10/24. Received a fax denial 11/10 and an approval 11/11 so it is unclear what next steps are needed at this time. 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 [facility] placed outgoing call to patient's preferred pharmacy, [facility], who confirmed patient was able to mushroom picker insulin glargine successfully on 11/15. No further action needed at this time. Patient to followup in [facility] as previously scheduled. documented in this encounter Plan of Treatment Upcoming Encounters Date Type Department Care Team (Late st Contact Info) Description 01/01/2025 10:30 AM EDT Medication Management [facility] [address] [place] [address] Vee Ornelas PharmD [address] [place], [place] [phone] documented as of this encounter Goals Goal [...] documented as of this encounter Care Teams Senior Business Development Manager Relationship Specialty Start Date End Date Mora Díaz DO [address] [place] [address] PCP - General Family Medicine 07/22/18 Vee Ornelas PharmD [address] [place] [address] Pharmacist Internal Medicine 02/20/23 documented as of this encounter
[2024-11-18 18:08] LABS: TS Negative Control Passed; TS Panel A 0; TS Panel B 0; TS Positive Control Passed; TSpotTB Negative (Negative)
== END 2024-11-16 10:54 | disposition home or self-care (01) ==
LOC: HO.HHCL 10:53
PROVIDERS: Visit Provider Family Medicine
DX: Z11.1 Encounter for screening for respiratory tuberculosis (principal)
CPT/HCPCS: 36415; 86481

== ENCOUNTER 2025-03-02 10:40 | Outpatient (REF) | payer MEDICARE, MEDICAID, SELFPAY ==
--- OUTSIDE RECORDS SUMMARY | 2024-07-30 10:35 | XMS_ITS ---
Author Organization [facility] Address [address] [place] [address] Care Team Providers Care Conveyor Loader Name Role Phone Arjun Burrell, Mora Primary Care Provider Alex Scott Jr REASON FOR VISIT abdominal pain Encounters Encounter Location Date Provider Diagnosis [facility] [address] [place] [phone] 07/30/2024 Alex Murrell Jr Plan Of Treatment No Information Progress Notes * ALICE SIMPSONSDOB:1950 (74 yo M)Acc No.[id number]:07/30/2024 Progress Notes Patient: SHAYNA SORTO Provider: Kianna Murrell MD :1950 A ge:74 Y S ex:Male Date:07/30/2024 Address:[address] [place], [place] [id number] Pcp:Mora Díaz M.D. Subjective: * Chief Complaints: * 1 . Abdominal pain. * Medical History: Objective: * Vitals: Assessment: Plan: * Treatment: * * The named appointment provid er may or may not be the originator of this progress note, and it is not deemed complete until electronically signed by the appointment provider. Sign off status: Pending * Provider: Kianna Murrell MD Date: 0 07/30/2024 Generated for Junei ng/Faishang/eTransmitting on: 0 03/02/2025 08:33 AM EDT
--- NOTE | ~2025-03-02 | XR_ITS ---
EXAMINATION: XR CERVICAL SPINE CLINICAL INFORMATION: PAIN COMPARISON: March 29, 2016. TECHNIQUE: AP, lateral and atlantoodontoid views. FINDINGS: Craniocervical junction is intact. Anterior marginal osteophyte formation C3-4. Focal calcifications in the anterior intervertebral disc C4-5 C5-6 and C6-7 levels. Grade 1 retrolisthesis C3-4. No acute cortical disruption. Focal calcifications in the soft tissues at the C3-4 level likely carotid arteries. XR/XR cervical spine 3V IMPRESSION: Multilevel cervical spondylosis pronounced at C3-4 resulting in grade 1 retrolisthesis. Atherosclerosis disease, carotid arteries. Electronically signed by: Lion Osborne MD 03/02/2025 12:16 PM EDT
--- NOTE | ~2025-03-02 | XR_ITS ---
EXAMINATION: XR CHEST CLINICAL INFORMATION: persistent cough COMPARISON: August 22, 2022. TECHNIQUE: 2 views of the chest were obtained. FINDINGS: Questionable patchy opacity, left lower lung lobe. Pulmonary reticular pattern. No pleural effusion or pneumothorax. Cardiomediastinal silhouette is prominent. Calcified plaque thoracic aorta. Multilevel spondylosis, thoracolumbar spine.. XR/XR chest 2V IMPRESSION: Concerning chronic interstitial lung disease with questionable airspace disease, left lung base. Cardiomegaly, mild. Spondylosis. Electronically signed by: Lion Osborne MD 03/02/2025 12:14 PM EDT
--- OUTSIDE RECORDS SUMMARY | 2025-03-02 11:45 | XMS_ITS | Encounter Summary ---
Author Organization [employer] Address [address] [facility] 7t [place] [address] Care Team Providers Care Claims Supervisor Name Role Phone Mora Díaz DO Primary Care Provider [phone] Vee Ornelas PharmD Unavailable Reason for Visit * Reason Comments Med Refill Encounter Details Date Type Department Care Team ([facility] st Contact Info) Description 08/03/2024 Refill [facility] [address] [place], [place] [phone] Mora Díaz DO [address] [place] [address] Type 2 diabetes mellitus with diabetic microalbuminuria, with long-term current use of insulin ([facility]) Social History Tobacco Use Types Packs/Day Years [...] as of this encounter Plan of Treatment Not on file documented as of this encounter Goals Goal Patient Goal Type Associated Problems Recent Progress Patient-Stated? Author Blood Pressure < 140/90 Blood Pressure 140/58(2024 9:44 AM EDT) No Nicholas Mulligan PharmD Note: Goal to resolve hypoTN (DBP) and low/borderline low HR Record your blood pressure periodically Blood Pressure On track( 11:34 AM EST) No Vee Ornelas PharmD Hemoglobin A1c < 7.5 Result Component 7.3( 9:46 AM EDT) No Nicholas Mulligan PharmD Record [...] microalbuminuria, with long-term current use of insulin ([facility]) documented in this encounter Additional Health Concerns Assessment Noted Time PHQ-9 Depression Total Score: 0 10/09/19 24 11:16 AM EDT documented as of this encounter Care Teams Claims Supervisor Relationship Specialty Start Date End Date Mora Díaz DO [address] [place] [address] PCP - General Family Medicine 07/22/18 Vee Ornelas PharmD [address] [place] [address] Pharmacist Internal Medicine 02/20/23 12/31/24 documented as of this encounter
== END 2025-03-02 10:41 | disposition home or self-care (01) ==
LOC: HO.HHCX 10:40
PROVIDERS: Visit Provider Family Medicine
DX: M54.2 Cervicalgia (principal); R05.3 Chronic cough
CPT/HCPCS: 71046; 72040

== ENCOUNTER → 2025-03-02 10:41 | Outpatient (BNV) | payer MEDICARE, MEDICAID, SELFPAY | PROVIDERS: Visit Provider Radiology Diagnostic Radiology | DX: M47.812 Spondylosis without myelopathy or radiculopathy, cervical region (principal); I65.29 Occlusion and stenosis of unspecified carotid artery; R05.9 Cough, unspecified; M47.9 Spondylosis, unspecified | CPT/HCPCS: 71046; 72040 ==

== ENCOUNTER → 2025-03-14 11:18 | Outpatient (BNV) | payer MEDICARE, MEDICAID, SELFPAY | PROVIDERS: PCP Family Medicine; Visit Provider Radiology Diagnostic Radiology | DX: R42 Dizziness and giddiness (principal) | CPT/HCPCS: 70551 ==

== ENCOUNTER 2025-03-14 11:19 | Outpatient (REF) | payer MEDICARE, MEDICAID, SELFPAY ==
--- NOTE | ~2025-03-14 | MR_ITS ---
CLINICAL HISTORY: worsening dizziness MR Brain without gadolinium Comparison: None provided Findings: No restricted diffusion. No intra-axial mass or hemorrhage. Age appropriate cerebral volume loss. Patchy high FLAIR signal within the periventricular and subcortical white matter. No midline shift. No hydrocephalus. Vascular flow voids are intact. The orbits are normal. Mild mucosal thickening within the bilateral maxillary, sphenoid, ethmoid, and frontal sinuses. No focal bone lesion. IMPRESSION: 1. No acute process. 2. Mild volume loss and small vessel ischemic disease. 3. Sinus disease. This document has been electronically signed by: John Paul Herrmann MD on 03/15/2025 18:02:48
--- OUTSIDE RECORDS SUMMARY | 2025-03-14 11:29 | XMS_ITS | Encounter Summary ---
Author Organization [employer] Address [address] [place] [address] 7t [place] [address] Care Team Providers Care Acetylene Cutter Name Role Phone Mora Díaz DO Primary Care Provider [phone] Vee Ornelas PharmD Unavailable [phone] Reason for Visit * Reason Comments Med Refill Encounter Details Date Type Department Care Team ([facility] st Contact Info) Description 08/03/2024 Refill [facility] [address] [place], [place] [phone] Mora Díaz DO [address] [place] [address] Type 2 diabetes mellitus with diabetic microalbuminuria, with long-term current use of insulin ([facility]) Social History [...] Author Blood Pressure < 140/90 Blood Pressure 122/68(2024 2:47 PM EDT) No Nicholas Mulligan PharmD Note: Goal [...] microalbuminuria, with long-term current use of insulin ([facility]) documented in this encounter Additional Health Concerns Assessment Noted Time PHQ-9 Depression Total Score: 0 10/09/19 24 11:16 AM EDT documented as of this encounter Care Teams Acetylene Cutter Relationship Specialty Start Date End Date Mora Díaz DO [address] [place] [address] PCP - General Family Medicine 07/22/18 Vee Ornelas PharmD [address] [place] [address] Pharmacist Internal Medicine 02/20/23 12/31/24 documented as of this encounter
== END 2025-03-14 11:20 | disposition home or self-care (01) ==
LOC: HO.MRI 11:19
PROVIDERS: PCP Family Medicine; Visit Provider Family Medicine
DX: R42 Dizziness and giddiness (principal)
CPT/HCPCS: 70551

== ENCOUNTER 2025-04-10 09:52 | Outpatient (REF) | payer MEDICARE, MEDICAID, SELFPAY ==
--- OUTSIDE RECORDS SUMMARY | 2024-07-30 10:35 | XMS_ITS ---
Author Organization [facility] Address [address] [place] [address] Care Team Providers Care Refrigerated Cargo Clerk Name Role Phone Arjun Burrell, Mora Primary Care Provider Alex Scott Jr REASON FOR VISIT abdominal pain Encounters Encounter Location Date Provider Diagnosis [facility] [address] [place] [phone] 07/30/2024 Alex Murrell Jr Plan Of Treatment No Information Progress Notes * ALICE SIMPSONSDOB:1950 (74 yo M)Acc No.[id number]:07/30/2024 Progress Notes Patient: SHAYNA SORTO Provider: Kianna Murrell MD :1950 A ge:74 Y S ex:Male Date:07/30/2024 Address:[address] [place], [place] [id number] Pcp:Mora Díaz M.D. Subjective: * Chief Complaints: [...] 07/30/2024 Generated for Junei ng/Faishang/eTransmitting on: 0 04/10/2025 09:54 AM EDT
--- NOTE | ~2025-04-10 | CT_ITS ---
CLINICAL HISTORY: chronic interstitial lung disease on CXR for eval CT chest without contrast Comparison: CR/SR - XR CHEST 2 VIEWS - 03/02/25 11:22 EDT CR/SR - XR CHEST 2 VIEWS - 08/22/22 13:53 EST Findings: Severe coronary artery atherosclerotic vascular calcifications. Cardiology consultation is recommended. Prominent appearance of the thyroid gland which is heterogeneous. There is a questionable nodule in the left thyroid lobe measuring 1.2 cm. Thyroid ultrasound is recommended on an outpatient/ nonemergent basis. Intrapulmonary lymph node along the right minor fissure measuring 9 mm. There is a 5 mm solid nodule in the right middle lobe of the lung. There is a 6 mm right lower lobe pulmonary nodule. Short-term follow-up chest CT in 3-6 months is recommended. No definite interstitial pulmonary thickening. No bronchiectasis. No ground-glass opacities. No bronchial wall thickening. No evidence of interstitial lung disease. No subpleural sparing. No reticular opacities. Lipoma in the duodenum measuring 2.6 cm. Gallbladder is mildly prominent measuring 4.2 cm in diameter and partially included in the images. The bones are intact. No honeycombing. Intraosseous hemangioma in T8. IMPRESSION: 1. Intrapulmonary lymph node along the right minor fissure measuring 9 mm. There is a 5 mm solid nodule in the right middle lobe of the lung. There is a 6 mm right lower lobe pulmonary nodule. Short-term follow-up chest CT in 3-6 months is recommended. 2. No evidence of interstitial lung disease. 3. Severe coronary artery atherosclerotic vascular calcifications. Cardiology consultation is recommended. 4. Prominent appearance of the thyroid gland which is heterogeneous. There is a questionable nodule in the left thyroid lobe measuring 1.2 cm. Thyroid ultrasound is recommended on an outpatient/ nonemergent basis. This document has been electronically signed by: Juanito Espinosa DO on 04/12/2025 13:44:58
--- OUTSIDE RECORDS SUMMARY | 2025-04-10 09:54 | XMS_ITS | Encounter Summary ---
Author Organization [employer] Address [address] [facility] 7t [place] [address] Care Team Providers Care Build Manager Name Role Phone Mora Díaz DO Primary Care Provider [phone] Vee Ornelas PharmD Unavailable Reason for Visit * Reason Comments Med Refill Encounter Details Date Type Department Care Team ([facility] st Contact Info) Description 08/03/2024 Refill [facility] [address] [place], [place] [phone] Mora Díaz DO [address] [place] [address] Type 2 diabetes mellitus with diabetic microalbuminuria, with long-term current use of insulin ([facility]) Social History Tobacco Use Types Packs/Day Years [...] microalbuminuria, with long-term current use of insulin ([facility]) documented in this encounter Additional Health Concerns Assessment Noted Time PHQ-9 Depression Total Score: 0 10/09/19 24 11:16 AM EDT documented as of this encounter Care Teams Build Manager Relationship Specialty Start Date End Date Mora Díaz DO [address] [place] [address] PCP - General Family Medicine 07/22/18 Vee Ornelas PharmD [address] [place] [address] Pharmacist Internal Medicine 02/20/23 12/31/24 documented as of this encounter
--- OUTSIDE RECORDS SUMMARY | 2025-04-10 09:54 | XMS_ITS | Encounter Summary ---
Author Organization [employer] Address [address] [place] [address] 7t [place] [address] Care Team Providers Care Badger Distiller Operator Name Role Phone Mora Díaz DO Primary Care Provider [phone] Vee Ornelas PharmD Unavailable [phone] Reason for Visit * Reason Comments Med Refill Encounter Details Date Type Department Care Team ([facility] st Contact Info) Description 04/24/2024 Refill [facility] [address] [place], [place] [phone] Mora Díaz DO [address] [place] [address] GERD without esophagitis Social History Tobacco Use [...] documented as of this encounter Care Teams Badger Distiller Operator Relationship Specialty Start Date End Date Mora Díaz DO [address] [place] [address] PCP - General Family Medicine 07/22/18 Vee Ornelas, Julia [address] [place] [phone] Pharmacist Internal Medicine 02/20/23 12/31/24 documented as of this encounter
--- OUTSIDE RECORDS SUMMARY | 2025-04-10 09:54 | XMS_ITS | Encounter Summary ---
Author Organization [employer] Address [address] [place] [address] 7[address] [place] [address] Care Team Providers Care Automation Analyst Name Role Phone Mora Díaz DO Primary Care Provider [phone] Vee Ornelas PharmD Unavailable [phone] Reason for Visit * Reason Comments Med Refill Encounter Details Date Type Department Care Team ([facility] st Contact Info) Description 04/16/2024 Refill [facility] [address] [place], [place] [phone] Mora Díaz DO [address] [place] [address] Social History Tobacco Use Types Packs/Day Years [...] documented as of this encounter Care Teams Automation Analyst Relationship Specialty Start Date End Date Mora Díaz DO [address] [place] [address] PCP - General Family Medicine 07/22/18 Vee Ornelas, Julia [address] [place] [phone] Pharmacist Internal Medicine 02/20/23 12/31/24 documented as of this encounter
--- OUTSIDE RECORDS SUMMARY | 2025-04-10 09:54 | XMS_ITS | Encounter Summary ---
Author Organization [employer] Address [address] [facility] [address] [place] [address] Care Team Providers Care Assurance Auditor Name Role Phone Mora Díaz DO Primary Care Provider + [phone] Reason for Visit * Reason Comments Med Refill Encounter Details Date Type Department Care Team ([facility] st Contact Info) Description 04/05/2025 Refill [facility] [address] [place], [place] [phone] Mora Díaz DO [address] [place] [address] Social History Tobacco Use Types Packs/Day Years [...] got money to buy more: Never True 03/02/2025 Within the past 12 months,th e food you bought just didn't last and you didn't have enough money to get more: Never True 06/2025 Transportation Answer Date Recorded In the past [...] Access Answer Date Recorded Internet Access Q1 Yes 03/02/2025 Internet Access Q2 I do not want or need it 02/19 Sex and Gender Information Value Date Recorded [...] documented as of this encounter Care Teams Assurance Auditor Relationship Specialty Start Date End Date Mora Díaz DO [address] [place] [phone] PCP - General Family Medicine 07/22/18 documented as of this encounter
--- OUTSIDE RECORDS SUMMARY | 2025-04-10 09:55 | XMS_ITS | Clinical Summary ---
Author Organization [employer] Address [address] [place] [address] 7t [place] [address] Care Team Providers Care Makeup Artistry Instructor Name Role Phone Mora Díaz DO Primary Care Provider + [phone] Allergies Active Allergy Reactions Criticality Noted Date Comments Atorvastatin Itching 09/04/2010 Other Reaction(s): Rash/Dermatitis Metformin 09/04/2010 Other reaction(s): GI upset Other Reaction(s): Gastritis Medications gabapentin (Neurontin) 300 MG capsule Take 300 [...] HOURS NEEDED 8.5 g 2 023 Active nitroglycerin (Nitrostat) 0.4 MG SL tablet DISSOLVE 1 TABLET UNDER THE TONGUE EVERY 5 MINUTES NEEDED FOR CHEST PAIN. DO NOT EXCEED A TOTAL OF 3 DOSES IN 15 MINUTES 25 tablet 1 024 Active clotrimazole (Lotrimin) 1 % creamIndications:Ba lanitis Apply topically 2 times daily. 30 g 2 024 Active fluticasone (Flonase) 50 MCG/ACT nasal spray INHALE 1 - 2 SPRAYS IN EACH NOSTRIL ONCE DAILY NEEDED. Shake gently. Before first use, prime pump. After use, clean tip and replace cap. 48 g 1 024 Active meclizine (Antivert) 12.5 MG tabletIndications:B enign [...] CGM 2 each 025 Active Continuous Glucose Shrinking Machine Operator (FreeStyle Deirdre 3 [place]) device 1 each 3 times daily. Use daily as directed for CGM 1 each 025 Active senna (Senokot) 8.6 MG tabletIndications:C hronic constipation TAKE TWO TABLETS EVERY DAY AT BEDTIME 180 tablet 2 025 Active Alcohol Swabs (Alcohol Prep) pads Use to check blood sugar and inject insulin (four times daily) 100 each 025 Active aspirin 81 MG EC tabletIndications:T ype 2 diabetes mellitus with diabetic microalbuminuria, with long-term current use of insulin ([facility]) take 1 tablet (81MG) by oral route every day 90 tablet 025 Active carvedilol (Coreg) 3.125 MG tablet TAKE 1 AND 1/2 TABLETS BY MOUTH EVERY MORNING AND EVERY EVENING WITH FOOD 270 tablet 025 Active glucose blood (FreeStyle Precision Martin Test) test stripIndications:Ty pe 2 diabetes mellitus with diabetic microalbuminuria, with long-term current use of insulin (CMS/[facility]) TEST BLOOD SUGAR UP TO TWICE DAILY, DIRECTED 100 each 025 2025 Active hydroCHLOROthiazide (HYDRODiuril) 25 MG tablet Take 1 tablet (25 mg) by mouth in the morning. 90 tablet 025 Active insulin pen needle (Pentips) 32G x 4 mm miscIndications:Typ e 2 diabetes mellitus with diabetic microalbuminuria, with long-term current use of insulin (CMS/[facility]) Use 1 daily with insulin 100 each 025 Active linaGLIPtin (Tradjenta) 5 MG tablet Take 1 tablet (5 mg) by mouth in the morning. 90 tablet 025 2025 Active lisinopril 40 MG tablet Take 1 tablet (40 mg) by mouth in the morning. 90 tablet Active rosuvastatin (Crestor) 20 MG tabletIndications:T ype 2 diabetes mellitus with microalbuminuria (CMS/HCC) Take 1 tablet (20 mg) by mouth in the morning. 90 tablet Active TRUEplus Lancets 33G miscIndications:Typ e 2 diabetes mellitus with diabetic microalbuminuria, with long-term current use of insulin (CMS/[facility]) TEST BLOOD SUGAR UP TO TWICE DAILY DIRECTED 100 each Active diphenhydrAMINE (BENADryl) 25 MG tabletIndications:C hronic allergic rhinitis take 1 tablet by oral route every 6 hours as needed for Itching And Rash 30 tablet Active glipiZIDE (Glucotrol) 10 MG tablet Take 1.5 tablets (15 mg) by mouth before breakfast and before evening meal. 270 tablet 2025 Active insulin glargine (Lantus SoloStar) 100 UNIT/ML pen Inject 54 units under the skin daily. 15 mL 5 Active triamcinolone (Kenalog) 0.1 % cream Apply topically if needed in the morning and at bedtime for rash. 30 g 2 Active omeprazole (PriLOSEC) [address] capsuleIndications: GERD without esophagitis TAKE ONE CAPSULE IN THE MORNING AND EVENING 180 capsule Active naproxen (Naprosyn) 500 MG tablet Take 1 tablet (500 mg) by mouth if needed in the morning and at bedtime for mild pain. 20 tablet 1 2025 Active Diclofenac Sodium 1 % gel Apply 2 g topically if needed in the morning, at noon, in the evening, and at bedtime (pain). 150 g Active fluticasone furoate (Arnuity Ellipta) 100 MCG/ACT inhaler Inhale 1 puff Once per day. Rinse mouth with water after use to reduce aftertaste and incidence of candidiasis. Do not swallow. 90 Act 3 025 Active cetirizine (ZyrTEC) 10 MG tabletIndications:A llergic rhinitis, unspecified seasonality, unspecified trigger TAKE 1 TABLET BY MOUTH EVERY DAY NEEDED FOR ALLERGIES 90 tablet 3 025 Active baclofen (Lioresal) 10 MG tablet TAKE 1 TABLET (10 MG) BY MOUTH NEEDED IN THE MORNING , AT NOON, AND AT BEDTIME FOR MUSCLE SPASMS 60 tablet 1 025 Active cetirizine (ZyrTEC) 10 MG tabletIndications:A llergic rhinitis, unspecified seasonality, unspecified trigger Take 1 tablet (10 mg) by mouth if needed each day for allergies. 90 tablet 3 024 2024 Discontinued(R eorder (will not trigger notification to Pharmacy)) baclofen (Lioresal) 10 MG tablet Take 1 tablet (10 mg) by mouth if needed in the morning, at noon, and at bedtime for muscle spasms. 60 tablet 1 025 2024 Discontinued benzonatate (Tessalon Perles) 100 MG capsule Take 1 capsule (100 mg) by mouth if needed in the morning, at noon, and at bedtime for cough for up to 10 days. Do not crush or chew. 30 capsule 025 2024 Active Problems Problem Noted Date Diagnosed Date [...] Encounters Date Type Department Care Team Description 04/05/2025 Refill [facility] [address] [facility] [place] [address] Mora Díaz DO 03/31/2025 Refill [facility] [address] [facility] [place] [address] Mora Díaz DO Allergic rhinitis, unspecified seasonality, unspecified trigger 03/15/2025 Orders Only [facility] [address] [place] [address] Mora Díaz DO Neck pain (Primary Dx) 03/14/2025 Orders Only [facility] [address] [place] [address] Mora Díaz DO Abnormal chest x-ray (Primary Dx) 03/05/2025 Telephone [facility] [address] [facility] [place] [address] Corine Anderson RN Results 03/02/2025 9:45 AM EDT Office Visit [facility] [address] [place] [address] Mora Díaz DO Type 2 diabetes mellitus with diabetic microalbuminuria, with long-term current use of insulin ([facility]) (Primary Dx); Essential hypertension; Other hyperlipidemia; Coronary artery disease involving alturas heart, unspecified vessel or lesion type, unspecified whether angina present; Fatty liver; Chronic GERD; Chronic constipation; Obstructive sleep apnea; Chronic allergic rhinitis; Chronic bilateral low back pain, unspecified whether sciatica present; Chronic cough; Dizziness; Neck pain; Irritation of left ear; Healthcare maintenance; Dietary counseling; Exercise counseling; GERD without esophagitis; Other general symptoms and signs 03/02/2025 Orders Only [facility] [address] [place] [address] Mora Díaz DO 03/02/2025 Travel 02/26/2025 Telephone [facility] [address] [place] [address] Mora Díaz DO Chart Prep 02/19/2025 Patient Outreach [address] [address] Mora Díaz DO Pre-visit Planning (SDOH screening completed on 08/12/2024) 01/15/[address] [address] Mora Díaz DO from Last 3 Months Immunizations Immunization Administration Dates Next Due Hep A, Adult [...] Sign Reading Time Taken Comments Blood Pressure 122/68 03/02/2025 2:47 PM EDT Pulse 72 03/02/2025 9:44 AM EDT Temperature 36.4 C (97.6 F) 03/02/2025 9:44 AM EDT Respiratory Rate 21 03/02/2025 9:44 AM EDT Oxygen Saturation 98% 03/02/2025 9:44 AM EDT Inhaled Oxygen Concentration - - Weight 109 kg (240 lb 9.6 oz) 03/02/2025 9:44 AM EDT Height 162.6 cm (5' 4 ) 03/02/2025 9:44 AM EDT Body Mass Index 41.3 03/02/2025 9:44 AM EDT Plan of Treatment Health Maintenance Due Date Last Done Comments CT Colonography 1950 Dental Prophylaxis 1950 FIT DNA/Cologuard 1950 FIT 1950 FOBT 1950 Sigmoidoscopy 1950 Diabetes: Foot Exam 1960 Eye Exam 1960 Dental X-Ray: Bitewings 02/25/2012 02/23/2011 Dental Oral Exam 11/08/2019 05/08/2019, 11/2018, 06/11/2016, Additional history exists Dental X-Ray: Full Mouth 09/24/2021 019, 12/08/2015, 02/23/2011 Colonoscopy 09/28/2023 09/27/2020 Colorectal Cancer Screening 09/28/2023 COVID-19 Vaccine ( season) 2025 04/13/2024, 04/25/2023, 06/30/2022, Additional history exists Influenza Vaccine (#1) 2025 , 04/22/2023, 04/03/2022, Additional history exists Diabetes: Hemoglobin A1C 06/02/2025 025, 01/01/2025, 09/30/2024, Additional history exists Depression Screening 09/25/2025 09/25/2024, 09/26/19 25 Lipid Panel 09/30/2025 09/30/2024, 08/23, 07/03/2022, Additional history exists Alcohol/Substance Use Screening 03/02/2026 03/02/2025 SDOH Screening 03/02/2026 03/02/2025 Tobacco Screening 03/02/2026 03/02/2025 DTaP/Tdap/Td Vaccines (3 - Td or Tdap) 12/06/2030 12/06/2020, 05/22/2010, 02/24/2001 Hepatitis B Vaccines Completed 06/07/2015, 01/11/2015, 12/10/2014 Zoster Vaccines Completed 04/03/2021, 01/19, 01/11/2015 Pneumococcal Vaccine: 50+ Years Completed 04/30/2023, 05/14/2017, 12/21/2015, Additional history exists Hepatitis A Vaccines Completed 05/31/2023, 05/24/20 04 RSV Patients and Patients Aged 60 years or older Completed 12/09/2023 Hepatitis C Screening Completed 09/30/2024, 021 HIB Vaccines Aged Out No longer eligi ble based on patient's age to complete this topic HPV Vaccines Aged Out No longer eligi ble based on patient's age to complete this topic IPV Vaccines Aged Out No longer eligi ble based on patient's age to complete this topic Meningococcal B Vaccine Aged Out No l onger eligible based on patient's age to complete [...] Pressure 122/68(2024 2:47 PM EDT) No Nicholas Mulligan, Julia Note: Goal [...] Procedure Name Priority Date/Time Associated Diagnosis Comments MR BRAIN WO CONTRAST Routine 03/15/2025 6:02 PM EDT Dizziness XR CERVICAL SPINE 3V Routine 03/02/2025 10:43 AM EDT XR CHEST 2 VIEWS STAT 03/02/2025 10:2 2 AM EDT Chronic cough POCT GLYCATED HEMOGLOBIN, TOTAL Routine 03/02/2025 9:46 AM EDT Type 2 diabetes mellitus with diabetic microalbuminuria, with long-term current use of insulin (CMS/HCC) POCT GLUCOSE Routine 03/02/2025 9:45 AM EDT Type 2 diabetes mellitus with diabetic microalbuminuria, with long-term current use of insulin (CMS/HCC) HEPATITIS C AB W/REFL TO HCV RNA, QN, PCR Routine 09/30/2024 10:04 AM EDT Type 2 diabetes mellitus with diabetic microalbuminuria, with long-term current use of insulin (CMS/HCC) Essential hypertension Other hyperlipidemia Coronary artery disease involving alturas heart, unspecified vessel or lesion type, unspecified whether angina present Fatty liver Chronic GERD Chronic constipation Obstructive sleep apnea Chronic allergic rhinitis Chronic bilateral low back pain, unspecified whether sciatica present Healthcare maintenance LIPID PANEL, STANDARD Routine 09/30/2024 10:04 AM EDT Type 2 diabetes mellitus with diabetic microalbuminuria, with long-term current use of insulin (CMS/HCC) Essential hypertension Other hyperlipidemia Coronary artery disease involving alturas heart, unspecified vessel or lesion type, unspecified whether angina present Fatty liver Chronic GERD Chronic constipation Obstructive sleep apnea Chronic allergic rhinitis Chronic bilateral low back pain, unspecified whether sciatica present Healthcare maintenance HM COLONOSCOPY Routine 09/27/2020 PERIODIC ORAL EVALUATION - ESTABLISHED PATIENT Routine 05/08/2019 12:00 AM EDT PANORAMIC RADIOGRAPHIC IMAGE Routine 09/23/2018 12:00 AM EST INTRAORAL - COMPLETE SERIES OF RADIOGRAPHIC IMAGES Routine 02/23/2011 12:00 AM EDT from Last 3 Months or Most Recently Relevant to Health Maintenance Results * MR Brain w/o Contrast (03/15/2025 6:02 PM EDT) Anatomical Region Laterality Modality Brain Magnetic Resonan ce 03/15/2025 6:02 PM EDT Narrative 03/15/2025 6:04 PM EDT [address] [address] Magnetic Resonance Report Signed Patient: Vitaly Brown MR#: [id number] [birth year] : 1950 Acct:[id number] Age/Sex: 74 / M ADM Date: 03/14/25 Loc: HO.MRI Attending Dr: Mora Díaz DO Ordering Physician: Mora Díaz DO Date of Service: 03/14/25 Procedure(s): MR head/brain wo con Accession Number(s): [id number] cc: Mora Díaz DO CLINICAL HISTORY: worsening dizziness MR Brain without gadolinium Comparison: None provided Findings: No restricted diffusion. No intra-axial mass or hemorrhage. Age appropriate cerebral volume loss. Patchy high FLAIR signal within the periventricular and subcortical white matter. No midline shift. No hydrocephalus. Vascular flow voids are intact. The orbits are normal. Mild mucosal thickening within the bilateral maxillary, sphenoid, ethmoid, and frontal sinuses. No focal bone lesion. IMPRESSION: 1. No acute process. 2. Mild volume loss and small vessel ischemic disease. 3. Sinus disease. This document has been electronically signed by: John Paul Herrmann MD on 03/15/2025 18:02:48 Dictated By: John Paul Herrmann MD Signed By: <Electronically signed by John Paul Herrmann MD in OV> 03/15/25 1803 DD/ 180 TD/TT: 03/15/251801 Conversion Developer: Procedure Note Donotuseinterpreter, Image - 03/15/2025 [facility] [address] [place] [address] Magnetic Resonance Report Signed Patient: Vitaly Brown [facility]#: [id number] 04 : 1950Acct:[id number] Age/Sex: 74 / MADM Date: 03/14/25 Loc: HO.MRI Attending Dr: Mora Díaz DO Ordering Physician: Mora Díaz DO Date of Service: 03/14/25 Procedure(s): MR head/brain wo con Accession Number(s): [id number] cc: Mora Díaz DO CLINICAL HISTORY: worsening dizziness MR Brain without gadolinium Comparison: None provided Findings: No restricted diffusion. No intra-axial mass or hemorrhage. Age appropriate cerebral volume loss. Patchy high FLAIR signal within the periventricular and subcortical white matter. No midline shift. No hydrocephalus. Vascular flow voids are intact. The orbits are normal. Mild mucosal thickening within the bilateral maxillary, sphenoid, ethmoid, and frontal sinuses. No focal bone lesion. IMPRESSION: 1. No acute process. 2. Mild volume loss and small vessel ischemic disease. 3. Sinus disease. This document has been electronically signed by: John Paul Herrmann MD on 03/15/2025 18:02:48 Dictated By: John Paul Herrmann MD Signed By: <Electronically signed by John Paul Herrmann MD in OV> 03/15/251802 DD/ 01 TD/TT: 03/15/251801 Conversion Developer: Mora Díaz DO IMG MRI PROCEDURES Final Res ult * XR CERVICAL SPINE 3V (03/02/2025 10:43 AM EDT) Anatomical Region Laterality Modality Abdomen Radiographic Leta ging 03/02/2025 10:4 3 AM EDT Narrative 03/02/2025 12:18 PM EDT [facility] [address] [place] [address] XRay Report Signed Patient: Vitaly Brown MR#: [id number] 04 : 1950 Acct:[id number] Age/Sex: 74 / M ADM Date: 03/02/25 [facility]: Mora Díaz DO Ordering Physician: Mora Díaz DO Date of Service: 03/02/25 Procedure(s): XR cervical spine 3V Accession Number(s): [id number] cc: Mora Díaz DO EXAMINATION: XR CERVICAL SPINE CLINICAL INFORMATION: PAIN COMPARISON: March 29, 2016. TECHNIQUE: AP, lateral and atlantoodontoid views. FINDINGS: Craniocervical junction is intact. Anterior marginal osteophyte formation C3-4. Focal calcifications in the anterior intervertebral disc C4-5 C5-6 and C6-7 levels. Grade 1 retrolisthesis C3-4. No acute cortical disruption. Focal calcifications in the soft tissues at the C3-4 level likely carotid arteries. XR/XR cervical spine 3V IMPRESSION: Multilevel cervical spondylosis pronounced at C3-4 resulting in grade 1 retrolisthesis. Atherosclerosis disease, carotid arteries. Electronically signed by: Lion Osborne MD 03/02/2025 12:16 PM EDT Dictated By: Lion Mclain MD Signed By: <Electronically signed by Lion Lundberg MD in OV> 03/02/25 1216 DD/ 1043 TD/TT: 03/02/25 1045 Conversion Developer: Procedure Note Donotuseinterpreter, Image - 03/02/2025 [facility] [address] [place] [address] XRay Report Signed Patient: Vitaly Brown MMR#: [id number] 04 : 1950Acct:[id number] Age/Sex: 74 / MADM Date: 03/02/25 Loc: HO[facility]CX Attending Dr: Mora Díaz DO Ordering Physician: Mora Díaz DO Date of Service: 03/02/25 Procedure(s): XR cervical spine 3V Accession Number(s): [id number] cc: Mora Díaz DO EXAMINATION: XR CERVICAL SPINE CLINICAL INFORMATION: PAIN COMPARISON: March 29, 2016. TECHNIQUE: AP, lateral and atlantoodontoid views. FINDINGS: Craniocervical junction is intact. Anterior marginal osteophyte formation C3-4. Focal calcifications in the anterior intervertebral disc C4-5 C5-6 and C6-7 levels. Grade 1 retrolisthesis C3-4. No acute cortical disruption. Focal calcifications in the soft tissues at the C3-4 level likely carotid arteries. XR/XR cervical spine 3V IMPRESSION: Multilevel cervical spondylosis pronounced at C3-4 resulting in grade 1 retrolisthesis. Atherosclerosis disease, carotid arteries. Electronically signed by: Lion Osborne MD 03/02/2025 12:16 PM EDT Dictated By: Lion Mcalin MD Signed By: <Electronically signed by Lion Lundberg MDin OV> 03/02/25 1216 DD/ 1043 TD/TT: 03/02/25 1045 Conversion Developer: Mora Díaz DO IMG XR PROCEDURES Edited Res ult - Final * XR Chest 2 Views (03/02/2025 10:22 AM EDT) Anatomical Region Laterality Modality Chest Radiographic Leta ging 03/02/2025 10:2 2 AM EDT Narrative 03/02/2025 12:17 PM EDT [address] [address] XRay Report Signed Patient: Vitaly Brown MR#: [id number] [birth year] : 1950 Acct:[id number] Age/Sex: 74 / M ADM Date: 03/02/25 Loc: HO.[facility]HCX Attending Dr: Mora Díaz DO Ordering Physician: Mora Díaz DO Date of Service: 03/02/25 Procedure(s): XR chest 2V Accession Number(s): [id number] cc: Mora Díaz DO EXAMINATION: XR CHEST CLINICAL INFORMATION: persistent cough COMPARISON: August 22, 2022. TECHNIQUE: 2 views of the chest were obtained. FINDINGS: Questionable patchy opacity, left lower lung lobe. Pulmonary reticular pattern. No pleural effusion or pneumothorax. Cardiomediastinal silhouette is prominent. Calcified plaque thoracic aorta. Multilevel spondylosis, thoracolumbar spine.. XR/XR chest 2V IMPRESSION: Concerning chronic interstitial lung disease with questionable airspace disease, left lung base. Cardiomegaly, mild. Spondylosis. Electronically signed by: Lion Osborne MD 03/02/2025 12:14 PM EDT RP Dictated By: Lion Mclain MD Signed By: <Electronically signed by Lion Lundberg MD in OV> 03/02/25 1214 DD/ 1022 TD/TT: 03/02/25 1030 Conversion Developer: Procedure Note Donotuseinterpreter, Image - 03/02/[address] [address] XRay Report Signed Patient: Vitaly Brown [facility]#: [id number] 04 : 1950Acct:[id number] Age/Sex: 74 / MADM Date: 03/02/25 Loc: HO.HHCX Attending Dr: Mora Díaz DO Ordering Physician: Mora Díaz DO Date of Service: 03/02/25 Procedure(s): XR chest 2V Accession Number(s): [id number] cc: Mora Díaz DO EXAMINATION: XR CHEST CLINICAL INFORMATION: persistent cough COMPARISON: August 22, 2022. TECHNIQUE: 2 views of the chest were obtained. FINDINGS: Questionable patchy opacity, left lower lung lobe. Pulmonary reticular pattern. No pleural effusion or pneumothorax. Cardiomediastinal silhouette is prominent. Calcified plaque thoracic aorta. Multilevel spondylosis, thoracolumbar spine.. XR/XR chest 2V IMPRESSION: Concerning chronic interstitial lung disease with questionable airspace disease, left lung base. Cardiomegaly, mild. Spondylosis. Electronically signed by: Lion Osborne MD 03/02/2025 12:14 PM EDT RP Dictated By: Lion Mclain MD Signed By: <Electronically signed by Lion Lundberg MDin OV> 03/02/25 1214 DD/ 1022 TD/TT: 03/02/25 1030 Conversion Developer: Mora Díaz DO IMG XR PROCEDURES Edited Res ult - Final * (ABNORMAL) POCT HGB A1C (03/02/2025 9:46 AM EDT) Pathologist [facility] Hemoglobin A1C 7.3(A) 4.0 - 5.7 % QC Media Lot # [id number] Lot# Expiration Date 3, Blood 03/02/2025 9:46 AM EDT Mora Díaz DO POINT OF CARE TEST ENTER/UYEN T ORDERABLES Final Result * (ABNORMAL) POCT Glucose (03/02/2025 9:45 AM EDT) Pathologist [facility] Glucose Blood, POC 235(A) 60 - 200 mg/dL Comment:random QC Media Lot # [id number] Lot# Expiration Date [id number] Blood Capillary blood specimen / Unknown 03/02/2025 9:45 AM EDT Mora Díaz DO POINT OF CARE TEST ENTER/UYEN T ORDERABLES Final Result * Hepatitis C Antibody with Reflex to HCV, RNA, Quantitative, Real-Time PCR (09/30/2024 10:04 AM EDT) Pathologist [facility] Hepatitis C Antibody Nonreactive Nonreactive [facility] Comment:Antibodies to HCV no t detected; does not exclude early acuteHCV infection. Blood Venous blood specimen / Unknown 09/30/2024 10:04 AM EDT 09/30/2024 11:40 AM EDT Mora Arjun LAB BLOOD ORDERABLES Final R esult [facility] [address] [place] [address] [phone] * (ABNORMAL) Lipid Panel, Standard (09/30/2024 10:04 AM EDT) Triglycerides 83 <150 mg/dL [facility] Comment:Desirable Triglyceri de: less than 150 mg/dLBorderline High Triglyceride 150-199 mg/dLHigh Triglyceride: 200-499 mg/dLVery High Triglyceride: greater than or equal to 5OO mg/dL Cholesterol 178 <200 mg/dL [facility] Comment:Desirable Cholestero l: less than 200 mg/dLBorderline High Cholesterol: 200-239 mg/dLHigh Cholesterol: greater than 239 mg/dL LDL Cholesterol Calculated 119(H) <100 mg/dL [facility] Comment:Desirable LDL: less than 100 mg/dLNear Optimal/Above Optimal LDL: 110- 129 mg/dLBorderline High LDL: 130-159 mg/dLHigh LDL: 160-189 mg/dLVery High LDL: greater than or equal to 190 mg/dL HDL Cholesterol 43 >40 mg/dL [facility] Comment:Desirable HDL: great er than 40 mg/dL Note: This HDL assay may give artificially low results in patients with liver disease. Blood Venous blood specimen / Unknown 09/30/2024 10:04 AM EDT 09/30/2024 11:40 AM EDT Mora Díaz DO LAB BLOOD ORDERABLES Final R esult [facility] [address] [place] [address] [phone] * (ABNORMAL) Hm Colonoscopy (09/27/2020) Colonoscopy Abnormal( A) Normal Comment:repeat in 3 yrs 09/27/2020 Alex Murrell MD HEALTH MAINTENANCE Final Res ult from Last 3 Months or Most Recently Relevant to Health Maintenance [facility] STAND ADULT Care Teams Makeup Artistry Instructor Relationship Specialty Start Date End Date Mora Díaz DO [address] [place] [id number] PCP - General Family Medicine 07/22/18
--- OUTSIDE RECORDS SUMMARY | 2025-04-10 09:55 | XMS_ITS | Patient Health Record ---
Author Organization [facility] Address [address] [place] [address] Care Team Providers Care Vp & General Counsel Name Role Phone Mora Díaz M.D. Primary [...] Oral ly Once a day Active Basaglar EfrainikPen Act parag Lisinopril 40 MG 1 tablet [...] Problem Status W/U Status Risk Notes Problem [id number] Gastro-esophagea l reflux disease without esophagitis (K21.9) Active confirmed Problem [id number] Change in bowel habits (R19.4) Active confirmed Problem Gastroesophageal reflux disease (751617999) Gastroesophageal reflux disease (K21.9) Active confirmed Problem 303701967 Gastroesophageal reflux disease without esophagitis (K21.9) Active confirmed Problem 943444825 Colitis (K52.9) Active confirmed Problem [id number] Nausea and vomiting, unspecified vomiting type (R11.2) Active confirmed Encounters Encounter Location Date Provider Diagnosis [facility] [address] [place] [address] 07/23/2024 Alex Murrell Jr Plan Of Treatment [...] [address] [place] [address] [id number] SHAYNA SIMPSON Self - patient is the insured MEDICAID OF [facility] [address] [place] [id number] SHAYNA SIMPSON Self - patient is the insured Medical (General) History Medical History History ICD Code colonoscopy 09/27, endoscopic appearing rectal proctitis, and normal biopsies, except right colon showing nonspecific mild focal active colitis. Previous treatment with Asacol currently off all medications. Colonoscopy 10/09, no colitis, 2 tubular adenomas five-year followup hypertension elevated cholesterol diabetes coronary artery disease status post AL insomnia depression CRISTOFER/CPAP gastroesophageal reflux disease, EGD 09/27, no Herrera's or H. pylori. Surgical History Surgery Date(Month/Year) removal of fatty tumor on the neck Eye surgery - right eye
--- OUTSIDE RECORDS SUMMARY | 2025-04-10 09:55 | XMS_ITS | Encounter Summary ---
Author Organization [employer] Address [address] [place] [address] 7t [place] [address] Care Team Providers Care Fitness And Wellness Coordinator Name Role Phone Mora Díaz DO Primary Care Provider +1- [phone] Vee Ornelas PharmD Unavailable [phone] Reason for Visit * Reason Comments Med Refill Encounter Details Date Type Department Care Team ([facility] st Contact Info) Description 09/25/2024 Refill [facility] MEDICINE [address] [place] [address] Mora Díaz DO [address] [place] [address] Social History Tobacco Use Types Packs/Day Years [...] AM EDT documented as of this encounter Functional Status * Over the past 2 weeks, how often have you been bothered by any of the following problems? Question Answer Date of Assessment Author Patient Health Questionnaire -2 Score 0 09/25/2024 9:24 AM Pamela Guaman MA * Little interest or pleasure in doing things Answer Date of Assessment Author Not at all 09/25/2024 9:24 AM Alycia Guaman MA * Feeling down, depressed, or hopeless Answer Date of Assessment Author Not at all 09/25/2024 9:24 AM Alycia Guaman MA * Trouble falling or staying asleep, or sleeping too much Answer Date of Assessment Author Not at all 09/25/2024 9:24 AM Alycia Guaman MA * Feeling tired or having little energy Answer Date of Assessment Author Not at all 09/25/2024 9:24 AM Alycia Guaman MA * Poor appetite or overeating Answer Date of Assessment Author Not at all 09/25/2024 9:24 AM Alycia Guaman MA * Feeling bad about yourself - or that you are a failure or have let yourself or your family down Answer Date of Assessment Author Not at all 09/25/2024 9:24 AM Alycia Guaman MA * Trouble concentrating on things, such as reading the newspaper or watching television Answer Date of Assessment Author Not at all 09/25/2024 9:24 AM Alycia Guaman MA * Moving or speaking so slowly that other people could have noticed? Or the opposite - being so fidgety or restless that you have been moving around a lot more than usual. Answer Date of Assessment Author Not at all 09/25/2024 9:24 AM Alycia Guaman MA * Thoughts that you would be better off or hurting yourself in some way Answer Date of Assessment Author Not at all 09/25/2024 9:24 AM Alycia Guaman MA * Patient Health Questionnaire-9 Score Answer Date of Assessment Author 0 09/25/2024 9:24 AM Alycia Guaman MA * Over the last 2 weeks, how often have you been bothered by any of the following problems? Question Answer Date of Assessment Author Feeling nervous, anxious, or on edge 0 09/25/2024 9:25 AM Pamela Guaman MA Not being able to stop or co ntrol worrying 0 09/25/2024 9:25 AM Pamela Guaman MA Worrying too much about diff erent things 0 09/25/2024 9:25 AM Pamela Guaman MA Trouble relaxing 0 09/25/2024 9:25 AM Pamela Chery MA Being so restless that it is hard to sit still 0 09/25/2024 9:25 AM Pamela Guaman MA Becoming easily annoyed or irritable 0 09/25/2024 9:25 AM Pamela Guaman MA Feeling afraid as if somethi ng awful might happen 0 09/25/2024 9:25 AM Pamela uGaman MA TC-7 Total Score 0 09/25/2024 9:25 AM Pamela Guaman MA documented as of this encounter Plan of Treatment Not on file documented as of this encounter Goals Goal Patient Goal Type Associated Problems Recent Progress Patient-Stated? Author Blood Pressure < 140/90 Blood Pressure 122/68(2024 2:47 PM EDT) No Nicholas Mulligan, PharmIrena Note: Goal to resolve hypoTN (DBP) and low/borderline low HR Record your blood pressure periodically Blood Pressure On track( 11:34 AM EST) No Vee Ornelas, PharmIrena Hemoglobin A1c < 7.5 Result Component 7.3( 9:46 AM EDT) No Nicholas Mulligan, PharmIrena Record your blood [...] documented as of this encounter Care Teams Fitness And Wellness Coordinator Relationship Specialty Start Date End Date Mora Díaz DO [address] [place] [address] PCP - General Family Medicine 07/22/18 Vee Ornelas PharmD [address] [place] [address] Pharmacist Internal Medicine 02/20/23 12/31/24 documented as of this encounter
--- OUTSIDE RECORDS SUMMARY | 2025-04-10 09:55 | XMS_ITS | Encounter Summary ---
Author Organization [employer] Address [address] [facility] 7t [place] [address] Care Team Providers Care Flower Cheniller Name Role Phone Mora Díaz DO Primary Care Provider +1- [phone] Vee Ornelas PharmD Unavailable [phone] Encounter Details Date Type Department Care Team ([facility] st Contact Info) Description 11/18/2023 Telephone [facility] MEDICINE [address] [place], [place] [phone] Mora Díaz DO [address] [place] [address] Social History Tobacco Use Types Packs/Day Years [...] documented as of this encounter Care Teams Flower Cheniller Relationship Specialty Start Date End Date Mora Díaz DO [address] [place] [address] PCP - General Family Medicine 07/22/18 Vee Ornelas, PharmD 230 [place] [address] Pharmacist Internal Medicine 02/20/23 12/31/24 documented as of this encounter
--- OUTSIDE RECORDS SUMMARY | 2025-04-10 09:55 | XMS_ITS | Encounter Summary ---
Author Organization [employer] Address [address] [place] [address] 7t [place] [address] Care Team Providers Care Cloth Grader Supervisor Name Role Phone Mora Díaz DO Primary Care Provider +1- [phone] Vee Ornelas PharmD Unavailable [phone] Reason for Visit * Reason Onset Date Comments Med Refill TelephoneCall 11/01/2024 Encounter Details Date Type Department Care Team (Late st Contact Info) Description 11/01/2024 Refill [facility] MEDICINE [address] [place] [address] Mora Díaz DO 230 [place] [address] Social History Tobacco Use Types Packs/Day Years [...] Insurance. RX requires a PA. Patient utilizes [facility] on [address]. Patient can be reached at [phone]. Thanks. documented in this encounter Plan of Treatment Not on [...] A1c < 7.5 Result Component 7.3( 5 9:46 AM EDT) No Nicholas Mulligan PharmD [...] documented as of this encounter Care Teams Cloth Grader Supervisor Relationship Specialty Start Date End Date Mora Díaz DO 230 [place] [address] PCP - General Family Medicine 07/22/18 Vee Ornelas PharmD [address] [place] [address] Pharmacist Internal Medicine 02/20/23 12/31/24 documented as of this encounter
--- OUTSIDE RECORDS SUMMARY | 2025-04-10 09:55 | XMS_ITS | Encounter Summary ---
Author Organization [employer] Address [address] [facility] 7t [place] [address] Care Team Providers Care Mine Motor Operator Name Role Phone BhupendraMora short Primary Care Provider + [phone] Vee Ornelas PharmD Unavailable [phone] Reason for Visit * Reason Comments Med Refill Encounter Details Date Type Department Care Team ([facility] st Contact Info) Description 05/09/2023 Refill [facility] MEDICINE 230 [place] [address] Martha Lou, JAY GERD without esophagitis Social History Tobacco Use [...] 7.3( 9:46 AM EDT) No Nicholas Mulligan PharmIrena Record [...] documented as of this encounter Care Teams Mine Motor Operator Relationship Specialty Start Date End Date Mora Díaz DO 230 [place], [place] [phone] PCP - General Family Medicine 07/22/18 Vee Ornelas PharmD 230 [place], [place] [phone] Pharmacist Internal Medicine 02/20/23 12/31/24 documented as of this encounter
--- OUTSIDE RECORDS SUMMARY | 2025-04-10 09:55 | XMS_ITS | Encounter Summary ---
Author Organization [employer] Address [address] [facility] 7t [place] [address] Care Team Providers Care Call Center Agent Name Role Phone Mora Díaz DO Primary Care Provider [phone]- [phone] Vee Ornelas PharmD Unavailable [phone] Reason for Visit * Reason Comments Med Refill Encounter Details Date Type Department Care Team ([facility] st Contact Info) Description 09/24/2024 Refill [facility] [address] [place] [address] Mora Díaz DO [address] [place] [address] Social History Tobacco Use Types Packs/Day Years [...] might happen 0 09/25/2024 9:25 AM Pamela Guaman MA TC-7 Total Score 0 09/25/2024 9:25 [...] documented as of this encounter Care Teams Call Center Agent Relationship Specialty Start Date End Date Mora Díaz DO 230 [place] [address] PCP - General Family Medicine 07/22/18 Vee Ornelas PharmD 230 [place] [address] Pharmacist Internal Medicine 02/20/23 12/31/24 documented as of this encounter
--- OUTSIDE RECORDS SUMMARY | 2025-04-10 09:55 | XMS_ITS | Encounter Summary ---
Author Organization [employer] Address [address] [place] [address] 7t [place] [address] Care Team Providers Care Rubber Roller Grinder Name Role Phone Mora Díaz Primary Care Provider [phone] Reason for Referral * Consultation (Routine) - Closed Specialty Diagnoses / Procedures Referred By Angel morris Referred To Contact Pharmacy Diagnoses Essential hypertension Jayshree Rosas MD [address] [place] [address] Phone: tel: fax: Referral ID Status Reason Start Date Expiration Date V isits Requested Visits Authorized [id number] Closed Continuity of Care 01/11/2025 01/11/2026 6 6 Encounter Details Date Type Department Care Team (Late st Contact Info) Description 01/06/2025 Orders Only [facility] MEDICINE [address] [place], [place] [phone] Jayshree Rosas MD [address] [place], [place] [phone] Essential hypertension (Primary Dx) Social History Tobacco Use Types Packs/Day Years [...] as of this encounter Plan of Treatment Scheduled Referrals Name Type Priority Associated Diagnoses Orde r Schedule Referral to Pharmacy MTM Outpatient Referral Routine Essential hypertension Ordered: 01/11/2025 documented as of this encounter Goals Goal Patient Goal Type Associated Problems Recent Progress Patient-Stated? Author Blood Pressure < 140/90 Blood Pressure 122/68(2024 2:47 PM EDT) No Nicholas Mulligan, PharmD Note: Goal to resolve hypoTN (DBP) and low/borderline low HR Record your blood pressure periodically Blood Pressure On track( 11:34 AM EST) No Vee Ornelas PharmIrena Hemoglobin A1c < 7.5 Result Component 7.3( 9:46 AM EDT) No Nicholas Mulligan, PharmD Record your blood sugar as directed Result Component On track( 024 11:34 AM EST) No Vee Ornelas PharmD Note: Use CGM, ensuring sensor is scanned at least once every 8 hours to capture 24H data. Check BG manually, as directed. documented as of this encounter Visit Diagnoses Diagnosis Essential hypertension- Primary Unspecified essential hypertension documented in this encounter Additional Health Concerns Assessment Noted Time PHQ-9 Depression Total Score: 0 09/26/19 25 9:24 AM EST documented as of this encounter Care Teams Rubber Roller Grinder Relationship Specialty Start Date End Date Mora Díaz DO [address] [place] [address] PCP - General Family Medicine 07/22/18 documented as of this encounter
--- OUTSIDE RECORDS SUMMARY | 2025-04-10 09:55 | XMS_ITS | Encounter Summary ---
Author Organization [employer] Address [address] [place] [address] 7t [place] [address] Care Team Providers Care Dispatcher Tow Truck Name Role Phone Mora Díaz DO Primary Care Provider [phone]- [phone] Vee Ornelas PharmD Unavailable [phone] Reason for Visit * Reason Comments Med Refill Encounter Details Date Type Department Care Team ([facility] st Contact Info) Description 03/21/2024 Refill [facility] MEDICINE [address] [place], [place] [phone] Mora Díaz DO [address] [place] [address] Social History Tobacco Use Types Packs/Day Years [...] documented as of this encounter Care Teams Dispatcher Tow Truck Relationship Specialty Start Date End Date Mora Díaz DO [address] [place] [address] PCP - General Family Medicine 07/22/18 Vee Ornelas, Julia [address] [place] [address] Pharmacist Internal Medicine 02/20/23 12/31/24 documented as of this encounter
--- OUTSIDE RECORDS SUMMARY | 2025-04-10 09:55 | XMS_ITS | Encounter Summary ---
Author Organization [employer] Address [address] [place] [address] 7t [place] [address] Care Team Providers Care Mobile Manager Name Role Phone Mora Díaz DO Primary Care Provider [phone]- [phone] Vee Ornelas PharmD Unavailable [phone] Reason for Visit * Reason Comments Med Refill Encounter Details Date Type Department Care Team ([facility] st Contact Info) Description 03/16/2024 Refill [facility] [address] [place], [place] [phone] Mora Díaz DO [address] [place] [address] Social History Tobacco Use Types Packs/Day Years [...] documented as of this encounter Care Teams Mobile Manager Relationship Specialty Start Date End Date Mora Díaz DO [address] [place] [address] PCP - General Family Medicine 07/22/18 Vee Ornelas, Julia [address] [place] [address] Pharmacist Internal Medicine 02/20/23 12/31/24 documented as of this encounter
== END 2025-04-10 09:53 | disposition home or self-care (01) ==
LOC: HO.CT 09:52
PROVIDERS: PCP Family Medicine; Visit Provider Family Medicine
DX: R93.89 Abnormal findings on diagnostic imaging of other specified body structures (principal)
CPT/HCPCS: 71250

== ENCOUNTER → 2025-04-10 09:53 | Outpatient (BNV) | payer MEDICARE, MEDICAID, SELFPAY | PROVIDERS: PCP Family Medicine; Visit Provider Family Medicine | DX: R91.8 Other nonspecific abnormal finding of lung field (principal); I25.10 Atherosclerotic heart disease of native coronary artery without angina pectoris | CPT/HCPCS: 71250 ==

== ENCOUNTER → 2025-04-21 12:49 | Outpatient (REF) | payer MEDICARE, MEDICAID, SELFPAY ==
--- NOTE | ~2025-04-21 | US_ITS ---
EXAMINATION: US EXTRACRANIAL CAROTID DUPLEX, BILATERAL CLINICAL INFORMATION: Worsening dizziness COMPARISON: 08/23/2020 TECHNIQUE: Real-time ultrasound and Doppler techniques (integrating B-mode 2-D vascular images, Doppler spectral analysis and color-flow Doppler imaging) were utilized to interrogate the extracranial carotid arteries, the vertebral arteries and proximal subclavian arteries bilaterally. The degree of stenosis is determined by criteria similar to NASCET. FINDINGS: Right Side: 1. There is mild atherosclerotic plaque seen in the bifurcation/proximal ICA region. 2. The common carotid artery PSV proximally is 83 cm/s and distally 79 cm/s. 3. The proximal internal carotid artery velocities are 70 cm/s systolic and 14 cm/s diastolic. 4. The proximal external carotid artery PSV is 121 cm/s. 5. The vertebral artery shows antegrade flow. 6. The subclavian artery waveforms are triphasic. ICA/CCA ratio 0.84 Left Side: 1. There is mild atherosclerotic plaque seen in the bifurcation/proximal ICA region. 2. The common carotid artery PSV proximally is 90 cm/s and distally 127 cm/s. 3. The proximal internal carotid artery velocities are 86 cm/s systolic and 13 cm/s diastolic. 4. The proximal external carotid artery PSV is 128 cm/s. 5. The vertebral artery shows antegrade flow. 6. The subclavian artery waveforms are biphasic. ICA/CCA ratio 0.68 US/US carotid duplex BI IMPRESSION: 1. RIGHT: No hemodynamically significant stenosis 2. LEFT: No hemodynamically significant stenosis 3. There is no change in the category severity of disease when compared to the previous study dated August 23, 2020. Electronically signed by: Damian Lechuga MD 04/21/2025 04:32 PM EDT
--- NOTE | 2025-04-21 12:52 | CA_ITS ---
Transthoracic Echocardiogram Patient (Last, First, Middle): Vitaly Brown M Gender: Male Date of : 1950 Age: 74 Procedure Date: 04/21/2025 Procedure Type: Transthoracic Echocardiogram Location: OP Height: 172.72 cm Weight: 107.5 kg BSA: 2.20 m2 Heart Rate: 51 bpm BP: 137 / 60 mmHg Auriculotherapist: SB/RC Referring MD: Mora Díaz DO Symptoms: R42 DIZZINESS WORSNING R68.89 Study Quality: Adequate w contrast ECG Rhythm: Bradycardia Conclusions: - The left ventricular systolic function is normal. The calculated ejection fraction is 65% by biplane method. - No obvious valvular pathology seen on this study. - There is mild dilatation of the ascending aorta measuring 4.00 cm. Findings Procedure Information Contrast agent, definity, is being given per protocol without apparent complications. The quality of the study was technically difficult. The study quality is limited by patients body habitus. Left Ventricle Normal left ventricular cavity size. There is mildly increased left ventricular wall thickness. The left ventricular systolic function is normal. The calculated ejection fraction is 65% by biplane method. There is no evidence of regional wall motion abnormalities. Diastolic function is normal for age. Right Ventricle The right ventricle was not well visualized. There is low normal right ventricular systolic function. Atria Both atria are normal in size. Aortic Valve There is a normal trileaflet aortic valve. There is no aortic valve stenosis. There is no aortic valve regurgitation. Mitral Valve The mitral valve appears normal. There is trace mitral valve regurgitation. There is no mitral valve stenosis. Pulmonic Valve The pulmonic valve is likely normal. Tricuspid Valve There is trace tricuspid valve regurgitation. There is no evidence of pulmonary hypertension. Great Vessels There is mild dilatation of the ascending aorta measuring 4.00 cm. Venous The inferior vena cava is normal in size and collapses greater than 50% with inspiration. Pericardium/Pleural There is no evidence of pericardial effusion. Prior Study Comparison No prior study available for comparison. Recommendations, Care & Conclusions No obvious valvular pathology seen on this study. Measurements 2D Linear Measurements IVSd: 1.02 0.6-0.9/0.6-1.0 cm LVIDd: 5.42 3.9-5.3/4.2-5.9 cm LVIDd Index: 2.46 2.4-3.2/2.2-3.1 cm/m2 LVIDs: 3.58 2.0-3.6 cm LVPWd: 1.04 0.7-1.1 cm LA Diam: 4.70 2.7-3.8/3.0-4.0 cm LAIDs Index: 2.14 1.5-2.3 cm/m2 LV Mass: 269.66 67-162/88-224 g LV Mass Index: 122.57 43-95/49-115 g/m2 LVOT Diam: 2.30 3.0+(-)1.3 cm 2D Systolic Function EF 4C: 64.80 >55% EF 2C: 63.60 >55% EF BiP: 64.50 >55% Mitral Valve MV Pk E: 0.69 MV PK A: 0.83 MV Decel Time: 234.00 E/A: 0.80 E'Lateral: 6.42 E'Medial: 4.68 E/E' Med: 14.70 E/E' Lat: 10.70 PHT: 69.00 MVA PHT: 3.19 Decel Ross: 2.94 Aortic Valve AoV Pk Ranulfo: 1.62 AoV Mn Ranulfo: 1.10 AoV VTI: 0.40 AoV Pk Grad: 10.00 Aov Mn Grad: 5.00 NEW Cont.VTI: 2.71 LVOT LVOT Pk Ranulfo: 1.08 LVOT Mn Ranulfo: 0.69 LVOT VTI: 0.26 LVOT Pk Grad: 5.00 LVOT Mn Grad: 2.00 LVOT Diam: 2.30 LVOT Area: 4.15 Diastolic Function MV Pk E: 0.69 MV Pk A: 0.83 E/A: 0.80 E'Medial: 4.68 E/E' Med: 14.70 E' Laterial: 6.42 E/E' Lat: 10.70 Right Ventricle TAPSE (mm): 27.00 Tricuspid Valve TR Pk Ranulfo: 2.27 TR Pk Grad: 21.00 RA Press: 3.00 RVSP: 24.00 Great Vessels Aorta Sinus of Valsalva: 3.50 2.0-3.5 cm Ao Asc: 4.00 2.1-3.4 cm Pulmonary Veins Pulm Vein S/D 1.60 Pulmonary Valve PV Pk Ranulfo: 1.07 Peak PV Grad: 5.00 Updated in Other Vendor System with Status of Final Sunny Bertrand MD electronically signed on 04/22/2025 12:45:08 PM with status of Final
--- OUTSIDE RECORDS SUMMARY | 2025-04-21 14:07 | XMS_ITS | Encounter Summary ---
Author Organization [employer] Address [address] [place] [address] 7t [place] [address] Care Team Providers Care Clay Transporter Name Role Phone Mora Díaz DO Primary Care Provider [phone]- [phone] Vee Ornelas PharmD Unavailable [phone] Reason for Visit * Reason Comments Med Refill Encounter Details Date Type Department Care Team ([facility] st Contact Info) Description 03/21/2024 Refill [facility] MEDICINE 230 [place], [place] [phone] Mora Díaz DO [address] [place] [address] Social History Tobacco Use Types Packs/Day Years [...] documented as of this encounter Care Teams Clay Transporter Relationship Specialty Start Date End Date Mora Díaz DO [address] [place] [address] PCP - General Family Medicine 07/22/18 Vee Ornelas, Julia [address] [place] [address] Pharmacist Internal Medicine 02/20/23 12/31/24 documented as of this encounter
--- OUTSIDE RECORDS SUMMARY | 2025-04-21 14:07 | XMS_ITS | Encounter Summary ---
Author Organization [employer] Address [address] [place] [address] 7t [place] [address] Care Team Providers Care Sterile Process Coordinator Name Role Phone Mora Díaz DO Primary Care Provider [phone] Vee Ornelas PharmD Unavailable Reason for Visit * Reason Comments Med Refill Encounter Details Date Type Department Care Team ([facility] st Contact Info) Description 04/24/2024 Refill [facility] MEDICINE 230 [place], [place] [phone] Mora Díaz DO [address] [place] [address] GERD without esophagitis Social History Tobacco Use [...] documented as of this encounter Care Teams Sterile Process Coordinator Relationship Specialty Start Date End Date Mora Díaz DO [address] [place] [address] PCP - General Family Medicine 07/22/18 Vee Ornelas, Julia [address] [place] [address] Pharmacist Internal Medicine 02/20/23 12/31/24 documented as of this encounter
--- OUTSIDE RECORDS SUMMARY | 2025-04-21 14:07 | XMS_ITS | Encounter Summary ---
Author Organization [employer] Address [address] [facility] 7t [place] [address] Care Team Providers Care Legal Internship Name Role Phone BhupendraMora short Primary Care Provider + [phone] Vee Ornelas PharmD Unavailable [phone] Reason for Visit * Reason Comments Med Refill Encounter Details Date Type Department Care Team ([facility] st Contact Info) Description 05/09/2023 Refill [facility] MEDICINE [address] [place] [address] Martha Lou, JAY GERD without esophagitis Social [...] documented as of this encounter Care Teams Legal Internship Relationship Specialty Start Date End Date Moar Díaz DO 230 [place], [place] [phone] PCP - General Family Medicine 07/22/18 Vee Ornelas PharmD 230 [place], [place] [phone] Pharmacist Internal Medicine 02/20/23 12/31/24 documented as of this encounter
--- OUTSIDE RECORDS SUMMARY | 2025-04-21 14:07 | XMS_ITS | Encounter Summary ---
Author Organization [employer] Address [address] [place] [address] [address] [place] [address] Care Team Providers Care Application Support Intern Name Role Phone Mora Díaz DO Primary Care Provider [phone]- [phone] Vee Ornelas PharmD Unavailable [phone] Reason for Visit * Reason Onset Date Comments Med Refill TelephoneCall 11/01/2024 Encounter Details Date Type Department Care Team (Late st Contact Info) Description 11/01/2024 Refill [facility] MEDICINE [address] [place] [address] Mora Díaz DO [address] [place] [address] Social History Tobacco Use Types Packs/Day Years [...] Insurance. RX requires a PA. Patient utilizes [employer] on [facility]. Patient can be reached at [phone]. Thanks. documented in this encounter Plan of [...] documented as of this encounter Care Teams Application Support Intern Relationship Specialty Start Date End Date Mora Díaz DO [address] [place] [address] PCP - General Family Medicine 07/22/18 Vee Ornelas PharmD [address] [place] [id number] Pharmacist Internal Medicine 02/20/23 12/31/24 documented as of this encounter
--- OUTSIDE RECORDS SUMMARY | 2025-04-21 14:07 | XMS_ITS | Encounter Summary ---
Author Organization [employer] Address [address] [place] [address] 7t [place] [address] Care Team Providers Care Road Cleaner Name Role Phone Mora Díaz DO Primary Care Provider [phone] Vee Ornelas PharmD Unavailable [phone] Reason for Visit * Reason Comments Med Refill Encounter Details Date Type Department Care Team ([facility] st Contact Info) Description 09/25/2024 Refill [facility] MEDICINE [address] [place] [address] Mora Díaz DO [address] [place] [address] Social History Tobacco Use Types Packs/Day Years [...] documented as of this encounter Care Teams Road Cleaner Relationship Specialty Start Date End Date Mora Díaz DO [address] [place] [address] PCP - General Family Medicine 07/22/18 Vee Ornelas PharmD [address] [place] [address] Pharmacist Internal Medicine 02/20/23 12/31/24 documented as of this encounter
--- OUTSIDE RECORDS SUMMARY | 2025-04-21 14:07 | XMS_ITS | Encounter Summary ---
Author Organization [employer] Address [address] [place] [address] 7[address] [place] [address] Care Team Providers Care Outreach Counselor Name Role Phone Mora Díaz DO Primary Care Provider [phone]- [phone] Vee Ornelas PharmD Unavailable [phone] Reason for Visit * Reason Comments Med Refill Encounter Details Date Type Department Care Team ([facility] st Contact Info) Description 04/16/2024 Refill [facility] MEDICINE [address] [place], [place] [phone] Mora Díaz DO [address] [place] [address] Social History Tobacco Use Types Packs/Day Years [...] Result Component 7.3( 9:46 AM EDT) No iNcholas Mulligan PharmD Record your blood sugar as [...] documented as of this encounter Care Teams Outreach Counselor Relationship Specialty Start Date End Date Mora Díaz DO [address] [place] [id number] PCP - General Family Medicine 07/22/18 Vee Ornelas, Julia [address] [place] [id number] Pharmacist Internal Medicine 02/20/23 12/31/24 documented as of this encounter
--- OUTSIDE RECORDS SUMMARY | 2025-04-21 14:07 | XMS_ITS | Encounter Summary ---
Author Organization [employer] Address [address] [place] [address] [address] [place] [address] Care Team Providers Care Payroll Processor Name Role Phone Mora Díaz DO Primary Care Provider + [phone] Reason for Visit * Reason Onset Date Comments CT Chest results 04/20/2025 Encounter Details Date Type Department Care Team ([facility] st Contact Info) Description 04/20/2025 Telephone [facility] MEDICINE [address] [place], [place] [phone] Mora Díaz DO [address] [place] [address] CT Chest results Social History Tobacco Use Types Packs/Day Years [...] encounter Miscellaneous Notes * Telephone Encounter - Estella Dunn RN - 04/20/2025 11:19 AM EDT RN reviewed CT chest results with PCP. CT chest returned negative for interstitial lung disease however did show lung nodules which need to be f/u on in [address] chest also showed incidental finding of thyroid nodule which PCP will order a thyroid US to f/u. TC placed to patient [phone] in regards to above message. Patient verbalized understanding andis aware the hospital will be contacting him to schedule the thyroid US and a repeat CT chest in 3 months. Patient did not have any further questions/concerns. Patient to f/u PRN. documented in this encounter Plan of Treatment [...] documented as of this encounter Care Teams Payroll Processor Relationship Specialty Start Date End Date Mora Díaz DO [address] [place] [phone] PCP - General Family Medicine 07/22/18 documented as of this encounter
--- OUTSIDE RECORDS SUMMARY | 2025-04-21 14:07 | XMS_ITS | Encounter Summary ---
Author Organization [employer] Address [address] [place] [address] 7[address] [place] [address] Care Team Providers Care Border Police Name Role Phone Mora Díaz DO Primary Care Provider [phone] Vee Ornelas PharmD Unavailable Reason for Visit * Reason Comments Med Refill Encounter Details Date Type Department Care Team ([facility] st Contact Info) Description 08/03/2024 Refill [facility] MEDICINE [address] [place], [place] [phone] Mora Díaz DO [address] [place] [address] Type 2 diabetes mellitus with diabetic microalbuminuria, with long-term current use of insulin ([facility]) Social History Tobacco Use Types [...] microalbuminuria, with long-term current use of insulin (HCC) documented in this encounter Additional Health Concerns Assessment Noted Time PHQ-9 Depression Total Score: 0 10/09/19 24 11:16 AM EDT documented as of this encounter Care Teams Border Police Relationship Specialty Start Date End Date Mora Díaz DO [address] [place] [address] PCP - General Family Medicine 07/22/18 Vee Ornelas PharmD [address] [place] [address] Pharmacist Internal Medicine 02/20/23 12/31/24 documented as of this encounter
--- OUTSIDE RECORDS SUMMARY | 2025-04-21 14:07 | XMS_ITS | Clinical Summary ---
Author Organization [employer] Address [address] [place] [address] 7[address] [place] [address] Care Team Providers Care Plastics Production Machine Operator Name Role Phone Mora Díaz DO Primary Care Provider [phone] Allergies Active Allergy Reactions Criticality Noted Date [...] CGM 2 each 025 Active Continuous Glucose Tenoner Operator (FreeStyle Deirdre 3 [place]) device 1 each 3 times daily. Use [...] with long-term current use of insulin (HCC) take 1 tablet (81MG) by oral route every day 90 tablet 025 Active carvedilol (Coreg) 3.125 MG tablet TAKE 1 AND 1/2 TABLETS BY MOUTH EVERY MORNING AND EVERY EVENING WITH FOOD 270 tablet 025 Active glucose blood (FreeStyle Precision Martin Test) test stripIndications:Ty pe 2 diabetes mellitus with diabetic microalbuminuria, with long-term current use of insulin (HCC) TEST BLOOD SUGAR UP TO TWICE DAILY, DIRECTED 100 each 025 2025 Active hydroCHLOROthiazide (HYDRODiuril) 25 MG tablet Take 1 tablet (25 mg) by mouth in the morning. 90 tablet 025 Active insulin pen needle (Pentips) 32G x 4 mm miscIndications:Typ e 2 diabetes mellitus with diabetic microalbuminuria, with long-term current use of insulin (HCC) Use 1 daily with insulin 100 each 025 Active linaGLIPtin (Tradjenta) 5 MG tablet Take 1 tablet (5 mg) by mouth in the morning. 90 tablet 025 2025 Active lisinopril 40 MG tablet Take 1 tablet (40 mg) by mouth in the morning. 90 tablet Active rosuvastatin (Crestor) 20 MG tabletIndications:T ype 2 diabetes mellitus with microalbuminuria (HCC) Take 1 tablet (20 mg) by mouth in the morning. 90 tablet Active TRUEplus Lancets 33G miscIndications:Typ e 2 diabetes mellitus with diabetic microalbuminuria, with long-term current use of insulin (HCC) TEST BLOOD SUGAR UP TO TWICE DAILY DIRECTED 100 each Active diphenhydrAMINE (BENADryl) 25 MG tabletIndications:C hronic allergic rhinitis take 1 tablet by oral route every 6 hours as needed for Itching And Rash 30 tablet 2 Active glipiZIDE (Glucotrol) 10 MG tablet Take 1.5 tablets (15 mg) by mouth before breakfast and before evening meal. 270 tablet 3 2025 Active insulin glargine (Lantus SoloStar) 100 [...] bedtime for mild pain. 20 tablet 1 025 2025 Active Diclofenac Sodium 1 % gel [...] spasms. 60 tablet 1 025 2024 Discontinued Active Problems Problem Noted Date Diagnosed Date [...] Encounters Date Type Department Care Team Description 04/20/[address] [facility] [place] [address] [address] Díaz DO CT Chest results 04/05/[address] [facility] [place] [address] Mora Díaz DO 03/31/[address] [facility] [place] [address] Mora Díaz DO Allergic rhinitis, unspecified seasonality, unspecified trigger 03/15/2025 Orders Only [facility] [place] [address] Mora Díaz DO Neck pain (Primary Dx) 03/14/2025 Orders Only [facility] [place] [address] Mora Díaz DO Abnormal chest x-ray (Primary Dx) 03/05/[address] [facility] [place] [address] Corine Anderson, JATINDER Results 03/02/2025 9:45 AM EDT Office Visit [facility] [place] [address] Mora Díaz DO Type 2 diabetes mellitus with diabetic microalbuminuria, with long-term current use of insulin ([facility]) (Primary Dx); Essential hypertension; Other hyperlipidemia; Coronary artery disease involving mashpee heart, unspecified vessel or lesion type, unspecified whether angina present; Fatty liver; Chronic GERD; Chronic constipation; Obstructive sleep apnea; Chronic allergic rhinitis; Chronic bilateral low back pain, unspecified whether sciatica present; Chronic cough; Dizziness; Neck pain; Irritation of left ear; Healthcare maintenance; Dietary counseling; Exercise counseling; GERD without esophagitis; Other general symptoms and signs 03/02/2025 Orders Only [facility] [place] [address] Mora Díaz DO 03/02/2025 Travel 02/26/[address] [facility] [place] [address] Mora Díaz DO Chart Prep 02/19/2025 Patient Outreach [facility] [address] [place] [address] Mora Díaz DO Pre-visit Planning ([facility] screening completed on 08/12/2024) from Last 3 Months Immunizations Immunization Administration [...] Pressure On track( 11:34 AM EST) No eVe Ornelas, PharmIrena Hemoglobin A1c < 7.5 Result Component 7.3( 9:46 AM EDT) No Nicholas Mulligan, PharmIrena Record your blood sugar as directed Result Component On track( 11:34 AM EST) No Vee Ornelas PharmD Note: Use CGM, ensuring sensor is scanned at least once every 8 hours to capture 24H data. Check BG manually, as directed. Procedures Procedure Name Priority Date/Time Associated Diagnosis Comments CT CHEST WO CONTRAST Routine 04/12/2025 1:44 PM EDT Abnormal chest x-ray MR BRAIN WO CONTRAST Routine 03/15/2025 6:02 [...] hypertension Other hyperlipidemia Coronary artery disease involving mashpee heart, unspecified vessel or lesion type, unspecified whether angina present Fatty liver Chronic GERD Chronic constipation Obstructive sleep apnea Chronic allergic rhinitis Chronic bilateral low back pain, unspecified whether sciatica present Healthcare maintenance LIPID PANEL, STANDARD Routine 09/30/2024 10:04 AM EDT Type 2 diabetes mellitus with diabetic microalbuminuria, with long-term current use of insulin (CMS/HCC) Essential hypertension Other hyperlipidemia Coronary artery disease involving mashpee heart, unspecified vessel or lesion type, unspecified [...] Recently Relevant to Health Maintenance Results * CT Chest w/o Contrast (04/12/2025 1:44 PM EDT) Anatomical Region Laterality Modality Body, Chest Computed Tomogra phy 04/12/2025 1:44 PM EDT Narrative 04/12/2025 1:45 PM EDT [place] [address] CT Scan Report Signed Patient: Vitaly Brown MR#: [id number] [birth year] : 1950 Acct:[id number] Age/Sex: 74 / M ADM Date: 04/10/25 Loc: HO.CT Attending Dr: Mora Díaz DO Ordering Physician: Mora Díaz DO Date of Service: 04/10/25 Procedure(s): CT chest wo IV con Accession Number(s): [id number] cc: Mora Díaz DO Report Number: [id number]: Total DLP = 553.00 mGy-cm Reason for Exam: chronic interstitial lung disease on CXR for eval CLINICAL HISTORY: chronic interstitial lung disease on CXR for eval CT chest without contrast Comparison: CR/SR - XR CHEST 2 VIEWS - 03/02/25 11:22 EDT CR/SR - XR CHEST 2 VIEWS - 08/22/22 13:53 EST Findings: Severe coronary artery atherosclerotic vascular calcifications. Cardiology consultation is recommended. Prominent appearance of the thyroid gland which is heterogeneous. There is a questionable nodule in the left thyroid lobe measuring 1.2 cm. Thyroid ultrasound is recommended on an outpatient/ nonemergent basis. Intrapulmonary lymph node along the right minor fissure measuring 9 mm. There is a 5 mm solid nodule in the right middle lobe of the lung. There is a 6 mm right lower lobe pulmonary nodule. Short-term follow-up chest CT in 3-6 months is recommended. No definite interstitial pulmonary thickening. No bronchiectasis. No ground-glass opacities. No bronchial wall thickening. No evidence of interstitial lung disease. No subpleural sparing. No reticular opacities. Lipoma in the duodenum measuring 2.6 cm. Gallbladder is mildly prominent measuring 4.2 cm in diameter and partially included in the images. The bones are intact. No honeycombing. Intraosseous hemangioma in T8. IMPRESSION: 1. Intrapulmonary lymph node along the right minor fissure measuring 9 mm. There is a 5 mm solid nodule in the right middle lobe of the lung. There is a 6 mm right lower lobe pulmonary nodule. Short-term follow-up chest CT in 3-6 months is recommended. 2. No evidence of interstitial lung disease. 3. Severe coronary artery atherosclerotic vascular calcifications. Cardiology consultation is recommended. 4. Prominent appearance of the thyroid gland which is heterogeneous. There is a questionable nodule in the left thyroid lobe measuring 1.2 cm. Thyroid ultrasound is recommended on an outpatient/ nonemergent basis. This document has been electronically signed by: Juanito Espinosa DO on 04/12/2025 13:44:58 Dictated By: Juanito Espinosa DO Signed By: <Electronically signed by Juanito Espinosa DO in OV> 04/12/25 1345 DD/ 1344 TD/TT: 04/12/25 1344 Director Work: Procedure Note Donotuseinterpreter, Image - 04/12/[address] [place] [address] [address] Scan Report Signed Patient: Vitaly Brown [facility]#: [id number] 04 : 1950Acct:[id number] Age/Sex: 74 / MADM Date: 04/10/25 Loc: HO.CT Attending Dr: Mora Díaz DO Ordering Physician: Mora Díaz DO Date of Service: 04/10/25 Procedure(s): CT chest wo IV con Accession Number(s): [id number] cc: Mora Díaz DO Report Number: [id number]: Total DLP = 553.00 mGy-cm Reason for Exam: chronic interstitial lung disease on CXR for eval CLINICAL HISTORY: chronic interstitial lung disease on CXR for eval CT chest without contrast Comparison: CR/SR - XR CHEST 2 VIEWS - 03/02/25 11:22 EDT CR/SR - XR CHEST 2 VIEWS - 08/22/22 13:53 EST Findings: Severe coronary artery atherosclerotic vascular calcifications. Cardiology consultation is recommended. Prominent appearance of the thyroid gland which is heterogeneous. There is a questionable nodule in the left thyroid lobe measuring 1.2 cm. Thyroid ultrasound is recommended on an outpatient/ nonemergent basis. Intrapulmonary lymph node along the right minor fissure measuring 9 mm. There is a 5 mm solid nodule in the right middle lobe of the lung. There is a 6 mm right lower lobe pulmonary nodule. Short-term follow-up chest CT in 3-6 months is recommended. No definite interstitial pulmonary thickening. No bronchiectasis. No ground-glass opacities. No bronchial wall thickening. No evidence of interstitial lung disease. No subpleural sparing. No reticular opacities. Lipoma in the duodenum measuring 2.6 cm. Gallbladder is mildly prominent measuring 4.2 cm in diameter and partially included in the images. The bones are intact. No honeycombing. Intraosseous hemangioma in T8. IMPRESSION: 1. Intrapulmonary lymph node along the right minor fissure measuring 9 mm. There is a 5 mm solid nodule in the right middle lobe of the lung. There is a 6 mm right lower lobe pulmonary nodule. Short-term follow-up chest CT in 3-6 months is recommended. 2. No evidence of interstitial lung disease. 3. Severe coronary artery atherosclerotic vascular calcifications. Cardiology consultation is recommended. 4. Prominent appearance of the thyroid gland which is heterogeneous. There is a questionable nodule in the left thyroid lobe measuring 1.2 cm. Thyroid ultrasound is recommended on an outpatient/ nonemergent basis. This document has been electronically signed by: Juanito Espinosa DO on 04/12/2025 13:44:58 Dictated By: Juanito Espinosa DO Signed By: <Electronically signed by Juanito Espinosa DO in OV> 04/12/25 1345 DD/ 1344 TD/TT: 04/12/25 1344 Director Work: us Mora Díaz DO IMG CT PROCEDURES Final Resu lt * MR Brain w/o Contrast (03/15/2025 6:02 PM EDT) Anatomical Region Laterality Modality Brain Magnetic Resonan ce 03/15/2025 6:02 PM EDT Narrative 03/15/2025 6:04 PM EDT [address] [address] Magnetic Resonance Report Signed Patient: Vitaly Brown MR#: [id number] [birth year] : 1950 Acct:[id number] Age/Sex: 74 / M ADM Date: 03/14/25 Loc: HO.MRI Attending Dr: Mora Díaz DO Ordering Physician: Mora Díaz DO Date of Service: 03/14/25 Procedure(s): MR head/brain wo con Accession Number(s): [id number] cc: Mora Díaz DO CLINICAL HISTORY: worsening [...] in OV> 03/15/251802 DD/ 01 TD/TT: 03/15/251801 Director Work: Procedure Note Donotuseinterpreter, Image - 03/15/[address] [address] Magnetic Resonance Report Signed Patient: Vitaly Brown MMR#: [id number] [birth year] : 1950Acct:[id number] Age/Sex: 74 / MADM Date: 03/14/25 Loc: HO.MRI Attending Dr: Mora Díaz DO Ordering Physician: Mora Díaz DO Date of Service: 03/14/25 Procedure(s): MR head/brain wo con Accession Number(s): [id number] cc: Mora Díaz DO CLINICAL HISTORY: worsening [...] John Paul Herrmann MD in OV> 03/15/25 180 DD/ 180 TD/TT: 03/15/25 180 Director Work: Mora Díaz DO IMG MRI PROCEDURES Final Res ult * XR CERVICAL SPINE 3V (03/02/2025 10:43 AM EDT) Anatomical Region Laterality Modality Abdomen Radiographic Leta ging 03/02/2025 10:4 3 AM EDT Narrative 03/02/2025 12:18 [place] [address] XRay Report Signed Patient: Vitaly Brown MR#: [id number] 04 : 1950 Acct:[id number] Age/Sex: 74 / M ADM Date: 03/02/25 Loc: HO.HHCX Attending Dr: Mora Díaz DO Ordering Physician: Mora Díaz DO Date of Service: 03/02/25 Procedure(s): XR cervical spine 3V Accession Number(s): [id number] cc: Mora Díaz DO EXAMINATION: XR CERVICAL [...] Lion Osborne MD 03/02/2025 12:16 PM EDT RP Dictated By: Lion Mclain MD Signed By: <Electronically signed by Lion Lundberg MD in OV> 03/02/25 1216 DD/ 1043 TD/TT: 03/02/25 1045 Director Work: Procedure Note Donotuseinterpreter, Image - 03/02/2025 [place] [address] XRay Report Signed Patient: Vitaly Brown [facility]#: [id number] 04 : 1950Acct:[id number] Age/Sex: 74 / MADM Date: 03/02/25 Loc: HO.HHCX Attending Dr: Mora Díaz DO Ordering Physician: Mora Díaz DO Date of Service: 03/02/25 Procedure(s): XR cervical spine 3V Accession Number(s): [id number] cc: Mora Díaz DO EXAMINATION: XR CERVICAL [...] Lion Osborne MD 03/02/2025 12:16 PM EDT RP Dictated By: Lion Mclain MD Signed By: <Electronically signed by Lion Lundberg MDin OV> 03/02/25 1216 DD/ 1043 TD/TT: 03/02/25 1045 Director Work: Mora Díaz DO IMG XR PROCEDURES Edited Res ult - Final * XR Chest 2 Views (03/02/2025 10:22 AM EDT) Anatomical Region Laterality Modality Chest Radiographic Leta ging 03/02/2025 10:2 2 AM EDT Narrative 03/02/2025 12:17 [place] [address] XRay Report Signed Patient: Vitaly Brown MR#: [id number] 04 : 1950 Acct:[id number] Age/Sex: 74 / M ADM Date: 03/02/25 Loc: .HHCX Attending Dr: Mora Díaz DO Ordering Physician: Mora Díaz DO Date of Service: 03/02/25 Procedure(s): XR chest 2V Accession Number(s): [id number] cc: Mora Díaz DO EXAMINATION: XR CHEST [...] 03/02/25 1214 DD/ 1022 TD/TT: 03/02/25 1030 Director Work: Procedure Note Donotuseinterpreter, Image - 03/02/[address] [address] XRay Report Signed Patient: Vitaly Brown MMR#: [id number] 04 : 1950Acct:[id number] Age/Sex: 74 / MADM Date: 03/02/25 Loc: HO.HHCX Attending Dr: Mora Díaz DO Ordering Physician: Mora Díaz DO Date of Service: 03/02/25 Procedure(s): XR chest 2V Accession Number(s): [id number] cc: Mora Díaz DO EXAMINATION: XR CHEST [...] 03/02/25 1214 DD/ 1022 TD/TT: 03/02/25 1030 Director Work: Mora Díaz DO IMG XR PROCEDURES Edited Res ult - Final * (ABNORMAL) POCT HGB A1C (03/02/2025 9:46 AM EDT) Pathologist [facility] [place] Hemoglobin A1C 7.3(A) 4.0 - 5.7 % QC Media Lot # [id number] Lot# Expiration Date Blood 03/02/2025 9:46 AM EDT Mora Arjun DO POINT OF CARE TEST ENTER/UYEN T ORDERABLES Final Result * (ABNORMAL) POCT Glucose (03/02/2025 9:45 AM EDT) Pathologist [facility] [place] Glucose Blood, POC 235(A) 60 - 200 mg/dL Comment:random QC Media Lot # [id number] Lot# Expiration Date Blood Capillary blood specimen / Unknown 03/02/2025 9:45 AM EDT Mora Arjun DO POINT OF CARE TEST ENTER/UYEN T ORDERABLES Final Result * Hepatitis C Antibody with Reflex to HCV, RNA, Quantitative, Real-Time PCR (09/30/2024 10:04 AM EDT) [facility] Hepatitis C Antibody Nonreactive Nonreactive [facility] Comment:Antibodies to HCV no t detected; does not exclude early acuteHCV infection. Blood Venous blood specimen / Unknown 09/30/2024 10:04 AM EDT 09/30/2024 11:40 AM EDT Mora Arjun REY LAB BLOOD ORDERABLES Final R esult [facility] [address] [place] [address] [phone] * (ABNORMAL) Lipid Panel, Standard (09/30/2024 10:04 AM EDT) [facility] Triglycerides 83 <150 mg/dL [facility] Comment:Desirable Triglyceri de: less than 150 mg/dLBorderline High Triglyceride 150-199 mg/dLHigh Triglyceride: 200-499 mg/dLVery High Triglyceride: greater than or equal to 5OO mg/dL Cholesterol 178 <200 mg/dL [facility] Comment:Desirable Cholestero l: less than 200 mg/dLBorderline High Cholesterol: 200-239 mg/dLHigh Cholesterol: greater than 239 mg/dL LDL Cholesterol Calculated 119(H) <100 mg/dL [facility] Comment:Desirable LDL: less than 100 mg/dLNear Optimal/Above Optimal LDL: 110- 129 mg/dLBorderline High LDL: 130-159 mg/dLHigh LDL: 160-189 mg/dLVery High LDL: greater than or equal to 190 mg/dL HDL Cholesterol 43 >40 mg/dL [facility] Comment:Desirable HDL: great er than 40 mg/dL Note: This HDL assay may give artificially low results in patients with liver disease. Blood Venous blood specimen / Unknown 09/30/2024 10:04 AM EDT 09/30/2024 11:40 AM EDT Mora Díaz DO LAB BLOOD ORDERABLES Final R esult [facility] [address] [place] [address] [phone] * (ABNORMAL) Colonoscopy (09/27/2020) Colonoscopy Abnormal( A) Normal Comment:repeat in 3 yrs 09/27/2020 Alex Murrell MD HEALTH MAINTENANCE Final Res ult from Last 3 Months or Most Recently Relevant to Health Maintenance Insurance [facility] MEDICAID STAND ADULT Care Teams Plastics Production Machine Operator Relationship Specialty Start Date End Date Mora Díaz DO [address] [place] [address] PCP - General Family Medicine 07/22/18
--- OUTSIDE RECORDS SUMMARY | 2025-04-21 14:07 | XMS_ITS | Encounter Summary ---
Author Organization [employer] Address [address] [facility] 7t [place] [address] Care Team Providers Care Natural Science Curator Name Role Phone Mora Díaz DO Primary Care Provider [phone] Vee Ornelas PharmD Unavailable [phone] Reason for Visit * Reason Comments Med Refill Encounter Details Date Type Department Care Team ([facility] st Contact Info) Description 09/24/2024 Refill [facility] [address] [place] [address] Mora Díaz DO [address] [place] [address] Social History Tobacco Use Types Packs/Day Years [...] documented as of this encounter Care Teams Natural Science Curator Relationship Specialty Start Date End Date Mora Díaz DO [address] [place] [address] PCP - General Family Medicine 07/22/18 Vee Ornelas PharmD [address] [place] [address] Pharmacist Internal Medicine 02/20/23 12/31/24 documented as of this encounter
--- OUTSIDE RECORDS SUMMARY | 2025-04-21 14:07 | XMS_ITS | Encounter Summary ---
Author Organization [employer] Address [address] [place] [address] [address]t [place] [address] Care Team Providers Care Store Shopper Name Role Phone Mora Díaz DO Primary Care Provider [phone] Vee Ornelas PharmD Unavailable [phone] Reason for Visit * Reason Comments Med Refill Encounter Details Date Type Department Care Team ([facility] st Contact Info) Description 03/16/2024 Refill [facility] [address] [place], [place] [phone] Mora Díaz DO [address] [place] [address] Social History Tobacco Use Types Packs/Day Years [...] documented as of this encounter Care Teams Store Shopper Relationship Specialty Start Date End Date Mora Díaz DO [address] [place] [phone] PCP - General Family Medicine 07/22/18 Vee Ornelas, Julia [address] [place] [phone] Pharmacist Internal Medicine 02/20/23 12/31/24 documented as of this encounter
--- OUTSIDE RECORDS SUMMARY | 2025-04-21 14:08 | XMS_ITS | Encounter Summary ---
Author Organization [employer] Address [address] [facility] 7t [place] [address] Care Team Providers Care Senior Hadoop Developer Name Role Phone Mora Díaz DO Primary Care Provider [phone] Vee Ornelas PharmD Unavailable [phone] Encounter Details Date Type Department Care Team ([facility] st Contact Info) Description 11/18/2023 Telephone [facility] [address] [place], [place] [phone] Mora Díaz DO [address] [place] [address] Social History Tobacco Use Types Packs/Day Years [...] as of this encounter Care Teams Senior Hadoop Developer Relationship Specialty Start Date End Date Mora Díaz DO [address] [place] [id number] PCP - General Family Medicine 07/22/18 Vee Ornelas, PharmD [address] [place] [address] Pharmacist Internal Medicine 02/20/23 12/31/24 documented as of this encounter
--- OUTSIDE RECORDS SUMMARY | 2025-04-21 14:08 | XMS_ITS | Encounter Summary ---
Author Organization [employer] Address [address] [place] [address] 7t [place] [address] Care Team Providers Care Curer Acid Drum Name Role Phone BhupendraMora short Primary Care Provider [phone] Reason for Referral * Consultation (Routine) - Closed Specialty Diagnoses / Procedures Referred By Angel morris Referred To Contact Pharmacy Diagnoses Essential hypertension Jayshree Rosas MD [address] [place] [address] Phone: tel: fax: Referral ID Status Reason Start Date Expiration Date V isits Requested Visits Authorized [id number] Closed Continuity of Care 01/11/2025 01/11/2026 6 6 Encounter Details Date Type Department Care Team (Late st Contact Info) Description 01/06/2025 Orders Only [facility] [address] [place], [place] [phone] Jayshree Rosas MD [address] [place], [place] [phone] Essential hypertension (Primary Dx) Social History Tobacco [...] documented as of this encounter Care Teams Curer Acid Drum Relationship Specialty Start Date End Date Mora Díaz DO [address] [place] [address] PCP - General Family Medicine 07/22/18 documented as of this encounter
== END ==
LOC: HO.CARD 12:49
PROVIDERS: PCP Family Medicine; Visit Provider Family Medicine
DX: R42 Dizziness and giddiness (principal); R55 Syncope and collapse
CPT/HCPCS: 93306; 93880; Q9957

== ENCOUNTER → 2025-04-21 12:52 | Outpatient (BNV) | payer MEDICARE, MEDICAID, SELFPAY | PROVIDERS: PCP Family Medicine; Visit Provider Internal Medicine | DX: I77.810 Thoracic aortic ectasia (principal) | CPT/HCPCS: 93306 ==

== ENCOUNTER → 2025-04-21 13:59 | Outpatient (BNV) | payer MEDICARE, MEDICAID, SELFPAY | PROVIDERS: PCP Family Medicine; Visit Provider Radiology Diagnostic Radiology | DX: R42 Dizziness and giddiness (principal) | CPT/HCPCS: 93880 ==

== ENCOUNTER 2025-05-06 12:30 | Outpatient (REF) | payer MEDICARE, MEDICAID, SELFPAY ==
--- OUTSIDE RECORDS SUMMARY | 2024-07-30 10:35 | XMS_ITS ---
Author Organization [facility] Address [address] [place] [address] Care Team Providers Care Structural Engineer Name Role Phone Arjun Burrell, Mora Primary Care Provider Alex Scott Jr REASON FOR VISIT abdominal pain Encounters Encounter Location Date Provider Diagnosis [facility] [address] [place] [phone] 07/30/2024 Alex Murrell Jr Plan Of Treatment No Information Progress Notes * ALICE SIMPSONSDOB:1950 (74 yo M)Acc No.[id number]:07/30/2024 Progress Notes Patient: SHAYNA SORTO Provider: Kianna Murrell MD :1950 A ge:74 Y S ex:Male Date:07/30/2024 Address:[address] [place], [place] [phone] Pcp:Mora Díaz M.D. Subjective: * Chief Complaints: [...] 0 07/30/2024 Generated for Junei ng/Faishang/eTransmitting on: 1 03:39 PM EDT
--- NOTE | 2025-05-06 | PFT_ITS ---
Flows: FEV1: 86 % of predicted at 2.30 L FVC: 79 % of predicted at 2.88 L FEV1/FVC: 83 % Bronchodilator response: Absent Volumes: Total lung capacity: 74 % of predicted at 4.75 L Residual volume: 72 % of predicted at 1.73 L Slow vital capacity: 78 % of predicted at 3.03 L Expiratory reserve volume: 75 % of predicted at 0.79 L Diffusion capacity: Normal Impression: Mild restrictive ventilatory defect with no bronchodilator response. Decreased expiratory reserve volume suggests extrathoracic restriction likely secondary to abdominal obesity. MTDD
[2025-05-06 13:44] VITALS: PULSE 48; O2SAT 97
--- OUTSIDE RECORDS SUMMARY | 2025-05-06 15:39 | XMS_ITS | Encounter Summary ---
Author Organization [employer] Address [address] [place] [address] 7t [place] [address] Care Team Providers Care Energy Director Name Role Phone Mora Díaz DO Primary Care Provider [phone] Vee Ornelas PharmD Unavailable [phone] Reason for Visit * Reason Comments Med Refill Encounter Details Date Type Department Care Team ([facility] st Contact Info) Description 04/16/2024 Refill [facility] [address] [place], [place] [phone] Mora Díaz DO [address] [place] [address] Social History Tobacco Use Types Packs/Day Years [...] documented as of this encounter Care Teams Energy Director Relationship Specialty Start Date End Date Mora Díaz DO [address] [place] [address] PCP - General Family Medicine 07/22/18 Vee Ornelas, Julia [address] [place] [address] Pharmacist Internal Medicine 02/20/23 12/31/24 documented as of this encounter
--- OUTSIDE RECORDS SUMMARY | 2025-05-06 15:39 | XMS_ITS | Encounter Summary ---
Author Organization [employer] Address [address] [place] [address] 7t [place] [address] Care Team Providers Care Commercial Attorney Name Role Phone Mora Díaz DO Primary Care Provider [phone] Vee Ornelas PharmD Unavailable [phone] Reason for Visit * Reason Comments Med Refill Encounter Details Date Type Department Care Team ([facility] st Contact Info) Description 08/03/2024 Refill [facility] 230 [place], [place] [phone] Mora Díaz DO [address] [place] [address] Type 2 diabetes mellitus with diabetic microalbuminuria, with long-term current use of insulin ([facility]) Social History Tobacco Use Types Packs/Day [...] documented as of this encounter Care Teams Commercial Attorney Relationship Specialty Start Date End Date Mora Díaz DO 230 [place] [address] PCP - General Family Medicine 07/22/18 Vee Ornelas PharmD [address] [place] [address] Pharmacist Internal Medicine 02/20/23 12/31/24 documented as of this encounter
--- OUTSIDE RECORDS SUMMARY | 2025-05-06 15:39 | XMS_ITS | Encounter Summary ---
Author Organization [employer] Address [address] [place] [address] 7t [place] [address] Care Team Providers Care Bait Packer Name Role Phone Mora Díaz DO Primary Care Provider [phone] Vee Ornelas PharmD Unavailable [phone] Reason for Visit * Reason Comments Med Refill Encounter Details Date Type Department Care Team ([facility] st Contact Info) Description 04/24/[address] [facility] [address] [place], [place] [phone] Mora Díaz DO 230 [place] [address] GERD without esophagitis Social History Tobacco Use [...] documented as of this encounter Care Teams Bait Packer Relationship Specialty Start Date End Date Mora Díaz DO [address] [place] [address] PCP - General Family Medicine 07/22/18 Vee Ornelas, Julia [address] [place] [address] Pharmacist Internal Medicine 02/20/23 12/31/24 documented as of this encounter
--- OUTSIDE RECORDS SUMMARY | 2025-05-06 15:40 | XMS_ITS | Encounter Summary ---
Author Organization [employer] Address [address] [facility] 7t [place] [address] Care Team Providers Care Gift Consultant Name Role Phone Mora Díaz DO Primary Care Provider [phone] Vee Ornelas PharmD Unavailable [phone] Reason for Visit * Reason Comments Med Refill Encounter Details Date Type Department Care Team ([facility] st Contact Info) Description 09/24/2024 Refill [facility] [address] [place] [address] Mora Díaz DO 230 [place] [address] Social History Tobacco Use Types Packs/Day Years [...] documented as of this encounter Care Teams Gift Consultant Relationship Specialty Start Date End Date Mora Díaz DO 230 [place] [address] PCP - General Family Medicine 07/22/18 Vee Ornelas PharmD [address] [place] [address] Pharmacist Internal Medicine 02/20/23 12/31/24 documented as of this encounter
--- OUTSIDE RECORDS SUMMARY | 2025-05-06 15:40 | XMS_ITS | Encounter Summary ---
Author Organization [employer] Address [address] [place] [address] 7t [place] [address] Care Team Providers Care Hog Trader Name Role Phone Mora Díaz DO Primary Care Provider [phone] Vee Ornelas PharmD Unavailable [phone] Reason for Visit * Reason Onset Date Comments Med Refill TelephoneCall 11/01/2024 Encounter Details Date Type Department Care Team (Late st Contact Info) Description 11/01/2024 Refill [facility] MED[facility] 230 [place] [address] Mora Díaz DO 230 [place] [address] Social History Tobacco Use Types Packs/Day Years [...] Insurance. RX requires a PA. Patient utilizes [employer] on [facility]. Patient can be reached at [phone]. Thanks. documented in this encounter Plan of [...] documented as of this encounter Care Teams Hog Trader Relationship Specialty Start Date End Date Mora Díaz DO [address] [place] [address] PCP - General Family Medicine 07/22/18 Vee Ornelas PharmD [address] [place] [address] Pharmacist Internal Medicine 02/20/23 12/31/24 documented as of this encounter
--- OUTSIDE RECORDS SUMMARY | 2025-05-06 15:40 | XMS_ITS | Encounter Summary ---
Author Organization [employer] Address [address] [place] [address] 7[address] [place] [address] Care Team Providers Care Lease Purchase Truck Driver Name Role Phone Mora Díaz DO Primary Care Provider [phone] Vee Ornelas PharmD Unavailable Reason for Visit * Reason Comments Med Refill Encounter Details Date Type Department Care Team ([facility] st Contact Info) Description 03/16/2024 Refill [facility] 230 [place], [place] [phone] Mora Díaz DO [address] [place] [address] Social History Tobacco Use Types Packs/Day Years [...] documented as of this encounter Care Teams Lease Purchase Truck Driver Relationship Specialty Start Date End Date Mora Díaz DO [address] [place] [address] PCP - General Family Medicine 07/22/18 Vee Ornelas, Julia [address] [place] [address] Pharmacist Internal Medicine 02/20/23 12/31/24 documented as of this encounter
--- OUTSIDE RECORDS SUMMARY | 2025-05-06 15:40 | XMS_ITS | Encounter Summary ---
Author Organization [employer] Address [address] [place] [address] 7t [place] [address] Care Team Providers Care Payment Processor Name Role Phone Mora Díaz Primary Care Provider [phone] Reason for Referral * Consultation (Routine) - Closed Specialty Diagnoses / Procedures Referred By Angel morris Referred To Contact Pharmacy Diagnoses Essential hypertension Jayshree Rosas MD [address] [place] [address] Phone: tel: fax: Referral ID Status Reason Start Date Expiration Date V isits Requested Visits Authorized [id number] Closed Continuity of Care 01/11/2025 01/11/2026 6 6 Encounter Details Date Type Department Care Team (Late st Contact Info) Description 01/06/2025 Orders Only [facility] 230 [place], [place] [phone] Jayshree Rosas MD [address] [place], [place] [phone] Essential hypertension (Primary Dx) Social History Tobacco [...] documented as of this encounter Care Teams Payment Processor Relationship Specialty Start Date End Date Mora Díaz DO [address] [place] [address] PCP - General Family Medicine 07/22/18 documented as of this encounter
--- OUTSIDE RECORDS SUMMARY | 2025-05-06 15:40 | XMS_ITS | Patient Health Record ---
Author Organization [facility] Address [address] [place] [address] Care Team Providers Care Base Ply Hand Name Role Phone Mora Díaz M.D. Primary [...] 20 MG TK 1 T PO QD Oral; Duration: 90 Active HumaLOG 100 UNIT/ML as directed Subcutaneous QD Unknown Ondansetron HCl 4 MG 1 tablet Orally Onc e a day; Duration: 30 day(s) 08/23/2022 Active Aspirin 81mg 1 [...] PO Q 4 TO 6 H PRN Inhalation; Duration: 16 Unknown Loratadine 10 MG 1 tablet Orally prn Active Simethicone 125 MG CHEW AND SWALLOW 1 T PO QID PRF GASSINESS Oral; Duration: 15 Unknown oxyCODONE HCl 15 MG 1 tablet Orally prn Active Baclofen 10 MG TK 1 T PO TID PRF SPASMS Oral; Duration: 20 Unknown Vitamin D 50 MCG (1999) TK 1 T PO D O ral; Duration: 30 Active Flovent HFA 110 MCG/ACT 1 puff Inhalatio n Twice a day Unknown Fluticasone Propionate 50 MCG/ACT PLACE 1 TO 2 SPRAY BY INTRANASAL ROUTE QD PRN Nasal; Duration: 90 Active hydroCHLOROthiazide 25 MG 1 capsule Oral ly Once a day Active Basaglar KwikPen Act parag Lisinopril 40 MG 1 tablet Orally Once a day Active Omeprazole 40 MG TAKE 1 CAPSULE BY MOUTH TWICE DAILY; Duration: 30 Active Lantus 100 UNIT/ML as directed [...] Problem Status W/U Status Risk Notes Problem Gastro-esophageal reflux disease without esophagitis (346457863) Gastro-esophageal reflux disease without esophagitis (K21.9) Active confirmed Problem Change in bowel habit (07738033) Change in bowel habits (R19.4) Active confirmed Problem Gastroesophageal reflux disease (580110184) Gastroesophageal reflux disease (K21.9) Active confirmed Problem Gastroesophageal reflux disease without esophagitis (972992359) Gastroesophageal reflux disease without esophagitis (K21.9) Active confirmed Problem Colitis (44619125) Colitis (K52.9) Active confi rmed Problem Nausea and vomiting (47434306) Nausea and vomiting, unspecified vomiting type (R11.2) Active confirmed Encounters Encounter Location Date Provider Diagnosis [facility] [address] [place] [phone] 07/23/2024 Alex Murrell Jr Plan Of Treatment [...] End Date MEDICARE OF [place] [address] [place] [id number] [phone] [id number] SHAYNA SIMPSON Self - patient is the insured MEDICAID OF [facility] [address] [place] [address] [id number] SHAYNA SIMPSON Self - patient is the insured Medical (General) History Medical History History ICD Code colonoscopy 09/27, endoscopic appearing rectal proctitis, and normal biopsies, except right colon showing nonspecific mild focal active colitis. Previous treatment with Asacol currently off all medications. Colonoscopy 10/09, no colitis, 2 tubular adenomas five-year followup hypertension elevated cholesterol diabetes coronary artery disease status post [place] insomnia depression CRISTOFER/CPAP gastroesophageal reflux disease, EGD 09/27, no Herrera's or H. pylori. Surgical History Surgery Date(Month/Year) removal of fatty tumor on the neck Eye surgery - right eye
--- OUTSIDE RECORDS SUMMARY | 2025-05-06 15:40 | XMS_ITS | Encounter Summary ---
Author Organization [employer] Address [address] [facility] 7t [place] [address] Care Team Providers Care Staff Antisubmarine Officer Name Role Phone Mora Díaz DO Primary Care Provider [phone] Vee Ornelas PharmD Unavailable [phone] Encounter Details Date Type Department Care Team ([facility] st Contact Info) Description 11/18/2023 Telephone [facility] MEDICINE 230 [place], [place] [phone] Mora Díaz DO [address] [place] [address] Social History Tobacco Use Types Packs/Day Years [...] documented as of this encounter Care Teams Staff Antisubmarine Officer Relationship Specialty Start Date End Date Mora Díaz DO [address] [place] [address] PCP - General Family Medicine 07/22/18 Vee Ornelas, PharmD 230 [place] [address] Pharmacist Internal Medicine 02/20/23 12/31/24 documented as of this encounter
--- OUTSIDE RECORDS SUMMARY | 2025-05-06 15:40 | XMS_ITS | Clinical Summary ---
Author Organization [employer] Address [address] [place] [address] 7[address] [place] [address] Care Team Providers Care Hand Assembler For Puller Over Name Role Phone Mora Díaz DO Primary Care Provider + [phone] Allergies Active Allergy Reactions Criticality Noted Date [...] CGM 2 each 025 Active Continuous Glucose Physician Practice Coordinator (FreeStyle Deirdre 3 Gibbon) device 1 each 3 times daily. Use [...] MUSCLE SPASMS 60 tablet 1 025 Active baclofen (Lioresal) 10 MG tablet Take 1 [...] Encounters Date Type Department Care Team Description 05/06/2025 Telephone [facility] MEDICINE [address] [place] [address] Mora Díaz DO TELEPHONE CALL 04/20/2025 Telephone [facility] [place] [address] [address] DO CT Chest results 04/05/2025 Refill [facility] [place] [address] Mora Díaz DO 03/31/2025 Refill [facility] [place] [address] Mora Díaz DO Allergic rhinitis, unspecified seasonality, unspecified trigger 03/15/2025 Orders Only [facility] [place] [address] Mora Díaz DO Neck pain (Primary Dx) 03/14/2025 Orders Only [facility] [place] [address] Mora Díaz DO Abnormal chest x-ray (Primary Dx) 03/05/2025 Telephone [facility] [place] [address] Corine Anderson RN Results 03/02/2025 9:45 AM EDT Office Visit [facility] [place] [address] Mora Díaz DO Type 2 diabetes mellitus with diabetic microalbuminuria, with long-term current use of insulin ([facility]) (Primary Dx); Essential hypertension; Other hyperlipidemia; Coronary artery disease involving [place] heart, unspecified vessel or lesion type, unspecified whether angina present; Fatty liver; Chronic GERD; Chronic constipation; Obstructive sleep apnea; Chronic allergic rhinitis; Chronic bilateral low back pain, unspecified whether sciatica present; Chronic cough; Dizziness; Neck pain; Irritation of left ear; Healthcare maintenance; Dietary counseling; Exercise counseling; GERD without esophagitis; Other general symptoms and signs 03/02/2025 Orders Only [facility] [facility] [place] [address] Mora Díaz DO 03/02/2025 Travel 02/26/2025 Telephone [facility] [place] [address] Mora Díaz DO Chart Prep 02/19/2025 Patient Outreach [facility] [place] [facility] [place] [address] Mora Díaz DO Pre-visit Planning ([facility] screening completed on 08/12/2024) from Last 3 [...] Date Smoking Tobacco: Former Cigarettes S tarted: 2002 Passive Smoke Exposure: Past Smokeless Tobacco: Never [...] Colorectal Cancer Screening 09/28/2023 Diabetes: Hemoglobin A1C 06/02/2025 025, 01/01/2025, 09/30/2024, Additional history exists Depression Screening 09/25/2025 09/25/2024, 09/26/19 25 Lipid Panel 09/30/2025 09/30/2024, 0203/2024, 07/03/2022, Additional history exists Alcohol/Substance Use Screening [...] 12/09/2023 Hepatitis C Screening Completed 09/30/2024, 021 COVID-19 Vaccine Completed 05/04/2025, , 04/25/2023, Additional history exists Influenza Vaccine Completed 05/04/2025, , 04/22/2023, Additional history exists HIB Vaccines Aged Out [...] Procedure Name Priority Date/Time Associated Diagnosis Comments VASC US CAROTID ARTERY DUPLEX BILATERAL Routine 04/21/2025 2:[address] CHEST WO CONTRAST Routine 04/12/2025 1:44 [...] hypertension Other hyperlipidemia Coronary artery disease involving [place] heart, unspecified vessel or lesion type, unspecified whether angina present Fatty liver Chronic GERD Chronic constipation Obstructive sleep apnea Chronic allergic rhinitis Chronic bilateral low back pain, unspecified whether sciatica present Healthcare maintenance LIPID PANEL, STANDARD Routine 09/30/2024 10:04 AM EDT Type 2 diabetes mellitus with diabetic microalbuminuria, with long-term current use of insulin (CMS/HCC) Essential hypertension Other hyperlipidemia Coronary artery disease involving [place] heart, unspecified vessel or lesion type, unspecified [...] Recently Relevant to Health Maintenance Results * Vascular US carotid artery duplex bilateral (04/21/2025 2:13 PM EDT) 04/21/2025 2:13 PM EDT Narrative [facility] - 04/21/2025 4:35 PM EDT [address] [address] Ultrasound Report Signed Patient: Vitaly Brown MR#: [id number] [birth year] : 1950 Acct:[id number] Age/Sex: 74 / M ADM Date: 04/21/25 Loc: PREETHI Attending Dr: Mora Díaz DO Ordering Physician: Mora Díaz DO Date of Service: 04/21/25 Procedure(s): US carotid duplex BI Accession Number(s): [id number] cc: Mora Díaz DO Reason for Exam: worsening dizziness EXAMINATION: US EXTRACRANIAL CAROTID DUPLEX, BILATERAL CLINICAL INFORMATION: Worsening dizziness COMPARISON: 08/23/2020 TECHNIQUE: Real-time ultrasound and Doppler techniques (integrating B-mode 2-D vascular images, Doppler spectral analysis and color-flow Doppler imaging) were utilized to interrogate the extracranial carotid arteries, the vertebral arteries and proximal subclavian arteries bilaterally. The degree of stenosis is determined by criteria similar to NASCET. FINDINGS: Right Side: 1. There is mild atherosclerotic plaque seen in the bifurcation/proximal ICA region. 2. The common carotid artery PSV proximally is 83 cm/s and distally 79 cm/s. 3. The proximal internal carotid artery velocities are 70 cm/s systolic and 14 cm/s diastolic. 4. The proximal external carotid artery PSV is 121 cm/s. 5. The vertebral artery shows antegrade flow. 6. The subclavian artery waveforms are triphasic. ICA/CCA ratio 0.84 Left Side: 1. There is mild atherosclerotic plaque seen in the bifurcation/proximal ICA region. 2. The common carotid artery PSV proximally is 90 cm/s and distally 127 cm/s. 3. The proximal internal carotid artery velocities are 86 cm/s systolic and 13 cm/s diastolic. 4. The proximal external carotid artery PSV is 128 cm/s. 5. The vertebral artery shows antegrade flow. 6. The subclavian artery waveforms are biphasic. ICA/CCA ratio 0.68 US/US carotid duplex BI IMPRESSION: 1. RIGHT: No hemodynamically significant stenosis 2. LEFT: No hemodynamically significant stenosis 3. There is no change in the category severity of disease when compared to the previous study dated August 23, 2020. Electronically signed by: Damian Lechuga MD 04/21/2025 04:32 PM EDT RP Dictated By: Damian Lechuga MD Signed By: <Electronically signed by Damian Lechuga MD in OV> 04/21/25 1632 DD/ 1413 TD/TT: 04/21/25 1425 Monitoring Specialist: Procedure Note Donotuseinterpreter, Image - 04/21/2025 [place] [address] Ultrasound Report Signed Patient: Vitaly Brown [facility]#: [id number] 04 : 1950Acct:[id number] Age/Sex: 74 / MADM Date: 04/21/25 Loc: KRIST[facility] Attending Dr: Mora Díaz DO Ordering Physician: Mora Díaz DO Date of Service: 04/21/25 Procedure(s): US carotid duplex BI Accession Number(s): [id number] cc: Mora Díaz DO Reason for Exam: worsening dizziness EXAMINATION: US EXTRACRANIAL CAROTID DUPLEX, BILATERAL CLINICAL INFORMATION: Worsening dizziness COMPARISON: 08/23/2020 TECHNIQUE: Real-time ultrasound and Doppler techniques (integrating B-mode 2-D vascular images, Doppler spectral analysis and color-flow Doppler imaging) were utilized to interrogate the extracranial carotid arteries, the vertebral arteries and proximal subclavian arteries bilaterally. The degree of stenosis is determined by criteria similar to NASCET. FINDINGS: Right Side: 1. There is mild atherosclerotic plaque seen in the bifurcation/proximal ICA region. 2. The common carotid artery PSV proximally is 83 cm/s and distally 79 cm/s. 3. The proximal internal carotid artery velocities are 70 cm/s systolic and 14 cm/s diastolic. 4. The proximal external carotid artery PSV is 121 cm/s. 5. The vertebral artery shows antegrade flow. 6. The subclavian artery waveforms are triphasic. ICA/CCA ratio 0.84 Left Side: 1. There is mild atherosclerotic plaque seen in the bifurcation/proximal ICA region. 2. The common carotid artery PSV proximally is 90 cm/s and distally 127 cm/s. 3. The proximal internal carotid artery velocities are 86 cm/s systolic and 13 cm/s diastolic. 4. The proximal external carotid artery PSV is 128 cm/s. 5. The vertebral artery shows antegrade flow. 6. The subclavian artery waveforms are biphasic. ICA/CCA ratio 0.68 US/US carotid duplex BI IMPRESSION: 1. RIGHT: No hemodynamically significant stenosis 2. LEFT: No hemodynamically significant stenosis 3. There is no change in the category severity of disease when compared to the previous study dated August 23, 2020. Electronically signed by: Damian Lechuga MD 04/21/2025 04:32 PM EDT Dictated By: Damian Lechuga MD Signed By: <Electronically signed by Damian Lechuga MD in OV> 04/21/25 1632 DD/ 1413 TD/TT: 04/21/25 1425 Monitoring Specialist: Mora Díaz DO CV VASCULAR PROCEDURES Final Result [facility] [address] [place] [address] * CT Chest w/o Contrast (04/12/2025 1:44 PM EDT) Anatomical Region Laterality Modality Body, Chest Computed Tomogra phy 04/12/2025 1:44 PM EDT Narrative 04/12/2025 1:45 PM EDT [address] [address] [address] Scan Report Signed Patient: Vitaly Brown MR#: [id number] [birth year] : 1950 Acct:[id number] Age/Sex: 74 / M ADM Date: 04/10/25 Loc: HO.CT Attending Dr: Mora Díaz DO Ordering Physician: Mora Díaz DO Date of Service: 04/10/25 Procedure(s): CT chest wo IV con Accession Number(s): [id number] cc: Mora Díaz DO Report Number: [id number]: Total DLP = 553.00 mGy-cm Reason for [...] 04/12/25 1345 DD/ 1344 TD/TT: 04/12/25 1344 Monitoring Specialist: Procedure Note Donotuseinterpreter, Image - 04/12/[address] [place] [address] [address] Scan Report Signed Patient: Vitaly Brown [facility]#: [id number] 04 : 1950Acct:[id number] Age/Sex: 74 / MADM Date: 04/10/25 Loc: HO.CT Attending Dr: Mora Díaz DO Ordering Physician: Mora Díaz DO Date of Service: 04/10/25 Procedure(s): CT chest wo IV con Accession Number(s): [id number] cc: Mora Díaz DO Report Number: [id number]: Total DLP = 553.00 mGy-cm Reason for [...] 04/12/25 1345 DD/ 1344 TD/TT: 04/12/25 1344 Monitoring Specialist: us Mora Díaz DO IMG CT PROCEDURES Final Resu lt * MR Brain w/o Contrast (03/15/2025 6:02 PM EDT) Anatomical Region Laterality Modality Brain Magnetic Resonan ce 03/15/2025 6:02 PM EDT Narrative 03/15/2025 6:04 PM EDT [address] [address] Magnetic Resonance Report Signed Patient: Vitaly Brown MR#: [id number] 04 : 1950 Acct:[id number] Age/Sex: 74 / M ADM Date: 03/14/25 Loc: HO.MRI Attending Dr: Mora Díaz DO Ordering Physician: Mora Daíz DO Date of Service: 03/14/25 Procedure(s): MR head/brain wo con Accession Number(s): [id number] cc: Mora Díaz DO CLINICAL HISTORY: worsening [...] in OV> 03/15/251802 DD/ 01 TD/TT: 03/15/251801 Monitoring Specialist: Procedure Note Donotuseinterpreter, Image - 03/15/2025 [place] [address] Magnetic Resonance Report Signed Patient: Vitaly Brown [facility]#: [id number] 04 : 1950Acct:[id number] Age/Sex: 74 / MADM Date: 03/14/25 Loc: HO.MRI Attending Dr: Mora Díaz DO Ordering Physician: Mora Díaz DO Date of Service: 03/14/25 Procedure(s): MR head/brain wo [facility] Accession Number(s): [id number] cc: Mora Díaz DO CLINICAL HISTORY: worsening [...] in OV> 03/15/251802 DD/ 01 TD/TT: 03/15/251801 Monitoring Specialist: Mora Díaz DO IMG MRI PROCEDURES Final Res ult * XR CERVICAL SPINE 3V (03/02/2025 10:43 AM EDT) Anatomical Region Laterality Modality Abdomen Radiographic Leta ging 03/02/2025 10:4 3 AM EDT Narrative 03/02/2025 12:18 PM EDT [address] [address] XRay Report Signed Patient: Vitaly Brown MR#: [id number] [birth year] : 1950 Acct:[id number] Age/Sex: 74 / M ADM Date: 03/02/25 Loc: .HHCX Attending Dr: Mora Díaz DO Ordering Physician: Mora Díaz DO Date of Service: 03/02/25 Procedure(s): XR cervical spine 3V Accession Number(s): [id number] cc: Mora Díaz DO EXAMINATION: XR CERVICAL [...] Lundberg MD in OV> 03/02/25 1216 DD/ 42 TD/TT: 03/02/251044 Monitoring Specialist: Procedure Note Donotuseinterpreter, Image - 03/02/[address] [address] XRay Report Signed Patient: Vitaly Brown MMR#: [id number] 04 : 1950Acct:[id number] Age/Sex: 74 / MADM Date: 03/02/25 [facility] Attending Dr: Mora Díaz DO Ordering Physician: Mora Díaz DO Date of Service: 03/02/25 Procedure(s): XR cervical spine 3V Accession Number(s): [id number] cc: Mora Díaz DO EXAMINATION: XR CERVICAL [...] Lion Lundberg MDin OV> 03/02/25 1216 DD/ 104 TD/TT: 03/02/251044 Monitoring Specialist: Mora Díaz DO IMG XR PROCEDURES Edited Res ult - Final * XR Chest 2 Views (03/02/2025 10:22 AM EDT) Anatomical Region Laterality Modality Chest Radiographic Leta ging 03/02/2025 10:2 2 AM EDT Narrative 03/02/2025 12:17 PM EDT [facility] [address] [place] [address] XRay Report Signed Patient: Vitaly Brown MR#: [id number] [birth year] : 1950 Acct:[id number] Age/Sex: 74 / M ADM Date: 03/02/25 [facility] Dr: Mora Díaz DO Ordering Physician: Mora Díaz DO Date of Service: 03/02/25 Procedure(s): XR chest 2V Accession Number(s): [id number] cc: Mora Díaz DO EXAMINATION: XR CHEST [...] Lion Osborne MD 03/02/2025 12:14 PM EDT Dictated By: Lion Mclain MD Signed By: <Electronically signed by Lion Lundberg MD in OV> 03/02/25 1214 DD/ 1022 TD/TT: 03/02/25 1030 Monitoring Specialist: Procedure Note Donotuseinterpreter, Image - 03/02/2025 [facility] [address] [place] [address] XRay Report Signed Patient: Vitaly Brown MMR#: [id number] 04 : 1950Acct:[id number] Age/Sex: 74 / MADM Date: 03/02/25 Loc: HO.[facility]HCX Attending Dr: Mora Díaz DO Ordering Physician: Mora Díaz DO Date of Service: 03/02/25 Procedure(s): XR chest 2V Accession Number(s): [id number] cc: Mora Díaz DO EXAMINATION: XR CHEST [...] 03/02/25 1214 DD/ 1022 TD/TT: 03/02/25 1030 Monitoring Specialist: Mora Díaz DO IMG XR PROCEDURES Edited Res ult - Final * (ABNORMAL) POCT HGB A1C (03/02/2025 9:46 AM EDT) Hemoglobin A1C 7.3(A) 4.0 - 5.7 % QC Media Lot # [id number] Lot# Expiration Date ,[id number] Blood 03/02/2025 9:46 AM EDT Mora Díaz DO POINT OF CARE TEST ENTER/UYEN T ORDERABLES Final Result * (ABNORMAL) POCT Glucose (03/02/2025 9:45 AM EDT) Glucose Blood, POC 235(A) 60 - 200 mg/dL Comment:random QC Media Lot # [id number] Lot# Expiration Date [id number] Blood Capillary blood specimen / Unknown 03/02/2025 9:45 AM EDT Mora Díaz DO POINT OF CARE TEST ENTER/UYEN T ORDERABLES Final Result * Hepatitis C Antibody with Reflex to HCV, RNA, Quantitative, Real-Time PCR (09/30/2024 10:04 AM EDT) Hepatitis C Antibody Nonreactive Nonreactive [facility] Comment:Antibodies to HCV no t detected; does not exclude early acuteHCV infection. Blood Venous blood specimen / Unknown 09/30/2024 10:04 AM EDT 09/30/2024 11:40 AM EDT Mora Díaz DO LAB BLOOD ORDERABLES Final R esult [facility] [address] [place] [phone] * (ABNORMAL) Lipid Panel, Standard (09/30/2024 10:04 AM EDT) Triglycerides 83 <150 mg/dL [facility] Comment:Desirable Triglyceri de: less than 150 mg/dLBorderline High Triglyceride 150-199 mg/dLHigh Triglyceride: 200-499 mg/dLVery High Triglyceride: greater than or equal to 5OO mg/dL Cholesterol 178 <200 mg/dL [facility] Comment:Desirable Cholestero l: less than 200 mg/dLBorderline High Cholesterol: 200-239 mg/dLHigh Cholesterol: greater than 239 mg/dL LDL Cholesterol Calculated 119(H) <100 mg/dL [facility] Comment:Desirable LDL: less than 100 mg/dLNear Optimal/Above Optimal LDL: 110- 129 mg/dLBorderline High LDL: 130-159 mg/dLHigh LDL: 160-189 mg/dLVery High LDL: greater than or equal to 190 mg/dL HDL Cholesterol 43 >40 mg/dL [facility] Comment:Desirable HDL: great er than 40 mg/dL Note: This HDL assay may give artificially low results in patients with liver disease. Blood Venous blood specimen / Unknown 09/30/2024 10:04 AM EDT 09/30/2024 11:40 AM EDT Mora Díaz DO LAB BLOOD ORDERABLES Final R esult [facility] [address] [place] [address] [phone] * (ABNORMAL) Colonoscopy (09/27/2020) Colonoscopy Abnormal( A) Normal Comment:repeat in 3 yrs 09/27/2020 Alex Murrell MD HEALTH MAINTENANCE Final Res ult from Last 3 Months or Most Recently Relevant to Health Maintenance Insurance [facility] [place] [id number] [place] AD[place] Care Teams Hand Assembler For Puller Over Relationship Specialty Start Date End Date Mora Díaz DO [address] [place] [address] PCP - General Family Medicine 07/22/18
--- OUTSIDE RECORDS SUMMARY | 2025-05-06 15:40 | XMS_ITS | Encounter Summary ---
Author Organization [employer] Address [address] [place] [address] [address] [place] [address] Care Team Providers Care Finishing Powder Press Operator Name Role Phone Mora Díaz DO Primary Care Provider [phone] Vee Ornelas PharmD Unavailable [phone] Reason for Visit * Reason Comments Med Refill Encounter Details Date Type Department Care Team ([facility] st Contact Info) Description 03/21/2024 Refill [facility] [address] [place], [place] [phone] Mora Díaz DO [address] [place] [address] Social History Tobacco Use Types Packs/Day Years [...] documented as of this encounter Care Teams Finishing Powder Press Operator Relationship Specialty Start Date End Date Mora Díaz DO [address] [place] [address] PCP - General Family Medicine 07/22/18 Vee Ornelas, Julia [address] [place] [phone] Pharmacist Internal Medicine 02/20/23 12/31/24 documented as of this encounter
--- OUTSIDE RECORDS SUMMARY | 2025-05-06 15:40 | XMS_ITS | Encounter Summary ---
Author Organization [employer] Address [address] [place] [address] [address] [place] [address] Care Team Providers Care Director Of Regional Sales Name Role Phone Mora Díaz DO Primary Care Provider + [phone] Reason for Visit * Reason Onset Date Comments TELEPHONE CALL 05/06/2025 Encounter Details Date Type Department Care Team ([facility] st Contact Info) Description 05/06/2025 Telephone [facility] [address] [place], [place] [phone] Mora Díaz DO [address] [place], [place] [phone] TELEPHONE CALL Social History Tobacco Use Types Packs/Day Years [...] encounter Miscellaneous Notes * Telephone Encounter - Sherie Campos - 05/06/2025 2:30 PM EDT Pt walked in requesting a refill for Nitroglycerin 0.4mg he asked it be sent to [facility] in [place] on [address] documented in this encounter Plan of Treatment [...] documented as of this encounter Care Teams Director Of Regional Sales Relationship Specialty Start Date End Date Mora Díaz DO [address] [place] [address] PCP - General Family Medicine 07/22/18 documented as of this encounter
--- OUTSIDE RECORDS SUMMARY | 2025-05-06 15:40 | XMS_ITS | Encounter Summary ---
Author Organization [employer] Address [address] [facility] [address]t [place] [address] Care Team Providers Care Storekeeper Steward Name Role Phone BhupendraMora short Primary Care Provider + [phone] Vee Ornelas PharmD Unavailable [phone] Reason for Visit * Reason Comments Med Refill Encounter Details Date Type Department Care Team ([facility] st Contact Info) Description 05/09/2023 Refill [facility] [address] [place] [address] Martha Lou, JAY GERD without esophagitis Social [...] documented as of this encounter Care Teams Storekeeper Steward Relationship Specialty Start Date End Date Mora Díaz DO [address] [place], [place] [phone] PCP - General Family Medicine 07/22/18 Vee Ornelas PharmD [address] [place], [place] [phone] Pharmacist Internal Medicine 02/20/23 12/31/24 documented as of this encounter
--- OUTSIDE RECORDS SUMMARY | 2025-05-06 15:40 | XMS_ITS | Encounter Summary ---
Author Organization [employer] Address [address] [place] [address] [address] [place] [address] Care Team Providers Care Cuff Stitcher Name Role Phone Mora Díaz DO Primary Care Provider [phone] Vee Ornelas PharmD Unavailable [phone] Reason for Visit * Reason Comments Med Refill Encounter Details Date Type Department Care Team ([facility] st Contact Info) Description 09/25/2024 Refill [facility] [address] [place] [address] Mora Díaz DO [address] [place] [address] Social History Tobacco Use Types Packs/Day Years [...] Not at all 09/25/2024 9:24 AM Alycia Gumaan [place] * Moving or speaking so slowly [...] documented as of this encounter Care Teams Cuff Stitcher Relationship Specialty Start Date End Date Mora Díaz DO [address] [place] [address] PCP - General Family Medicine 07/22/18 Vee Ornelas PharmD [address] [place] [address] Pharmacist Internal Medicine 02/20/23 12/31/24 documented as of this encounter
== END 2025-05-06 12:31 | disposition home or self-care (01) ==
LOC: HO.RESP 12:30
PROVIDERS: PCP Family Medicine; Visit Provider Family Medicine
DX: R05.3 Chronic cough (principal); R06.00 Dyspnea, unspecified; Z87.891 Personal history of nicotine dependence
CPT/HCPCS: 94060; 94640; 94727; 94729

== ENCOUNTER → 2025-05-06 13:00 | Outpatient (BNV) | payer MEDICARE, MEDICAID, SELFPAY | PROVIDERS: PCP Family Medicine; Visit Provider Internal Medicine Pulmonary Disease | DX: J98.4 Other disorders of lung (principal) | CPT/HCPCS: 94060; 94727; 94729 ==

== ENCOUNTER 2025-07-21 12:17 | Outpatient (REF) | payer MEDICARE, MEDICAID, SELFPAY ==
--- OUTSIDE RECORDS SUMMARY | 2025-07-20 09:00 | XMS_ITS | Encounter Summary ---
Author Organization [email or web address] Address [address] [place] [address] 7 [place] [address] Care Team Providers Care Financial Foundations Representative Name Role Phone Mora Díaz DO Primary Care Provider + [phone] Reason for Visit * Reason Comments Follow-up Encounter Details Date Type Department Care Team ([facility] st Contact Info) Description 07/20/2025 9:00 AM EST Office Visit [facility] [address] [place], [place] [phone] Mora Díaz DO [address] [place] [address] Type 2 diabetes mellitus with diabetic microalbuminuria, with long-term current use of insulin (HCC) Social History Tobacco Use Types Packs/Day Years Used Date Smoking Tobacco: Former Cigarettes S tarted: 2001 Passive Smoke Exposure: Past Smokeless Tobacco: Never Tobacco Cessation:Counseling Given: Not Answered Alcohol Use Standard Drinks/Week Comments Not Currently 0 (1 standard drink = 0.6 oz pur e alcohol) Depression Answer Date Recorded Patient Health Questionnaire-9 Score 0 07/20/2025 Patient Health Questionnaire-9 Score 0 07/20/2025 Last PHQ-9: Questionnaire Data Not on file 1 Housing Stability Answer Date Recorded What is [...] Date Recorded Patient Health Questionnaire-2 Score 0 07/20/2025 Internet Access Answer Date Recorded Internet Access [...] Sign Reading Time Taken Comments Blood Pressure 134/72 07/20/2025 8:50 AM EST Pulse 67 07/20/2025 8:50 AM EST Temperature 36.1 C (97 F) 07/20/2025 8:50 AM EST Respiratory Rate 20 07/20/2025 8:50 AM EST Oxygen Saturation 97% 07/20/2025 8:50 AM EST Inhaled Oxygen Concentration - - Weight 110 kg (243 lb) 07/20/2025 8:50 AM EST Height 172.7 cm (5' 8 ) 07/20/2025 8:50 AM EST Body Mass Index 36.95 07/20/2025 8:50 AM EST documented in this encounter Functional Status * Over the past 2 weeks, how often have you been bothered by any of the following problems? Question Answer Date of Assessment Author Patient Health Questionnaire-2 Score 0 07/20/2025 9:02 AM EST Karla Cleary MA * Little interest or pleasure in doing things Answer Date of Assessment Author Not at all 07/20/2025 9:02 AM EST Karla Shabazz MA * Feeling down, depressed, or hopeless Answer Date of Assessment Author Not at all 07/20/2025 9:02 AM Karla Bryant MA * Trouble falling or staying asleep, or sleeping too much Answer Date of Assessment Author Not at all 07/20/2025 9:02 AM Karla Bryant MA * Feeling tired or having little energy Answer Date of Assessment Author Not at all 07/20/2025 9:02 AM Karla Bryant MA * Poor appetite or overeating Answer Date of Assessment Author Not at all 07/20/2025 9:02 AM Karla Bryant MA * Feeling bad about yourself - or that you are a failure or have let yourself or your family down Answer Date of Assessment Author Not at all 07/20/2025 9:02 AM Karla Bryant MA * Trouble concentrating on things, such as reading the newspaper or watching television Answer Date of Assessment Author Not at all 07/20/2025 9:02 AM Karla Bryant MA * Moving or speaking so slowly that other people could have noticed? Or the opposite - being so fidgety or restless that you have been moving around a lot more than usual. Answer Date of Assessment Author Not at all 07/20/2025 9:02 AM Karla Bryant MA * Thoughts that you would be better off or hurting yourself in some way Answer Date of Assessment Author Not at all 07/20/2025 9:02 AM Karla Bryant MA * Patient Health Questionnaire-9 Score Answer Date of Assessment Author 0 07/20/2025 9:02 AM Karla Bryant MA * Over the last 2 weeks, how often have you been bothered by any of the following problems? Question Answer Date of Assessment Author Feeling nervous, anxious, or on edge 0 07/20/2025 9:02 AM Karla Uribe MA Not being able to stop or control worrying 0 07/20/2025 9:02 AM Karla Uribe MA Worrying too much about different things 0 07/20/2025 9:02 AM Karla Uribe MA Trouble relaxing 0 07/20/2025 9:02 AM EST Karla Almendarez MA Being so restless that it is hard to sit still 0 07/20/2025 9:02 AM EST Karla Cleary MA Becoming easily annoyed or irritable 0 07/20/2025 9:02 AM EST Karla Cleary MA Feeling afraid as if something awful might happen 0 07/20/2025 9:02 AM EST Karla Perla MA TC-7 Total Score 0 07/20/2025 9:02 AM EST Karla Cleary MA documented as of this encounter Plan of Treatment Upcoming Encounters Date Type Department Care Team (Late st Contact Info) Description 08/03/2025 1:00 PM EST Clinical Support [facility] [address] [place] [phone] documented as of this encounter Goals Goal Patient Goal Type Associated Problems Recent Progress Patient-Stated? Author Blood Pressure < 140/90 Blood Pressure 134/72(2024 8:50 AM EST) No Nicholas Mulligan, PharmIrena Note: Goal to resolve hypoTN (DBP) and low/borderline low HR Record your blood pressure periodically Blood Pressure On track( 024 11:34 AM EST) No Vee Ornelas PharmIrena Hemoglobin A1c < 7.5 Result Component 7.1( 9:06 AM EST) No Nicholas Mulligan PharmIrena Record your blood sugar as directed Result Component On track( 024 11:34 AM EST) No Vee Ornelas PharmD Note: Use CGM, ensuring sensor is scanned at least once every 8 hours to capture 24H data. Check BG manually, as directed. Help patients manage their type 2 diabetes Care Plan Help patients manage their type 2 diabetes Shu Vaughan Weekly blood pressure task Care Plan Weekly blood pressure task Shu Vaughan Help patients manage their type 2 diabetes Care Plan Help patients manage their type 2 diabetes Shu Vaughan Patient has chronic kidney disease Care Plan Patient has chronic kidney disease No Shu Kinsey Weekly blood pressure task Care Plan Weekly blood pressure task No Shu Kinsey Patient has chronic kidney disease Care Plan Patient has chronic kidney disease No Shu Kinsey Weekly blood pressure task Care Plan Weekly blood pressure task No Pamela Bolden MA Weekly blood pressure task Care Plan Weekly blood pressure task No Pamela Bolden MA Patient has chronic kidney disease Care Plan Patient has chronic kidney disease No Pamela Bolden MA Patient has chronic kidney disease Care Plan Patient has chronic kidney disease No Pamela Bolden MA Weekly blood pressure task Care Plan Weekly blood pressure task No Pamela Bolden MA Weekly blood pressure task Care Plan Weekly blood pressure task No Pamela Bolden MA Patient has chronic kidney disease Care Plan Patient has chronic kidney disease No Pamela Bolden MA Patient has chronic kidney disease Care Plan Patient has chronic kidney disease No Pamela Bolden MA Weekly blood pressure task Care Plan Weekly blood pressure task No Sanders, Cyndy Weekly blood pressure task Care Plan Weekly blood pressure task No Sanders Cyndy Patient has chronic kidney disease Care Plan Patient has chronic kidney disease No Sanders Cyndy Patient has chronic kidney disease Care Plan Patient has chronic kidney disease No SandersCyndy Weekly blood pressure task Care Plan Weekly blood pressure task No Pamela Bolden MA Weekly blood pressure task Care Plan Weekly blood pressure task No Pamela Bolden MA Patient has chronic kidney disease Care Plan Patient has chronic kidney disease No Pamela Bolden MA Patient has chronic kidney disease Care Plan Patient has chronic kidney disease No Pamela Bolden MA Weekly blood pressure task Care Plan Weekly blood pressure task No Karla Irving MA Weekly blood pressure task Care Plan Weekly blood pressure task No Karla Irving MA Patient has chronic kidney disease Care Plan Patient has chronic kidney disease No Karla Irving MA Patient has chronic kidney disease Care Plan Patient has chronic kidney disease No Karla Irving MA Weekly blood pressure task Care Plan Weekly blood pressure task No Karla Irving MA Weekly blood pressure task Care Plan Weekly blood pressure task No Karla Irving MA Patient has chronic kidney disease Care Plan Patient has chronic kidney disease Karla Valencia MA Patient has chronic kidney disease Care Plan Patient has chronic kidney disease No Karla Irving MA documented as of this encounter Procedures Procedure Name Priority Date/Time Associated Diagnosis Comments POCT GLUCOSE ([id number]) Routine 07/20/2025 9:03 AM EST Type 2 diabetes mellitus with diabetic microalbuminuria, with long-term current use of insulin (HCC) documented in this encounter Results * (ABNORMAL) POCT Glucose (07/20/2025 9:03 AM EST) Glucose Blood, POC 276(A) 60 - 200 mg/dL Blood Capillary blood specimen / Unknown 07/20/2025 9:03 AM EST Mora Díaz DO POINT OF CARE TEST ENTER/UYEN T ORDERABLES Final Result documented in this encounter Visit Diagnoses Diagnosis Type 2 diabetes mellitus with diabetic microalbuminuria, with long-term current use of insulin (HCC) documented in this encounter Additional Health Concerns Active Problems Noted Date Diagnosed Date Help patients manage their type 2 diabetes 06/04 Weekly blood pressure task 06/04/2025 Help patients manage their type 2 diabetes 06/04 Patient has chronic kidney disease 06/04/2025 Weekly blood pressure task 06/04/2025 Patient has chronic kidney disease 06/04/2025 Weekly blood pressure task 06/08/2025 Weekly blood pressure task 06/08/2025 Patient has chronic kidney disease 06/08/2025 Patient has chronic kidney disease 06/08/2025 Weekly blood pressure task 06/09/2025 Weekly blood pressure task 06/09/2025 Patient has chronic kidney disease 06/09/2025 Patient has chronic kidney disease 06/09/2025 Weekly blood pressure task 06/24/2025 Weekly blood pressure task 06/24/2025 Patient has chronic kidney disease 06/24/2025 Patient has chronic kidney disease 06/24/2025 Weekly blood pressure task 07/14/2025 Weekly blood pressure task 07/14/2025 Patient has chronic kidney disease 07/14/2025 Patient has chronic kidney disease 07/14/2025 Weekly blood pressure task 07/20/2025 Weekly blood pressure task 07/20/2025 Patient has chronic kidney disease 07/20/2025 Patient has chronic kidney disease 07/20/2025 Weekly blood pressure task 07/20/2025 Weekly blood pressure task 07/20/2025 Patient has chronic kidney disease 07/20/2025 Patient has chronic kidney disease 07/20/2025 Assessment Noted Time PHQ-9 Depression Total Score: 0 07/20/20 25 9:02 AM EST documented as of this encounter Care Teams Financial Foundations Representative Relationship Specialty Start Date End Date Mora Díaz DO [address] [place] [address] PCP - General Family Medicine 07/22/18 documented as of this encounter
--- NOTE | ~2025-07-21 | US_ITS ---
EXAMINATION: US THYROID HISTORY: prominent thyroid on CT chest with ? thyroid nodule TECHNIQUE: Real-time grayscale ultrasound imaging was performed and images were reviewed. COMPARISON: Correlation is made with an unenhanced chest CT dated 04/10/2025. FINDINGS: SIZE: The right thyroid lobe measures 5.4 x 1.8 x 2.1 cm. The left thyroid lobe measures 1.5 x 1.9 x 2.1 cm. The isthmus measures 5 mm. FLOW: Flow to the gland is normal. ECHOGENICITY: The echotexture of the gland is homogeneous. NODULES: Multiple nodules are identified as described below: Nodule #: 1 Location: Midportion of the right thyroid lobe measuring 9 x 5 x 10 mm. Shape: Wider than tall (0 points) Margins: Smooth (0 points) Echotexture: Isoechoic (1 point) Composition: Mixed (1 point) Calcifications: None (0 points) Total points: 2 TIRADS: TR2: Not suspicious Nodule #: 2 Location: Lower pole of the right thyroid lobe measuring 1.3 x 1.3 x 1.3 cm. Shape: Wider than tall (0 points) Margins: Ill-defined (0 points) Echotexture: Hypoechoic (2 points) Composition: Solid (2 points) Calcifications: Punctate calcifications (3 points) Total points: 7 TIRADS: TR5: Highly suspicious. Nodule #: 3 Location: Lower pole of the right thyroid lobe measuring 10 x 8 x 13 mm. Shape: Wider than tall (0 points) Margins: Ill-defined (0 points) Echotexture: Hypoechoic (2 points) Composition: Solid (2 points) Calcifications: None (0 points) Total points: 4 TIRADS: TR4: Moderately suspicious. Nodule #: 4 Location: Lower pole of the left thyroid lobe measuring 2.6 x 1.7 x 1.8 cm. Shape: Wider than tall (0 points) Margins: Smooth (0 points) Echotexture: Hyperechoic (1 point) Composition: Solid (2 points) Calcifications: None (0 points) Total points: 3 TIRADS: TR3: Mildly suspicious. US/US thyroid IMPRESSION: Multiple bilateral thyroid nodules are identified. There is a highly suspicious nodule at the lower pole of the right thyroid lobe (nodule #2 above) and a mildly suspicious nodule at the lower pole of the left thyroid lobe (nodule #4 above), both of which meet ACR TI-RADS guidelines (see below) for ultrasound-guided fine-needle aspiration. ACR TI-RADS Guidelines TR1 (0 points): Benign. No follow-up or biopsy required TR2 (2 points): Not Suspicious. No biopsy or follow up indicated TR3 (3 points): Mildly Suspicious. FNA if >= 2.5 cm, Follow if >= 1.5 cm TR4 (4-6 points): Moderately Suspicious. FNA if >= 1.5 cm, Follow if >= 1.0 cm TR5 (>=7 points): Highly Suspicious. FNA if >= 1.0 cm, Follow if >= 0.5 cm Electronically signed by: Rip Johnson MD 07/21/2025 01:07 PM JENN
--- OUTSIDE RECORDS SUMMARY | 2025-07-21 14:03 | XMS_ITS | Encounter Summary ---
Author Organization [employer] Address [address] [facility] 7t [place] [address] Care Team Providers Care Die Sinker Name Role Phone Mora Díaz DO Primary Care Provider + [phone] Encounter Details Date Type Department Care Team (Latest Contact Info) Description 07/20/2025 Travel Social History Tobacco Use Types Packs/Day [...] Description 08/03/2025 1:00 PM EST Clinical Support [address] [address] documented as of this encounter Goals Goal Patient Goal Type Associated Problems Recent Progress Patient-Stated? Author Blood Pressure < 140/90 Blood Pressure 134/72(2024 8:50 AM EST) No Nicholas Mulligan PharmD Note: Goal to resolve hypoTN (DBP) and low/borderline low HR Record your blood pressure periodically Blood Pressure On track( 024 11:34 AM EST) No Vee Ornelas PharmD Hemoglobin A1c < 7.5 Result Component 7.1( 9:06 AM EST) No Nicholas Mulligan, PharmIrena Record [...] Weekly blood pressure task No Shu Kinsey Help patients manage their type 2 diabetes Care Plan Help patients manage their type 2 diabetes No hSu Kinsey Patient has chronic kidney disease Care [...] Care Plan Weekly blood pressure task No Cyndy Sanders Weekly blood pressure task Care Plan Weekly blood pressure task No Sanders Cyndy Patient has chronic kidney disease Care Plan Patient has chronic kidney disease No Sanders Cyndy Patient has chronic kidney disease Care Plan Patient has chronic kidney disease No Cyndy Sanders Weekly blood pressure task Care Plan Weekly [...] Irving MA documented as of this encounter Visit Diagnoses Not on filedocumented in this encounter Additional Health Concerns Active [...] documented as of this encounter Care Teams Die Sinker Relationship Specialty Start Date End Date Mora Díaz DO [address] [place] [id number] PCP - General Family Medicine 07/22/18 documented as of this encounter
--- OUTSIDE RECORDS SUMMARY | 2025-07-21 14:03 | XMS_ITS | Encounter Summary ---
Author Organization [employer] Address [address] [place] [address] 7t [place] [address] Care Team Providers Care International Controller Name Role Phone Mora Díaz DO Primary Care Provider [phone] Vee Ornelas PharmD Unavailable Reason for Visit * Reason Comments Med Refill Encounter Details Date Type Department Care Team ([facility] st Contact Info) Description 08/03/2024 Refill [facility] [address] [place], [place] [phone] Mora Díaz DO [address] [place] [address] Type 2 diabetes mellitus with diabetic microalbuminuria, with long-term current use of insulin ([facility]) Social History Tobacco Use Types Packs/Day [...] Description 08/03/2025 1:00 PM EST Clinical Support [address] [address] documented as of this encounter Goals Goal Patient Goal Type Associated Problems Recent Progress Patient-Stated? Author Blood Pressure < 140/90 Blood Pressure 134/72(2024 8:50 AM EST) No Nicholas Mulligan, Julia Note: Goal to [...] documented as of this encounter Care Teams International Controller Relationship Specialty Start Date End Date Mora Díaz DO [address] [place] [address] PCP - General Family Medicine 07/22/18 Vee Ornelas PharmD [address] [place] [address] Pharmacist Internal Medicine 02/20/23 12/31/24 documented as of this encounter
--- OUTSIDE RECORDS SUMMARY | 2025-07-21 14:03 | XMS_ITS | Encounter Summary ---
Author Organization [employer] Address [address] [place] [address] 7[address] [place] [address] Care Team Providers Care Child Care Leader Name Role Phone oMra Díaz DO Primary Care Provider [phone] Vee Ornelas PharmD Unavailable Reason for Visit * Reason Comments Med Refill Encounter Details Date Type Department Care Team ([facility] st Contact Info) Description 04/24/2024 Refill [facility] [address] [place], [place] [phone] Mora Díaz DO [address] [place] [address] GERD without esophagitis Social History Tobacco Use [...] Description 08/03/2025 1:00 PM EST Clinical Support [address] [address] documented as of this encounter Goals Goal Patient Goal Type Associated Problems Recent Progress Patient-Stated? Author Blood Pressure < 140/90 Blood Pressure 134/72(2024 8:50 AM EST) No Nicholas Mulligan, PharmD Note: Goal to resolve hypoTN (DBP) and low/borderline low HR Record your blood pressure periodically Blood Pressure On track( 024 11:34 AM EST) No Vee Ornelas, PharmD Hemoglobin A1c < 7.5 Result Component 7.1( 9:06 AM EST) No Nicholas Mulligan, PharmD Record [...] documented as of this encounter Care Teams Child Care Leader Relationship Specialty Start Date End Date Mora Díaz DO [address] [place], [place] [phone] PCP - General Family Medicine 07/22/18 Vee Ornelas, Julia [address] [place] [address] Pharmacist Internal Medicine 02/20/23 12/31/24 documented as of this encounter
--- OUTSIDE RECORDS SUMMARY | 2025-07-21 14:03 | XMS_ITS | Encounter Summary ---
Author Organization [employer] Address [address] [place] [address] 7t [place] [address] Care Team Providers Care Auxiliary Engineer Name Role Phone Mora Díaz DO Primary Care Provider [phone] Vee Ornelas PharmD Unavailable [phone] Reason for Visit * Reason Comments Med Refill Encounter Details Date Type Department Care Team ([facility] st Contact Info) Description 04/16/2024 Refill [facility] [address] [place], [place] [phone] Mora Díaz DO [address] [place] [address] Social History Tobacco Use Types Packs/Day Years [...] Description 08/03/2025 1:00 PM EST Clinical Support [address] [address] documented as of this encounter Goals Goal [...] documented as of this encounter Care Teams Auxiliary Engineer Relationship Specialty Start Date End Date Mora Díaz DO [address] [place] [address] PCP - General Family Medicine 07/22/18 Vee Ornelas, Julia [address] [place] [address] Pharmacist Internal Medicine 02/20/23 12/31/24 documented as of this encounter
--- OUTSIDE RECORDS SUMMARY | 2025-07-21 14:03 | XMS_ITS | Encounter Summary ---
Author Organization [employer] Address [address] [place] [address] [address] [place] [address] Care Team Providers Care Beading Sawyer Name Role Phone Mora Díaz DO Primary Care Provider + [phone] Reason for Visit * Reason Onset Date Comments Medication change 07/20/2025 Encounter Details Date Type Department Care Team ([facility] st Contact Info) Description 07/20/[address] [facility] [address] [place], [place] [phone] Mora Díaz DO [address] [place], [place] [phone] Medication change Social History Tobacco Use Types Packs/Day Years [...] encounter Miscellaneous Notes * Telephone Encounter - Karla Cleary MA - 07/20/2025 2:40 PM EST Tc was made to inform pt of pcp's plan of stopping lisinopril and starting olmesartan 20 mg. Pt agreed with plan and has a two week BP check scheduled with Red team nurses. documented in this encounter Plan of Treatment Upcoming Encounters Date Type Department Care Team (Late st Contact Info) Description 08/03/2025 1:00 PM EST Clinical Support [address] [address] documented as of this encounter Goals Goal [...] 7.1( 9:06 AM EST) No Nicholas Mulligan PharmD Record your blood sugar as directed Result Component On track( 024 11:34 AM EST) No Vee Ornelas PharmD Note: Use CGM, ensuring sensor is scanned at least once every 8 hours to capture 24H data. Check BG manually, as directed. Help patients manage their type 2 diabetes Care Plan Help patients manage their type 2 diabetes No Shu Kinsey Weekly blood pressure task Care Plan Weekly blood pressure task No Shu Kinsey Help patients manage their type 2 diabetes Care Plan Help patients manage their type 2 diabetes No Shu Kinsey Patient has chronic kidney [...] Care Plan Weekly blood pressure task No SandersCyndy Patient has chronic kidney disease Care Plan Patient has chronic kidney disease No Sanders Cyndy Patient has chronic kidney disease Care Plan Patient has chronic kidney disease No Danny Sandersira Weekly blood pressure task Care Plan Weekly [...] documented as of this encounter Care Teams Beading Sawyer Relationship Specialty Start Date End Date Mora Díaz DO [address] [place] [address] PCP - General Family Medicine 07/22/18 documented as of this encounter
--- OUTSIDE RECORDS SUMMARY | 2025-07-21 14:03 | XMS_ITS | Clinical Summary ---
Author Organization [employer] Address [address] [place] [address] [address] [place] [address] Care Team Providers Care Song Lyricist Name Role Phone BhupendraMora short Primary Care Provider + [phone] Allergies Active Allergy Reactions Criticality Noted Date [...] HOURS NEEDED 8.5 g 2 023 Active clotrimazole (Lotrimin) 1 % creamIndications:Ba lanitis Apply topically 2 times daily. 30 g 2 024 Active meclizine (Antivert) 12.5 MG tabletIndications:B [...] every 15 days for CGM 2 each 06/25/20 25 1:42 PM EST Active Continuous Glucose Cuffing Machine Operator (FreeStyle Deirdre 3 [place]) device 1 each 3 times daily. Use daily as directed for CGM 1 each 025 Active senna (Senokot) 8.6 MG tabletIndications:C hronic constipation TAKE TWO TABLETS EVERY DAY AT BEDTIME 180 tablet 2 025 Active Alcohol Swabs (Alcohol Prep) pads Use to check blood sugar and inject insulin (four times daily) 100 each Active aspirin 81 MG EC tabletIndications:T ype 2 diabetes mellitus with diabetic microalbuminuria, with long-term current use of insulin ([facility]) take 1 tablet (81MG) by oral route every day 90 tablet 3 Active glucose blood (FreeStyle Precision Martin Test) test stripIndications:Ty pe 2 diabetes mellitus with diabetic microalbuminuria, with long-term current use of insulin ([facility]) TEST BLOOD SUGAR UP TO TWICE DAILY, DIRECTED 100 each 025 2025 Active insulin pen needle (Pentips) 32G x 4 mm miscIndications:Typ e 2 diabetes mellitus with diabetic microalbuminuria, with long-term current use of insulin ([facility]) Use 1 daily with insulin 100 each Active linaGLIPtin (Tradjenta) 5 MG tablet Take 1 tablet (5 mg) by mouth in the morning. 90 tablet 025 2025 Active rosuvastatin (Crestor) 20 MG tabletIndications:T ype 2 diabetes mellitus with microalbuminuria (HCC) Take 1 tablet (20 mg) by mouth in the morning. 90 tablet Active TRUEplus Lancets 33G miscIndications:Typ e 2 diabetes mellitus with diabetic microalbuminuria, with long-term current use of insulin ([facility]) TEST BLOOD SUGAR UP TO TWICE DAILY DIRECTED 100 each Active diphenhydrAMINE (BENADryl) 25 MG tabletIndications:C hronic allergic rhinitis take 1 tablet by oral route every 6 hours as needed for Itching And Rash 30 tablet 2 08/12/2 025 Active glipiZIDE (Glucotrol) 10 MG tablet Take 1.5 tablets (15 mg) by mouth before breakfast and before evening meal. 270 tablet 3 2025 Active triamcinolone (Kenalog) 0.1 % cream Apply [...] of candidiasis. Do not swallow. 90 Act Active cetirizine (ZyrTEC) 10 MG tabletIndications:A llergic rhinitis, unspecified seasonality, unspecified trigger TAKE 1 TABLET BY MOUTH EVERY DAY NEEDED FOR ALLERGIES 90 tablet 3 Active nitroglycerin (Nitrostat) 0.4 MG SL tabletIndications:C oronary artery disease involving [place] heart, unspecified vessel or lesion type, unspecified whether angina present Place 1 tablet (0.4 mg) under the tongue every 5 (five) minutes if needed for chest pain. 25 tablet 1 Active carvedilol (Coreg) 6.25 MG tablet Take 1 tablet (6.25 mg) by mouth with breakfast and with evening meal. 60 tablet 11 025 2025 Active baclofen (Lioresal) 10 MG tablet TAKE 1 TABLET (10 MG) BY MOUTH NEEDED IN THE MORNING , AT NOON, AND AT BEDTIME FOR MUSCLE SPASMS 60 tablet 1 Active fluticasone (Flonase) 50 MCG/ACT nasal sprayIndications:Ch ronic allergic rhinitis INHALE 1 - 2 SPRAYS IN EACH NOSTRIL ONCE DAILY NEEDED. Shake gently. Before first use, prime pump. After use, clean tip and replace cap. 48 g 1 Active ondansetron (Zofran) 4 MG tabletIndications:N ausea and vomiting, unspecified vomiting type Take 1 tablet (4 mg) by mouth every 8 (eight) hours if needed for nausea or vomiting. 20 tablet Active insulin glargine (Lantus SoloStar) 100 UNIT/ML pen Inject 56 units under the skin daily. 15 mL 5 Active hydroCHLOROthiazide (HYDRODiuril) 50 MG tablet Take 50 mg by mouth in the morning. Active olmesartan (Benicar) 20 MG tablet Take 1 tablet (20 mg) by mouth Once per day. 30 tablet 11 025 2025 Active ibuprofen 800 MG tablet Take 1 tablet (800 mg) by mouth if needed in the morning, at noon, and at bedtime for mild pain or moderate pain. 30 tablet 2025 Active benzonatate (Tessalon) 100 MG capsule Take 1 capsule (100 mg) by mouth if needed in the morning, at noon, and at bedtime for cough for up to 10 days. Do not crush or chew. 30 capsule 2025 Active fluticasone (Flonase) 50 MCG/ACT nasal spray INHALE 1 - 2 SPRAYS IN EACH NOSTRIL ONCE DAILY NEEDED. Shake gently. Before first use, prime pump. After use, clean tip and replace cap. 48 g 1 024 2024 Discontinued(R eorder (will not trigger notification to Pharmacy)) hydroCHLOROthiazide (HYDRODiuril) 25 MG tablet Take 1 tablet (25 mg) by mouth in the morning. 90 tablet 3 025 2024 Discontinued lisinopril 40 MG tablet Take 1 tablet (40 mg) by mouth in the morning. 90 tablet 3 025 2024 Discontinued(I neffective) insulin glargine (Lantus SoloStar) 100 UNIT/ML pen [...] Encounters Date Type Department Care Team Description 07/20/2025 9:00 AM EST Office Visit [facility] [address] [place] [phone] Mora Díaz, Type 2 diabetes mellitus with diabetic microalbuminuria, with long-term current use of insulin (HCC) 07/20/2025 Telephone [facility] [address] [place] [address] Mora Díaz DO Medication change 07/20/2025 Travel 07/14/2025 Telephone [facility] [address] [place] [address] Mora Díaz DO Chart Prep 06/24/[address] [place] [address] Mora Díaz DO Chronic allergic rhinitis; Nausea and vomiting, unspecified vomiting type 06/14/2025 9:00 AM EST Office Visit [facility] [address] [place] [phone] Mora Díaz DO Type 2 diabetes mellitus with diabetic microalbuminuria, with long-term current use of insulin (HCC) (Primary Dx); Essential hypertension; Other hyperlipidemia; Coronary artery disease involving [place] heart, unspecified vessel or lesion type, unspecified whether angina present; Fatty liver; Chronic GERD; Chronic constipation; Obstructive sleep apnea; Chronic allergic rhinitis; Chronic bilateral low back pain, unspecified whether sciatica present; Chronic cough; Neck pain; Pulmonary nodule; Healthcare maintenance 06/14/2025 Travel 06/08/2025 Telephone [facility] [address] [place] [phone] Mora Díaz DO Chart Prep 06/04/2025 Patient Outreach [facility] [address] [place] [phone] Mora Díaz DO Pre-visit Planning (SDOH screening completed on 03/02/2025) 05/28/2025 Telephone [facility] [address] [place] [phone] Mora Díaz DO 05/20/2025 Refill [facility] [address] [place] [phone] Mora Díaz DO 05/19/2025 10:30 AM EDT Office Visit [facility] [address] [place] [phone] Sita Bernabe NP Abnormal findings on auscultation (Primary Dx); Hypertension, unspecified type 05/19/2025 Travel 05/18/2025 Orders Only [facility] [address] [place] [phone] Mora Díaz DO Multiple lung nodules (Primary Dx); Thyroid nodule 05/17/2025 Telephone [facility] [address] [place] [phone] Mora Díaz DO telephone call 05/06/2025 Refill [facility] [address] [place] [address] Mora Díaz, Coronary artery disease involving [place] heart, unspecified vessel or lesion type, unspecified whether angina present 04/20/2025 Telephone [facility] [address] [place] [address] Mora Díaz, CT Chest results from Last 3 Months Immunizations Immunization Administration [...] Split (incl. sergo fied surface antigen) 04/07/2013,04/18/2012 Influenza, trivalent, adjuvanted 05/04/2025 Pfizer Covid-19 Vaccine 12+ 04/13/2024,1 ,05/12/2021,09/28,09/06/2020 Pfizer [...] Mass Index 36.95 07/20/2025 8:50 AM EST Plan of Treatment Upcoming Encounters Date Type Department Care Team (Late st Contact Info) Description 08/03/2025 1:00 PM EST Clinical Support [facility] [address] [place] [address] Health Maintenance Due Date Last Done Comments CT Colonography 1950 Dental Prophylaxis 1950 FIT DNA/Cologuard 1950 FIT 1950 FOBT 1950 Sigmoidoscopy 1950 Diabetes: Foot Exam 1960 Eye Exam 1960 Dental X-Ray: Bitewings 02/25/2012 02/23/2011 Dental Oral Exam 11/08/2019 05/08/2019, 11/2018, 06/11/2016, Additional history exists Dental X-Ray: Full Mouth 09/24/2021 019, 12/08/2015, 02/23/2011 Colonoscopy 09/28/2023 09/27/2020, 09/27/2020 Colorectal Cancer Screening 09/28/2023 Diabetes: Hemoglobin A1C 09/14/2025 025, 03/02/2025, 01/01/2025, Additional history exists Lipid Panel 09/30/2025 09/30/2024, 08/23, 07/03/2022, Additional history exists COVID-19 Vaccine ( season) 2025 05/04/2025, 04/13/2024, 04/25/2023, Additional history exists Alcohol/Substance Use Screening 03/02/2026 03/02/2025 SDOH Screening 03/02/2026 03/02/2025 Depression Screening 07/20/2026 07/20/2025, 07/20/20 25 Tobacco Screening 07/20/2026 07/20/2025 DTaP/Tdap/Td Vaccines (3 - Td or Tdap) 12/06/2030 12/06/2020, 05/22/2010, 02/24/2001 Hepatitis B Vaccines Completed 06/07/2015, 01/11/2015, 12/10/2014 Zoster Vaccines Completed 04/03/2021, 01/19, 01/11/2015 Pneumococcal Vaccine: 50+ Years Completed 04/30/2023, 05/14/2017, 12/21/2015, Additional history exists Hepatitis A Vaccines Completed 05/31/2023, 05/24/20 04 RSV Patients and Patients Aged 60 years or older Completed 12/09/2023 Hepatitis C Screening Completed 09/30/2024, 021 Influenza Vaccine Completed 05/04/2025, , 04/22/2023, Additional [...] Hemoglobin A1c < 7.5 Result Component 7.1( 5 9:06 AM EST) No Nicholas Mulligan PharmD [...] Patient has chronic kidney disease No Sanders Cydny Patient has chronic kidney disease Care Plan Patient has chronic kidney disease No SandersDannyCyndy Weekly blood pressure task Care Plan Weekly [...] Plan Weekly blood pressure task No Karla Irvnig MA Weekly blood pressure task Care Plan Weekly blood pressure task No Karla Irving MA Patient has chronic kidney disease Care Plan Patient has chronic kidney disease No Karla Irving MA Patient has chronic kidney disease Care Plan Patient has chronic kidney disease No Karla Irving MA Procedures Procedure Name Priority Date/Time Associated Diagnosis Comments US THYROID Routine 07/21/2025 12:32 PM EST Thyroid nodule POCT GLUCOSE (CPT-34810) Routine 07/20/2025 9:03 AM EST Type 2 diabetes mellitus with diabetic microalbuminuria, with long-term current use of insulin (HCC) POCT GLYCATED HEMOGLOBIN, TOTAL Routine 06/14/2025 9:06 AM EST Type 2 diabetes mellitus with diabetic microalbuminuria, with long-term current use of insulin (HCC) POCT GLUCOSE (CPT-35395) Routine 06/14/2025 9:04 AM EST Type 2 diabetes mellitus with diabetic microalbuminuria, with long-term current use of insulin (HCC) [facility] US CAROTID ARTERY DUPLEX BILATERAL Routine 04/21/2025 2:13 PM EDT Dizziness HEPATITIS C AB W/REFL TO HCV RNA, QN, PCR Routine 09/30/2024 10:04 AM EDT Type 2 diabetes mellitus with diabetic microalbuminuria, with long-term current use of insulin (CMS/HCC) Essential hypertension Other hyperlipidemia Coronary artery disease involving [place] heart, unspecified vessel or lesion type, unspecified whether angina present Fatty liver Chronic GERD Chronic constipation Obstructive sleep apnea Chronic allergic rhinitis Chronic bilateral low back pain, unspecified whether sciatica present Healthcare maintenance LIPID PANEL, STANDARD Routine 09/30/2024 10:04 AM EDT Type 2 diabetes mellitus with diabetic microalbuminuria, with long-term current use of insulin ([facility]) Essential hypertension Other hyperlipidemia Coronary artery disease involving [place] heart, unspecified vessel or lesion type, unspecified [...] Relevant to Health Maintenance Results * US Thyroid (07/21/2025 12:32 PM EST) Anatomical Region Laterality Modality Head, Neck Ultrasound 07/21/2025 12:3 2 PM EST Narrative 07/21/2025 1:10 PM EST [place] [address] Ultrasound Report Signed Patient: Vitaly Brown MR#: [id number] 04 : 1950 Acct:[id number] Age/Sex: 75 / M ADM Date: 07/21/25 Loc: HO.US Attending Dr: Mora Díaz DO Ordering Physician: Mora Díaz DO Date of Service: 07/21/25 Procedure(s): US thyroid Accession Number(s): [id number] cc: Mora Díaz DO Reason for Exam: prominent thyroid on CT chest with ? thyroid nodule EXAMINATION: US THYROID HISTORY: prominent thyroid on CT chest with ? thyroid nodule TECHNIQUE: Real-time grayscale ultrasound imaging was performed and images were reviewed. COMPARISON: Correlation is made with an unenhanced chest CT dated 04/10/2025. FINDINGS: SIZE: The right thyroid lobe measures 5.4 x 1.8 x 2.1 cm. The left thyroid lobe measures 1.5 x 1.9 x 2.1 cm. The isthmus measures 5 mm. FLOW: Flow to the gland is normal. ECHOGENICITY: The echotexture of the gland is homogeneous. NODULES: Multiple nodules are identified as described below: Nodule #: 1 Location: Midportion of the right thyroid lobe measuring 9 x 5 x 10 mm. Shape: Wider than tall (0 points) Margins: Smooth (0 points) Echotexture: Isoechoic (1 point) Composition: Mixed (1 point) Calcifications: None (0 points) Total points: 2 TIRADS: TR2: Not suspicious Nodule #: 2 Location: Lower pole of the right thyroid lobe measuring 1.3 x 1.3 x 1.3 cm. Shape: Wider than tall (0 points) Margins: Ill-defined (0 points) Echotexture: Hypoechoic (2 points) Composition: Solid (2 points) Calcifications: Punctate calcifications (3 points) Total points: 7 TIRADS: TR5: Highly suspicious. Nodule #: 3 Location: Lower pole of the right thyroid lobe measuring 10 x 8 x 13 mm. Shape: Wider than tall (0 points) Margins: Ill-defined (0 points) Echotexture: Hypoechoic (2 points) Composition: Solid (2 points) Calcifications: None (0 points) Total points: 4 TIRADS: TR4: Moderately suspicious. Nodule #: 4 Location: Lower pole of the left thyroid lobe measuring 2.6 x 1.7 x 1.8 cm. Shape: Wider than tall (0 points) Margins: Smooth (0 points) Echotexture: Hyperechoic (1 point) Composition: Solid (2 points) Calcifications: None (0 points) Total points: 3 TIRADS: TR3: Mildly suspicious. US/US thyroid IMPRESSION: Multiple bilateral thyroid nodules are identified. There is a highly suspicious nodule at the lower pole of the right thyroid lobe (nodule #2 above) and a mildly suspicious nodule at the lower pole of the left thyroid lobe (nodule #4 above), both of which meet ACR TI-RADS guidelines (see below) for ultrasound-guided fine-needle aspiration. ACR TI-RADS Guidelines TR1 (0 points): Benign. No follow-up or biopsy required TR2 (2 points): Not Suspicious. No biopsy or follow up indicated TR3 (3 points): Mildly Suspicious. FNA if >= 2.5 cm, Follow if >= 1.5 cm TR4 (4-6 points): Moderately Suspicious. FNA if >= 1.5 cm, Follow if >= 1.0 cm TR5 (>=7 points): Highly Suspicious. FNA if >= 1.0 cm, Follow if >= 0.5 cm Electronically signed by: Rip Johnson MD 07/21/2025 01:07 PM [facility] Dictated By: Rip Johnson MD Signed By: <Electronically signed by Rip Johnson MD in [place]> 07/21/25 1307 DD/ 1232 TD/TT: 07/21/25 1240 Nutrition Services Associate: Procedure Note Donotuseinterpreter, Image - 07/21/2025 [place] [address] Ultrasound Report Signed Patient: Vitaly Brown [facility]#: [id number] 04 : 1950Acct:[id number] Age/Sex: 75 / MADM Date: 07/21/25 Loc: HO.US Attending Dr: Mora Díaz DO Ordering Physician: Mora Díaz DO Date of Service: 07/21/25 Procedure(s): US thyroid Accession Number(s): [id number] cc: Mora Díaz DO Reason for Exam: prominent thyroid on CT chest with ? thyroid nodule EXAMINATION: US THYROID HISTORY: prominent thyroid on CT chest with ? thyroid nodule TECHNIQUE: Real-time grayscale ultrasound imaging was performed and images were reviewed. COMPARISON: Correlation is made with an unenhanced chest CT dated 04/10/2025. FINDINGS: SIZE: The right thyroid lobe measures 5.4 x 1.8 x 2.1 cm. The left thyroid lobe measures 1.5 x 1.9 x 2.1 cm. The isthmus measures 5 mm. FLOW: Flow to the gland is normal. ECHOGENICITY: The echotexture of the gland is homogeneous. NODULES: Multiple nodules are identified as described below: Nodule #: 1 Location: Midportion of the right thyroid lobe measuring 9 x 5 x 10 mm. Shape: Wider than tall (0 points) Margins: Smooth (0 points) Echotexture: Isoechoic (1 point) Composition: Mixed (1 point) Calcifications: None (0 points) Total points: 2 TIRADS: TR2: Not suspicious Nodule #: 2 Location: Lower pole of the right thyroid lobe measuring 1.3 x 1.3 x 1.3 cm. Shape: Wider than tall (0 points) Margins: Ill-defined (0 points) Echotexture: Hypoechoic (2 points) Composition: Solid (2 points) Calcifications: Punctate calcifications (3 points) Total points: 7 TIRADS: TR5: Highly suspicious. Nodule #: 3 Location: Lower pole of the right thyroid lobe measuring 10 x 8 x 13 mm. Shape: Wider than tall (0 points) Margins: Ill-defined (0 points) Echotexture: Hypoechoic (2 points) Composition: Solid (2 points) Calcifications: None (0 points) Total points: 4 TIRADS: TR4: Moderately suspicious. Nodule #: 4 Location: Lower pole of the left thyroid lobe measuring 2.6 x 1.7 x 1.8 cm. Shape: Wider than tall (0 points) Margins: Smooth (0 points) Echotexture: Hyperechoic (1 point) Composition: Solid (2 points) Calcifications: None (0 points) Total points: 3 TIRADS: TR3: Mildly suspicious. US/US thyroid IMPRESSION: Multiple bilateral thyroid nodules are identified. There is a highly suspicious nodule at the lower pole of the right thyroid lobe (nodule #2 above) and a mildly suspicious nodule at the lower pole of the left thyroid lobe (nodule #4 above), both of which meet ACR TI-RADS guidelines (see below) for ultrasound-guided fine-needle aspiration. ACR TI-RADS Guidelines TR1 (0 points): Benign. No follow-up or biopsy required TR2 (2 points): Not Suspicious. No biopsy or follow up indicated TR3 (3 points): Mildly Suspicious. FNA if >= 2.5 cm, Follow if >= 1.5 cm TR4 (4-6 points): Moderately Suspicious. FNA if >= 1.5 cm, Follow if >= 1.0 cm TR5 (>=7 points): Highly Suspicious. FNA if >= 1.0 cm, Follow if >= 0.5 cm Electronically signed by: Rip Johnson MD 07/21/2025 01:07 PM EST Dictated By: Rip Johnson MD Signed By: <Electronically signed by Rip Johnson MD in [place]> 07/21/25 1307 DD/ 1232 TD/TT: 07/21/25 1240 Nutrition Services Associate: Mora Díaz DO IMG US PROCEDURES Final Resu lt * (ABNORMAL) POCT Glucose (07/20/2025 9:03 AM EST) Only the most recent of2 resultswithin the time period is included. Glucose Blood, POC 276(A) 60 - 200 mg/dL Blood Capillary blood specimen / Unknown 07/20/2025 9:03 AM EST Mora Díaz DO POINT OF CARE TEST ENTER/UYEN T ORDERABLES Final Result * (ABNORMAL) POCT Hgb A1c (06/14/2025 9:06 AM EST) Hemoglobin A1C 7.1(A) 4.0 - 5.7 % QC Media Lot # [id number] Lot# Expiration Date [id number] Blood 06/14/2025 9:06 AM EST Mora Díaz DO POINT OF CARE TEST ENTER/UYEN T ORDERABLES Final Result * Vascular US carotid artery duplex bilateral (04/21/2025 2:13 PM EDT) 04/21/2025 2:13 PM EDT [facility] - 04/21/2025 4:35 PM EDT [address] [address] Ultrasound Report Signed Patient: Vitaly Brown MR#: [id number] [birth year] : 1950 Acct:[id number] Age/Sex: 74 / M ADM Date: 04/21/25 [facility] Att[facility] Dr: Mora Díaz DO Ordering Physician: Mora Díaz DO Date of Service: 04/21/25 Procedure(s): US carotid duplex BI Accession Number(s): [id number] cc: Mora Díaz DO Reason for Exam: [...] 04/21/25 1632 DD/ 1413 TD/TT: 04/21/25 1425 Nutrition Services Associate: Procedure Note Donotuseinterpreter, Image - 04/21/2025 [place] [address] Ultrasound Report Signed Patient: Vitaly Brown [facility]#: [id number] 04 : 1950Acct:[id number] Age/Sex: 74 / MADM Date: 04/21/25 Loc: [facility] Attending Dr: Mora Díaz DO Ordering Physician: Mora Díaz DO Date of Service: 04/21/25 Procedure(s): US carotid duplex BI Accession Number(s): [id number] cc: Mora Díaz DO Reason for Exam: [...] 04/21/25 1632 DD/ 1413 TD/TT: 04/21/25 1425 Nutrition Services Associate: Mora Díaz DO CV VASCULAR PROCEDURES Final Result Performing Organization Address City/[facility]/ZIP Co de Phone Number [facility] [address] [place] [phone] * Hepatitis C Antibody with Reflex to HCV, RNA, Quantitative, Real-Time PCR (09/30/2024 10:04 AM EDT) Hepatitis C Antibody Nonreactive Nonreactive [facility] Comment:Antibodies to HCV no t detected; does not exclude early acuteHCV infection. Blood Venous blood specimen / Unknown 09/30/2024 10:04 AM EDT 09/30/2024 11:40 AM EDT Mora Díaz DO LAB BLOOD ORDERABLES Final R esult Performing Organization Address [facility]/ZIP Co de Phone Number [facility] [address] [place] [phone] * (ABNORMAL) Lipid Panel, Standard (09/30/2024 10:04 AM EDT) Triglycerides 83 <150 mg/dL [facility] Comment:Desirable Triglyceri de: less than 150 mg/dLBorderline High Triglyceride 150-199 mg/dLHigh Triglyceride: 200-499 mg/dLVery High Triglyceride: greater than or equal to 5OO mg/dL Cholesterol 178 <200 mg/dL [facility] Comment:Desirable Cholestero l: less than 200 mg/dLBorderline High Cholesterol: 200-239 mg/dLHigh Cholesterol: greater than 239 mg/dL LDL Cholesterol Calculated 119(H) <100 mg/dL [facility] Comment:Desirable LDL: less than 100 mg/dLNear Optimal/Above Optimal LDL: 110- 129 mg/dLBorderline High LDL: 130-159 mg/dLHigh LDL: 160-189 mg/dLVery High LDL: greater than or equal to 190 mg/dL HDL Cholesterol 43 >40 mg/dL [facility] Comment:Desirable HDL: great er than 40 mg/dL Note: This HDL assay may give artificially low results in patients with liver disease. Blood Venous blood specimen / Unknown 09/30/2024 10:04 AM EDT 09/30/2024 11:40 AM EDT Mora Díaz DO LAB BLOOD ORDERABLES Final R esult [facility] [address] [place] [phone] * (ABNORMAL) Hm Colonoscopy (09/27/2020) Colonoscopy Abnormal( A) Normal Comment:repeat in 3 yrs 09/27/2020 Alex Murrell MD HEALTH MAINTENANCE Final Res ult from Last 3 Months or Most Recently Relevant to Health Maintenance Additional Health Concerns Active Problems Noted Date [...] 07/20/2025 Patient has chronic kidney disease 07/20/[address] [place] [address] [facility]IC[facility] ST[facility] ADULT Care Teams Song Lyricist Relationship Specialty Start Date End Date Mora Díaz DO [address] [place] [phone] PCP - General Family Medicine 07/22/18
--- OUTSIDE RECORDS SUMMARY | 2025-07-21 14:03 | XMS_ITS | Encounter Summary ---
Author Organization [employer] Address [address] [place] [address] 7t [place] [address] Care Team Providers Care Wastewater Treatment Plant Instructor Name Role Phone Mora Díaz DO Primary Care Provider [phone]- [phone] Vee Ornelas PharmD Unavailable [phone] Reason for Visit * Reason Comments Med Refill Encounter Details Date Type Department Care Team ([facility] st Contact Info) Description 09/25/2024 Refill [facility] [address] [place] [address] Mora Díaz DO [address] [place] [address] Social History Tobacco Use Types Packs/Day Years [...] Description 08/03/2025 1:00 PM EST Clinical Support [facility] [address] [place] [address] documented as of this encounter Goals Goal [...] documented as of this encounter Care Teams Wastewater Treatment Plant Instructor Relationship Specialty Start Date End Date Mora Díaz DO [address] [place] [address] PCP - General Family Medicine 07/22/18 Vee Ornelas PharmD [address] [place] [address] Pharmacist Internal Medicine 02/20/23 12/31/24 documented as of this encounter
--- OUTSIDE RECORDS SUMMARY | 2025-07-21 14:04 | XMS_ITS | Encounter Summary ---
Author Organization [employer] Address [address] [facility] 7t [place] [address] Care Team Providers Care Staff Development Coordinator Rn Name Role Phone Mora Díaz DO Primary Care Provider [phone]- [phone] Vee Ornelas PharmD Unavailable [phone] Reason for Visit * Reason Comments Med Refill Encounter Details Date Type Department Care Team ([facility] st Contact Info) Description 09/24/2024 Refill [facility] [address] [place] [address] Mora Díaz DO [address] [place] [address] Social History Tobacco Use Types Packs/Day Years [...] Description 08/03/2025 1:00 PM EST Clinical Support [address] [address] documented as of this encounter Goals Goal [...] as of this encounter Care Teams Staff Development Coordinator Rn Relationship Specialty Start Date End Date Mora Díaz DO [address] [place] [address] PCP - General Family Medicine 07/22/18 Vee Ornelas PharmD [address] [place] [address] Pharmacist Internal Medicine 02/20/23 12/31/24 documented as of this encounter
--- OUTSIDE RECORDS SUMMARY | 2025-07-21 14:04 | XMS_ITS | Encounter Summary ---
Author Organization [employer] Address [address] [place] [address] 7t [place] [address] Care Team Providers Care Commutator Repairer Name Role Phone Mora Díaz DO Primary Care Provider [phone] Vee Ornelas PharmD Unavailable [phone] Reason for Visit * Reason Comments Med Refill Encounter Details Date Type Department Care Team ([facility] st Contact Info) Description 03/21/2024 Refill [facility] [address] [place], [place] [phone] Mora Díaz DO [address] [place] [address] Social History Tobacco Use Types Packs/Day Years [...] Description 08/03/2025 1:00 PM EST Clinical Support [address] [address] documented as of this encounter Goals Goal [...] documented as of this encounter Care Teams Commutator Repairer Relationship Specialty Start Date End Date Mora Díaz DO [address] [place] [address] PCP - General Family Medicine 07/22/18 Vee Ornelas, Julia [address] [place] [address] Pharmacist Internal Medicine 02/20/23 12/31/24 documented as of this encounter
--- OUTSIDE RECORDS SUMMARY | 2025-07-21 14:04 | XMS_ITS | Encounter Summary ---
Author Organization [employer] Address [address] [facility] 7t [place] [address] Care Team Providers Care Whipped Topping Finisher Name Role Phone BhupendraMora short Primary Care Provider + [phone] Vee Ornelas PharmD Unavailable [phone] Reason for Visit * Reason Comments Med Refill Encounter Details Date Type Department Care Team ([facility] st Contact Info) Description 05/09/[address] [facility] [address] [place] [address] Martha Lou, JAY GERD without esophagitis Social [...] Description 08/03/2025 1:00 PM EST Clinical Support [facility] [address] [place] [address] documented as of this encounter Goals Goal [...] documented as of this encounter Care Teams Whipped Topping Finisher Relationship Specialty Start Date End Date Mora Díaz DO [address] [place] [address] PCP - General Family Medicine 07/22/18 Vee Ornelas, LeoonrD [address] [place] [address] Pharmacist Internal Medicine 02/20/23 12/31/24 documented as of this encounter
--- OUTSIDE RECORDS SUMMARY | 2025-07-21 14:04 | XMS_ITS | Patient Health Record ---
Author Organization [facility] Address [address] [place] [id number] Care Team Providers Care Electronic Musical Instrument Repairer Name Role Phone Mora Díaz M.D. Primary Care Provider Alex Scott Jr Unavailable [phone] Allergies Allergen (clinical drug ingredient) Drug/Non Drug Allergy documented on EMR Reaction Allergy Type Onset Date Status Glucophage Unknown Drug Allergy Active atorvastatin Lipitor Unknown Drug Allergy Acti ve Reason For Referral No Information Medications Medication SIG (Take, Route, Frequency, Duration) Notes Start Date End Date Status Rosuvastatin Calcium 20 MG Tablet TK 1 T PO QD Oral; Duration: 90 Active HumaLOG 100 UNIT/ML Solution Cartridge as directed Subcutaneous QD Unknown Ondansetron HCl 4 MG Tablet 1 tablet Ora lly Once a day; Duration: 30 day(s) 08/23/2022 Active Aspirin 81mg Tablet 1 tablet Orally Once a day Active prednisoLONE Acetate Unknown Trulicity Active Topiramate 25 MG Tablet Orally Active glipiZIDE 5 MG Tablet Orally 2 in the am and 4 in the pm Active Carvedilol 3.125 MG Tablet 1 tablet with food Orally Twice a day Active Albuterol Sulfate HFA 108 (9 0 Base) MCG/ACT Aerosol Solution INL 2 PFS PO Q 4 TO 6 H PRN Inhalation; Duration: 16 Unknown Loratadine 10 MG Tablet 1 tablet Orally prn Active Simethicone 125 MG Tablet Chewable CHEW AND SWALLOW 1 T PO QID PRF GASSINESS Oral; Duration: 15 Unknown oxyCODONE HCl 15 MG Tablet 1 tablet Orally prn Active Baclofen 10 MG Tablet TK 1 T PO TID PRF SPASMS Oral; Duration: 20 Unknown Vitamin D 50 MCG (1999 UT) Tablet TK 1 T PO D Oral; Duration: 30 Active Flovent HFA 110 MCG/ACT Aerosol 1 puff Inhalation Twice a day Unknown Fluticasone Propionate 50 MCG/ACT Suspension PLACE 1 TO 2 SPRAY BY INTRANASAL ROUTE QD PRN Nasal; Duration: 90 Active hydroCHLOROthiazide 25 MG Tablet 1 capsule Orally Once a day Active Basaglcassia MagañaPen Act parag Lisinopril 40 MG Tablet 1 tablet Orally Once a day Active Omeprazole 40 MG Capsule Delayed Release TAKE 1 CAPSULE BY MOUTH TWICE DAILY; Duration: 30 Active Lantus 100 UNIT/ML Solution as directed Subcutaneous QD Active Nitrostat 0.4 MG Tablet Sublingual 1 Sublingual prn Unknown Immunizations Vaccine Route Administration Date Status Comme nts Flu vaccine no Preserv 3 and > Unknown 05/05/2014 Admin istered Flu vaccine no Preserv 3 and > Unknown 05/04/2015 Admin istered Influenza Unknown 05/04/2020 Administered Influenza Unknown 03/22/2022 Administered Social History Social History Additional Details Category Social Info Options Details Miscellaneous: Marital status: l doroteo with girlfriend Occupation: [employer]/ retired Problems Problem Type SNOMED Code ICD Code Onset Dates Problem Status W/U Status Risk Notes Problem Gastro-esophageal reflux disease without esophagitis (559923046) Gastro-esophageal reflux disease without esophagitis (K21.9) Active confirmed Problem Change in bowel habit (50242567) Change in bowel habits (R19.4) Active confirmed Problem Gastroesophageal reflux disease (366182085) Gastroesophageal reflux disease (K21.9) Active confirmed Problem Gastroesophageal reflux disease without esophagitis (593777804) Gastroesophageal reflux disease without esophagitis (K21.9) Active confirmed Problem Colitis (97002438) Colitis (K52.9) Active confi rmed Problem Nausea and vomiting (81021387) Nausea and vomiting, unspecified vomiting type (R11.2) Active confirmed Encounters Encounter Location Date Provider Diagnosis [facility] [address] [place] [address] 07/23/2024 Alex Murrell Jr Plan Of Treatment [...] [address] [place] [address] [id number] SHAYNA SIMPSON Self - patient is the insured [facility] [address] [place] [phone] [id number] SHAYNA SIMPSON Self - patient is the insured Medical (General) History Medical History History ICD Code colonoscopy 09/27, endoscopic appearing rectal proctitis, and normal biopsies, except right colon showing nonspecific mild focal active colitis. Previous treatment with Asacol currently off all medications. Colonoscopy 10/09, no colitis, 2 tubular adenomas five-year followup hypertension elevated cholesterol diabetes coronary artery disease status post OH insomnia depression CRISTOFER/CPAP gastroesophageal reflux disease, EGD 09/27, no Herrera's or H. pylori. Surgical History Surgery Date(Month/Year) removal of fatty tumor on the neck Eye surgery - right eye
--- OUTSIDE RECORDS SUMMARY | 2025-07-21 14:04 | XMS_ITS | Encounter Summary ---
Author Organization [employer] Address [address] [place] [address] 7t [place] [address] Care Team Providers Care Salesperson Sewing Machines Name Role Phone Mora Díaz DO Primary Care Provider [phone] Vee Ornelas PharmD Unavailable [phone] Reason for Visit * Reason Comments Med Refill Encounter Details Date Type Department Care Team ([facility] st Contact Info) Description 03/16/2024 Refill [facility] [address] [place], [place] [phone] Mora Díaz DO [address] [place] [address] Social History Tobacco Use Types Packs/Day Years [...] Description 08/03/2025 1:00 PM EST Clinical Support [address] [address] documented as of this encounter Goals Goal [...] documented as of this encounter Care Teams Salesperson Sewing Machines Relationship Specialty Start Date End Date Mora Díaz DO [address] [place] [address] PCP - General Family Medicine 07/22/18 Vee Ornelas, Julia [address] [place] [address] Pharmacist Internal Medicine 02/20/23 12/31/24 documented as of this encounter
--- OUTSIDE RECORDS SUMMARY | 2025-07-21 14:04 | XMS_ITS | Encounter Summary ---
Author Organization [employer] Address [address] [place] [address] 7t [place] [address] Care Team Providers Care Boring Machine Operator Production Name Role Phone BhupendraMora short Primary Care Provider [phone] Reason for Referral * Consultation (Routine) - Closed Specialty Diagnoses / Procedures Referred By Angel morris Referred To Contact Pharmacy Diagnoses Essential hypertension Jayshree Rosas MD [address] [place] [address] Phone: tel: fax: Referral ID Status Reason Start Date Expiration Date V isits Requested Visits Authorized [id number] Closed Continuity of Care 01/11/2025 01/11/2026 6 6 Encounter Details Date Type Department Care Team (Late st Contact Info) Description 01/06/2025 Orders Only [facility] [address] [place], [place] [phone] Jayshree Rosas MD [address] [place], [place] [phone] Essential hypertension (Primary Dx) Social History Tobacco [...] Description 08/03/2025 1:00 PM EST Clinical Support [facility] [address] [place] [phone] Scheduled Referrals Name Type Priority Associated Diagnoses Orde r Schedule Referral to Pharmacy [place] Outpatient Referral Routine Essential hypertension Ordered: 01/11/2025 documented as of this encounter Goals Goal Patient Goal Type Associated Problems Recent Progress Patient-Stated? Author Blood Pressure < 140/90 Blood Pressure 134/72(2024 8:50 AM EST) No Nicholas Mulligan, PharmD Note: Goal to resolve hypoTN (DBP) and low/borderline low HR Record your blood pressure periodically Blood Pressure On track(02/22/2 024 11:34 AM EST) No Vee Ornelas [...] documented as of this encounter Care Teams Boring Machine Operator Production Relationship Specialty Start Date End Date Mora Díaz DO [address] [place] [address] PCP - General Family Medicine 07/22/18 documented as of this encounter
--- OUTSIDE RECORDS SUMMARY | 2025-07-21 14:04 | XMS_ITS | Encounter Summary ---
Author Organization [employer] Address [address] [place] [address] 7t [place] [address] Care Team Providers Care Contracting Support Specialist Name Role Phone Mora Díaz DO Primary Care Provider [phone] Vee Ornelas PharmD Unavailable [phone] Reason for Visit * Reason Onset Date Comments Med Refill TelephoneCall 11/01/2024 Encounter Details Date Type Department Care Team (Late st Contact Info) Description 11/01/2024 Refill [facility] [address] [place] [address] Mora Díaz DO [address] [place] [address] Social History Tobacco Use Types Packs/Day Years [...] Insurance. RX requires a PA. Patient utilizes [employer] on [facility]. Patient can be reached at [phone]. Thanks. documented in this encounter Plan of Treatment Upcoming Encounters Date Type Department Care Team (Late st Contact Info) Description 08/03/2025 1:00 PM EST Clinical Support [address] [address] documented as of this encounter Goals Goal [...] Time PHQ-9 Depression Total Score: 0 09/26/19 9:24 AM EST documented as of this encounter Care Teams Contracting Support Specialist Relationship Specialty Start Date End Date Mora Díaz DO [address] [place] [address] PCP - General Family Medicine 07/22/18 Vee Ornelas PharmD [address] [place] [address] Pharmacist Internal Medicine 02/20/23 12/31/24 documented as of this encounter
--- OUTSIDE RECORDS SUMMARY | 2025-07-21 14:04 | XMS_ITS | Encounter Summary ---
Author Organization [employer] Address [address] [facility] 7t [place] [address] Care Team Providers Care Shellfish Farming Supervisor Name Role Phone Mora Díaz DO Primary Care Provider [phone] Vee Ornelas PharmD Unavailable [phone] Encounter Details Date Type Department Care Team ([facility] st Contact Info) Description 11/18/2023 Telephone [facility] [address] [place], [place] [phone] Mora Díaz DO [address] [place] [address] Social History Tobacco Use Types Packs/Day Years [...] Support [facility] [address] [place] [address] documented as of this encounter Goals Goal [...] documented as of this encounter Care Teams Shellfish Farming Supervisor Relationship Specialty Start Date End Date Mora Díaz DO [address] [place] [address] PCP - General Family Medicine 07/22/18 Vee Ornelas PharmD [address] [place] [address] Pharmacist Internal Medicine 02/20/23 12/31/24 documented as of this encounter
== END 2025-07-21 12:18 | disposition home or self-care (01) ==
LOC: HO.US 12:17
PROVIDERS: PCP Family Medicine; Visit Provider Family Medicine
DX: E04.1 Nontoxic single thyroid nodule (principal)
CPT/HCPCS: 76536

== ENCOUNTER → 2025-07-21 12:21 | Outpatient (BNV) | payer MEDICARE, MEDICAID, SELFPAY | PROVIDERS: PCP Family Medicine; Visit Provider Radiology Diagnostic Radiology | DX: E04.2 Nontoxic multinodular goiter (principal) | CPT/HCPCS: 76536 ==